=== PATIENT | female | born 1960 | race Caucasian/White ===

== ENCOUNTER 2018-05-18 12:10 | Inpatient (IN) | payer MEDICAID, OTHER ==
[2018-05-18] MEDS ORDERED: NACL 0.9% 1000 ML 1,000 ML ONE (12:41)
[2018-05-18] MEDS ORDERED: NACL 0.9% 1000 ML IV ONE (12:44)
[2018-05-18] MEDS ORDERED: NACL 0.9% 1000 ML 1,000 ML IV ONE (12:48)
[2018-05-18] MEDS ORDERED: ZOSYN/NS 4.5GM/100ML 4.5 GM/100 ML VIAL IV ONE (12:48)
[2018-05-18] MEDS ORDERED: TYLENOL PR ONE ×3 (12:49→18:40)
--- NOTE | 2018-05-18 12:54 | Emergency Department Report ---
ED General Adult HPI - General Stated complaint: DEHYDRATION, FEVER, REFUSAL TO EAT/ DRINK Time Seen by Provider: 05/18/18 12:44 - History of Present Illness Initial comments: Patient is 58-year-old female with history of schizophrenia. Patient brought into the ER for evaluation of fever and hypotension. Patient brought to the ER from psychiatric facility called [facility]. Staff at the psychiatric facility reported that patient refused to eat and drink for the last 3 days with initial blood pressure of 65/36. Patient is not communicating, she is aggressive. Code Sepsis immediately called. - Related Data Allergies Allergy/AdvReac Type Severity Reaction Status Date / Time Unable to Assess Allergy Unverified 05/18/18 13:11 ED Review of Systems ROS: Stated complaint: DEHYDRATION, FEVER, REFUSAL TO EAT/ DRINK Other details as noted in HPI Comment: Unobtainable due to pts medical conditions ED Past Medical Hx - Past Medical History Hx Psychiatric Treatment: Yes ED Physical Exam - General Limitations: Language Barrier, Altered Mental Status General appearance: alert, in no apparent distress - Head Head exam: Present: atraumatic, normocephalic, normal inspection - Eye Eye exam: Present: normal appearance - ENT ENT exam: Present: normal exam, normal orophraynx, mucous membranes moist - Neck Neck exam: Present: normal inspection, full ROM. Absent: tenderness, meningismus, lymphadenopathy, thyromegaly - Respiratory Respiratory exam: Present: normal lung sounds bilaterally - Cardiovascular Cardiovascular Exam: Present: regular rate, normal rhythm, normal heart sounds - GI/Abdominal GI/Abdominal exam: Present: soft, normal bowel sounds. Absent: distended, tenderness, guarding, rebound, rigid, organomegaly, mass, bruit, pulsatile mass - Extremities Exam Extremities exam: Present: normal inspection, full ROM, normal capillary refill - Back Exam Back exam: Present: normal inspection, full ROM. Absent: tenderness, CVA tenderness (R), CVA tenderness (L), muscle spasm, paraspinal tenderness, vertebral tenderness, rash noted - Neurological Exam Neurological exam: Present: alert, altered, reflexes normal. Absent: normal gait - Psychiatric Psychiatric exam: Present: agitated, anxious, manic - Skin Skin exam: Present: warm, dry, intact ED Course Vital Signs 05/18/18 12:28 Temperature 103.1 F H Pulse Rate 98 H Respiratory 20 Rate Blood Pressure 67/48 O2 Sat by Pulse 98 Oximetry - Reevaluation(s) Reevaluation #1: 05/18/18 15:54 Patient is significantly improved. Blood pressure now is 137/78 after 2 L of fluid. ED Medical Decision Making - Lab Data Result diagrams: 05/18/18 12:50 05/18/18 12:50 - Medical Decision Making I discussed the patient is Dr. Che, he agreed to admit the patient to his service. Critical Care Time: Yes Critical care time in (mins) excluding proc time.: 30 Critical care attestation.: If time is entered above; I have spent that time in minutes in the direct care of this critically ill patient, excluding procedure time. ED Disposition Clinical Impression: Sepsis, Fever, Acute renal failure Disposition: -09 OP ADMIT IP TO THIS HOSP Is pt being admited?: Yes Condition: Stable Referrals: NICOLETTE BROWN [Other] - 3-5 Days
[2018-05-18 13:15] LABS: Hematocrit 49.8 % (30.3-42.9); Mean Corpuscular HGB Conc 32 % (30-34); Mean Corpuscular Hemoglobin 30 pg (28-32); Mean Corpuscular Volume 93 fl (79-97); Platelet Count 318 K/mm3 (140-440); Red Blood Count 5.38 M/mm3 (3.65-5.03); Red Cell Distribution Width 14.1 % (13.2-15.2)
[2018-05-18 13:31] LABS: Albumin 4.1 g/dL (3.9-5); Calcium 10.5 mg/dL (8.4-10.2)
[2018-05-18 13:59] LABS: Basophils % (Manual) 0 % (0.0-1.8); Eosinophils % (Manual) 0 % (0.0-4.3); Total Cells Counted 100
[2018-05-18 14:00] LABS: Platelet Estimate Cons; RBC Morphology Normal
--- NOTE | 2018-05-18 14:05 | XRay Report ---
CHEST ONE VIEW INDICATION: Fever. COMPARISON: None similar at this institution. FINDINGS: Portable, single, frontal chest radiograph demonstrates normal cardiomediastinal silhouette. Clear lungs, given the inspiration. Unremarkable bones. CONCLUSION: No acute disease in the chest. Thank you for the opportunity to participate in this patient's care.
[2018-05-18 14:21] LABS: Bilirubin,Urine NEG (Negative); Blood,Urine NEG (Negative); Color,Urine Amber (Yellow); Mucus,Urine FEW /HPF
--- NOTE | 2018-05-18 16:22 | Cat Scan Report ---
FINAL REPORT PROCEDURE: CT ABDOMEN PELVIS WO CON TECHNIQUE: Computerized axial tomography of the abdomen and pelvis was performed without intravenous contrast. This study is performed without intravascular contrast material and its sensitivity for abdominal and pelvic pathology, including neoplasms, inflammation, abscess, free fluid, thrombosis, arterial dissection and infarction, is reduced compared with a contrast enhanced study. HISTORY: ABDOMINAL PAIN, fever, WBC 93796 COMPARISON: No prior studies are available for comparison. FINDINGS: Lower Lung novak: Scattered nonspecific ground-glass densities seen in the lung bases. No dense consolidations or effusions are seen. Upper Abdomen: The unenhanced images the liver, adrenal glands, the pancreas and the spleen are unremarkable. Gallbladder density is greater than expected. I cannot exclude sludge. Gallbladder is otherwise unremarkable. Kidneys, Ureters and Urinary bladder: Nonspecific 2 millimeter calcifications seen in the periphery of the right kidney. The kidneys and ureters otherwise are unremarkable. No hydronephrosis or ureteral calculi are visualized. Urinary bladder is only partially filled and shows no gross abnormality. Retroperitoneum: Atherosclerotic changes are seen in the abdominal aorta. No aneurysm is visualized. Nonspecific subcentimeter lymph nodes are seen in the retroperitoneum. No pathologically enlarged lymph nodes are identified. Bowel: Bowel loops are unremarkable. No evidence of bowel obstruction ascites or free intraperitoneal gas. Normal-appearing appendix is seen in the right lower quadrant. Reproductive organs: The surface of the uterus is slightly lobulated. I suspect there are uterine fibroids. No abnormal adnexal masses are identified. Other: No acute bony abnormalities are seen. Moderate to advanced degenerative disc disease visualized at L1-L2-L3-L4 disc spaces. IMPRESSION: Density of the gallbladder is greater than expected. I cannot exclude gallbladder disease. Consider gallbladder ultrasound for further evaluation. Small nonspecific nonobstructing calcification right kidney as described. Surface of the uterus slightly lobulated. I suspect there are uterine fibroids present. Degenerative disc disease lumbar spine as described..
[2018-05-18] MEDS ORDERED: ATIVAN IV ONE (17:45)
[2018-05-18] MEDS ORDERED: ATIVAN ONE (18:28)
--- NOTE | 2018-05-18 19:30 | Ultrasound Report ---
FINAL REPORT PROCEDURE: US ABDOMEN LIMITED TECHNIQUE: Real-time sonography was performed of the Gallbladder with image documentation. CPT 99765 HISTORY: RUQ pain COMPARISON: CT scan abdomen and pelvis earlier today. FINDINGS: Today's study is limited due to body habitus and bowel gas. Examination the right upper quadrant shows mild diffuse increased echogenicity throughout the gallbladder suggesting diffuse sludge. No formed gallstones are visualized. Gallbladder wall does not appear to be thickened. No ascites is seen. Common bile duct is normal caliber measuring 3.7 millimeters. The intrahepatic ducts do not appear to be distended. Liver echogenicity appears grossly normal. Right kidney suboptimally visualized. This is better visualized on the CT scan earlier today. No gross abnormality is seen.. Pancreas is obscured by bowel gas and cannot be commented on. Only a small portion of the abdominal aorta visualized proximally which showed no abnormality. Inferior vena cava was not visualized. IMPRESSION: Diffuse increased echogenicity seen throughout the gallbladder consistent with sludge. No formed gallstones are seen. Gallbladder is otherwise unremarkable. Common bile duct is normal caliber. No other abnormalities are seen. The study is limited as described.
--- NOTE | 2018-05-18 21:43 | Event Note ---
Date: 05/18/18 See dictated history and physical in the reports Hypotension Hypernatremia Acute kidney injury Schizophrenia
[2018-05-18] MEDS ORDERED: ZOFRAN IV PRN (21:47)
[2018-05-18] MEDS ORDERED: MORPHINE IV PRN (21:47)
[2018-05-18] MEDS ORDERED: PERCOCET 5/325 PO PRN (21:47)
[2018-05-18] MEDS ORDERED: SODIUM CHLORIDE FLUSH SYRINGE 10 ML IV PRN (21:47)
[2018-05-18] MEDS ORDERED: TYLENOL PO PRN (21:47)
[2018-05-18] MEDS ORDERED: PEPCID IV SCH (22:00)
[2018-05-18] MEDS: TYLENOL PR PRN (22:08)
[2018-05-18] MEDS: SODIUM CHLORIDE FLUSH SYRINGE 10 ML IV SCH (22:08)
[2018-05-18] MEDS: PEPCID IV SCH (22:08)
[2018-05-18] MEDS: NACL 0.45% 1000 ML 1,000 ML IV SCH (22:09)
--- NOTE | 2018-05-18 22:29 | History and Physical Report ---
CHIEF COMPLAINT: Fever and low blood pressure. HISTORY OF PRESENT ILLNESS: A 58-year-old female with history of schizophrenia, who is very quiet and not talking at all with poor p.o. intake, comes in for fever and hypotension. The patient brought to the Emergency Room from psychiatric facility. The patient was at [facility] for the past few days. The patient refused to eat and drink for the last 3 days. Initial blood pressure was 65/36. The patient is not communicating, very aggressive. Code sepsis was called. PAST MEDICAL HISTORY: Schizophrenia and depression. PAST SURGICAL HISTORY: Unavailable. SOCIAL HISTORY: Does not smoke. No alcohol, no recreational drugs. FAMILY HISTORY: Unavailable. REVIEW OF SYSTEMS: Significant for poor p.o. intake, not talking at all, very poorly cooperative. Aggressive behavior. The patient not answering questions whether she has hallucinations, etc. No shortness of breath. A 14-point review of systems done. PHYSICAL EXAMINATION: GENERAL: Middle-aged female, looks older than her age. VITAL SIGNS: Initial blood pressure was 65/36, the least was 67, also the error blood pressure reading was 67/48. Temperature was 103.1. Pulse is 98, respirations are 20. HEENT: Dry mucous membranes. NECK: Supple, no lymphadenopathy, no thyromegaly. LUNGS: Clear to auscultation and percussion. Good air entry. CARDIOVASCULAR: S1, S2 heard. No gallop, no murmur, no rub. Apical impulse in the left fifth intercostal space and midclavicular line. ABDOMEN: Soft and benign. No hepatosplenomegaly. No guarding, no rigidity. Hernial orifices are normal. EXTREMITIES: Good pedal pulses. No pedal edema. CENTRAL NERVOUS SYSTEM: Decreased responsiveness, lethargic. Sometimes she responds adequately. Movement is normal in all 4 extremities. LABORATORY DATA: Significant for white count of 24,000, H and H of 16.0 and 49.8, platelet count is 318,000. Sodium is 160, potassium is 4.1, BUN and creatinine is 49 and 2.5, bicarbonate is 22, AST 63, ALT 76, alkaline phosphatase is 139, calcium is 10.5. Total bilirubin 3.9. Urine was negative. CT of the abdomen shows dense gallbladder, cannot exclude gallbladder disease. Gallbladder ultrasound was recommended by the radiology. Also, small nonspecific non-obstructing calcification, right kidney. The surface of the uterus slightly lobulated. Probable uterine fibroids. Degenerative disk disease in the lumbar spine. Chest x-ray, no acute findings. ASSESSMENT AND PLAN: 1. Sepsis. The patient was hypotensive, high white count consistent with sepsis. The patient initiated on IV fluids and IV broad-spectrum antibiotics, IV Zosyn and vancomycin. Urine was negative. 2. Hypernatremia, half normal saline initiated because her blood glucose was high 182. 3. Acute kidney injury. The patient's BUN and creatinine is 49 and 2.5, suspect that the creatinine is normal level. IV half normal saline at present. Also, Nephrology consult requested. 4. Hyperglycemia. The patient has no history of diabetes. We will get Accu-Cheks and A1c and coverage. If necessary, initiate on oral hypoglycemics or long-acting insulin at the time of discharge. 5. Transaminitis. We will get acute hepatitis profile. 6. Elevated bilirubin, rule out cholecystitis. We will get a surgical consult also. Gallbladder may be the source of infection. 7. Deep venous thrombosis prophylaxis, Lovenox 30 mg subcutaneous daily. In summary, the patient has sepsis, hypotension, which is nearly resolved in the Emergency Room, hypernatremia, acute kidney injury, elevated liver enzymes and elevated bilirubin and possible cholecystitis. JOB# [id number] ANDREW/NEYDA
[2018-05-18] MEDS ORDERED: VANCOMYCIN 1,500 MG in NACL 0.9% 500 ML 500 ML IV ONE (22:30)
[2018-05-18] MEDS ORDERED: VANCOMYCIN PHARMACY TO DOSE IV SCH (23:00)
[2018-05-18] MEDS ORDERED: ZOSYN/NS 2.25 GM/50ML 2.25 GM/50 ML BAG IV SCH (23:00)
[2018-05-18] MEDS: HumaLOG SUB-Q SCH (23:09)
[2018-05-19] MEDS: ZOSYN/NS 2.25 GM/50ML 2.25 GM/50 ML BAG IV SCH ×4 (00:27→19:45)
[2018-05-19] MEDS: TYLENOL PR PRN (04:35)
[2018-05-19 06:35] LABS: Basophils % (Auto) 0.2 % (0.0-1.8); Eosinophils % (Auto) 0.1 % (0.0-4.3); Hematocrit 40.3 % (30.3-42.9); Lymphocytes # (Auto) 1.3 K/mm3 (1.2-5.4); Lymphocytes % (Auto) 8.8 % (13.4-35.0); Mean Corpuscular HGB Conc 32 % (30-34); Mean Corpuscular Hemoglobin 30 pg (28-32); Mean Corpuscular Volume 93 fl (79-97); Monocytes # (Auto) 1.1 K/mm3 (0.0-0.8); Monocytes % (Auto) 7.3 % (0.0-7.3); Platelet Count 202 K/mm3 (140-440); Red Blood Count 4.33 M/mm3 (3.65-5.03); Red Cell Distribution Width 14.1 % (13.2-15.2)
[2018-05-19 07:00] LABS: Albumin 3.3 g/dL (3.9-5); Calcium 9.1 mg/dL (8.4-10.2)
[2018-05-19] MEDS: HumaLOG SUB-Q SCH ×4 (08:50→22:40)
--- NOTE | 2018-05-19 08:56 | Progress Note ---
Assessment and Plan Sepsis with septic shock Possible Gallbladder disease Hypernatrmia MINERVA form ATN hyperglycemia transaminasemia Elevated Bili Continue with iv Vanc and Zosyn Follow up with Cx results iv resuscitation per sepsis protocol Serial Lactic acid level Cautiously increase free water Renal US Nephrology consult Trend glycemic level DVT PPx Subjective Date of service: 05/19/18 Principal diagnosis: sepsis with hypotension Interval history: Pt seen ands examined. nO ever night event reported. deniea any fever chest pain or shortness of breath Objective - Constitutional Vitals: Vital Signs - 12hr 05/18/18 05/18/18 05/18/18 21:02 21:36 22:28 Temperature 101.7 F H Pulse Rate 131 H 92 H Respiratory 26 H 13 Rate Blood Pressure 132/81 124/80 O2 Sat by Pulse 90 98 Oximetry 05/19/18 05/19/18 05/19/18 00:00 00:33 04:14 Temperature 100.9 F H 100.6 F H Pulse Rate 144 H 129 H 130 H Respiratory 26 H 26 H Rate Blood Pressure 134/79 129/77 O2 Sat by Pulse 95 95 Oximetry 05/19/18 07:18 Temperature 98.0 F Pulse Rate 120 H Respiratory 20 Rate Blood Pressure 133/79 O2 Sat by Pulse 96 Oximetry General appearance: Present: no acute distress, well-nourished - EENT Eyes: PERRL, EOM intact Ears: bilateral: normal - Neck Neck: supple, normal ROM - Respiratory Respiratory effort: normal Respiratory: bilateral: CTA - Cardiovascular Rhythm: regular Heart Sounds: Present: S1 & S2. Absent: gallop, rub Extremities: pulses intact, No edema, normal color, Full ROM - Gastrointestinal General gastrointestinal: Present: soft, non-tender, non-distended, normal bowel sounds - Integumentary Integumentary: clear, warm, dry - Musculoskeletal Musculoskeletal: 1, strength equal bilaterally - Neurologic Neurologic: moves all extremities - Psychiatric Psychiatric: memory intact, appropriate mood/affect, intact judgment & insight - Labs CBC & Chem 7: 05/19/18 05:36 05/19/18 05:36 Labs: Abnormal lab results 05/18/18 05/18/18 05/18/18 Range/Units 12:50 12:50 12:50 WBC 24.0 H (4.5-11.0) K/mm3 RBC 5.38 H (3.65-5.03) M/mm3 Hgb 16.0 H (10.1-14.3) gm/dl Hct 49.8 H (30.3-42.9) % Lymph % (Auto) (13.4-35.0) % [place] # (0.0-0.8) K/mm3 Seg Neutrophils % (40.0-70.0) % Seg Neuts % (Manual) 89.0 H (40.0-70.0) % Lymphocytes % (Manual) 4.0 L (13.4-35.0) % Seg Neutrophils # (1.8-7.7) K/mm3 Seg Neutrophils # Man 21.4 H (1.8-7.7) K/mm3 Lymphocytes # (Manual) 1.0 L (1.2-5.4) K/mm3 Monocytes # (Manual) 1.4 H (0.0-0.8) K/mm3 Sodium 160 H (137-145) mmol/L Chloride 119.1 H (98-107) mmol/L BUN 49 H (7-17) mg/dL Creatinine 2.5 H (0.7-1.2) mg/dL Glucose 182 H (65-100) mg/dL POC Glucose (70-105) Lactic Acid 3.40 H* (0.7-2.0) mmol/L Calcium 10.5 H (8.4-10.2) mg/dL Total Bilirubin 3.90 H (0.1-1.2) mg/dL AST 63 H (5-40) units/L ALT 76 H (7-56) units/L Alkaline Phosphatase 139 H (35-129) units/L Total Protein (6.3-8.2) g/dL Albumin (3.9-5) g/dL 05/18/18 05/19/18 05/19/18 Range/Units 22:24 05:36 05:36 WBC 15.2 H (4.5-11.0) K/mm3 RBC (3.65-5.03) M/mm3 Hgb (10.1-14.3) gm/dl Hct (30.3-42.9) % Lymph % (Auto) 8.8 L (13.4-35.0) % [place] # 1.1 H (0.0-0.8) K/mm3 Seg Neutrophils % 83.6 H (40.0-70.0) % Seg Neuts % (Manual) (40.0-70.0) % Lymphocytes % (Manual) (13.4-35.0) % Seg Neutrophils # 12.7 H (1.8-7.7) K/mm3 Seg Neutrophils # Man (1.8-7.7) K/mm3 Lymphocytes # (Manual) (1.2-5.4) K/mm3 Monocytes # (Manual) (0.0-0.8) K/mm3 Sodium 167 H* (137-145) mmol/L Chloride 131.1 H (98-107) mmol/L BUN 39 H (7-17) mg/dL Creatinine 2.0 H (0.7-1.2) mg/dL Glucose 118 H (65-100) mg/dL POC Glucose 121 H (70-105) Lactic Acid (0.7-2.0) mmol/L Calcium (8.4-10.2) mg/dL Total Bilirubin 3.50 H (0.1-1.2) mg/dL AST 68 H (5-40) units/L ALT 69 H (7-56) units/L Alkaline Phosphatase (35-129) units/L Total Protein 6.0 L (6.3-8.2) g/dL Albumin 3.3 L (3.9-5) g/dL // Range/Units 06:35 WBC (4.5-11.0) K/mm3 RBC (3.65-5.03) M/mm3 Hgb (10.1-14.3) gm/dl Hct (30.3-42.9) % Lymph % (Auto) (13.4-35.0) % [place] # (0.0-0.8) K/mm3 Seg Neutrophils % (40.0-70.0) % Seg Neuts % (Manual) (40.0-70.0) % Lymphocytes % (Manual) (13.4-35.0) % Seg Neutrophils # (1.8-7.7) K/mm3 Seg Neutrophils # Man (1.8-7.7) K/mm3 Lymphocytes # (Manual) (1.2-5.4) K/mm3 Monocytes # (Manual) (0.0-0.8) K/mm3 Sodium (137-145) mmol/L Chloride (98-107) mmol/L BUN (7-17) mg/dL Creatinine (0.7-1.2) mg/dL Glucose (65-100) mg/dL POC Glucose 110 H (70-105) Lactic Acid (0.7-2.0) mmol/L Calcium (8.4-10.2) mg/dL Total Bilirubin (0.1-1.2) mg/dL AST (5-40) units/L ALT (7-56) units/L Alkaline Phosphatase (35-129) units/L Total Protein (6.3-8.2) g/dL Albumin (3.9-5) g/dL
--- NOTE | 2018-05-19 09:16 | Consultation ---
History of Present Illness - History of Present Illness Renal failure moderately severe current creatinine better, needs workup for renal failure no old records in our system, most likely from dehydration patient does appear to be prerenal, rule out any possibility of underlying chronic kidney disease, ? Some degree of ATN needs to be ruled out as well given the severity of dehydration and hypotension it is quite likely that patient may have had some ATN Patient needs blood work and renal ultrasound: Dedicated Vascular calcification: Noted patient is also high risk for renovascular disease CAT scan did not show any obvious abnormality other than 2 mm stone Renal prognosis is very guarded at this time to monitor and follow Patient does not require any dialysis Urinalysis showed 30 mg protein and 5 red blood cells Moderately severe hypernatremia needs close monitoring follow-up correction free water replacement Elevated liver enzyme: Etiology unclear at this point but bilirubin is trending down to 3.5 ultrasonogram findings noted Lactic acidosis, elevated at 1.8 upon admission Hypercalcemia likely resulting from dehydration History of schizophrenia, fever hypotension Prognosis guarded Medications and Allergies Allergies Allergy/AdvReac Type Severity Reaction Status Date / Time Unable to Assess Allergy Unverified 05/18/18 13:11 Home Medications Medication Instructions Recorded Confirmed Last Taken Type Benztropine [Cogentin] 1 mg PO BID 05/18/18 05/18/18 05/18/18 History [place] Carbonate [[place] 450 mg PO BID 05/18/18 05/18/18 05/18/18 History Carbonate ER] Olanzapine [Zyprexa] 10 mg PO QAM 05/18/18 05/18/18 05/18/18 History Olanzapine [Zyprexa] 20 mg PO QHS 05/18/18 05/18/18 05/17/18 History chlorproMAZINE (NF) [Thorazine 100 mg PO Q8H 05/18/18 05/18/18 05/18/18 History (Nf)] hydrOXYZINE PAMOATE [hydrOXYzine 50 mg PO TID 05/18/18 05/18/18 05/18/18 History Pamoate] traZODone [Desyrel] 200 mg PO QHS 05/18/18 05/18/18 05/17/18 History Active Meds: Active Medications Acetaminophen (Tylenol) 650 mg PA Q4H PRN PRN Reason: Pain, Mild (1-3) Last Admin: 05/19/18 04:35 Dose: 650 mg Acetaminophen (Tylenol) 650 mg PO Q4H PRN PRN Reason: Pain, Mild (1-3) Enoxaparin Sodium (Lovenox) 30 mg SUB-Q QDAY@2200 [place] Famotidine (Pepcid) 20 mg IV DAILY [facility] Last Admin: 05/18/18 22:08 Dose: 20 mg Sodium Chloride (Nacl 0.45% 1000 Ml) 1,000 mls @ 100 mls/hr IV DIRECT [facility] Last Admin: 05/18/18 22:09 Dose: 100 mls/hr Piperacillin Sod/Tazobactam Sod (Zosyn/Ns 2.25 Gm/50ml) 2.25 gm in 50 mls @ 100 mls/hr IV Q6HR [facility]; Protocol Last Admin: 05/19/18 05:15 Dose: 100 mls/hr Vancomycin HCl 1,250 mg/ (Sodium Chloride) 262.5 mls @ 166.667 mls/hr IV Q24H [facility] Insulin Human Lispro (Humalog) 0 unit SUB-Q ACHS [facility]; Protocol Last Admin: 05/18/18 23:09 Dose: Not Given Morphine Sulfate (Morphine) 2 mg IV Q4H PRN PRN Reason: Pain, Moderate (4-6) Ondansetron HCl (Zofran) 4 mg IV Q8H PRN PRN Reason: Nausea And Vomiting Oxycodone/Acetaminophen (Percocet 5/325) 1 tab PO Q6H PRN PRN Reason: Pain, Moderate (4-6) Sodium Chloride (Sodium Chloride Flush Syringe 10 Ml) 10 ml IV BID [facility] Last Admin: 05/18/18 22:08 Dose: 10 ml Sodium Chloride (Sodium Chloride Flush Syringe 10 Ml) 10 ml IV PRN PRN PRN Reason: LINE FLUSH Vancomycin HCl (Vancomycin Pharmacy To Dose) 1 each IV PKCONSULT [facility]; Protocol Exam - Vital Signs Vital signs: Vital Signs Temp Pulse Resp BP Pulse Ox 103.1 F H 98 H 20 67/48 98 05/18/18 12:28 05/18/18 12:28 05/18/18 12:28 05/18/18 12:28 05/18/18 12:28 Results - Lab Results 05/19/18 05:36 05/19/18 05:36 Most recent lab results Calcium 9.1 mg/dL (8.4-10.2) 05/19/18 05:36
[2018-05-19] MEDS: PEPCID IV SCH (11:15)
[2018-05-19] MEDS: NACL 0.45% 1000 ML 1,000 ML IV SCH ×2 (12:57→21:52)
[2018-05-19 13:58] LABS: Hepatitis A Antibody IgM Non-Reactive (NonReactive); Hepatitis B Core IgM Non-Reactive (NonReactive); Hepatitis B Surface Antigen Non-Reactive (Negative); Hepatitis C Virus Antibody Non-Reactive (NonReactive)
[2018-05-19] MEDS: SODIUM CHLORIDE FLUSH SYRINGE 10 ML IV SCH ×2 (14:58→22:08)
[2018-05-19] MEDS: LOVENOX SUB-Q SCH (21:52)
[2018-05-19] MEDS: TYLENOL PO PRN (21:53)
[2018-05-19] MEDS: ATIVAN IV PRN (21:54)
[2018-05-19] MEDS: VANCOMYCIN 1,250 MG in NACL 0.9% 250ML 250 ML IV SCH (22:08)
[2018-05-20] MEDS: TYLENOL PO PRN ×2 (01:22→16:57)
[2018-05-20] MEDS: ATIVAN IV PRN ×3 (01:22→23:02)
[2018-05-20] MEDS: ZOSYN/NS 2.25 GM/50ML 2.25 GM/50 ML BAG IV SCH ×4 (01:23→17:30)
[2018-05-20] MEDS: HumaLOG SUB-Q SCH ×3 (10:02→16:26)
[2018-05-20] MEDS: PEPCID IV SCH (10:51)
[2018-05-20] MEDS: SODIUM CHLORIDE FLUSH SYRINGE 10 ML IV SCH ×2 (10:52→20:11)
[2018-05-20] MEDS: NACL 0.45% 1000 ML 1,000 ML IV SCH (11:35)
--- NOTE | 2018-05-20 12:47 | Progress Note ---
Subjective Principal diagnosis: sepsis with hypotension Interval history: Patient was seen today for follow-up on multiple renal related issues Events of this hospitalization noted Interdisciplinary notes were also reviewed Past medical history: Reviewed Family history: Reviewed Social history: Reviewed Vitals: Reviewed HEENT: Oral mucosa very dry Neck: Supple no thyromegaly no JVD Chest: Clear to auscultation anteriorly no crackles or wheezes Heart: Regular rate and rhythm S1-S2 heard no S3-S4 Abdomen: Soft nontender dry skin and no organomegaly Extremity: Less than 1+ edema dry skin no petechial rash Musculoskeletal: No joint effusion noted psychiatric: Occasionally agitated Assessment and plan: Renal failure: Patient mostly appears to be prerenal dehydrated cannot rule out a possibility of tubular necrosis due to hypotension and severe dehydration no acute indications for renal replacement therapy at this time to monitor and follow maintain hydration monitor intake and output avoid hypotension maintain oxygenation follow-up on the lab and renal sonogram Renal prognosis remains guarded at this time/ hypernatremia: Mostly from dehydration/patient was on lithium as well as trazodone Dehydration moderately severe admitted with sepsis-like picture, blood pressure is stable patient still has low-grade temperature Patient does need a Dunn catheter for proper monitoring of intake and output Underlying psychiatry issues, Will check labs today including basic metabolic profile uric acid as well as osmolality to guide fluid therapy We'll continue to follow and make recommendations from renal standpoint For any questions feel free to contact me at [phone] Objective - Vital Signs Vital signs: Vital Signs - 12hr 05/20/18 05/20/18 05/20/18 01:22 02:46 04:31 Temperature 102.3 F H Pulse Rate Respiratory 20 20 Rate Blood Pressure 100/69 O2 Sat by Pulse 100 Oximetry 05/20/18 05/20/18 05/20/18 04:32 08:36 12:00 Temperature 99.7 F H Pulse Rate 87 88 88 Respiratory 20 Rate Blood Pressure 108/77 O2 Sat by Pulse 91 96 Oximetry - Lab 05/19/18 05:36 05/19/18 05:36 Most recent lab results Calcium 9.1 mg/dL (8.4-10.2) 05/19/18 05:36
[2018-05-20 14:16] LABS: Calcium 9.6 mg/dL (8.4-10.2); Uric Acid 7.1 mg/dL (3.5-7.6)
[2018-05-20] MEDS: D5W 1,000 ML IV SCH (15:47)
--- NOTE | 2018-05-20 17:26 | Progress Note ---
Assessment and Plan Sepsis with septic shock Possible Gallbladder disease Hypernatremia [place] form ATN hyperglycemia transaminasemia Elevated Bili Continue with iv Vanc and Zosyn Follow up with Cx results iv resuscitation per sepsis protocol Serial Lactic acid level Commence D5W Nephrology consult. discussedw malika Delaney, Highway Maintenance Supervisor Trend glycemic level DVT PPx Subjective Date of service: 05/20/18 Principal diagnosis: sepsis with hypotension, hyperkalemia Interval history: Pt seen ands examined. No ever night event reported. Denies any fever chest pain or shortness of breath Objective - Constitutional Vitals: Vital Signs - 12hr 05/20/18 05/20/18 05/20/18 08:36 12:00 12:03 Temperature 99.7 F H 99.9 F H Pulse Rate 88 88 98 H Respiratory 20 20 Rate Blood Pressure 108/77 116/69 O2 Sat by Pulse 96 95 Oximetry 05/20/18 05/20/18 16:16 16:43 Temperature 100.9 F H Pulse Rate 102 H Respiratory 20 Rate Blood Pressure 126/76 O2 Sat by Pulse 92 Oximetry General appearance: Present: no acute distress, well-nourished - EENT Eyes: PERRL, EOM intact Ears: bilateral: normal - Neck Neck: supple, normal ROM - Respiratory Respiratory effort: normal Respiratory: bilateral: CTA - Cardiovascular Rhythm: regular Heart Sounds: Present: S1 & S2. Absent: gallop, rub Extremities: pulses intact, No edema, normal color, Full ROM - Gastrointestinal General gastrointestinal: Present: soft, non-tender, non-distended, normal bowel sounds - Integumentary Integumentary: clear, warm, dry - Musculoskeletal Musculoskeletal: 1, strength equal bilaterally - Neurologic Neurologic: moves all extremities - Psychiatric Psychiatric: memory intact, appropriate mood/affect, intact judgment & insight - Labs CBC & Chem 7: 05/19/18 05:36 05/20/18 13:26 Labs: Abnormal lab results 05/20/18 05/20/18 05/20/18 Range/Units 08:49 13:26 16:24 Sodium 167 H* (137-145) mmol/L Chloride 132.8 H (98-107) mmol/L BUN 34 H (7-17) mg/dL Creatinine 1.7 H (0.7-1.2) mg/dL Glucose 134 H (65-100) mg/dL POC Glucose 113 H 126 H (70-105) Total Creatine Kinase 2664 H (30-135) units/L
[2018-05-20] MEDS ORDERED: CHLORPROMAZINE 100 MG PO SCH (17:30)
[2018-05-20 17:49] LABS: Creatinine,Urine 118.8 mg/dL (0.1-20.0)
[2018-05-20] MEDS: KCL 10MEQ/100ML 10 MEQ/100 ML BAG IV SCH ×2 (20:04→22:03)
[2018-05-20] MEDS: THORAZINE PO SCH (20:07)
[2018-05-20] MEDS: LITHOBID ER PO SCH (20:10)
[2018-05-20] MEDS: VISTARIL PO SCH (20:10)
[2018-05-20] MEDS: COGENTIN PO SCH (20:10)
[2018-05-20] MEDS: DESYREL PO SCH (20:14)
[2018-05-20] MEDS: LOVENOX SUB-Q SCH (20:14)
[2018-05-20] MEDS ORDERED: NON-FORMULARY (Olanzapine [Zyprexa] 20 MG) PO SCH (22:00)
[2018-05-20] MEDS: VANCOMYCIN 1,250 MG in NACL 0.9% 250ML 250 ML IV SCH (22:03)
[2018-05-21] MEDS: DESYREL PO SCH ×2 (00:58→21:52)
[2018-05-21] MEDS: COGENTIN PO SCH ×2 (00:58→11:11)
[2018-05-21] MEDS: SODIUM CHLORIDE FLUSH SYRINGE 10 ML IV SCH ×3 (00:59→21:53)
[2018-05-21] MEDS: LOVENOX SUB-Q SCH ×2 (00:59→21:51)
[2018-05-21] MEDS: LITHOBID ER PO SCH ×2 (00:59→10:56)
[2018-05-21] MEDS: THORAZINE PO SCH ×3 (01:00→13:20)
[2018-05-21] MEDS: HumaLOG SUB-Q SCH ×4 (02:37→17:52)
[2018-05-21] MEDS: ZOSYN/NS 2.25 GM/50ML 2.25 GM/50 ML BAG IV SCH ×2 (02:38→05:50)
[2018-05-21] MEDS: D5W 1,000 ML IV SCH ×3 (05:50→21:50)
[2018-05-21] MEDS: ATIVAN IV PRN ×2 (05:56→18:36)
[2018-05-21 06:56] LABS: Basophils % (Auto) 0.5 % (0.0-1.8); Eosinophils # (Auto) 0.1 K/mm3 (0.0-0.4); Eosinophils % (Auto) 1.2 % (0.0-4.3); Hematocrit 35.3 % (30.3-42.9); Hemoglobin 11.6 gm/dl (10.1-14.3); Lymphocytes # (Auto) 1.1 K/mm3 (1.2-5.4); Lymphocytes % (Auto) 12.7 % (13.4-35.0); Mean Corpuscular HGB Conc 33 % (30-34); Mean Corpuscular Hemoglobin 31 pg (28-32); Mean Corpuscular Volume 93 fl (79-97); Monocytes # (Auto) 0.4 K/mm3 (0.0-0.8); Monocytes % (Auto) 4.9 % (0.0-7.3); Platelet Count 151 K/mm3 (140-440); Red Cell Distribution Width 14.3 % (13.2-15.2)
[2018-05-21 07:33] LABS: Calcium 9.4 mg/dL (8.4-10.2)
--- NOTE | 2018-05-21 09:54 | Progress Note ---
Assessment and Plan Sepsis with septic shock Possible Gallbladder disease Hypernatremia MINERVA form ATN hyperglycemia transaminasemia Elevated Bili History of schizophrenia Continue with iv Vanc and Zosyn Follow up with Cx results iv resuscitation per sepsis protocol Serial Lactic acid level Commence D5W Nephrology consult. discussed with DR Delaney, Ware[employer] Administrative Assistant Trend glycemic level Continue with antipsychotic medications DVT PPx Subjective Date of service: 05/21/18 Principal diagnosis: sepsis with hypotension, hyperkalemia Interval history: Pt seen and examined. No ever night event reported. Denies any fever chest pain or shortness of breath Objective - Exam Narrative Exam: Constitutional: Patient is to confused and lethargic Well-nourished well- developed. In no distress Head: Normocephalic atraumatic Eyes: Pupils are equal round and reactive to light Nose: No enlarged turbinates, no septal deviation. Mouth: Moist mucous membranes. Neck: Supple no thyromegaly. No bruit. No JVD Heart: Regular rate and rhythm, S1-S2 abnormal. No rubs murmurs or gallop Lungs: Clear to auscultation bilaterally no rales or rhonchi Abdomen: Soft, nontender. Bowel sound are present. Extremities: No edema no cyanosis and no clubbing. Neuro: Alert oriented Oriented x3. No focal sensory or motor deficit. Skin: No rashes no hyperemic spots Psychiatry: Euthymic. Calm. - Constitutional Vitals: Vital Signs - 12hr 05/21/18 05/21/18 05/21/18 00:47 01:19 01:21 Temperature 98.9 F Pulse Rate 94 H 94 H Respiratory 20 20 Rate Blood Pressure Blood Pressure 115/67 [Right] O2 Sat by Pulse 95 Oximetry 05/21/18 05/21/18 05:27 08:57 Temperature 97.9 F Pulse Rate 78 85 Respiratory 18 20 Rate Blood Pressure 104/62 Blood Pressure 115/71 [Right] O2 Sat by Pulse 98 98 Oximetry - Labs CBC & Chem 7: 05/21/18 05:59 05/21/18 05:59 Labs: Abnormal lab results 05/19/18 05/20/18 05/20/18 Range/Units 16:51 08:49 12:11 Lymph % (Auto) (13.4-35.0) % Lymph # (1.2-5.4) K/mm3 Seg Neutrophils % (40.0-70.0) % Sodium (137-145) mmol/L Chloride (98-107) mmol/L BUN (7-17) mg/dL Creatinine (0.7-1.2) mg/dL Glucose (65-100) mg/dL POC Glucose 113 H 113 H (70-105) Magnesium (1.7-2.3) mg/dL Total Bilirubin (0.1-1.2) mg/dL AST (5-40) units/L ALT (7-56) units/L Total Creatine Kinase (30-135) units/L Total Protein (6.3-8.2) g/dL Albumin (3.9-5) g/dL Urine Creatinine 118.8 H (0.1-20.0) mg/dL Urine Total Protein 43 H (5-11.8) mg/dL 05/20/18 05/20/18 05/21/18 Range/Units 13:26 16:24 01:25 Lymph % (Auto) (13.4-35.0) % Lymph # (1.2-5.4) K/mm3 Seg Neutrophils % (40.0-70.0) % Sodium 167 H* (137-145) mmol/L Chloride 132.8 H (98-107) mmol/L BUN 34 H (7-17) mg/dL Creatinine 1.7 H (0.7-1.2) mg/dL Glucose 134 H (65-100) mg/dL POC Glucose 126 H 122 H (70-105) Magnesium (1.7-2.3) mg/dL Total Bilirubin (0.1-1.2) mg/dL AST (5-40) units/L ALT (7-56) units/L Total Creatine Kinase 2664 H (30-135) units/L Total Protein (6.3-8.2) g/dL Albumin (3.9-5) g/dL Urine Creatinine (0.1-20.0) mg/dL Urine Total Protein (5-11.8) mg/dL 05/21/18 05/21/18 05/21/18 Range/Units 05:59 05:59 06:13 Lymph % (Auto) 12.7 L (13.4-35.0) % Lymph # 1.1 L (1.2-5.4) K/mm3 Seg Neutrophils % 80.7 H (40.0-70.0) % Sodium 164 H* (137-145) mmol/L Chloride 132.4 H (98-107) mmol/L BUN 28 H (7-17) mg/dL Creatinine 1.5 H (0.7-1.2) mg/dL Glucose 144 H (65-100) mg/dL POC Glucose 149 H (70-105) Magnesium 2.50 H (1.7-2.3) mg/dL Total Bilirubin 2.60 H (0.1-1.2) mg/dL AST 57 H (5-40) units/L ALT 73 H (7-56) units/L Total Creatine Kinase (30-135) units/L Total Protein 5.4 L (6.3-8.2) g/dL Albumin 3.0 L (3.9-5) g/dL Urine Creatinine (0.1-20.0) mg/dL Urine Total Protein (5-11.8) mg/dL
[2018-05-21] MEDS: VISTARIL PO SCH ×3 (10:58→21:51)
[2018-05-21] MEDS: PEPCID IV SCH (11:12)
[2018-05-21] MEDS: ZOSYN/NS 3.375GM/50ML 3.375 GM/50 ML BAG IV SCH ×3 (13:17→23:41)
--- NOTE | 2018-05-21 14:37 | Consultation ---
History of Present Illness - Reason for Consult Consult date: 05/21/18 Reason for consult: schizophrenia - Chief Complaint Chief complaint: groans - History of Present Psychiatric Illness 58 year old female seen for psychiatric evaluation. Her record was reviewed and collateral received from her daughter, Michelle ([phone]). Her , Gasper was present. He is called [facility]. Michelle reports Ms. Jaramillo has been treated for schizophrenia since she was 20 years old. She had very few hospitalizations, sometimes going for 10 years without hospitalization. When her mother 5 years ago, she was hospitalized nearly every month until about 1.5-2 years ago. At that time, [place] She was stable until recently. Michelle reports the family has significant stressors and financial issues. She reports her mother usually takes 4 medications, lithium, trazodone, and 2 others. She states prior to the hospitalization at [facility] she was talking non stop and walking non stop. States states on the 5th day of this behavior, she began writing on the rust. At that point she was taken to the psychiatric facility. She reports being frustrated with the staff at [facility] because she was there for 9 days and found out she was not eating or drinking for 3-4 days. She states her mother has strict medication compliance. She was transferred from [facility] to [facility] due to dehydration. Medical team is addressing the following: sepsis with septic shock, possible Gallbladder disease, hypernatremia (sodium is 164), MINERVA form ATN, hyperglycemia, transaminasemia, and elevated Bili. Current ck is 2264 on 05/20/2018 She opened her eyes in response to her name being called. She could not answer questions. Unable to assess. Her daughter states she has been eating jello and is able to drink fluids. Medications and Allergies Allergies Allergy/AdvReac Type Severity Reaction Status Date / Time Unable to Assess Allergy Unverified 05/18/18 13:11 Home Medications Medication Instructions Recorded Confirmed Last Taken Type Benztropine [Cogentin] 1 mg PO BID 05/18/18 05/18/18 05/18/18 History [place] Carbonate [[place] 450 mg PO BID 05/18/18 05/18/18 05/18/18 History Carbonate ER] Olanzapine [Zyprexa] 10 mg PO QAM 05/18/18 05/18/18 05/18/18 History Olanzapine [Zyprexa] 20 mg PO QHS 05/18/18 05/18/18 05/17/18 History chlorproMAZINE (NF) [Thorazine 100 mg PO Q8H 05/18/18 05/18/18 05/18/18 History (Nf)] hydrOXYZINE PAMOATE [hydrOXYzine 50 mg PO TID 05/18/18 05/18/18 05/18/18 History Pamoate] traZODone [Desyrel] 200 mg PO QHS 05/18/18 05/18/18 05/17/18 History Active Meds: Active Medications Acetaminophen (Tylenol) 650 mg IA Q4H PRN PRN Reason: Pain, Mild (1-3) Last Admin: 05/19/18 04:35 Dose: 650 mg Acetaminophen (Tylenol) 650 mg PO Q4H PRN PRN Reason: Pain, Mild (1-3) Last Admin: 05/20/18 16:57 Dose: 650 mg Enoxaparin Sodium (Lovenox) 30 mg SUB-Q QDAY@2200 [facility] Last Admin: 05/21/18 00:59 Dose: Not Given Famotidine (Pepcid) 20 mg IV DAILY [facility] Last Admin: 05/21/18 11:12 Dose: 20 mg Hydroxyzine Pamoate (Vistaril) 50 mg PO TID [facility] Last Admin: 05/21/18 13:20 Dose: Not Given Vancomycin HCl 1,250 mg/ (Sodium Chloride) 262.5 mls @ 166.667 mls/hr IV Q24H [facility] Last Admin: 05/20/18 22:03 Dose: 166.667 mls/hr Dextrose (D5w) 1,000 mls @ 125 mls/hr IV DIRECT [facility] Last Admin: 05/21/18 05:50 Dose: 125 mls/hr Piperacillin Sod/Tazobactam Sod (Zosyn/Ns 3.375gm/50ml) 3.375 gm in 50 mls @ 100 mls/hr IV Q6H [facility] Last Admin: 05/21/18 13:17 Dose: 100 mls/hr Insulin Human Lispro (Humalog) 0 unit SUB-Q ACHS [facility]; Protocol Last Admin: 05/21/18 11:28 Dose: 3 unit Lorazepam (Ativan) 1 mg IV Q4H PRN PRN Reason: Agitation Last Admin: 05/21/18 05:56 Dose: 1 mg Morphine Sulfate (Morphine) 2 mg IV Q4H PRN PRN Reason: Pain, Moderate (4-6) Ondansetron HCl (Zofran) 4 mg IV Q8H PRN PRN Reason: Nausea And Vomiting Oxycodone/Acetaminophen (Percocet 5/325) 1 tab PO Q6H PRN PRN Reason: Pain, Moderate (4-6) Last Admin: 05/20/18 20:09 Dose: 1 tab Sodium Chloride (Sodium Chloride Flush Syringe 10 Ml) 10 ml IV BID [facility] Last Admin: 05/21/18 11:12 Dose: 10 ml Sodium Chloride (Sodium Chloride Flush Syringe 10 Ml) 10 ml IV PRN PRN PRN Reason: LINE FLUSH Last Admin: 05/19/18 12:56 Dose: 10 ml Trazodone HCl (Desyrel) 200 mg PO QHS [facility] Last Admin: 05/21/18 00:58 Dose: Not Given Vancomycin HCl (Vancomycin Pharmacy To Dose) 1 each IV PKCONSULT [facility]; Protocol Past psychiatric history - past Psychiatric treatment and history Psych: Schizophrenia psychiatric treatment history: vs. schizoaffective, bipolar type She has been on lithium in the past and was taken off of it due to renal concerns. It is unclear how long she has been back on it prior to the hospitalization. - Social History Social history: lives with family Mental Status Exam - Vital signs Last Vital Signs Temp 98.5 F 05/21/18 12:00 Pulse 85 05/21/18 13:00 Resp 20 05/21/18 12:00 BP 96/63 05/21/18 12:00 Pulse Ox 96 05/21/18 12:00 - Exam Narrative exam: She opened her eyes in response to her name being called. She could not answer questions. Unable to assess. Orientation: person Results Result Diagrams: 05/21/18 05:59 05/21/18 05:59 Abnormal lab results 05/19/18 05/20/18 05/20/18 Range/Units 16:51 08:49 12:11 Lymph % (Auto) (13.4-35.0) % Lymph # (1.2-5.4) K/mm3 Seg Neutrophils % (40.0-70.0) % Sodium (137-145) mmol/L Chloride (98-107) mmol/L BUN (7-17) mg/dL Creatinine (0.7-1.2) mg/dL Glucose (65-100) mg/dL POC Glucose 113 H 113 H (70-105) Magnesium (1.7-2.3) mg/dL Total Bilirubin (0.1-1.2) mg/dL AST (5-40) units/L ALT (7-56) units/L Total Creatine Kinase (30-135) units/L Total Protein (6.3-8.2) g/dL Albumin (3.9-5) g/dL Urine Creatinine 118.8 H (0.1-20.0) mg/dL Urine Total Protein 43 H (5-11.8) mg/dL 05/20/18 05/20/18 05/21/18 Range/Units 13:26 16:24 01:25 Lymph % (Auto) (13.4-35.0) % Lymph # (1.2-5.4) K/mm3 Seg Neutrophils % (40.0-70.0) % Sodium 167 H* (137-145) mmol/L Chloride (98-107) mmol/L BUN (7-17) mg/dL Creatinine (0.7-1.2) mg/dL Glucose (65-100) mg/dL POC Glucose 126 H 122 H (70-105) Magnesium (1.7-2.3) mg/dL Total Bilirubin (0.1-1.2) mg/dL AST (5-40) units/L ALT (7-56) units/L Total Creatine Kinase 2664 H (30-135) units/L Total Protein (6.3-8.2) g/dL Albumin (3.9-5) g/dL Urine Creatinine (0.1-20.0) mg/dL Urine Total Protein (5-11.8) mg/dL 05/21/18 05/21/18 05/21/18 Range/Units 05:59 05:59 06:13 Lymph % (Auto) 12.7 L (13.4-35.0) % Lymph # 1.1 L (1.2-5.4) K/mm3 Seg Neutrophils % 80.7 H (40.0-70.0) % Sodium 164 H* (137-145) mmol/L Chloride 132.4 H (98-107) mmol/L BUN 28 H (7-17) mg/dL Creatinine 1.5 H (0.7-1.2) mg/dL Glucose 144 H (65-100) mg/dL POC Glucose 149 H (70-105) Magnesium 2.50 H (1.7-2.3) mg/dL Total Bilirubin 2.60 H (0.1-1.2) mg/dL AST 57 H (5-40) units/L ALT 73 H (7-56) units/L Total Creatine Kinase (30-135) units/L Total Protein 5.4 L (6.3-8.2) g/dL Albumin 3.0 L (3.9-5) g/dL Urine Creatinine (0.1-20.0) mg/dL Urine Total Protein (5-11.8) mg/dL 05/21/18 Range/Units 11:20 Lymph % (Auto) (13.4-35.0) % Lymph # (1.2-5.4) K/mm3 Seg Neutrophils % (40.0-70.0) % Sodium (137-145) mmol/L Chloride (98-107) mmol/L BUN (7-17) mg/dL Creatinine (0.7-1.2) mg/dL Glucose (65-100) mg/dL POC Glucose 210 H (70-105) Magnesium (1.7-2.3) mg/dL Total Bilirubin (0.1-1.2) mg/dL AST (5-40) units/L ALT (7-56) units/L Total Creatine Kinase (30-135) units/L Total Protein (6.3-8.2) g/dL Albumin (3.9-5) g/dL Urine Creatinine (0.1-20.0) mg/dL Urine Total Protein (5-11.8) mg/dL All other labs normal. Assessment and Plan Assessment and plan: Impression: acute encephalopathy schizophrenia vs. schizoaffective disorder, bipolar type Recommendations: Hold all antipsychotics and discontinue lithium Psych will follow daily and resume antipsychotics when benefits outweigh the risks. The medical team will treat the underlying medical conditions contributing to acute encephalopathy. routine delirium precautions: This was also discussed with family. 1. Frequently reorient patient and involve him/her in their care (simple explanations of procedures, tests, medications). 2. Lights on and shades open during daytime hours. 3. Write date and goals of care in a visible place. 4. Try to avoid unnecessary interruptions to sleep during nighttime hours. 5. Obtain glasses, hearing aids from home if patient uses these at baseline. 6. Avoid medications that may exacerbate delirium (especially narcotics, benzodiazepines, barbiturates, ambien, lunesta, and medications with excessive anticholinergic properties).
--- NOTE | 2018-05-21 15:13 | Progress Note ---
Subjective Principal diagnosis: sepsis with hypotension, hyperkalemia Interval history: Patient was seen today for follow-up of multiple renal related issues, around 10 :00 in the morning Events of 24 hours noted, resting comfortably in no acute distress Vitals labs intake output medications reviewed Medication: Reviewed Social history: Reviewed Family history: Reviewed Physical examination Vitals: Reviewed General: No acute distress HEENT: Oral mucosa moist Neck: Supple no JVD Chest: Clear to auscultation anteriorly Heart: Regular rate and rhythm S1-S2 heard no S3-S4 Abdomen: Soft nontender bowel sounds present Extremities: Edema less than 1+ dry skin peripheral pulses palpable Psych: No agitation and aggression noted Skin: No petechial rash Assessment and plan: Acute kidney injury mostly resulting from volume depletion low-grade acute tubular necrosis slowly improving renal function is better Rhabdomyolysis: Patient needs serial monitoring of CPK Blood cultures have been negative for the last 72 hours Hypernatremia patient does need a Dunn catheter so he can monitor her intake and output Elevated bilirubin of unclear etiology:? Sepsis related rule out other causes being followed by primary medicine We'll order for dedicated ultrasound of the kidney today Check osmolality uric acid and CPK in the morning We'll place a Dunn catheter today, continue to follow Prognosis: Guarded at this time We'll continue to follow and make recommendations from renal standpoint Objective - Vital Signs Vital signs: Vital Signs - 12hr 05/21/18 05/21/18 05/21/18 05:27 08:00 08:57 Temperature 97.9 F 98.4 F Pulse Rate 78 86 85 Respiratory 18 18 20 Rate Blood Pressure 104/62 Blood Pressure 115/71 104/62 [Right] O2 Sat by Pulse 98 98 98 Oximetry 05/21/18 05/21/18 05/21/18 11:13 12:00 13:00 Temperature 98.5 F Pulse Rate 84 85 85 Respiratory 20 20 Rate Blood Pressure 96/63 Blood Pressure 96/63 [Right] O2 Sat by Pulse 96 96 Oximetry - Lab 05/21/18 05:59 05/21/18 05:59 Most recent lab results Calcium 9.4 mg/dL (8.4-10.2) 05/21/18 05:59 Magnesium 2.50 mg/dL (1.7-2.3) H 05/21/18 05:59 Urine Creatinine 118.8 mg/dL (0.1-20.0) H 05/19/18 16:51 Urine Sodium 76 mmol/L 05/19/18 16:51 Urine Total Protein 43 mg/dL (5-11.8) H 05/19/18 16:51
--- NOTE | 2018-05-21 17:53 | Ultrasound Report ---
FINAL REPORT EXAM: US RENAL BILAT HISTORY: acute renal failure TECHNIQUE: Ultrasound kidneys PRIORS: None. FINDINGS: Right kidney measures 11.1 x 4.1 x 4.7 centimeters. Cortical thickness 1.3 centimeters Left kidney is 10.8 x 4.5 x 5.9 centimeters. Cortical thickness 1.2 centimeters Kidneys demonstrate increased renal echogenicity bilaterally. No evidence for hydronephrosis At the upper pole the right kidney there is a tiny echogenic focus likely reflecting a small nonobstructing calculus IMPRESSION: Echogenic kidneys most consistent with medical renal disease Probable small nonobstructing right renal calculus
[2018-05-21] MEDS: VANCOMYCIN 1,250 MG in NACL 0.9% 250ML 250 ML IV SCH (21:45)
[2018-05-22] MEDS: HumaLOG SUB-Q SCH ×5 (00:40→22:50)
[2018-05-22] MEDS: ATIVAN IV PRN (05:22)
[2018-05-22] MEDS: ZOSYN/NS 3.375GM/50ML 3.375 GM/50 ML BAG IV SCH ×4 (05:23→20:37)
[2018-05-22 08:41] LABS: Basophils % (Auto) 0.3 % (0.0-1.8); Eosinophils # (Auto) 0.1 K/mm3 (0.0-0.4); Eosinophils % (Auto) 1.1 % (0.0-4.3); Hematocrit 33.5 % (30.3-42.9); Lymphocytes % (Auto) 11.2 % (13.4-35.0); Mean Corpuscular HGB Conc 33 % (30-34); Mean Corpuscular Hemoglobin 31 pg (28-32); Mean Corpuscular Volume 93 fl (79-97); Monocytes # (Auto) 0.4 K/mm3 (0.0-0.8); Platelet Count 134 K/mm3 (140-440)
[2018-05-22 08:56] LABS: Albumin 2.7 g/dL (3.9-5); Calcium 8.9 mg/dL (8.4-10.2)
--- NOTE | 2018-05-22 09:16 | Progress Note ---
Subjective Principal diagnosis: sepsis with hypotension Interval history: Patient was seen today for follow-up of multiple renal related issues opens her eyes when called by her name Events of 24 hours noted Vitals labs intake output medications reviewed Medication: Reviewed Social history: Reviewed Family history: Reviewed Physical examination Vitals: Reviewed General: No acute distress HEENT: Oral mucosa moist Neck: Supple no JVD Chest: Clear to auscultation anteriorly Heart: Regular rate and rhythm S1-S2 heard no S3-S4 Abdomen: Soft nontender bowel sounds present Extremities: Edema less than 1+ dry skin peripheral pulses palpable Psych: No agitation and aggression noted Skin: No petechial rash Assessment and plan: Acute kidney injury likely resulting from severe volume depletion as well as mild to moderate acute tubular necrosis from which patient is recovering well with conservative measures only Ultrasonogram shows echogenic kidney suggestive of chronic kidney disease Rhabdomyolysis: Low-grade CPK in 2000 range will need follow-up she has been hydrated Creatinine is completely normalized at 1.1 today Blood culture did not show any growth for the last 72 hours Profoundly volume depleted hypotensive upon arrival Severe hypernatremia: Appears to be improving well at this time Patient has underlying psychiatric issues for which she was also taking lithium will need to monitor intake and output as well, continued to maintain hydration for now and follow Encephalopathy toxic metabolic also due to underlying psych issue patient does open up her eyes and then does not speak much/ underlying psych issues Hypokalemia: Requires replacement and correction Elevated liver enzyme currently being followed by Hospital medicine Prognosis: Guarded at this time We'll continue to follow and make recommendations from renal standpoint Objective - Vital Signs Vital signs: Vital Signs - 12hr 05/22/18 05/22/18 05/22/18 00:24 04:21 05:46 Temperature 98.0 F 99.1 F Pulse Rate 83 83 74 Respiratory 22 22 Rate Blood Pressure 97/58 90/51 O2 Sat by Pulse 93 95 Oximetry 05/22/18 07:31 Temperature 98.5 F Pulse Rate 70 Respiratory 18 Rate Blood Pressure 98/54 O2 Sat by Pulse 94 Oximetry - Lab 05/22/18 07:19 05/22/18 07:19 Most recent lab results Calcium 8.9 mg/dL (8.4-10.2) 05/22/18 07:19 Magnesium 2.50 mg/dL (1.7-2.3) H 07/14/18 05:59 Urine Creatinine 118.8 mg/dL (0.1-20.0) H 05/19/18 16:51 Urine Sodium 76 mmol/L 05/19/18 16:51 Urine Total Protein 43 mg/dL (5-11.8) H 05/19/18 16:51
[2018-05-22] MEDS: VISTARIL PO SCH ×3 (09:52→21:13)
[2018-05-22] MEDS: PEPCID IV SCH (09:53)
[2018-05-22] MEDS: SODIUM CHLORIDE FLUSH SYRINGE 10 ML IV SCH (11:44)
--- NOTE | 2018-05-22 15:23 | Progress Note ---
Assessment and Plan - Patient Problems (1) Acute delirium Current Visit: Yes Status: Acute Plan to address problem: Appears to be most likely secondary to schizophrenia also exacerbated by sepsis. Patient was fever 103. Hypotension. Continue IV antibiotics and follow blood culture data. Currently on vancomycin and Zosyn. Good broad- spectrum coverage. (2) Acute renal failure Current Visit: Yes Status: Acute Plan to address problem: Resolving most likely secondary to l vasomotor nephropathy. Prerenal azotemia (3) Fever Current Visit: Yes Status: Acute (4) Sepsis Current Visit: Yes Status: Acute Plan to address problem: Schizophrenia I think this is patient's main problem (5) Schizophrenia Current Visit: Yes Status: Acute Plan to address problem: At present this appears to be her main problem as we correct her medical issues sepsis appears to be resolving. Fever curve improving. Appendectomy treatment improving. Patient also has elevated liver enzymes. An evidence of malnutrition. History Interval history: Patient very confused currently in restraints. Eyes are closed despite me answering questions. States did away and restore it restorative Hospitalist Physical - Constitutional Vitals: Temp Pulse Resp BP Pulse Ox 98.5 F 84 18 118/69 96 05/22/18 13:24 05/22/18 13:24 05/22/18 13:24 05/22/18 13:24 05/22/18 13:24 General appearance: Present: no acute distress, well-nourished, other ( currently restrained confused) - EENT Eyes: Present: PERRL, EOM intact ENT: hearing intact, clear oral mucosa, dentition normal - Neck Neck: Present: supple, normal ROM - Respiratory Respiratory effort: normal Respiratory: bilateral: CTA - Cardiovascular Rhythm: regular Heart Sounds: Present: S1 & S2 - Extremities Extremities: no ischemia, pulses intact, pulses symmetrical, No edema, normal temperature, normal color, Full ROM Peripheral Pulses: within normal limits - Abdominal General gastrointestinal: soft, non-tender, non-distended, hypoactive bowel sounds - Psychiatric Psychiatric: other (poor judgment confused encephalopathic) - Neurologic Neurologic: CNII-XII intact Results - Labs CBC & Chem 7: 05/22/18 07:19 05/22/18 07:19 Labs: Laboratory Last Values WBC 8.5 K/mm3 (4.5-11.0) 05/22/18 07:19 RBC 3.60 M/mm3 (3.65-5.03) L 05/22/18 07:19 Hgb 11.0 gm/dl (10.1-14.3) 05/22/18 07:19 Hct 33.5 % (30.3-42.9) 05/22/18 07:19 MCV 93 fl (79-97) 05/22/18 07:19 MCH 31 pg (28-32) 05/22/18 07:19 MCHC 33 % (30-34) 05/22/18 07:19 RDW 14.0 % (13.2-15.2) 05/22/18 07:19 Plt Count 134 K/mm3 (140-440) L 05/22/18 07:19 Lymph % (Auto) 11.2 % (13.4-35.0) L 05/22/18 07:19 [place] % (Auto) 5.0 % (0.0-7.3) 05/22/18 07:19 Eos % (Auto) 1.1 % (0.0-4.3) 05/22/18 07:19 Baso % (Auto) 0.3 % (0.0-1.8) 05/22/18 07:19 Lymph # 1.0 K/mm3 (1.2-5.4) L 05/22/18 07:19 [place] # 0.4 K/mm3 (0.0-0.8) 05/22/18 07:19 Eos # 0.1 K/mm3 (0.0-0.4) 05/22/18 07:19 Baso # 0.0 K/mm3 (0.0-0.1) 05/22/18 07:19 Add Manual Diff Complete 05/18/18 12:50 Total Counted 100 05/18/18 12:50 Seg Neutrophils % 82.4 % (40.0-70.0) H 05/22/18 07:19 Seg Neuts % (Manual) 89.0 % (40.0-70.0) H 05/18/18 12:50 Band Neutrophils % 0 % 05/18/18 12:50 Lymphocytes % (Manual) 4.0 % (13.4-35.0) L 05/18/18 12:50 Reactive Lymphs % (Man) 0 % 05/18/18 12:50 Monocytes % (Manual) 6.0 % (0.0-7.3) 05/18/18 12:50 Eosinophils % (Manual) 0 % (0.0-4.3) 05/18/18 12:50 Basophils % (Manual) 0 % (0.0-1.8) 05/18/18 12:50 Metamyelocytes % 1.0 % 05/18/18 12:50 Myelocytes % 0 % 05/18/18 12:50 Promyelocytes % 0 % 05/18/18 12:50 Blast Cells % 0 % 05/18/18 12:50 Nucleated RBC % Not Reportable 05/18/18 12:50 Seg Neutrophils # 7.0 K/mm3 (1.8-7.7) 05/22/18 07:19 Seg Neutrophils # Man 21.4 K/mm3 (1.8-7.7) H 05/18/18 12:50 Band Neutrophils # 0.0 K/mm3 05/18/18 12:50 Lymphocytes # (Manual) 1.0 K/mm3 (1.2-5.4) L 05/18/18 12:50 Abs React Lymphs (Man) 0.0 K/mm3 05/18/18 12:50 Monocytes # (Manual) 1.4 K/mm3 (0.0-0.8) H 05/18/18 12:50 Eosinophils # (Manual) 0.0 K/mm3 (0.0-0.4) 05/18/18 12:50 Basophils # (Manual) 0.0 K/mm3 (0.0-0.1) 05/18/18 12:50 Metamyelocytes # 0.2 K/mm3 05/18/18 12:50 Myelocytes # 0.0 K/mm3 05/18/18 12:50 Promyelocytes # 0.0 K/mm3 05/18/18 12:50 Blast Cells # 0.0 K/mm3 05/18/18 12:50 WBC Morphology Not Reportable 05/18/18 12:50 Hypersegmented Neuts Not Reportable 05/18/18 12:50 Hyposegmented Neuts Not Reportable 05/18/18 12:50 Hypogranular Neuts Not Reportable 05/18/18 12:50 Smudge Cells Not Reportable 05/18/18 12:50 Toxic Granulation Not Reportable 05/18/18 12:50 Toxic Vacuolation Not Reportable 05/18/18 12:50 Dohle Bodies Not Reportable 05/18/18 12:50 Pelger-Huet Anomaly Not Reportable 05/18/18 12:50 Robert Rods Not Reportable 05/18/18 12:50 Platelet Estimate Cons 05/18/18 12:50 Clumped Platelets Not Reportable 05/18/18 12:50 Plt Clumps, EDTA Not Reportable 05/18/18 12:50 Large Platelets Not Reportable 05/18/18 12:50 Giant Platelets Not Reportable 05/18/18 12:50 Platelet Satelliting Not Reportable 05/18/18 12:50 Plt Morphology Comment Not Reportable 05/18/18 12:50 RBC Morphology Normal 05/18/18 12:50 Dimorphic RBCs Not Reportable 05/18/18 12:50 Polychromasia Not Reportable 05/18/18 12:50 Hypochromasia Not Reportable 05/18/18 12:50 Poikilocytosis Not Reportable 05/18/18 12:50 Anisocytosis Not Reportable 05/18/18 12:50 Microcytosis Not Reportable 05/18/18 12:50 Macrocytosis Not Reportable 05/18/18 12:50 Spherocytes Not Reportable 05/18/18 12:50 Pappenheimer Bodies Not Reportable 05/18/18 12:50 Sickle Cells Not Reportable 05/18/18 12:50 Target Cells Not Reportable 05/18/18 12:50 Tear Drop Cells Not Reportable 05/18/18 12:50 Ovalocytes Not Reportable 05/18/18 12:50 Helmet Cells Not Reportable 05/18/18 12:50 Soler-Glasco Bodies Not Reportable 05/18/18 12:50 Brinson Rings Not Reportable 05/18/18 12:50 [place] Cells Not Reportable 05/18/18 12:50 Bite Cells Not Reportable 05/18/18 12:50 Crenated Cell Not Reportable 05/18/18 12:50 Elliptocytes Not Reportable 05/18/18 12:50 Acanthocytes (Spur) Not Reportable 05/18/18 12:50 Rouleaux Not Reportable 05/18/18 12:50 Hemoglobin C Crystals Not Reportable 05/18/18 12:50 Schistocytes Not Reportable 05/18/18 12:50 Malaria parasites Not Reportable 05/18/18 12:50 Guzman Bodies Not Reportable 05/18/18 12:50 Hem Pathologist Commnt No 05/18/18 12:50 Sodium 152 mmol/L (137-145) H D 05/22/18 07:19 Potassium 3.5 mmol/L (3.6-5.0) L D 05/22/18 07:19 Chloride 117.1 mmol/L (98-107) H 05/22/18 07:19 Carbon Dioxide 23 mmol/L (22-30) 05/22/18 07:19 Anion Gap 15 mmol/L 05/22/18 07:19 BUN 18 mg/dL (7-17) H 05/22/18 07:19 Creatinine 1.1 mg/dL (0.7-1.2) 05/22/18 07:19 Estimated GFR 51 ml/min 05/22/18 07:19 BUN/Creatinine Ratio 16 % 05/22/18 07:19 Glucose 138 mg/dL (65-100) H 05/22/18 07:19 POC Glucose 173 (70-105) H 05/22/18 12:32 Hemoglobin A1c 5.6 % (4-6) 05/18/18 22:00 Osmolality 357 Mosm/kg 05/20/18 13:26 Lactic Acid 1.80 mmol/L (0.7-2.0) 05/18/18 14:23 Uric Acid 7.1 mg/dL (3.5-7.6) 05/20/18 13:26 Calcium 8.9 mg/dL (8.4-10.2) 05/22/18 07:19 Magnesium 2.50 mg/dL (1.7-2.3) H 05/21/18 05:59 Total Bilirubin 2.00 mg/dL (0.1-1.2) H 05/22/18 07:19 AST 69 units/L (5-40) H 05/22/18 07:19 ALT 102 units/L (7-56) H 05/22/18 07:19 Alkaline Phosphatase 81 units/L (35-129) 05/22/18 07:19 Total Creatine Kinase 507 units/L (30-135) H 05/22/18 07:19 Total Protein 5.0 g/dL (6.3-8.2) L 05/22/18 07:19 Albumin 2.7 g/dL (3.9-5) L 05/22/18 07: Albumin/Globulin Ratio 1.2 % 05/22/18 07:19 Urine Color [place] (Yellow) 05/18/18 13:27 Urine Turbidity Clear (Clear) 05/18/18 13:27 Urine pH 5.0 (5.0-7.0) 05/18/18 13:27 Ur Specific [place] 1.021 (1.003-1.030) 05/18/18 13:27 Urine Protein 30 mg/dl mg/dL (Negative) 05/18/18 13:27 Urine Glucose (UA) Neg mg/dL (Negative) 05/18/18 13:27 Urine Ketones Tr mg/dL (Negative) 05/18/18 13:27 Urine Blood Neg (Negative) 05/18/18 13:27 Urine Nitrite Neg (Negative) 05/18/18 13:27 Urine Bilirubin Neg (Negative) 05/18/18 13:27 Urine Urobilinogen 4.0 mg/dL (<2.0) 05/18/18 13:27 Ur Leukocyte Esterase Neg (Negative) 05/18/18 13:27 Urine WBC (Auto) 3.0 /HPF (0.0-6.0) 05/18/18 13:27 Urine RBC (Auto) 5.0 /HPF (0.0-6.0) 05/18/18 13:27 U Epithel Cells (Auto) 2.0 /HPF (0-13.0) 05/18/18 13:27 Urine Mucus Few /HPF 05/18/18 13:27 Urine Creatinine 118.8 mg/dL (0.1-20.0) H 05/19/18 16:51 Urine Sodium 76 mmol/L 05/19/18 16:51 Urine Total Protein 43 mg/dL (5-11.8) H 05/19/18 16:51 Vancomycin Trough 35.2 ug/mL (5.0-20.0) H 05/21/18 23:19 Hepatitis A IgM Ab Non-reactive (NonReactive) 05/19/18 12:12 Hep Bs Antigen Non-reactive (Negative) 05/19/18 12:12 Hep B Core IgM Ab Non-reactive (NonReactive) 05/19/18 12:12 Hepatitis C Antibody Non-reactive (NonReactive) 05/19/18 12:12
--- NOTE | 2018-05-22 17:53 | Progress Note ---
Subjective - Reason for Consult Consult date: 05/22/18 Reason for consult: follow up - Chief Complaint Chief complaint: mostly unintelligible speech 58 year old female seen for psychiatric follow up today. She is currently in restraints. Speech is unintelligible. Family not present at this time. Her records were reviewed. Mental Status Exam - Vital signs Last Vital Signs Temp 98.4 F 05/22/18 17:42 Pulse 79 05/22/18 17:42 Resp 18 05/22/18 17:42 BP 112/62 05/22/18 17:42 Pulse Ox 95 05/22/18 17:42 - Exam Narrative exam: She opened her eyes in response to her name being called. She could not answer questions. Unable to assess. Orientation: person Assessment and Plan Impression: acute encephalopathy schizophrenia vs. schizoaffective disorder, bipolar type Recommendations: Hold all antipsychotics and discontinue lithium Psych will follow daily and resume antipsychotics when benefits outweigh the risks. The medical team will treat the underlying medical conditions contributing to acute encephalopathy. routine delirium precautions: This was also discussed with family. 1. Frequently reorient patient and involve him/her in their care (simple explanations of procedures, tests, medications). 2. Lights on and shades open during daytime hours. 3. Write date and goals of care in a visible place. 4. Try to avoid unnecessary interruptions to sleep during nighttime hours. 5. Obtain glasses, hearing aids from home if patient uses these at baseline. 6. Avoid medications that may exacerbate delirium (especially narcotics, benzodiazepines, barbiturates, ambien, lunesta, and medications with excessive anticholinergic properties).
[2018-05-22] MEDS: PEPCID PO SCH (21:12)
[2018-05-22] MEDS: DESYREL PO SCH (21:13)
[2018-05-22] MEDS: LOVENOX SUB-Q SCH (21:13)
[2018-05-23] MEDS: ZOSYN/NS 3.375GM/50ML 3.375 GM/50 ML BAG IV SCH ×5 (01:05→18:52)
[2018-05-23] MEDS: SODIUM CHLORIDE FLUSH SYRINGE 10 ML IV SCH ×2 (01:06→22:16)
[2018-05-23] MEDS: D5W 1,000 ML IV SCH ×2 (05:39→18:48)
[2018-05-23 06:05] LABS: Basophils % (Auto) 0.3 % (0.0-1.8); Eosinophils % (Auto) 0.5 % (0.0-4.3); Hematocrit 33.1 % (30.3-42.9); Hemoglobin 11.1 gm/dl (10.1-14.3); Lymphocytes # (Auto) 0.8 K/mm3 (1.2-5.4); Lymphocytes % (Auto) 9.4 % (13.4-35.0); Mean Corpuscular HGB Conc 34 % (30-34); Mean Corpuscular Hemoglobin 31 pg (28-32); Mean Corpuscular Volume 91 fl (79-97); Monocytes # (Auto) 0.4 K/mm3 (0.0-0.8); Monocytes % (Auto) 4.3 % (0.0-7.3); Platelet Count 138 K/mm3 (140-440); Red Blood Count 3.63 M/mm3 (3.65-5.03); Red Cell Distribution Width 13.2 % (13.2-15.2)
[2018-05-23 07:06] LABS: Alanine Aminotransferase 128 units/L (7-56); Albumin 2.9 g/dL (3.9-5); BUN/Creatinine Ratio 13; Blood Urea Nitrogen 12 mg/dL (7-17); Hemolysis Index 6
[2018-05-23] MEDS: HumaLOG SUB-Q SCH ×4 (08:50→23:22)
[2018-05-23] MEDS: PEPCID PO SCH ×2 (10:48→22:16)
--- NOTE | 2018-05-23 10:59 | Progress Note ---
Subjective - Reason for Consult Consult date: 05/23/18 Reason for consult: Psychiatry Follow-up - Chief Complaint Chief complaint: "The patient speech was unintelligible" 58 year old female seen for psychiatric evaluation. Today the patient is calm during the assessment. She was in restraints upon my arrival to her room. Her answers to questions were not logical with continued unintelligible speech. No gestures of SI/HI's. Mental Status Exam - Vital signs Last Vital Signs Temp 98.0 F 05/23/18 07:15 Pulse 76 05/23/18 07:15 Resp 20 05/23/18 07:15 BP 99/64 05/23/18 07:15 Pulse Ox 93 05/23/18 07:15 - Exam Narrative exam: MSE: Appearance: calm Behavior: regular eye contact Speech: regular rate and tone Mood: "okay" Affect: congruent to mood Thought Process: tangential Thought Content: no gestures of SI/HI's Motor Activity: in restraints Cognition: alert, but confused Insight: limited Judgment: limited Assessment and Plan Impression: Schizophrenia vs Schizoaffective disorder, bipolar type. Today the patient is calm during the assessment. NA 151. Medical: Acute Encephalopathy Recommendations/Plan: Psych will follow daily and resume antipsychotics when benefits outweigh the risks. Recommend Delirium Precautions below: 1. Frequently reorient patient and involve him/her in their care (simple explanations of procedures, tests, medications). 2. Lights on and shades open during daytime hours. 3. Write date and goals of care in a visible place. 4. Try to avoid unnecessary interruptions to sleep during nighttime hours. 5. Obtain glasses, hearing aids from home if patient uses these at baseline. 6. Avoid medications that may exacerbate delirium (especially narcotics, benzodiazepines, barbiturates, ambien, lunesta, and medications with excessive anticholinergic properties). Consider Tylenol for pain, the patient has Morphine and Percocet ordered. 7. Recommend Haldol 2 mg Q6hrs PRN PO/IM for acute agitation. 8. D/C restraints when not indicated.
--- NOTE | 2018-05-23 18:12 | Progress Note ---
Assessment and Plan Assessment: * Acute kidney injury likely secondary to prerenal azotemia due to volume depletion * Hypernatremia * Rhabdomyolysis * Hypokalemia * Elevated LFTs Plan: * Renal function has recovered * Continue IVF for hydration * Replete lytes prn * Avoid potential nephrotoxins * AM labs ordered * Recommend avoiding [place] at discharge Subjective Date of service: 05/23/18 Principal diagnosis: sepsis with hypotension Interval history: Patient has no complaints. Objective - Vital Signs Vital signs: Vital Signs - 12hr 05/23/18 05/23/18 05/23/18 07:15 10:00 11:48 Temperature 98.0 F 97.9 F Pulse Rate 76 74 Respiratory 20 20 Rate Blood Pressure 99/64 133/72 O2 Sat by Pulse 93 97 96 Oximetry 05/23/18 05/23/18 14:05 15:31 Temperature 98.0 F Pulse Rate 74 71 Respiratory 20 Rate Blood Pressure 133/68 O2 Sat by Pulse 95 Oximetry - General Appearance General appearance: well-developed, well-nourished EENT: ATNC Respiratory: Present: Clear to Ascultation Cardiology: regular, S1S2 Gastrointestinal: no normal, no tenderness, no distended Integumentary: no rash, warm and dry Musculoskeletal: other (no edema) Psychiatric: cooperative - Lab 05/23/18 05:02 05/23/18 05:02 Most recent lab results Calcium 9.0 mg/dL (8.4-10.2) 05/23/18 05:02 Magnesium 2.50 mg/dL (1.7-2.3) H 05/21/18 05:59 Urine Creatinine 118.8 mg/dL (0.1-20.0) H 05/19/18 16:51 Urine Sodium 76 mmol/L 05/19/18 16:51 Urine Total Protein 43 mg/dL (5-11.8) H 05/19/18 16:51
--- NOTE | 2018-05-23 21:32 | Progress Note ---
Assessment and Plan Sepsis with septic shock - improved Possible Gallbladder disease Hypernatremia [place] form ATN hyperglycemia transaminasemia Elevated Bili - resolving History of schizophrenia Continue with iv Vanc and Zosyn Follow up with Cx results iv resuscitation per sepsis protocol Serial Lactic acid level Commence D5W Nephrology consult. Environmental Solutions Engineer following Trend glycemic level Continue with antipsychotic medications DVT PPx Subjective Date of service: 05/23/18 Principal diagnosis: sepsis with hypotension Interval history: Pt seen and examined. No ever night event reported. Denies any fever chest pain or shortness of breath. Still agitated Objective - Exam Narrative Exam: Constitutional: Patient is to confused and lethargic Well-nourished well- developed. In no distress Head: Normocephalic atraumatic Eyes: Pupils are equal round and reactive to light Nose: No enlarged turbinates, no septal deviation. Mouth: Moist mucous membranes. Neck: Supple no thyromegaly. No bruit. No JVD Heart: Regular rate and rhythm, S1-S2 abnormal. No rubs murmurs or gallop Lungs: Clear to auscultation bilaterally no rales or rhonchi Abdomen: Soft, nontender. Bowel sound are present. Extremities: No edema no cyanosis and no clubbing. Neuro: Agitated and disoriented. No focal sensory or motor deficit. Skin: No rashes no hyperemic spots Psychiatry: Agitated - Constitutional Vitals: Vital Signs - 12hr 05/23/18 05/23/18 05/23/18 10:00 11:48 14:05 Temperature 97.9 F Pulse Rate 74 74 Respiratory 20 Rate Blood Pressure 133/72 O2 Sat by Pulse 97 96 Oximetry 05/23/18 05/23/18 15:31 19:48 Temperature 98.0 F 97.1 F L Pulse Rate 71 71 Respiratory 20 19 Rate Blood Pressure 133/68 132/77 O2 Sat by Pulse 95 96 Oximetry - Labs CBC & Chem 7: 05/23/18 05:02 05/23/18 05:02 Labs: Abnormal lab results 05/22/18 05/22/18 05/23/18 Range/Units 16:29 21:05 05:02 RBC 3.63 L (3.65-5.03) M/mm3 Plt Count 138 L (140-440) K/mm3 Lymph % (Auto) 9.4 L (13.4-35.0) % Lymph # 0.8 L (1.2-5.4) K/mm3 Seg Neutrophils % 85.5 H (40.0-70.0) % Sodium (137-145) mmol/L Potassium (3.6-5.0) mmol/L Chloride (98-107) mmol/L Glucose (65-100) mg/dL POC Glucose 196 H 166 H (70-105) Total Bilirubin (0.1-1.2) mg/dL AST (5-40) units/L ALT (7-56) units/L Total Protein (6.3-8.2) g/dL Albumin (3.9-5) g/dL 05/23/18 05/23/18 05/23/18 Range/Units 05:02 12:29 15:39 RBC (3.65-5.03) M/mm3 Plt Count (140-440) K/mm3 Lymph % (Auto) (13.4-35.0) % Lymph # (1.2-5.4) K/mm3 Seg Neutrophils % (40.0-70.0) % Sodium 151 H (137-145) mmol/L Potassium 3.5 L (3.6-5.0) mmol/L Chloride 116.4 H (98-107) mmol/L Glucose 137 H (65-100) mg/dL POC Glucose 177 H 172 H (70-105) Total Bilirubin 1.80 H (0.1-1.2) mg/dL AST 71 H (5-40) units/L ALT 128 H (7-56) units/L Total Protein 5.0 L (6.3-8.2) g/dL Albumin 2.9 L (3.9-5) g/dL
[2018-05-23] MEDS: LOVENOX SUB-Q SCH (22:15)
[2018-05-23] MEDS: DESYREL PO SCH (22:16)
[2018-05-24] MEDS: ZOSYN/NS 3.375GM/50ML 3.375 GM/50 ML BAG IV SCH ×4 (01:54→21:01)
[2018-05-24 06:18] LABS: Alanine Aminotransferase 165 units/L (7-56); Albumin 2.9 g/dL (3.9-5); BUN/Creatinine Ratio 11; Blood Urea Nitrogen 8 mg/dL (7-17); Calcium 8.6 mg/dL (8.4-10.2); Hemolysis Index 1
--- NOTE | 2018-05-24 07:44 | Progress Note ---
Assessment and Plan Sepsis with septic shock - improved Possible Gallbladder disease Hypernatremia [place] form ATN hyperglycemia Hypokalemia transaminasemia Elevated Bili - resolving History of schizophrenia Continue with iv Vanc and Zosyn Follow up with Cx results iv resuscitation per sepsis protocol Serial Lactic acid level supplement K level and recheck Commence D5W Nephrology consult. Autocad following Trend glycemic level Continue with antipsychotic medications DVT PPx Disposition: Replete K level and discharge back to [facility] Subjective Date of service: 05/24/18 Principal diagnosis: sepsis with hypotension Interval history: Pt seen and examined. No over night event reported. Denies any fever chest pain or shortness of breath. Less agitated Objective - Exam Narrative Exam: Constitutional: Patient is to confused and lethargic Well-nourished well- developed. In no distress Head: Normocephalic atraumatic Eyes: Pupils are equal round and reactive to light Nose: No enlarged turbinates, no septal deviation. Mouth: Moist mucous membranes. Neck: Supple no thyromegaly. No bruit. No JVD Heart: Regular rate and rhythm, S1-S2 abnormal. No rubs murmurs or gallop Lungs: Clear to auscultation bilaterally no rales or rhonchi Abdomen: Soft, nontender. Bowel sound are present. Extremities: No edema no cyanosis and no clubbing. Neuro: Agitated and disoriented. No focal sensory or motor deficit. Skin: No rashes no hyperemic spots Psychiatry: Less Agitated - Constitutional Vitals: Vital Signs - 12hr 05/23/18 05/23/18 05/23/18 19:48 21:08 22:00 Temperature 97.1 F L Pulse Rate 71 70 Pulse Rate [ 70 Right Radial] Respiratory 19 18 Rate Blood Pressure 132/77 O2 Sat by Pulse 96 Oximetry 05/24/18 04:00 Temperature 98.8 F Pulse Rate 86 Pulse Rate [ Right Radial] Respiratory 18 Rate Blood Pressure 160/86 O2 Sat by Pulse 96 Oximetry - Labs CBC & Chem 7: 05/23/18 05:02 05/24/18 05:05 Labs: Abnormal lab results 05/23/18 05/23/18 05/23/18 Range/Units 12:29 15:39 22:10 Sodium (137-145) mmol/L Potassium (3.6-5.0) mmol/L Chloride (98-107) mmol/L Glucose (65-100) mg/dL POC Glucose 177 H 172 H 196 H (70-105) AST (5-40) units/L ALT (7-56) units/L Alkaline Phosphatase (35-129) units/L Total Protein (6.3-8.2) g/dL Albumin (3.9-5) g/dL 05/24/18 Range/Units 05:05 Sodium 147 H (137-145) mmol/L Potassium 3.3 L (3.6-5.0) mmol/L Chloride 112.1 H (98-107) mmol/L Glucose 161 H (65-100) mg/dL POC Glucose (70-105) AST 86 H (5-40) units/L ALT 165 H (7-56) units/L Alkaline Phosphatase 131 H (35-129) units/L Total Protein 5.2 L (6.3-8.2) g/dL Albumin 2.9 L (3.9-5) g/dL
[2018-05-24] MEDS: D5W 1,000 ML IV SCH (08:06)
[2018-05-24] MEDS: HumaLOG SUB-Q SCH ×3 (08:15→20:40)
--- NOTE | 2018-05-24 08:49 | Progress Note ---
Assessment and Plan Assessment: * Acute kidney injury likely secondary to prerenal azotemia due to volume depletion * Hypernatremia * Rhabdomyolysis * Hypokalemia * Elevated LFTs Plan: * Renal function has recovered * Continue IVF for hydration - sodium is trending down * Replete lytes prn * Avoid potential nephrotoxins * AM labs ordered * Recommend avoiding [place] at discharge Subjective Date of service: 05/24/18 Principal diagnosis: sepsis with hypotension Interval history: Patient without complaint today. Objective - Vital Signs Vital signs: Vital Signs - 12hr 05/23/18 05/23/18 05/24/18 21:08 22:00 04:00 Temperature 98.8 F Pulse Rate 70 86 Pulse Rate [ 70 Right Radial] Respiratory 18 18 Rate Blood Pressure 160/86 O2 Sat by Pulse 96 Oximetry 05/24/18 07:34 Temperature 97.9 F Pulse Rate 66 Pulse Rate [ Right Radial] Respiratory 20 Rate Blood Pressure 112/63 O2 Sat by Pulse 94 Oximetry - General Appearance General appearance: well-developed, well-nourished EENT: ATNC Respiratory: Present: Clear to Ascultation Cardiology: regular, S1S2 Gastrointestinal: normal, no tenderness, no distended Integumentary: no rash Musculoskeletal: other (trace edema) Psychiatric: cooperative - Lab 05/23/18 05:02 05/24/18 05:05 Most recent lab results Calcium 8.6 mg/dL (8.4-10.2) 05/24/18 05:05 Magnesium 2.50 mg/dL (1.7-2.3) H 05/21/18 05:59 Urine Creatinine 118.8 mg/dL (0.1-20.0) H 05/19/18 16:51 Urine Sodium 76 mmol/L 05/19/18 16:51 Urine Total Protein 43 mg/dL (5-11.8) H 05/19/18 16:51
--- NOTE | 2018-05-24 09:44 | Progress Note ---
Subjective - Reason for Consult Consult date: 05/24/18 Reason for consult: Psychiatry Follow-up - Chief Complaint Chief complaint: "Milena there" 58 year old female seen for psychiatric evaluation. Today the patient is calm and cooperative during the assessment. She was able to tell me her and recall 2/3 numbers within 5 mins. She was not able to state her current location. She stated that she has seen a psychiatrist in the past. She could not elaborate on what happened with her prior to her admission to the hospital. No gestures of SI/HI's. Mental Status Exam - Vital signs Last Vital Signs Temp 97.9 F 05/24/18 07:34 Pulse 66 05/24/18 07:34 Resp 20 05/24/18 07:34 BP 112/63 05/24/18 07:34 Pulse Ox 94 05/24/18 07:34 - Exam Narrative exam: MSE: Appearance: calm, cooperative Behavior: regular eye contact Speech: regular rate and tone Mood: "okay" Affect: congruent to mood Thought Process: circumstantial Thought Content: no gestures of SI/HI's Motor Activity: in restraints Cognition: A/O x2, with some confusion Insight: variable Judgment: variable Assessment and Plan Impression: Schizophrenia vs Schizoaffective disorder, bipolar type. Today the patient is calm during the assessment. NA 147. The patient is still in restraints. Medical: Acute Encephalopathy Recommendations/Plan: Psych will follow daily and resume antipsychotics when benefits outweigh the risks. Speak with the patient's family to help determine proper dispo once medically stable. Recommend Delirium Precautions below: 1. Frequently reorient patient and involve him/her in their care (simple explanations of procedures, tests, medications). 2. Lights on and shades open during daytime hours. 3. Write date and goals of care in a visible place. 4. Try to avoid unnecessary interruptions to sleep during nighttime hours. 5. Obtain glasses, hearing aids from home if patient uses these at baseline. 6. Avoid medications that may exacerbate delirium (especially narcotics, benzodiazepines, barbiturates, ambien, lunesta, and medications with excessive anticholinergic properties). Consider Tylenol for pain, the patient has Morphine and Percocet ordered. 7. Recommend Haldol 2 mg Q6hrs PRN PO/IM for acute agitation. 8. D/C restraints when not indicated.
[2018-05-24] MEDS: PEPCID PO SCH ×2 (10:36→21:02)
[2018-05-24] MEDS: SODIUM CHLORIDE FLUSH SYRINGE 10 ML IV SCH ×2 (20:40→21:03)
[2018-05-24] MEDS: LOVENOX SUB-Q SCH (21:01)
[2018-05-24] MEDS: DESYREL PO SCH (21:02)
[2018-05-25] MEDS: HumaLOG SUB-Q SCH ×4 (00:10→18:03)
[2018-05-25] MEDS: ZOSYN/NS 3.375GM/50ML 3.375 GM/50 ML BAG IV SCH ×4 (00:59→18:04)
[2018-05-25] MEDS: D5W 1,000 ML IV SCH (05:04)
--- NOTE | 2018-05-25 08:37 | Progress Note ---
Assessment and Plan Sepsis with septic shock - improved Possible Gallbladder disease Hypernatremia MINERVA form ATN hyperglycemia Hypokalemia transaminasemia Elevated Bili - resolving History of schizophrenia Continue with iv Vanc and Zosyn Follow up with Cx results iv resuscitation per sepsis protocol Serial Lactic acid level supplement K level and recheck Commence D5W Nephrology consult. Prescription Benefit Specialist following Trend glycemic level Continue with antipsychotic medications DVT PPx Disposition:Replete K level and discharge back to [facility] Subjective Date of service: 05/25/18 Principal diagnosis: sepsis with hypotension Interval history: Pt seen and examined. No over night event reported. Denies any fever chest pain or shortness of breath. Less agitated Objective - Exam Narrative Exam: Constitutional: Patient is less confused and lethargic Well-nourished well- developed. In no distress Head: Normocephalic atraumatic Eyes: Pupils are equal round and reactive to light Nose: No enlarged turbinates, no septal deviation. Mouth: Moist mucous membranes. Neck: Supple no thyromegaly. No bruit. No JVD Heart: Regular rate and rhythm, S1-S2 abnormal. No rubs murmurs or gallop Lungs: Clear to auscultation bilaterally no rales or rhonchi Abdomen: Soft, nontender. Bowel sound are present. Extremities: No edema no cyanosis and no clubbing. Neuro: Agitated and disoriented. No focal sensory or motor deficit. Skin: No rashes no hyperemic spots Psychiatry: Less Agitated - Constitutional Vitals: Vital Signs - 12hr 05/24/18 05/24/18 05/25/18 22:00 22:52 01:15 Temperature 98.6 F 97.5 F L Pulse Rate 65 68 65 Respiratory 20 Rate Blood Pressure 108/68 Blood Pressure 106/69 [Right] O2 Sat by Pulse 96 97 Oximetry 05/25/18 05/25/18 04:11 04:30 Temperature 97.4 F L Pulse Rate 64 67 Respiratory 20 Rate Blood Pressure 100/64 Blood Pressure [Right] O2 Sat by Pulse 98 Oximetry - Labs CBC & Chem 7: 05/23/18 05:02 05/24/18 05:05 Labs: Abnormal lab results 05/24/18 05/24/18 05/24/18 Range/Units 11:14 15:47 23:50 POC Glucose 172 H 163 H 186 H (70-105) 05/25/18 Range/Units 07:35 POC Glucose 130 H (70-105)
--- NOTE | 2018-05-25 08:49 | Discharge Summary ---
Providers - Providers Date of Admission: 05/18/18 15:52 Date of discharge: 05/25/18 Attending physician: JAVIER HARO 05/18/18 21:47 Consult to Physician [CONS] Routine Comment: Consulting Provider: TEO FELIX Physician Instructions: Reason For Exam: MINERVA 05/18/18 22:05 Consult to Mental Health [CONS] Routine Reason For Exam: schizophrenia Place consult to:: Mental health Notified:: Brody SERRATO 05/19/18 05:45 Consult to Wound/ET Nurse [CONS] Routine Reason For Exam: wound eval Primary care physician: Primary care physician Hospitalization Condition: Stable Pertinent studies: CT scan of the abdomen and pelvis that showed gallbladder sludge. Ultrasound of the abdomen that showed no evidence of acute gallbladder disease Procedures: none Hospital course: Patient is 58-year-old female with history of schizophrenia. Patient brought into the ER for evaluation of fever and hypotension. Patient brought to the ER from psychiatric facility called [facility]. Staff at the psychiatric facility reported that patient refused to eat and drink for the last 3 days with initial blood pressure of 65/36. Patient is not communicating, she is aggressive. Code Sepsis immediately called. 58 year old female seen for psychiatric evaluation. Her record was reviewed and collateral received from her daughter, Michelle ([phone]). Her , Gasper was present. He is called [facility]. Michelle reports Ms. Jaramillo has been treated for schizophrenia since she was 20 years old. She had very few hospitalizations, sometimes going for 10 years without hospitalization. When her mother 5 years ago, she was hospitalized nearly every month until about 1.5-2 years ago. At that time, the family moved from [place] to [place]. She was stable until recently. Michelle reports the family has significant stressors and financial issues. She reports her mother usually takes 4 medications, lithium, trazodone, and 2 others. She states prior to the hospitalization at [facility] she was talking non stop and walking non stop. States states on the 5th day of this behavior, she began writing on the rust. At that point she was taken to the psychiatric facility. She reports being frustrated with the staff at [facility] because she was there for 9 days and found out she was not eating or drinking for 3-4 days. She states her mother has strict medication compliance. She was transferred from [facility] to [facility] due to dehydration. Medical team is addressing the following: sepsis with septic shock, possible Gallbladder disease, hypernatremia (sodium is 164), MINERVA form ATN, hyperglycemia, transaminasemia, and elevated Bili. Current ck is [id number] on 05/20/2018 Disposition: DC/TX-70 ANOTHER TYPE HLTHCARE Time spent for discharge: 40 min - Discharge Diagnoses (1) Acute delirium Status: Acute (2) Acute renal failure Status: Acute (3) Fever Status: Acute (4) Schizophrenia Status: Acute (5) Sepsis Status: Acute Core Measure Documentation - Palliative Care Palliative Care/ Comfort Measures: Not Applicable - Core Measures Any of the following diagnoses?: none Exam - Physical Exam Narrative exam: Constitutional: Patient is less confused. Now cough productive Well-nourished well-developed. In no distress Head: Normocephalic atraumatic Eyes: Pupils are equal round and reactive to light Nose: No enlarged turbinates, no septal deviation. Mouth: Moist mucous membranes. Neck: Supple no thyromegaly. No bruit. No JVD Heart: Regular rate and rhythm, S1-S2 abnormal. No rubs murmurs or gallop Lungs: Clear to auscultation bilaterally no rales or rhonchi Abdomen: Soft, nontender. Bowel sound are present. Extremities: No edema no cyanosis and no clubbing. Neuro: Agitated and less disoriented. No focal sensory or motor deficit. Skin: No rashes no hyperemic spots Psychiatry: Less Agitated - Constitutional Vitals: Temp Pulse Resp BP Pulse Ox 97.4 F L 67 20 100/64 98 05/25/18 04:30 05/25/18 04:30 05/25/18 04:30 05/25/18 04:30 05/25/18 04:30 Plan Activity: up only with assistance Weight Bearing Status: Weight Bear as Tolerated Diet: regular Follow up with: NICOLETTE BROWN [Other] - 3-5 Days Prescriptions: oxyCODONE /ACETAMINOPHEN [Percocet 5/325 mg] 1 tab PO Q6H PRN #16 tablet PRN Reason: Pain, Moderate (4-6) Potassium Chloride 20 meq PO 10 #10 tablet.er
[2018-05-25 10:32] LABS: BUN/Creatinine Ratio 8; Blood Urea Nitrogen 7 mg/dL (7-17); Calcium 8.5 mg/dL (8.4-10.2); Hemolysis Index 0
[2018-05-25] MEDS: SODIUM CHLORIDE FLUSH SYRINGE 10 ML IV SCH (10:38)
[2018-05-25] MEDS: PEPCID PO SCH (10:38)
--- NOTE | 2018-05-25 13:08 | Progress Note ---
Assessment and Plan Assessment: * Acute kidney injury likely secondary to prerenal azotemia due to volume depletion * Hypernatremia * Rhabdomyolysis * Hypokalemia * Elevated LFTs Plan: * Renal function has recovered * Continue IVF for hydration - change to D5W w/ 20meq, continue current rate * Replete lytes prn - will give KCl 40meq po * Avoid potential nephrotoxins * AM labs ordered * Recommend avoiding [place] at discharge Subjective Date of service: 05/25/18 Principal diagnosis: sepsis with hypotension Interval history: Patient has no complaints today. Objective - Vital Signs Vital signs: Vital Signs - 12hr 05/25/18 05/25/18 05/25/18 01:15 04:11 04:30 Temperature 97.5 F L 97.4 F L Pulse Rate 65 64 67 Respiratory 20 20 Rate Blood Pressure 108/68 100/64 Blood Pressure [Right] O2 Sat by Pulse 97 98 Oximetry 05/25/18 05/25/18 09:09 11:13 Temperature 97.7 F Pulse Rate 62 64 Respiratory 18 Rate Blood Pressure Blood Pressure 118/66 [Right] O2 Sat by Pulse 95 Oximetry - General Appearance General appearance: well-developed, well-nourished EENT: ATNC Respiratory: Present: Clear to Ascultation Cardiology: regular, S1S2 Gastrointestinal: normal, no tenderness, no distended Integumentary: no rash, warm and dry Musculoskeletal: other (no edema) Psychiatric: cooperative - Lab 05/23/18 05:02 05/25/18 09:00 Most recent lab results Calcium 8.5 mg/dL (8.4-10.2) 05/25/18 09:00 Magnesium 2.50 mg/dL (1.7-2.3) H 05/21/18 05:59 Urine Creatinine 118.8 mg/dL (0.1-20.0) H 05/19/18 16:51 Urine Sodium 76 mmol/L 05/19/18 16:51 Urine Total Protein 43 mg/dL (5-11.8) H 05/19/18 16:51
--- NOTE | 2018-05-25 13:33 | Progress Note ---
Subjective - Reason for Consult Consult date: 05/25/18 Reason for consult: Psychiatric Follow-up Evaluation - Chief Complaint Chief complaint: "I'm okay. I'm much better." Patient is a 58 year old female seen for a psychiatric evaluation. Today the patient is calm, cooperative, and compliant during the assessment. She reports " I'm here because I was having mood swings. At first I was confused but I'm not anymore." She states that she has seen a psychiatrist in the past. She could not elaborate on what happened with her prior to her admission to the hospital. Patient male friend is at bedside. She verbalizes " I don't sleep much at night. I sleep more in the morning. She states " I have the desire to eat but I do not like food." She reports medication compliance. She denies side effects. No gestures of SI/HI's, A/VH's, and delusions. Mental Status Exam - Vital signs Last Vital Signs Temp 97.9 F 05/25/18 12:24 Pulse 61 05/25/18 12:24 Resp 18 05/25/18 12:24 BP 115/73 05/25/18 12:24 Pulse Ox 98 05/25/18 12:24 - Exam Narrative exam: Mental Status Exam General Appearance: Causally Dressed-hospital gown Eye Contact: Intermittent Orientation: Alert and oriented x 4 ( person, place, time, and situation) Attitude/Behavior: Cooperative, evasive, guarded Sensorium: Distracted Psychomotor & Musculoskeletal Activity: Laying in bed Mood: " Okay but much better" Affect: Congruent with mood Speech/Language: Normal rate and tone Thought Processes: Circumstantial Thought Content: Impoverished. Patient denies delusions. Perception: Patient denies A/V/T hallucinations Concentration/Attention: Impaired Suicidal Ideations/Plan: Patient denies. " No" Homicidal Ideations/Plan: Patient denies. " No" Judgment: Fair to poor Insight: Variable Assessment and Plan Impression: Schizophrenia vs Schizoaffective disorder, bipolar type. Today the patient is calm, cooperative, and compliant during the assessment. Presents less confused. She denies SI/HI's, A/VH's, and delusions. NA 146 on 05/25/18. The patient is not in restraints. Medical: Acute Encephalopathy Recommendations/Plan: Psych will follow daily and resume antipsychotics when benefits outweigh the risks. Speak with the patient's family to help determine proper dispo once medically stable. Recommend Delirium Precautions below: 1. Frequently reorient patient and involve him/her in their care (simple explanations of procedures, tests, medications). 2. Lights on and shades open during daytime hours. 3. Write date and goals of care in a visible place. 4. Try to avoid unnecessary interruptions to sleep during nighttime hours. 5. Obtain glasses, hearing aids from home if patient uses these at baseline. 6. Avoid medications that may exacerbate delirium (especially narcotics, benzodiazepines, barbiturates, ambien, lunesta, and medications with excessive anticholinergic properties). Consider Tylenol for pain, the patient has Morphine and Percocet ordered. 7. Recommend Haldol 2 mg Q6hrs PRN PO/IM for acute agitation. 8. D/C restraints when not indicated.
[2018-05-25] MEDS ORDERED: K-DUR PO ONE (14:00)
[2018-05-25] MEDS ORDERED: KCL 20 MEQ in D5W 1,000 ML IV SCH (14:00)
[2018-05-25 18:00] VITALS: BP 122/65
== END 2018-05-25 19:10 | disposition short-term general hospital (02) | DRG 871 ==
LOC: ED 12:10 → 4A 15:52
PROVIDERS: ADMIT Internal Medicine; ATTEND Family Medicine
DX: A41.9 Sepsis, unspecified organism (principal); R65.21 Severe sepsis with septic shock; N17.0 Acute kidney failure with tubular necrosis; G92 Toxic encephalopathy; E87.0 Hyperosmolality and hypernatremia; M62.82 Rhabdomyolysis; E87.6 Hypokalemia; F20.9 Schizophrenia, unspecified; K82.9 Disease of gallbladder, unspecified; R73.9 Hyperglycemia, unspecified; R74.0 Nonspecific elevation of levels of transaminase and lactic acid dehydrogenase [LDH]; R41.0 Disorientation, unspecified; Z79.899 Other long term (current) drug therapy
CPT/HCPCS: 36415; 71045; 74176; 76705; 76770; 80048; 80053; 80074; 80202; 81001; 82140; 82550; 82570; 82962; 83036; 83735; 83930; 84156; 84300; 84550; 85007; 85025; 86038; 87040; J1650; J1815; J2060; J2543; J3370; J3480; J7030; J7040; J7050; J7070; Q0161; Q0177

== ENCOUNTER 2018-06-02 09:19 | Inpatient (IN) | payer OTHER ==
[2018-06-02 10:17] LABS: Basophils # (Auto) 0.1 K/mm3 (0.0-0.1); Eosinophils # (Auto) 0.1 K/mm3 (0.0-0.4); Eosinophils % (Auto) 0.7 % (0.0-4.3); Hematocrit 37.6 % (30.3-42.9); Hemoglobin 12.7 gm/dl (10.1-14.3); Lymphocytes # (Auto) 1.5 K/mm3 (1.2-5.4); Mean Corpuscular HGB Conc 34 % (30-34); Mean Corpuscular Hemoglobin 31 pg (28-32); Mean Corpuscular Volume 92 fl (79-97); Monocytes # (Auto) 0.5 K/mm3 (0.0-0.8); Monocytes % (Auto) 6.7 % (0.0-7.3); Platelet Count 208 K/mm3 (140-440); Red Blood Count 4.09 M/mm3 (3.65-5.03); Red Cell Distribution Width 15.2 % (13.2-15.2)
[2018-06-02 10:38] LABS: Alanine Aminotransferase 83 units/L (7-56); Albumin 3.8 g/dL (3.9-5); BUN/Creatinine Ratio 16; Blood Urea Nitrogen 13 mg/dL (7-17); Calcium 9.1 mg/dL (8.4-10.2); Hemolysis Index 25
[2018-06-02 11:08] LABS: Bilirubin,Urine NEG (Negative); Blood,Urine SM (Negative); Color,Urine Yellow (Yellow); Protein,Urine <15 mg/dL mg/dL (Negative); Urobilinogen,Urine < 2.0 mg/dL (<2.0); WBC,Urine < 1.0 /HPF (0.0-6.0)
[2018-06-02 11:26] LABS: Amphetamine Screen,Urine PRESUMPTIVE NEGATIVE; Benzodiazepines Screen,Urine PRESUMPTIVE NEGATIVE; Cannabinoid Screen,Urine PRESUMPTIVE NEGATIVE; Cocaine Screen,Urine PRESUMPTIVE NEGATIVE; Methadone Screen,Urine PRESUMPTIVE NEGATIVE; Opiate Screen,Urine PRESUMPTIVE NEGATIVE
[2018-06-02] MEDS ORDERED: GEODON IM ONE (14:01)
[2018-06-02] MEDS ORDERED: WATER FOR INJ (PF) ONE (14:06)
[2018-06-02] MEDS ORDERED: ATIVAN IM ONE (14:47)
--- NOTE | 2018-06-02 17:49 | Emergency Department Report ---
ED Psych HPI - General Chief Complaint: Altered Mental Status Stated Complaint: KIDNEY/SHOULDER PAIN Time Seen by Provider: 06/02/18 13:48 Source: family Mode of arrival: Ambulatory - History of Present Illness Initial Comments: Says a 58-year-old female with a history of bipolar disorder with psychotic features. She is brought in by her daughter. Her daughter stated that she has been threatening in the home. She has been actively hallucinating. She has been wandering. The daughter states they have had to set the security system to make sure she doesn't leave the house. She has been delusional. On my encounter I can't get any rational her mentation from her. She seems to be responding to internal stimuli and still hallucinating. She required Geodon and Ativan to enable medical evaluation. The patient has a recent history of admission to [facility]. She developed a UTI and acute renal injury. That apparently resolved upon hospitalization here. The daughter states that the patient does have problems with urinary incontinence. However, she has not been complaining of dysuria or recent fever. She's had no recent nausea vomiting or diarrhea. There is been no apparent difficulty in breathing. The daughter does state that the patient is noncompliant with her lithium and other psychiatric medications. MD Complaint: other (psychotic behavior hallucinosis) Associated Psychiatric Symptoms: auditory hallucinations History of same: Yes Quality: constant Improves With: none Worsens With: none Context: not taking psychiatric Associated Symptoms: other (not apparently per daughter except urinary incontinence) Treatments Prior to Arrival: none - Related Data Home Medications Medication Instructions Recorded Confirmed Last Taken Benztropine [Cogentin] 1 mg PO BID 05/18/18 05/18/18 05/18/18 [place] Carbonate [[place] 450 mg PO BID 05/18/18 05/18/18 05/18/18 Carbonate ER] Olanzapine [Zyprexa] 10 mg PO QAM 05/18/18 05/18/18 05/18/18 chlorproMAZINE (NF) [Thorazine 100 mg PO Q8H 05/18/18 05/18/18 05/18/18 (Nf)] hydrOXYZINE PAMOATE [hydrOXYzine 50 mg PO TID 05/18/18 05/18/18 05/18/18 Pamoate] traZODone [Desyrel] 200 mg PO QHS 05/18/18 05/18/1805/17/18 Previous Rx's Medication Instructions Recorded Last Taken Type Potassium Chloride 20 meq PO 10 #10 tablet.er 05/25/18 Unknown Rx oxyCODONE /ACETAMINOPHEN [Percocet 1 tab PO Q6H PRN #16 tablet 05/25/18 Unknown Rx 5/325 mg] Allergies Allergy/AdvReac Type Severity Reaction Status Date / Time No Known Allergies Allergy Unverified 06/02/18 09:31 ED Review of Systems ROS: Stated complaint: KIDNEY/SHOULDER PAIN Other details as noted in HPI Comment: Unobtainable due to pts medical conditions ED Past Medical Hx - Past Medical History Hx Renal Disease: Yes Hx Psychiatric Treatment: Yes (schziophrenic) - Social History Smoking Status: Never Smoker Substance Use Type: None - Medications Home Medications: Home Medications Medication Instructions Recorded Confirmed Last Taken Type Benztropine [Cogentin] 1 mg PO BID 05/18/18 05/18/18 05/18/18 History [place] Carbonate [[place] 450 mg PO BID 05/18/18 05/18/18 05/18/18 History Carbonate ER] Olanzapine [Zyprexa] 10 mg PO QAM 05/18/18 05/18/18 05/18/18 History chlorproMAZINE (NF) [Thorazine 100 mg PO Q8H 05/18/18 05/18/18 05/18/18 History (Nf)] hydrOXYZINE PAMOATE [hydrOXYzine 50 mg PO TID 05/18/18 05/18/18 05/18/18 History Pamoate] traZODone [Desyrel] 200 mg PO QHS 05/18/18 05/18/18 05/17/18 History Potassium Chloride 20 meq PO 10 #10 tablet.er 05/25/18 Unknown Rx oxyCODONE /ACETAMINOPHEN [Percocet 1 tab PO Q6H PRN #16 tablet 05/25/18 Unknown Rx 5/325 mg] ED Physical Exam - General Limitations: Other (acute psychosis) General appearance: anxious (agitated) - Head Head exam: Present: atraumatic, normocephalic - Eye Eye exam: Present: normal appearance - ENT ENT exam: Present: mucous membranes moist - Neck Neck exam: Absent: tenderness, meningismus - Respiratory Respiratory exam: Present: normal lung sounds bilaterally. Absent: respiratory distress - Cardiovascular Cardiovascular Exam: Present: regular rate, normal rhythm. Absent: systolic murmur, diastolic murmur, rubs, gallop - GI/Abdominal GI/Abdominal exam: Present: soft, normal bowel sounds. Absent: distended, tenderness, guarding, rebound, rigid - Extremities Exam Extremities exam: Present: normal inspection - Back Exam Back exam: Present: normal inspection (except for hyperpigmented rash and excoriations) - Neurological Exam Neurological exam: Present: alert (hyperalert/agitated), CN II-XII intact (as testable). Absent: motor sensory deficit - Psychiatric Psychiatric exam: Present: agitated, anxious, manic, other (active hallucinosis) - Skin Skin exam: Present: other (hyperpigmented lesions on the back. Old and some scattered ecchymoses.) ED Course Vital Signs 06/02/18 09:24 Temperature 98.6 F Pulse Rate 77 Respiratory 16 Rate Blood Pressure 128/73 O2 Sat by Pulse 97 Oximetry - Reevaluation(s) Reevaluation #1: I requested several times for the lab to obtain additional blood work that has been ordered. The patient is noted to be hypothyroid. Thyroid profile is requested. I do not think that any of the additional lab tests will preclude a psychiatric admission however. A 1013 has been executed. The patient has been seen by mental health for psychiatric placement. 06/02/18 17:51 Reevaluation #2: Patient with persistent agitation per nursing staff and security incident handler. 20 mg of Geodon every 12 hours IM is ordered when necessary Ativan. Patient is pending psychiatric placement. Additional laboratory study will be attempted. 06/02/18 18:14 ED Medical Decision Making - Lab Data Result diagrams: 06/02/18 09:57 06/02/18 09:57 Laboratory Results - last 24 hr 06/02/18 06/02/18 06/02/18 09:57 09:57 09:57 WBC 8.1 RBC 4.09 Hgb 12.7 Hct 37.6 MCV 92 MCH 31 MCHC 34 RDW 15.2 Plt Count 208 Lymph % (Auto) 18.0 [place] % (Auto) 6.7 Eos % (Auto) 0.7 Baso % (Auto) 1.0 Lymph # 1.5 [place] # 0.5 Eos # 0.1 Baso # 0.1 Seg Neutrophils % 73.6 H Seg Neutrophils # 6.0 Sodium 142 Potassium 4.1 Chloride 104.1 Carbon Dioxide 25 Anion Gap 17 BUN 13 Creatinine 0.8 Estimated GFR > 60 BUN/Creatinine Ratio 16 Glucose 80 Calcium 9.1 Total Bilirubin 0.50 AST 29 ALT 83 H Alkaline Phosphatase 129 Total Protein 5.6 L Albumin 3.8 L Albumin/Globulin Ratio 2.1 TSH 4.470 H Urine Color Urine Turbidity Urine pH Ur Specific [place] Urine Protein Urine Glucose (UA) Urine Ketones Urine Blood Urine Nitrite Urine Bilirubin Urine Urobilinogen Ur Leukocyte Esterase Urine WBC (Auto) Urine RBC (Auto) U Epithel Cells (Auto) Urine Opiates Screen Urine Methadone Screen Ur Barbiturates Screen Ur Phencyclidine Scrn Ur Amphetamines Screen U Benzodiazepines Scrn Urine Cocaine Screen U Marijuana (THC) Screen Drugs of Abuse Note Plasma/Serum Alcohol 06/02/18 06/02/18 06/02/18 09:57 10:40 10:43 WBC RBC Hgb Hct MCV MCH MCHC RDW Plt Count Lymph % (Auto) [place] % (Auto) Eos % (Auto) Baso % (Auto) Lymph # [place] # Eos # Baso # Seg Neutrophils % Seg Neutrophils # Sodium Potassium Chloride Carbon Dioxide Anion Gap BUN Creatinine Estimated GFR BUN/Creatinine Ratio Glucose Calcium Total Bilirubin AST ALT Alkaline Phosphatase Total Protein Albumin Albumin/Globulin Ratio TSH Urine Color Yellow Urine Turbidity Clear Urine pH 7.0 Ur Specific [place] 1.005 Urine Protein <15 mg/dl Urine Glucose (UA) Neg Urine Ketones Neg Urine Blood Sm Urine Nitrite Neg Urine Bilirubin Neg Urine Urobilinogen < 2.0 Ur Leukocyte Esterase Neg Urine WBC (Auto) < 1.0 Urine RBC (Auto) 5.0 U Epithel Cells (Auto) < 1.0 Urine Opiates Screen Presumptive negative Urine Methadone Screen Presumptive negative Ur Barbiturates Screen Presumptive negative Ur Phencyclidine Scrn Presumptive negative Ur Amphetamines Screen Presumptive negative U Benzodiazepines Scrn Presumptive negative Urine Cocaine Screen Presumptive negative U Marijuana (THC) Screen Presumptive negative Drugs of Abuse Note Disclamer Plasma/Serum Alcohol < 0.01 Critical care attestation.: If time is entered above; I have spent that time in minutes in the direct care of this critically ill patient, excluding procedure time. ED Disposition Clinical Impression: Acute psychosis Schizophrenia Qualifiers: Schizophrenia type: unspecified Qualified Code(s): F20.9 - Schizophrenia, unspecified Disposition: DC/TX-65 PSY HOSP/PSY UNIT Is pt being admited?: No Does the pt Need Aspirin: No Condition: Stable Referrals: PRIMARY CARE, [Primary Care Provider] - 3-5 Days Time of Disposition: 18:14
[2018-06-02] MEDS ORDERED: MILK OF MAGNESIA PO PRN (18:15)
[2018-06-02] MEDS ORDERED: ALUM-MAG HYDROX-SIMETH 200-200-20MG/5ML PO PRN (18:15)
[2018-06-02] MEDS ORDERED: TYLENOL PO PRN (18:15)
[2018-06-02 19:46] LABS: INR 0.73 (0.87-1.13); Partial Thromboplastin Time 23.5 Sec. (24.2-36.6)
[2018-06-02 19:56] LABS: Free T4 (Free Thyroxine) 1.2 ng/dL (0.76-1.46)
[2018-06-02] MEDS: GEODON IM SCH (20:16)
--- NOTE | 2018-06-02 21:58 | Cat Scan Report ---
FINAL REPORT EXAM: CT HEAD/BRAIN WO CON HISTORY: AMS TECHNIQUE: CT head without contrast PRIORS: None. FINDINGS: No acute intra-axial or extra-axial hemorrhage is identified. There is no evidence of midline shift or mass effect. The ventricles and sulci are within normal limits. Howe-white matter differentiation is intact. No acute parenchymal abnormalities seen. Bony calvarium is grossly intact. Visualized portions of the mastoids and paranasal sinuses are unremarkable. IMPRESSION: Negative CT head
[2018-06-03] MEDS: HALDOL IM PRN ×2 (00:06→17:14)
[2018-06-03] MEDS: ATIVAN IM PRN ×2 (01:26→20:11)
[2018-06-03] MEDS ORDERED: WATER FOR INJ (PF) ONE (06:53)
[2018-06-03] MEDS: GEODON IM SCH (07:01)
--- NOTE | 2018-06-03 13:05 | Consultation ---
History of Present Illness - Reason for Consult Consult date: 06/03/18 Reason for consult: Mental Health Evaluation Requesting physician: DADA VELAZQUEZ - Chief Complaint Chief complaint: "I don't want to talk" - History of Present Psychiatric Illness 58-year-old female presents to the ER for aggressive behavior and threatening towards family members. The patient was brought to the ER by her daughter. The patient refused to cooperate during the interview. She would nod to yes and no questions. She nodded to yes to call her daughter reference her mental health. No gestures of SI/HI's. Medications and Allergies Allergies Allergy/AdvReac Type Severity Reaction Status Date / Time No Known Allergies Allergy Unverified 06/02/18 09:31 Home Medications Medication Instructions Recorded Confirmed Last Taken Type Benztropine [Cogentin] 1 mg PO BID 05/18/18 06/02/18 05/18/18 History [place] Carbonate [[place] 450 mg PO BID 05/18/18 06/02/18 05/18/18 History Carbonate ER] Olanzapine [Zyprexa] 10 mg PO QAM 05/18/18 06/02/18 05/18/18 History chlorproMAZINE (NF) [Thorazine 100 mg PO Q8H 05/18/18 06/02/18 05/18/18 History (Nf)] hydrOXYZINE PAMOATE [hydrOXYzine 50 mg PO TID 05/18/18 06/02/18 05/18/18 History Pamoate] traZODone [Desyrel] 200 mg PO QHS 05/18/18 06/02/18 05/17/18 History Potassium Chloride 20 meq PO 10 #10 tablet.er 05/25/18 06/02/18 Unknown Rx oxyCODONE /ACETAMINOPHEN [Percocet 1 tab PO Q6H PRN #16 tablet 05/25/18 Unknown Rx 5/325 mg] Active Meds: Active Medications Acetaminophen (Tylenol) 650 mg PO Q4HR PRN PRN Reason: Pain MILD(1-3)/Fever >100.5/RODRIGUEZ Al Hydrox/Mg Hydrox/Simethicone (Alum-Mag Hydrox-Simeth [id number]/5ml) 30 ml PO Q4HR PRN PRN Reason: Indigestion Lorazepam (Ativan) 2 mg IM Q12H PRN PRN Reason: Agitation Last Admin: 06/03/18 01:26 Dose: 2 mg Magnesium Hydroxide (Milk Of Magnesia) 30 ml PO Q12HR PRN PRN Reason: Constipation Ziprasidone (Geodon) 20 mg IM Q12H CHARLETTE Last Admin: 06/03/18 07:01 Dose: 20 mg Past psychiatric history - Past Medical History Past Medical History: other (Unable to obtain) Past Surgical History: Other (Unable to obtain ) - past Psychiatric treatment and history psychiatric treatment history: Per the record, inpatient psy services in the past. Unable to obtain a [facility] hx. - Social History Social history: lives with family Mental Status Exam - Vital signs Last Vital Signs Temp 98.5 F 06/02/18 21:41 Pulse 101 H 06/02/18 21:41 Resp 16 06/02/18 21:41 BP 114/71 06/02/18 21:41 Pulse Ox 98 06/02/18 21:41 - Exam Narrative exam: Unable to complete the MSE because the patient refuse to cooperate. Results Result Diagrams: 06/02/18 09:57 06/02/18 09:57 Abnormal lab results 06/02/18 06/02/18 Range/Units 19:09 19:09 PT 10.6 L (12.2-14.9) Sec. INR 0.73 L (0.87-1.13) APTT 23.5 L (24.2-36.6) Sec. Ammonia 20.0 L (25-60) umol/L All other labs normal. Assessment and Plan Assessment and plan: Impression: Hx of Schizophrenia per the record. The patient refused to cooperate during the interview. Recommendation/Plan: Continue 1013 and gather collateral information to help determine proper treatment and dispo. Start Haldol 5 mg IM Q6hrs PRN for acute agitation.
--- NOTE | 2018-06-04 16:20 | Progress Note ---
Subjective - Reason for Consult Consult date: 06/04/18 Reason for consult: Psychiatric Follow-up Evaluation - Chief Complaint Chief complaint: Patient refuses to speak with provider . Patient is a 58-year-old female who presents to the ER for aggressive and threatening behavior towards family members. The patient was brought to the ER by her daughter. The patient refused to cooperate during the interview. Per assigned RN patient received Ativan and Haldol for agitation. Patient seen wandering the hallway. Patient is difficult to redirect. At this time, patient is standing in front of the exam door, blocking the entrance, and moving the bed. Mental Status Exam - Vital signs Last Vital Signs Temp 98.0 F 06/03/18 20:11 Pulse 111 H 06/03/18 20:11 Resp 18 06/04/18 12:24 BP 99/66 06/03/18 20:11 Pulse Ox 98 06/04/18 12:24 - Exam Narrative exam: Mental Status Exam General Appearance: Causally Dressed-hospital gown, poorly groomed Eye Contact: Poor Orientation: Alert. Unable to assess orientation. Attitude/Behavior: Uncooperative Sensorium: Distracted Psychomotor & Musculoskeletal Activity: Ambulatory/ Agitated Mood: Unable to Assess Affect: Inappropriate Speech/Language: Loud Thought Processes: Unable to Assess Thought Content: Unable to Assess Perception: Unable to Assess Concentration/Attention: Impaired. Suicidal Ideations/Plan: Patient denies. Unable to Assess Homicidal Ideations/Plan: Patient denies. Unable to Assess Judgment: Poor Insight: Poor Assessment and Plan Impression: Hx of Schizophrenia per the record. The patient refused to cooperate during the interview. Patient agitated. Per RN patient is not responding to the PRN's for agitation. Requested that Benadryl IM be given as well. Recommendation/Plan: 1. Continue 1013 and gather collateral information to help determine proper treatment and disposition. 2. Continue Haldol 5 mg IM Q6hrs PRN for acute agitation. 3. Will start Benadryl 50mg IM [id number] PRN for EPS/sleep. 4. Will continue to monitor mood, psychosis, agitation, sleep, appetite, compliance, and sleep.
[2018-06-04] MEDS: ATIVAN IM PRN (23:39)
[2018-06-04] MEDS: HALDOL IM PRN (23:40)
[2018-06-05] MEDS: BENADRYL IM PRN ×2 (05:32→17:16)
[2018-06-05] MEDS: ATIVAN IM PRN ×2 (09:24→17:16)
[2018-06-05] MEDS: HALDOL IM PRN ×2 (09:24→17:16)
[2018-06-06] MEDS: BENADRYL IM PRN (00:17)
[2018-06-06] MEDS: HALDOL IM PRN ×2 (00:18→20:00)
--- NOTE | 2018-06-06 11:56 | Progress Note ---
Subjective - Reason for Consult Consult date: 06/06/18 Reason for consult: Psychiatry Follow-up - Chief Complaint Chief complaint: "Milena" Patient is a 58-year-old female who presents to the ER for aggressive and threatening behavior towards family members. The patient was brought to the ER by her daughter. Today the patient is disorganized with echopraxia during the assessment. She had to be redirected several times to keep her on topic. The patient had to be given PRN medication for agitation per the MAR within the past 24 hours. No gestures of SI/HI's. Mental Status Exam - Vital signs Last Vital Signs Temp 98.1 F 06/05/18 20:00 Pulse 95 H 06/05/18 20:00 Resp 20 06/05/18 20:00 BP 121/79 06/05/18 20:00 Pulse Ox 99 06/05/18 20:00 - Exam Narrative exam: MSE: Appearance: calm, disheveled Behavior: regular eye contact Speech: regular rate and tone Mood: agitated Affect: congruent to mood Thought Process: disorganized Thought Content: no gestures SI/HI's Motor Activity: ambulatory, echopraxia Cognition: A/O x 3 Insight: poor Judgment: poor Assessment and Plan Impression: Hx of Schizophrenia per the record. Today the patient is disorganized with echopraxia during the assessment. DDx: R/O Bipolar DO with psychosis Recommendation/Plan: Continue 1013 with placement to inpatient psy services. Continue Haldol 5 mg IM Q6hrs PRN for acute agitation. Start Zyprexa 5 mg PO HS for psychosis and Cogentin 0.5 mg PO HS for EPS prevention. Attempted to discuss possible metabolic side effects with patient reference Zyprexa.
[2018-06-06 11:59] LABS: Free T4 (Free Thyroxine) 1.4 ng/dL (0.76-1.46)
[2018-06-06] MEDS: COGENTIN PO SCH (22:29)
--- NOTE | 2018-06-07 12:32 | Progress Note ---
Subjective - Reason for Consult Consult date: 06/07/18 Reason for consult: Psychiatry Follow-up - Chief Complaint Chief complaint: "How are you" Patient is a 58-year-old female who presents to the ER for aggressive and threatening behavior towards family members. The patient was brought to the ER by her daughter. Today the patient is still disorganized with echopraxia during the assessment. She was sitting on the ground when I arrived to her room. She was disorganized and tangent throughout the interview. No indications of side effects of her medications. No gestures of SI/HI's. Mental Status Exam - Vital signs Last Vital Signs Temp 99.4 F 06/07/18 11:39 Pulse 99 H 06/07/18 11:39 Resp 16 06/07/18 11:39 BP 110/64 06/07/18 11:39 Pulse Ox 98 06/07/18 11:39 - Exam Narrative exam: MSE: Appearance: calm, disheveled Behavior: regular eye contact Speech: regular rate and tone Mood: "okay" Affect: euphoric Thought Process: disorganized, tangential Thought Content: no gestures SI/HI's Motor Activity: ambulatory, echopraxia Cognition: alert Insight: poor Judgment: poor Assessment and Plan Impression: Hx of Schizophrenia per the record. Today the patient is disorganized during the assessment. DDx: R/O Bipolar DO with psychosis Recommendation/Plan: Continue 1013 with placement with placement to [facility] pending transport time. Continue Haldol 5 mg IM Q6hrs PRN for acute agitation, Zyprexa 5 mg PO HS for psychosis, and Cogentin 0.5 mg PO HS for EPS prevention. Attempted to discuss possible metabolic side effects with patient reference Zyprexa.
[2018-06-07] MEDS ORDERED: GEODON IM ONE (15:06)
[2018-06-07] MEDS: HALDOL IM PRN (16:54)
[2018-06-08] MEDS: ATIVAN IM PRN ×2 (00:30→09:11)
[2018-06-08] MEDS: HALDOL IM PRN ×2 (00:32→13:35)
[2018-06-08] MEDS: COGENTIN PO SCH ×2 (00:59→22:00)
[2018-06-08] MEDS ORDERED: HALDOL IM ONE (06:48)
[2018-06-08] MEDS ORDERED: GEODON IM ONE (10:13)
[2018-06-08] MEDS ORDERED: WATER FOR INJ (PF) ONE (10:18)
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
[2018-06-09] MEDS: HALDOL IM PRN (03:03)
[2018-06-09] MEDS: ATIVAN IM PRN (03:03)
[2018-06-09] MEDS: VISTARIL PO SCH (12:15)
--- NOTE | 2018-06-09 13:41 | Progress Note ---
Subjective - Reason for Consult Consult date: 06/09/18 Reason for consult: Psychiatry Follow-up - Chief Complaint Chief complaint: "What" Patient is a 58-year-old female who presents to the ER for aggressive and threatening behavior towards family members. The patient was brought to the ER by her daughter. Today the patient is still disorganized with echopraxia during the assessment. She was anxious throughout the interview. She would state the word "what" several times until she was redirected. She was asked several questions and the patient would not answer. The patient was observed pacing around seminude in the seclusion room. She would not confirm or deny AVH's. No gestures of SI/HI's. No indications of side effects of her medications. Mental Status Exam - Vital signs Last Vital Signs Temp 98.8 F 06/09/18 10:00 Pulse 112 H 06/09/18 10:00 Resp 18 06/09/18 13:13 BP 120/85 06/09/18 10:00 Pulse Ox 99 06/09/18 13:13 - Exam Narrative exam: MSE: Appearance: anxious, disheveled Behavior: poor eye contact Speech: regular rate and tone Mood: unable to assess Affect: euphoric Thought Process: disorganized Thought Content: no gestures SI/HI's Motor Activity: ambulatory, echopraxia Cognition: alert Insight: unable to assess Judgment: unable to assess Assessment and Plan Impression: Hx of Schizophrenia per the record. Today the patient is still disorganized with echopraxia during the assessment. DDx: R/O Bipolar DO with psychosis Recommendation/Plan: Continue 1013 with placement with placement to [facility] pending transport time. Start Geodon 10 mg IM Q6hrs PRN for acute agitation. Increase Zyprexa to 10 mg PO HS for psychosis and continue Cogentin 0.5 mg PO HS for EPS prevention. Attempted to discuss possible metabolic side effects with patient reference Zyprexa.
[2018-06-09] MEDS: GEODON IM PRN (23:53)
[2018-06-10] MEDS: COGENTIN PO SCH ×2 (01:18→22:53)
[2018-06-10] MEDS: VISTARIL PO SCH ×3 (01:18→22:53)
[2018-06-10] MEDS ORDERED: WATER FOR INJ (PF) ONE (05:25)
[2018-06-10] MEDS: GEODON IM PRN ×2 (05:33→18:08)
--- NOTE | 2018-06-10 13:43 | Progress Note ---
Subjective - Reason for Consult Consult date: 06/10/18 Reason for consult: Psychiatry Follow-up - Chief Complaint Chief complaint: "I am okay" Patient is a 58-year-old female who presents to the ER for aggressive and threatening behavior towards family members. The patient was brought to the ER by her daughter. Today the patient is still disorganized during the assessment. She is tangent and had to be redirected several times to keep her on topic. She continue to be seminude in the seclusion room. No gestures of SI/HI's. No indications of side effects of her medications. Mental Status Exam - Vital signs Last Vital Signs Temp 98.7 F 06/10/18 08:58 Pulse 112 H 06/10/18 08:58 Resp 18 06/10/18 08:58 BP 113/74 06/10/18 08:58 Pulse Ox 97 06/10/18 08:58 - Exam Narrative exam: MSE: Appearance: disheveled Behavior: poor eye contact Speech: regular rate and tone Mood: unable to assess Affect: euphoric Thought Process: disorganized, tangential Thought Content: no gestures SI/HI's Motor Activity: ambulatory, echopraxia Cognition: alert Insight: poor Judgment: poor Assessment and Plan Impression: Hx of Schizophrenia per the record. Today the patient is still disorganized during the assessment. The patient has been tacyhcardic since 06/08/2018. The ER medical staff is aware. DDx: R/O Bipolar DO with psychosis Recommendation/Plan: The patient's 1013 had to be extended. Continue 1013 with placement on hold per [facility] because of the her tachycardia. Continue Geodon 10 mg IM Q6hrs PRN for acute agitation, Zyprexa 10 mg PO HS for psychosis , Cogentin 0.5 mg PO HS for EPS prevention, and Vistaril 25 mg PO BID for anxiety. Attempted to discuss possible metabolic side effects with patient reference Zyprexa.
[2018-06-11] MEDS ORDERED: HALDOL IM ONE (04:01)
[2018-06-11] MEDS: VISTARIL PO SCH (10:15)
--- NOTE | 2018-06-11 19:15 | Progress Note ---
Subjective - Reason for Consult Consult date: 06/11/18 Reason for consult: Psychiatric Follow-up Evaluation - Chief Complaint Chief complaint: "Good" Patient is a 58-year-old female who presents to the ER for aggressive and threatening behavior towards family members. The patient was brought to the ER by her daughter. Today the patient is still disorganized during the assessment. Per staff patient has not been eating. Food is all over patient's room. Patient seen singing aloud and responding to internal stimuli. Currently, patient is naked in room. Psychosis is evident. No gestures of SI/HI's. No indications of side effects of her medications. Mental Status Exam - Vital signs Last Vital Signs Temp 98.4 F 06/11/18 04:07 Pulse 130 H 06/11/18 04:07 Resp 18 06/11/18 04:07 BP 104/82 06/11/18 04:07 Pulse Ox 98 06/11/18 04:07 - Exam Narrative exam: Mental Status Exam General Appearance: Causally Dressed-hospital gown, poorly groomed Eye Contact: Poor Orientation: Alert. Unable to assess orientation. Attitude/Behavior: Uncooperative Sensorium: Distracted Psychomotor & Musculoskeletal Activity: Ambulatory/ Agitated Mood: " Good" Affect: Incongruent, labile, anxious, and agitated Speech/Language: Loud Thought Processes: Disorganized Thought Content: Impoverished Perception: + Auditory hallucinations, responding to internal stimuli (laughing/ singing inapp.) Concentration/Attention: Impaired Suicidal Ideations/Plan: Patient denies. Unable to Assess Homicidal Ideations/Plan: Patient denies. Unable to Assess Judgment: Poor Insight: Poor Assessment and Plan Impression: Hx of Schizophrenia per the record. Today the patient is still disorganized during the assessment. Psychosis is evident. The patient has been tacyhcardic since 06/08/2018. The ER medical staff is aware. DDx: R/O Bipolar DO with psychosis Recommendation/Plan: 1. Continue 1013. The patient is still pending placement to inpatient psy services. Continue 1013 with placement with placement to [facility] pending transport time. 2. Assist with placement to inpatient psychiatric services. 3. Increase Zyprexa 12.5 mg PO HS for psychosis. Attempted to discuss possible metabolic side effects with patient reference Zyprexa. 4. Continue Cogentin 0.5 mg PO HS for EPS prevention, and Vistaril 25 mg PO BID for anxiety, Geodon 10 mg IM Q6hrs PRN for acute agitation. 5. Will continue to monitor psychosis, mood, sleep, appetite, compliance, and side effects.
[2018-06-12] MEDS: VISTARIL PO SCH ×3 (00:26→22:20)
[2018-06-12] MEDS: COGENTIN PO SCH ×2 (00:26→22:20)
[2018-06-12] MEDS: GEODON IM PRN (05:38)
[2018-06-12] MEDS ORDERED: ATIVAN ONE (13:08)
[2018-06-12] MEDS ORDERED: ATIVAN PO ONE (13:21)
[2018-06-12 13:31] LABS: Basophils % (Auto) 0.4 % (0.0-1.8); Eosinophils # (Auto) 0.5 K/mm3 (0.0-0.4); Eosinophils % (Auto) 4.7 % (0.0-4.3); Hematocrit 38.5 % (30.3-42.9); Hemoglobin 12.9 gm/dl (10.1-14.3); Lymphocytes # (Auto) 1.8 K/mm3 (1.2-5.4); Lymphocytes % (Auto) 16.1 % (13.4-35.0); Mean Corpuscular HGB Conc 33 % (30-34); Mean Corpuscular Hemoglobin 31 pg (28-32); Mean Corpuscular Volume 93 fl (79-97); Monocytes # (Auto) 0.9 K/mm3 (0.0-0.8); Monocytes % (Auto) 7.8 % (0.0-7.3); Platelet Count 207 K/mm3 (140-440); Red Blood Count 4.14 M/mm3 (3.65-5.03); Red Cell Distribution Width 15.6 % (13.2-15.2)
[2018-06-12 13:55] LABS: Albumin 4.2 g/dL (3.9-5); Calcium 9.7 mg/dL (8.4-10.2)
--- NOTE | 2018-06-12 17:53 | Progress Note ---
Subjective - Reason for Consult Consult date: 06/12/18 Reason for consult: Psychiatric Follow-up Evaluation - Chief Complaint Chief complaint: "Good" Patient is a 58-year-old female who presents to the ER for aggressive and threatening behavior towards family members. The patient was brought to the ER by her daughter. Today the patient is still disorganized during the assessment. Per staff patient has been agitated and combative. Patient needs constant redirection. She continues to be seminude in the seclusion room. Patient seen responding to internal stimuli. No gestures of SI/HI's. No indications of side effects of her medications. Mental Status Exam - Vital signs Last Vital Signs Temp 98.5 F 06/12/18 08:30 Pulse 129 H 06/12/18 08:30 Resp 20 06/12/18 09:19 BP 125/84 06/12/18 08:30 Pulse Ox 99 06/12/18 09:19 - Exam Narrative exam: Mental Status Exam General Appearance: Causally Dressed-hospital gown, poorly groomed Eye Contact: Poor Orientation: Alert. Unable to assess orientation. Attitude/Behavior: Uncooperative Sensorium: Distracted Psychomotor & Musculoskeletal Activity: Ambulatory/ Agitated Mood: Labile, anxious, agitated Affect: Incongruent Speech/Language: Loud Thought Processes: Disorganized Thought Content: Impoverished, paranoid Perception: + Auditory hallucinations, responding to internal stimuli (laughing inapp.) Concentration/Attention: Impaired Suicidal Ideations/Plan: Patient denies. Unable to Assess Homicidal Ideations/Plan: Patient denies. Unable to Assess Judgment: Poor Insight: Poor Assessment and Plan Impression: Hx of Schizophrenia per the record. Today the patient is still disorganized during the assessment. The patient has been tacyhcardic since 2017. The ER medical staff is aware. DDx: R/O Bipolar DO with psychosis Recommendation/Plan: 1. Continue 1013 and assist with placement to inpatient psychiatric services. 2. Pending placement on hold per [facility] because of tachycardia. 3. Continue Geodon 10 mg IM Q6hrs PRN for acute agitation, Zyprexa 10 mg PO HS for psychosis, Cogentin 0.5 mg PO HS for EPS prevention, and Vistaril 25 mg PO BID for anxiety. Attempted to discuss possible metabolic side effects with patient reference Zyprexa. 4. Will continue to monitor psychosis, mood, appetite, sleep, compliance, and side effects.
[2018-06-12] MEDS ORDERED: NACL 0.9% 1000 ML 1,000 ML IV ONE ×2 (19:14→19:15)
[2018-06-13] MEDS ORDERED: COGENTIN ONE (02:02)
[2018-06-13] MEDS ORDERED: GEODON IM ONE ×2 (02:03→19:00)
[2018-06-13] MEDS ORDERED: COGENTIN IM ONE (02:04)
[2018-06-13 03:09] LABS: Calcium 9.2 mg/dL (8.4-10.2)
[2018-06-13] MEDS ORDERED: ATIVAN IM ONE (04:21)
[2018-06-13] MEDS ORDERED: BENADRYL ONE (05:33)
[2018-06-13] MEDS ORDERED: HALDOL ONE (05:33)
[2018-06-13] MEDS ORDERED: BENADRYL IM ONE (05:35)
[2018-06-13] MEDS ORDERED: HALDOL IM ONE (05:35)
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
--- NOTE | 2018-06-13 07:33 | Event Note ---
Date: 06/13/18 Patient's laboratory studies today had indicated hypernatremia and acute renal insufficiency, since her initial ER visit from May 2018. The patient is not medically suitable for inpatient psychiatric hospitalization and patient will require medical admission for IV fluids, and optimization. Nephrology contact center professional has been paged. We are waiting a callback. Case is presented to the Hospital physician, Dr. Haney, who accepts the patient to the medical service. Vital Signs 06/02/18 06/02/18 06/03/18 09:24 21:41 20:11 Temperature 98.6 F 98.5 F 98.0 F Pulse Rate 77 101 H 111 H Respiratory 16 16 12 Rate Blood Pressure 128/73 114/71 99/66 Blood Pressure [Left] O2 Sat by Pulse 97 98 96 Oximetry 06/04/18 06/04/18 06/05/18 12:24 23:00 09:20 Temperature 97.3 F L 98.1 F Pulse Rate 80 115 H Respiratory 18 18 18 Rate Blood Pressure Blood Pressure 115/62 114/80 [Left] O2 Sat by Pulse 98 98 100 Oximetry 06/05/18 06/06/18 06/07/18 20:00 20:10 11:39 Temperature 98.1 F 99.4 F Pulse Rate 95 H 109 H 99 H Respiratory 20 18 16 Rate Blood Pressure Blood Pressure 121/79 114/80 110/64 [Left] O2 Sat by Pulse 99 98 98 Oximetry 06/08/18 06/08/18 06/08/18 06:27 08:30 11:30 Temperature 97.7 F 97.8 F Pulse Rate 99 H 111 H 71 Respiratory 17 17 18 Rate Blood Pressure Blood Pressure 115/73 129/78 145/92 [Left] O2 Sat by Pulse 100 100 98 Oximetry 06/08/18 06/08/18 06/08/18 16:16 16:37 17:10 Temperature 98.5 F 98.1 F Pulse Rate 118 H 108 H 114 H Respiratory 18 18 Rate Blood Pressure Blood Pressure 118/73 119/86 [Left] O2 Sat by Pulse 95 100 Oximetry 06/08/18 06/09/18 06/09/18 22:00 10:00 13:13 Temperature 98.1 F 98.8 F Pulse Rate 111 H 112 H Respiratory 18 18 18 Rate Blood Pressure Blood Pressure 122/78 120/85 [Left] O2 Sat by Pulse 99 99 Oximetry 06/10/18 06/10/18 06/10/18 01:20 01:45 08:58 Temperature 98.7 F 98.7 F Pulse Rate 116 H 112 H Respiratory 18 20 18 Rate Blood Pressure Blood Pressure 118/71 113/74 [Left] O2 Sat by Pulse 98 100 97 Oximetry 06/10/18 06/11/18 06/11/18 13:56 04:07 10:00 Temperature 98.4 F 97.7 F Pulse Rate 130 H 133 H Respiratory 18 18 20 Rate Blood Pressure Blood Pressure 104/82 120/88 [Left] O2 Sat by Pulse 99 98 99 Oximetry 06/11/18 06/12/18 06/12/18 22:19 01:20 08:30 Temperature 97.8 F 98.5 F Pulse Rate 108 H 129 H Respiratory 20 18 20 Rate Blood Pressure Blood Pressure 136/89 125/84 [Left] O2 Sat by Pulse 100 97 99 Oximetry 06/12/18 06/12/18 06/13/18 09:19 22:00 02:40 Temperature 98.0 F Pulse Rate 125 H 67 Respiratory 20 18 Rate Blood Pressure Blood Pressure 125/85 [Left] O2 Sat by Pulse 99 98 98 Oximetry 06/13/18 06:50 Temperature 98 F Pulse Rate 105 H Respiratory 16 Rate Blood Pressure Blood Pressure 95/65 [Left] O2 Sat by Pulse 96 Oximetry Lab Results 06/02/18 06/02/18 06/02/18 Range/Units 09:57 09:57 09:57 WBC 8.1 (4.5-11.0) K/mm3 RBC 4.09 (3.65-5.03) M/mm3 Hgb 12.7 (10.1-14.3) gm/dl Hct 37.6 (30.3-42.9) % MCV 92 (79-97) fl MCH 31 (28-32) pg MCHC 34 (30-34) % RDW 15.2 (13.2-15.2) % Plt Count 208 (140-440) K/mm3 Lymph % (Auto) 18.0 (13.4-35.0) % Dunn % (Auto) 6.7 (0.0-7.3) % Eos % (Auto) 0.7 (0.0-4.3) % Baso % (Auto) 1.0 (0.0-1.8) % Lymph # 1.5 (1.2-5.4) K/mm3 Dunn # 0.5 (0.0-0.8) K/mm3 Eos # 0.1 (0.0-0.4) K/mm3 Baso # 0.1 (0.0-0.1) K/mm3 Seg Neutrophils % 73.6 H (40.0-70.0) % Seg Neutrophils # 6.0 (1.8-7.7) K/mm3 PT (12.2-14.9) Sec. INR (0.87-1.13) APTT (24.2-36.6) Sec. Sodium 142 (137-145) mmol/L Potassium 4.1 (3.6-5.0) mmol/L Chloride 104.1 (98-107) mmol/L Carbon Dioxide 25 (22-30) mmol/L Anion Gap 17 mmol/L BUN 13 (7-17) mg/dL Creatinine 0.8 (0.7-1.2) mg/dL Estimated GFR > 60 ml/min BUN/Creatinine Ratio 16 % Glucose 80 (65-100) mg/dL POC Glucose (70-105) Lactic Acid (0.7-2.0) mmol/L Calcium 9.1 (8.4-10.2) mg/dL Magnesium (1.7-2.3) mg/dL Total Bilirubin 0.50 (0.1-1.2) mg/dL AST 29 (5-40) units/L ALT 83 H (7-56) units/L Alkaline Phosphatase 129 (35-129) units/L Ammonia (25-60) umol/L Troponin T (0.00-0.029) ng/mL NT-Pro-B Natriuret Pep (0-900) pg/mL Total Protein 5.6 L (6.3-8.2) g/dL Albumin 3.8 L (3.9-5) g/dL Albumin/Globulin Ratio 2.1 % TSH 4.470 H (0.270-4.200) mlU/mL Free T4 (0.76-1.46) ng/dL Urine Color (Yellow) Urine Turbidity (Clear) Urine pH (5.0-7.0) Ur Specific [place] (1.003-1.030) Urine Protein (Negative) mg/dL Urine Glucose (UA) (Negative) mg/dL Urine Ketones (Negative) mg/dL Urine Blood (Negative) Urine Nitrite (Negative) Urine Bilirubin (Negative) Urine Urobilinogen (<2.0) mg/dL Ur Leukocyte Esterase (Negative) Urine WBC (Auto) (0.0-6.0) /HPF Urine RBC (Auto) (0.0-6.0) /HPF U Epithel Cells (Auto) (0-13.0) /HPF Urine Opiates Screen Urine Methadone Screen Ur Barbiturates Screen Ur Phencyclidine Scrn Ur Amphetamines Screen U Benzodiazepines Scrn Colon (0.0-1.2) mmol/L Urine Cocaine Screen U Marijuana (THC) Screen Drugs of Abuse Note Plasma/Serum Alcohol (0-0.07) % 06/02/18 06/02/18 06/02/18 Range/Units 09:57 10:40 10:43 WBC (4.5-11.0) K/mm3 RBC (3.65-5.03) M/mm3 Hgb (10.1-14.3) gm/dl Hct (30.3-42.9) % MCV (79-97) fl MCH (28-32) pg MCHC (30-34) % RDW (13.2-15.2) % Plt Count (140-440) K/mm3 Lymph % (Auto) (13.4-35.0) % Dunn % (Auto) (0.0-7.3) % Eos % (Auto) (0.0-4.3) % Baso % (Auto) (0.0-1.8) % Lymph # (1.2-5.4) K/mm3 Dunn # (0.0-0.8) K/mm3 Eos # (0.0-0.4) K/mm3 Baso # (0.0-0.1) K/mm3 Seg Neutrophils % (40.0-70.0) % Seg Neutrophils # (1.8-7.7) K/mm3 PT (12.2-14.9) Sec. INR (0.87-1.13) APTT (24.2-36.6) Sec. Sodium (137-145) mmol/L Potassium (3.6-5.0) mmol/L Chloride (98-107) mmol/L Carbon Dioxide (22-30) mmol/L Anion Gap mmol/L BUN (7-17) mg/dL Creatinine (0.7-1.2) mg/dL Estimated GFR ml/min BUN/Creatinine Ratio % Glucose (65-100) mg/dL POC Glucose (70-105) Lactic Acid (0.7-2.0) mmol/L Calcium (8.4-10.2) mg/dL Magnesium (1.7-2.3) mg/dL Total Bilirubin (0.1-1.2) mg/dL AST (5-40) units/L ALT (7-56) units/L Alkaline Phosphatase (35-129) units/L Ammonia (25-60) umol/L Troponin T (0.00-0.029) ng/mL NT-Pro-B Natriuret Pep (0-900) pg/mL Total Protein (6.3-8.2) g/dL Albumin (3.9-5) g/dL Albumin/Globulin Ratio % TSH (0.270-4.200) mlU/mL Free T4 (0.76-1.46) ng/dL Urine Color Yellow (Yellow) Urine Turbidity Clear (Clear) Urine pH 7.0 (5.0-7.0) Ur Specific [place] 1.005 (1.003-1.030) Urine Protein <15 mg/dl (Negative) mg/dL Urine Glucose (UA) Neg (Negative) mg/dL Urine Ketones Neg (Negative) mg/dL Urine Blood Sm (Negative) Urine Nitrite Neg (Negative) Urine Bilirubin Neg (Negative) Urine Urobilinogen < 2.0 (<2.0) mg/dL Ur Leukocyte Esterase Neg (Negative) Urine WBC (Auto) < 1.0 (0.0-6.0) /HPF Urine RBC (Auto) 5.0 (0.0-6.0) /HPF U Epithel Cells (Auto) < 1.0 (0-13.0) /HPF Urine Opiates Screen Presumptive negative Urine Methadone Screen Presumptive negative Ur Barbiturates Screen Presumptive negative Ur Phencyclidine Scrn Presumptive negative Ur Amphetamines Screen Presumptive negative U Benzodiazepines Scrn Presumptive negative Colon (0.0-1.2) mmol/L Urine Cocaine Screen Presumptive negative U Marijuana (THC) Screen Presumptive negative Drugs of Abuse Note Disclamer Plasma/Serum Alcohol < 0.01 (0-0.07) % 06/02/18 06/02/18 06/02/18 Range/Units 19:09 19:09 19:09 WBC (4.5-11.0) K/mm3 RBC (3.65-5.03) M/mm3 Hgb (10.1-14.3) gm/dl Hct (30.3-42.9) % MCV (79-97) fl MCH (28-32) pg MCHC (30-34) % RDW (13.2-15.2) % Plt Count (140-440) K/mm3 Lymph % (Auto) (13.4-35.0) % Dunn % (Auto) (0.0-7.3) % Eos % (Auto) (0.0-4.3) % Baso % (Auto) (0.0-1.8) % Lymph # (1.2-5.4) K/mm3 Dunn # (0.0-0.8) K/mm3 Eos # (0.0-0.4) K/mm3 Baso # (0.0-0.1) K/mm3 Seg Neutrophils % (40.0-70.0) % Seg Neutrophils # (1.8-7.7) K/mm3 PT 10.6 L (12.2-14.9) Sec. INR 0.73 L (0.87-1.13) APTT 23.5 L (24.2-36.6) Sec. Sodium (137-145) mmol/L Potassium (3.6-5.0) mmol/L Chloride (98-107) mmol/L Carbon Dioxide (22-30) mmol/L Anion Gap mmol/L BUN (7-17) mg/dL Creatinine (0.7-1.2) mg/dL Estimated GFR ml/min BUN/Creatinine Ratio % Glucose (65-100) mg/dL POC Glucose (70-105) Lactic Acid (0.7-2.0) mmol/L Calcium (8.4-10.2) mg/dL Magnesium (1.7-2.3) mg/dL Total Bilirubin (0.1-1.2) mg/dL AST (5-40) units/L ALT (7-56) units/L Alkaline Phosphatase (35-129) units/L Ammonia (25-60) umol/L Troponin T (0.00-0.029) ng/mL NT-Pro-B Natriuret Pep (0-900) pg/mL Total Protein (6.3-8.2) g/dL Albumin (3.9-5) g/dL Albumin/Globulin Ratio % TSH 4.010 (0.270-4.200) mlU/mL Free T4 1.20 (0.76-1.46) ng/dL Urine Color (Yellow) Urine Turbidity (Clear) Urine pH (5.0-7.0) Ur Specific [place] (1.003-1.030) Urine Protein (Negative) mg/dL Urine Glucose (UA) (Negative) mg/dL Urine Ketones (Negative) mg/dL Urine Blood (Negative) Urine Nitrite (Negative) Urine Bilirubin (Negative) Urine Urobilinogen (<2.0) mg/dL Ur Leukocyte Esterase (Negative) Urine WBC (Auto) (0.0-6.0) /HPF Urine RBC (Auto) (0.0-6.0) /HPF U Epithel Cells (Auto) (0-13.0) /HPF Urine Opiates Screen Urine Methadone Screen Ur Barbiturates Screen Ur Phencyclidine Scrn Ur Amphetamines Screen U Benzodiazepines Scrn Colon 0.1 (0.0-1.2) mmol/L Urine Cocaine Screen U Marijuana (THC) Screen Drugs of Abuse Note Plasma/Serum Alcohol (0-0.07) % 06/02/18 06/02/18 06/02/18 Range/Units 19:09 19:09 19:09 WBC (4.5-11.0) K/mm3 RBC (3.65-5.03) M/mm3 Hgb (10.1-14.3) gm/dl Hct (30.3-42.9) % MCV (79-97) fl MCH (28-32) pg MCHC (30-34) % RDW (13.2-15.2) % Plt Count (140-440) K/mm3 Lymph % (Auto) (13.4-35.0) % Dunn % (Auto) (0.0-7.3) % Eos % (Auto) (0.0-4.3) % Baso % (Auto) (0.0-1.8) % Lymph # (1.2-5.4) K/mm3 Dunn # (0.0-0.8) K/mm3 Eos # (0.0-0.4) K/mm3 Baso # (0.0-0.1) K/mm3 Seg Neutrophils % (40.0-70.0) % Seg Neutrophils # (1.8-7.7) K/mm3 PT (12.2-14.9) Sec. INR (0.87-1.13) APTT (24.2-36.6) Sec. Sodium (137-145) mmol/L Potassium (3.6-5.0) mmol/L Chloride (98-107) mmol/L Carbon Dioxide (22-30) mmol/L Anion Gap mmol/L BUN (7-17) mg/dL Creatinine (0.7-1.2) mg/dL Estimated GFR ml/min BUN/Creatinine Ratio % Glucose (65-100) mg/dL POC Glucose (70-105) Lactic Acid 2.00 (0.7-2.0) mmol/L Calcium (8.4-10.2) mg/dL Magnesium 1.90 (1.7-2.3) mg/dL Total Bilirubin (0.1-1.2) mg/dL AST (5-40) units/L ALT (7-56) units/L Alkaline Phosphatase (35-129) units/L Ammonia 20.0 L (25-60) umol/L Troponin T < 0.010 (0.00-0.029) ng/mL NT-Pro-B Natriuret Pep 60.88 (0-900) pg/mL Total Protein (6.3-8.2) g/dL Albumin (3.9-5) g/dL Albumin/Globulin Ratio % TSH (0.270-4.200) mlU/mL Free T4 (0.76-1.46) ng/dL Urine Color (Yellow) Urine Turbidity (Clear) Urine pH (5.0-7.0) Ur Specific [place] (1.003-1.030) Urine Protein (Negative) mg/dL Urine Glucose (UA) (Negative) mg/dL Urine Ketones (Negative) mg/dL Urine Blood (Negative) Urine Nitrite (Negative) Urine Bilirubin (Negative) Urine Urobilinogen (<2.0) mg/dL Ur Leukocyte Esterase (Negative) Urine WBC (Auto) (0.0-6.0) /HPF Urine RBC (Auto) (0.0-6.0) /HPF U Epithel Cells (Auto) (0-13.0) /HPF Urine Opiates Screen Urine Methadone Screen Ur Barbiturates Screen Ur Phencyclidine Scrn Ur Amphetamines Screen U Benzodiazepines Scrn Colon (0.0-1.2) mmol/L Urine Cocaine Screen U Marijuana (THC) Screen Drugs of Abuse Note Plasma/Serum Alcohol (0-0.07) % 06/06/18 06/12/18 06/12/18 Range/Units 10:57 13:06 13:06 WBC 11.0 (4.5-11.0) K/mm3 RBC 4.14 (3.65-5.03) M/mm3 Hgb 12.9 (10.1-14.3) gm/dl Hct 38.5 (30.3-42.9) % MCV 93 (79-97) fl MCH 31 (28-32) pg MCHC 33 (30-34) % RDW 15.6 H (13.2-15.2) % Plt Count 207 (140-440) K/mm3 Lymph % (Auto) 16.1 (13.4-35.0) % Dunn % (Auto) 7.8 H (0.0-7.3) % Eos % (Auto) 4.7 H (0.0-4.3) % Baso % (Auto) 0.4 (0.0-1.8) % Lymph # 1.8 (1.2-5.4) K/mm3 Dunn # 0.9 H (0.0-0.8) K/mm3 Eos # 0.5 H (0.0-0.4) K/mm3 Baso # 0.0 (0.0-0.1) K/mm3 Seg Neutrophils % 71.0 H (40.0-70.0) % Seg Neutrophils # 7.8 H (1.8-7.7) K/mm3 PT (12.2-14.9) Sec. INR (0.87-1.13) APTT (24.2-36.6) Sec. Sodium 151 H (137-145) mmol/L Potassium 3.7 (3.6-5.0) mmol/L Chloride 106.1 (98-107) mmol/L Carbon Dioxide 24 (22-30) mmol/L Anion Gap 25 mmol/L BUN 22 H (7-17) mg/dL Creatinine 1.3 H (0.7-1.2) mg/dL Estimated GFR 42 ml/min BUN/Creatinine Ratio 17 % Glucose 161 H (65-100) mg/dL POC Glucose (70-105) Lactic Acid (0.7-2.0) mmol/L Calcium 9.7 (8.4-10.2) mg/dL Magnesium (1.7-2.3) mg/dL Total Bilirubin 0.90 (0.1-1.2) mg/dL AST 51 H (5-40) units/L ALT 71 H (7-56) units/L Alkaline Phosphatase 113 (35-129) units/L Ammonia (25-60) umol/L Troponin T (0.00-0.029) ng/mL NT-Pro-B Natriuret Pep (0-900) pg/mL Total Protein 6.1 L (6.3-8.2) g/dL Albumin 4.2 (3.9-5) g/dL Albumin/Globulin Ratio 2.2 % TSH 1.950 (0.270-4.200) mlU/mL Free T4 1.40 (0.76-1.46) ng/dL Urine Color (Yellow) Urine Turbidity (Clear) Urine pH (5.0-7.0) Ur Specific [place] (1.003-1.030) Urine Protein (Negative) mg/dL Urine Glucose (UA) (Negative) mg/dL Urine Ketones (Negative) mg/dL Urine Blood (Negative) Urine Nitrite (Negative) Urine Bilirubin (Negative) Urine Urobilinogen (<2.0) mg/dL Ur Leukocyte Esterase (Negative) Urine WBC (Auto) (0.0-6.0) /HPF Urine RBC (Auto) (0.0-6.0) /HPF U Epithel Cells (Auto) (0-13.0) /HPF Urine Opiates Screen Urine Methadone Screen Ur Barbiturates Screen Ur Phencyclidine Scrn Ur Amphetamines Screen U Benzodiazepines Scrn Colon (0.0-1.2) mmol/L Urine Cocaine Screen U Marijuana (THC) Screen Drugs of Abuse Note Plasma/Serum Alcohol (0-0.07) % 06/12/18 06/13/18 Range/Units 13:14 02:36 WBC (4.5-11.0) K/mm3 RBC (3.65-5.03) M/mm3 Hgb (10.1-14.3) gm/dl Hct (30.3-42.9) % MCV (79-97) fl MCH (28-32) pg MCHC (30-34) % RDW (13.2-15.2) % Plt Count (140-440) K/mm3 Lymph % (Auto) (13.4-35.0) % [place] % (Auto) (0.0-7.3) % Eos % (Auto) (0.0-4.3) % Baso % (Auto) (0.0-1.8) % Lymph # (1.2-5.4) K/mm3 [place] # (0.0-0.8) K/mm3 Eos # (0.0-0.4) K/mm3 Baso # (0.0-0.1) K/mm3 Seg Neutrophils % (40.0-70.0) % Seg Neutrophils # (1.8-7.7) K/mm3 PT (12.2-14.9) Sec. INR (0.87-1.13) APTT (24.2-36.6) Sec. Sodium 151 H (137-145) mmol/L Potassium 3.5 L (3.6-5.0) mmol/L Chloride 112.3 H (98-107) mmol/L Carbon Dioxide 20 L (22-30) mmol/L Anion Gap 22 mmol/L BUN 23 H (7-17) mg/dL Creatinine 1.5 H (0.7-1.2) mg/dL Estimated GFR 36 ml/min BUN/Creatinine Ratio 15 % Glucose 131 H (65-100) mg/dL POC Glucose 175 H (70-105) Lactic Acid (0.7-2.0) mmol/L Calcium 9.2 (8.4-10.2) mg/dL Magnesium (1.7-2.3) mg/dL Total Bilirubin (0.1-1.2) mg/dL AST (5-40) units/L ALT (7-56) units/L Alkaline Phosphatase (35-129) units/L Ammonia (25-60) umol/L Troponin T (0.00-0.029) ng/mL NT-Pro-B Natriuret Pep (0-900) pg/mL Total Protein (6.3-8.2) g/dL Albumin (3.9-5) g/dL Albumin/Globulin Ratio % TSH (0.270-4.200) mlU/mL Free T4 (0.76-1.46) ng/dL Urine Color (Yellow) Urine Turbidity (Clear) Urine pH (5.0-7.0) Ur Specific [place] (1.003-1.030) Urine Protein (Negative) mg/dL Urine Glucose (UA) (Negative) mg/dL Urine Ketones (Negative) mg/dL Urine Blood (Negative) Urine Nitrite (Negative) Urine Bilirubin (Negative) Urine Urobilinogen (<2.0) mg/dL Ur Leukocyte Esterase (Negative) Urine WBC (Auto) (0.0-6.0) /HPF Urine RBC (Auto) (0.0-6.0) /HPF U Epithel Cells (Auto) (0-13.0) /HPF Urine Opiates Screen Urine Methadone Screen Ur Barbiturates Screen Ur Phencyclidine Scrn Ur Amphetamines Screen U Benzodiazepines Scrn Colon (0.0-1.2) mmol/L Urine Cocaine Screen U Marijuana (THC) Screen Drugs of Abuse Note Plasma/Serum Alcohol (0-0.07) %
[2018-06-13] MEDS ORDERED: NACL 0.45% 1000 ML 1,000 ML IV SCH (08:00)
[2018-06-13] MEDS ORDERED: SODIUM CHLORIDE FLUSH SYRINGE 10 ML IV PRN (10:08)
[2018-06-13] MEDS ORDERED: ZOFRAN IV PRN (10:08)
[2018-06-13] MEDS: VISTARIL PO SCH (12:51)
[2018-06-13] MEDS: SODIUM CHLORIDE FLUSH SYRINGE 10 ML IV SCH (12:52)
--- NOTE | 2018-06-13 12:59 | Progress Note ---
Subjective - Reason for Consult Consult date: 06/13/18 Reason for consult: Psychiatry Follow-up - Chief Complaint Chief complaint: "The patient mumbles" 58-year-old female who presents to the ER for aggressive and threatening behavior towards family members. The patient was brought to the ER by her daughter. Today the patient mumbles during the assessment. She continue to be nude in the seclusion room. Per her labs, the patient NA is 151 and her Cr is 1.5. She continues to be tacycardic. No gestures of SI/HI's. Mental Status Exam - Vital signs Last Vital Signs Temp 98.5 F 06/13/18 10:00 Pulse 129 H 06/13/18 10:00 Resp 18 06/13/18 10:00 BP 126/81 06/13/18 10:00 Pulse Ox 98 06/13/18 10:00 - Exam Narrative exam: Unable to complete the MSE because of the patient's condition. Assessment and Plan Impression: Hx of Schizophrenia per the record. R/O Delirium. Today the patient mumbles during the assessment. The patient continue to be tachycardic. NA 151 and Cr 1.5. DDx: R/O Bipolar DO with psychosis Recommendation/Plan: Continue 1013 with placement to inpatient psy services once medically clear. Continue Zyprexa 2.5 mg PO HS for schizophrenia Zyprexa 10 mg PO HS for schizophrenia, and Cogentin 0.5 mg PO HS for EPS prevention. Attempted to discuss possible metabolic side effects with patient reference Zyprexa. Reassess the patient in 24 hours. Recommend Delirium precautions below: 1. Frequently reorient patient and involve him/her in their care (simple explanations of procedures, tests, medications). 2. Lights on and shades open during daytime hours. 3. Write date and goals of care in a visible place. 4. Try to avoid unnecessary interruptions to sleep during nighttime hours. 5. Obtain glasses, hearing aids from home if patient uses these at baseline. 6. Avoid medications that may exacerbate delirium (especially narcotics, benzodiazepines, barbiturates, ambien, lunesta, and medications with excessive anticholinergic properties).
--- NOTE | 2018-06-13 13:21 | History and Physical Report ---
History of Present Illness Date of examination: 06/13/18 Date of admission: 06/13/18 10:10 Chief complaint: Psychosis History of present illness: Patient is a 58-year-old female with who was brought to the ED by family members on account of acute psychotic features. Initial Plan was to discharge the patient to an inpatient psychiatric facility, but there was difficulty finding a facility that could accept the patient. Nevertheless, subsequent lab testings done showed findings suggestive of dehydration, which necessitated her to be admitted under the medical team for treatment. Of note, no history could be obtained from the patient. Past History Past Medical History: other (Unable to obtain due to altered mental status) Past Surgical History: Other (Unable to obtain due to altered mental status) Social history: lives with family, other (unable to obtain tobacco alcohol or illicit drug use history due to altered mental status) Family history: other (unable to obtain due to altered mental status) Medications and Allergies Allergies Allergy/AdvReac Type Severity Reaction Status Date / Time No Known Allergies Allergy Unverified 06/02/18 09:31 Home Medications Medication Instructions Recorded Confirmed Last Taken Type Benztropine [Cogentin] 1 mg PO BID 05/18/18 06/02/18 05/18/18 History Wing Carbonate [Wing 450 mg PO BID 05/18/18 06/02/18 05/18/18 History Carbonate ER] Olanzapine [Zyprexa] 10 mg PO QAM 05/18/18 06/02/18 05/18/18 History chlorproMAZINE (NF) [Thorazine 100 mg PO Q8H 05/18/18 06/02/18 05/18/18 History (Nf)] hydrOXYZINE PAMOATE [hydrOXYzine 50 mg PO TID 05/18/18 06/02/18 05/18/18 History Pamoate] traZODone [Desyrel] 200 mg PO QHS 05/18/18 06/02/18 05/17/18 History Potassium Chloride 20 meq PO 10 #10 tablet.er 05/25/18 06/02/18 Unknown Rx oxyCODONE /ACETAMINOPHEN [Percocet 1 tab PO Q6H PRN #16 tablet 05/25/18 Unknown Rx 5/325 mg] Active Meds: Active Medications Acetaminophen (Tylenol) 650 mg PO Q4HR PRN PRN Reason: Pain MILD(1-3)/Fever >100.5/RODRIGUEZ Acetaminophen/Hydrocodone Bitart ([place] 5/325) 1 each PO Q6H PRN PRN Reason: Pain, Moderate (4-6) Al Hydrox/Mg Hydrox/Simethicone (Alum-Mag Hydrox-Simeth [phone]/5ml) 30 ml PO Q4HR PRN PRN Reason: Indigestion Benztropine Mesylate (Cogentin) 0.5 mg PO [facility] Last Admin: 06/12/18 22:20 Dose: 0.5 mg Haloperidol Lactate (Haldol) 5 mg IM Q6H PRN PRN Reason: Agitation Sodium Chloride (Nacl 0.45% 1000 Ml) 1,000 mls @ 125 mls/hr IV DIRECT [facility] Magnesium Hydroxide (Milk Of Magnesia) 30 ml PO Q12HR PRN PRN Reason: Constipation Olanzapine (Zyprexa) 2.5 mg PO QHS [facility] Last Admin: 06/12/18 22:20 Dose: 2.5 mg Olanzapine (Zyprexa) 10 mg PO [facility] Last Admin: 06/12/18 22:20 Dose: 10 mg Ondansetron HCl (Zofran) 4 mg IV Q8H PRN PRN Reason: Nausea And Vomiting Sodium Chloride (Sodium Chloride Flush Syringe 10 Ml) 10 ml IV BID [facility] Last Admin: 06/13/18 12:52 Dose: Not Given Sodium Chloride (Sodium Chloride Flush Syringe 10 Ml) 10 ml IV PRN PRN PRN Reason: LINE FLUSH Review of Systems ROS unobtainable: due to mental status (due to altered mental status) Exam - Constitutional Vitals: Temp Pulse Resp BP Pulse Ox 98.5 F 129 H 18 126/81 98 06/13/18 10:00 06/13/18 10:00 06/13/18 10:00 06/13/18 10:00 06/13/18 10:00 General appearance: Present: no acute distress, other (disoriented 3 and agitated) - EENT Eyes: Present: PERRL, EOM intact ENT: clear oral mucosa - Neck Neck: Present: supple, normal ROM - Respiratory Respiratory effort: normal Respiratory: bilateral: CTA - Cardiovascular Rhythm: other (tachycardia with regular rhythm) Heart Sounds: Present: S1 & S2 - Extremities Extremities: No edema - Abdominal General gastrointestinal: Present: soft, non-tender, normal bowel sounds - Neurologic Neurologic: CNII-XII intact Results - Labs CBC & Chem 7: 06/12/18 13:06 06/13/18 02:36 Labs: Laboratory Last Values WBC 11.0 K/mm3 (4.5-11.0) 06/12/18 13:06 RBC 4.14 M/mm3 (3.65-5.03) 06/12/18 13:06 Hgb 12.9 gm/dl (10.1-14.3) 06/12/18 13:06 Hct 38.5 % (30.3-42.9) 06/12/18 13:06 MCV 93 fl (79-97) 06/12/18 13:06 MCH 31 pg (28-32) 06/12/18 13:06 MCHC 33 % (30-34) 06/12/18 13:06 RDW 15.6 % (13.2-15.2) H 06/12/18 13:06 Plt Count 207 K/mm3 (140-440) 06/12/18 13:06 Lymph % (Auto) 16.1 % (13.4-35.0) 06/12/18 13:06 [place] % (Auto) 7.8 % (0.0-7.3) H 06/12/18 13:06 Eos % (Auto) 4.7 % (0.0-4.3) H 06/12/18 13:06 Baso % (Auto) 0.4 % (0.0-1.8) 06/12/18 13:06 Lymph # 1.8 K/mm3 (1.2-5.4) 06/12/18 13:06 [place] # 0.9 K/mm3 (0.0-0.8) H 06/12/18 13:06 Eos # 0.5 K/mm3 (0.0-0.4) H 06/12/18 13:06 Baso # 0.0 K/mm3 (0.0-0.1) 06/12/18 13:06 Seg Neutrophils % 71.0 % (40.0-70.0) H 06/12/18 13:06 Seg Neutrophils # 7.8 K/mm3 (1.8-7.7) H 06/12/18 13:06 PT 10.6 Sec. (12.2-14.9) L 06/02/18 19:09 INR 0.73 (0.87-1.13) L 06/02/18 19:09 APTT 23.5 Sec. (24.2-36.6) L 06/02/18 19:09 Sodium 151 mmol/L (137-145) H 06/13/18 02:36 Potassium 3.5 mmol/L (3.6-5.0) L 06/13/18 02:36 Chloride 112.3 mmol/L (98-107) H 06/13/18 02:36 Carbon Dioxide 20 mmol/L (22-30) L 06/13/18 02:36 Anion Gap 22 mmol/L 06/13/18 02:36 BUN 23 mg/dL (7-17) H 06/13/18 02:36 Creatinine 1.5 mg/dL (0.7-1.2) H 06/13/18 02:36 Estimated GFR 36 ml/min 06/13/18 02:36 BUN/Creatinine Ratio 15 % 06/13/18 02:36 Glucose 131 mg/dL (65-100) H 06/13/18 02:36 POC Glucose 175 (70-105) H 06/12/18 13:14 Lactic Acid 2.00 mmol/L (0.7-2.0) 06/02/18 19:09 Calcium 9.2 mg/dL (8.4-10.2) 06/13/18 02:36 Magnesium 1.90 mg/dL (1.7-2.3) 06/02/18 19:09 Total Bilirubin 0.90 mg/dL (0.1-1.2) 06/12/18 13:06 AST 51 units/L (5-40) H 06/12/18 13:06 ALT 71 units/L (7-56) H 06/12/18 13:06 Alkaline Phosphatase 113 units/L (35-129) 06/12/18 13:06 Ammonia 20.0 umol/L (25-60) L 06/02/18 19:09 Troponin T < 0.010 ng/mL (0.00-0.029) 06/02/18 19:09 NT-Pro-B Natriuret Pep 60.88 pg/mL (0-900) 06/02/18 19:09 Total Protein 6.1 g/dL (6.3-8.2) L 06/12/18 13:06 Albumin 4.2 g/dL (3.9-5) 06/12/18 13:06 Albumin/Globulin Ratio 2.2 % 06/12/18 13:06 TSH 1.950 mlU/mL (0.270-4.200) 06/06/18 10:57 Free T4 1.40 ng/dL (0.76-1.46) 06/06/18 10:57 Urine Color Yellow (Yellow) 06/02/18 10:40 Urine Turbidity Clear (Clear) 06/02/18 10:40 Urine pH 7.0 (5.0-7.0) 06/02/18 10:40 Ur Specific [place] 1.005 (1.003-1.030) 06/02/18 10:40 Urine Protein <15 mg/dl mg/dL (Negative) 06/02/18 10:40 Urine Glucose (UA) Neg mg/dL (Negative) 06/02/18 10:40 Urine Ketones Neg mg/dL (Negative) 06/02/18 10:40 Urine Blood Sm (Negative) 06/02/18 10:40 Urine Nitrite Neg (Negative) 06/02/18 10:40 Urine Bilirubin Neg (Negative) 06/02/18 10:40 Urine Urobilinogen < 2.0 mg/dL (<2.0) 06/02/18 10:40 Ur Leukocyte Esterase Neg (Negative) 06/02/18 10:40 Urine WBC (Auto) < 1.0 /HPF (0.0-6.0) 06/02/18 10:40 Urine RBC (Auto) 5.0 /HPF (0.0-6.0) 06/02/18 10:40 U Epithel Cells (Auto) < 1.0 /HPF (0-13.0) 06/02/18 10:40 Urine Opiates Screen Presumptive negative 06/02/18 10:43 Urine Methadone Screen Presumptive negative 06/02/18 10:43 Ur Barbiturates Screen Presumptive negative 06/02/18 10:43 Ur Phencyclidine Scrn Presumptive negative 06/02/18 10:43 Ur Amphetamines Screen Presumptive negative 06/02/18 10:43 U Benzodiazepines Scrn Presumptive negative 06/02/18 10:43 Wing 0.1 mmol/L (0.0-1.2) 06/02/18 19:09 Urine Cocaine Screen Presumptive negative 06/02/18 10:43 U Marijuana (THC) Screen Presumptive negative 06/02/18 10:43 Drugs of Abuse Note Disclamer 06/02/18 10:43 Plasma/Serum Alcohol < 0.01 % (0-0.07) 06/02/18 09:57 Assessment and Plan Assessment and plan: Acute kidney injury -On IV fluid -Will monitor creatinine level -Nephrology consulted Hypernatremia secondary to dehydration -On IV fluid -Will monitor sodium level -Nephrology consulted Sinus tachycardia -Probably secondary to dehydration versus agitation -Will continue to monitor -Consider beta arnold if no improvement Acute psychosis -Continue medications per psych recommendations Prophylaxis -DVT prophylaxis with SCDs 35 minutes spent coordinating care
[2018-06-13] MEDS: HALDOL IM PRN (13:42)
--- NOTE | 2018-06-13 14:11 | Consultation ---
History of Present Illness - Reason for Consult Consult date: 06/13/18 acute renal failure, hypernatremia - History of Present Illness The patient is a 58-year-old female with who was brought to the ED on by family members for evaluation acute psychotic features. Unable to obtain any history from patient at this time. Unable to place the patient to an inpatient psychiatric facility at this time. Laboratory workup showed elevated creatinine and sodium level. Patient was admitted at medical service for further management. Past History Past Medical History: other (Unable to obtain due to altered mental status) Past Surgical History: Other (Unable to obtain due to altered mental status) Social history: lives with family, other (unable to obtain tobacco alcohol or illicit drug use history due to altered mental status) Family history: other (unable to obtain due to altered mental status) Medications and Allergies Allergies Allergy/AdvReac Type Severity Reaction Status Date / Time No Known Allergies Allergy Unverified 06/02/18 09:31 Home Medications Medication Instructions Recorded Confirmed Last Taken Type Benztropine [Cogentin] 1 mg PO BID 05/18/18 06/02/18 05/18/18 History [place] Carbonate [[place] 450 mg PO BID 05/18/18 06/02/18 05/18/18 History Carbonate ER] Olanzapine [Zyprexa] 10 mg PO QAM 05/18/18 06/02/18 05/18/18 History chlorproMAZINE (NF) [Thorazine 100 mg PO Q8H 05/18/18 06/02/18 05/18/18 History (Nf)] hydrOXYZINE PAMOATE [hydrOXYzine 50 mg PO TID 05/18/18 06/02/18 05/18/18 History Pamoate] traZODone [Desyrel] 200 mg PO QHS 05/18/18 06/02/18 05/17/18 History Potassium Chloride 20 meq PO 10 #10 tablet.er 05/25/18 06/02/18 Unknown Rx oxyCODONE /ACETAMINOPHEN [Percocet 1 tab PO Q6H PRN #16 tablet 05/25/18 Unknown Rx 5/325 mg] Active Meds: Active Medications Acetaminophen (Tylenol) 650 mg PO Q4HR PRN PRN Reason: Pain MILD(1-3)/Fever >100.5/RODRIGUEZ Acetaminophen/Hydrocodone Bitart ([place] 5/325) 1 each PO Q6H PRN PRN Reason: Pain, Moderate (4-6) Al Hydrox/Mg Hydrox/Simethicone (Alum-Mag Hydrox-Simeth [phone]/5ml) 30 ml PO Q4HR PRN PRN Reason: Indigestion Benztropine Mesylate (Cogentin) 0.5 mg PO [facility] Last Admin: 06/12/18 22:20 Dose: 0.5 mg Haloperidol Lactate (Haldol) 5 mg IM Q6H PRN PRN Reason: Agitation Last Admin: 06/13/18 13:42 Dose: 5 mg Sodium Chloride (Nacl 0.45% 1000 Ml) 1,000 mls @ 125 mls/hr IV DIRECT [facility] Magnesium Hydroxide (Milk Of Magnesia) 30 ml PO Q12HR PRN PRN Reason: Constipation Olanzapine (Zyprexa) 2.5 mg PO QHS [facility] Last Admin: 06/12/18 22:20 Dose: 2.5 mg Olanzapine (Zyprexa) 10 mg PO [facility] Last Admin: 06/12/18 22:20 Dose: 10 mg Ondansetron HCl (Zofran) 4 mg IV Q8H PRN PRN Reason: Nausea And Vomiting Sodium Chloride (Sodium Chloride Flush Syringe 10 Ml) 10 ml IV BID [facility] Last Admin: 06/13/18 12:52 Dose: Not Given Sodium Chloride (Sodium Chloride Flush Syringe 10 Ml) 10 ml IV PRN PRN PRN Reason: LINE FLUSH Review of Systems ROS unobtainable: due to mental status Exam - Vital Signs Vital signs: Vital Signs Temp Pulse Resp BP Pulse Ox 98.6 F 77 16 128/73 97 06/02/18 09:24 06/02/18 09:24 06/02/18 09:24 06/02/18 09:24 06/02/18 09:24 - General Appearance General appearance: well-developed, well-nourished, appears stated age, other ( no distress, sitting inthe chair) EENT: ATNC Neck: Present: trachea midline Respiratory: Clear to Ascultation Heart: regular, S1S2, no murmurs Neurologic: other (resists exam, not answering question) Results - Lab Results 06/12/18 13:06 06/13/18 02:36 Most recent lab results Calcium 9.2 mg/dL (8.4-10.2) 06/13/18 02:36 Magnesium 1.90 mg/dL (1.7-2.3) 06/02/18 19:09 Assessment and Plan 1. Acute kidney injury: Likely hemodynamic MINERVA due to volume depletion. Started on IV fluids. Monitor renal function. 2. Electrolytes: Hypernatremia, encourage PO fluids. On 11/09 NS. Metabolic acidosis. 3. Psychosis.
--- NOTE | 2018-06-13 22:01 | Event Note ---
Date: 06/13/18 PATIENT NOTED TO BE AGITATED ,YELLING ,SHOUTING AND HITTING SEATER AND PULLING OUT HER CLOTHES DESPITE I.M GEODON GIVEN EARLIER ON. PLAN: 1. I.V ATIVAN 2MG Q2H PRN AGITATION 2. ROLLER BELT RESTRAIN PER PROTOCOL.
[2018-06-13] MEDS: ATIVAN IV PRN (23:20)
[2018-06-14] MEDS: COGENTIN PO SCH (01:00)
[2018-06-14] MEDS: SODIUM CHLORIDE FLUSH SYRINGE 10 ML IV SCH ×2 (01:00→10:10)
[2018-06-14] MEDS: ATIVAN IV PRN ×3 (03:30→10:08)
[2018-06-14 06:49] LABS: Albumin 3.2 g/dL (3.9-5); Bilirubin,Direct 0.2 mg/dL (0-0.2)
--- NOTE | 2018-06-14 08:25 | Progress Note ---
Assessment and Plan 1. Acute kidney injury: Likely hemodynamic MINERVA due to volume depletion. Renal function is better. Continue IV fluids. Monitor renal function. 2. Electrolytes: Hypernatremia, encourage PO fluids. On 11/09 NS. One liter of IV D5W. Metabolic acidosis, improving. 3. Psychosis. Subjective Date of service: 06/14/18 Interval history: Patient was seen and examined at the bedside. Objective - General Appearance General appearance: well-developed, appears stated age, other (no distress, on restrains) EENT: ATNC Neck: supple Respiratory: Present: Clear to Ascultation Cardiology: regular, S1S2, no murmurs Gastrointestinal: normoactive bowel sounds, no tenderness Integumentary: no rash, warm and dry Neurologic: other (patient resists exam) Musculoskeletal: other (no edema) - Lab 06/12/18 13:06 06/14/18 19:45 Most recent lab results Calcium 9.0 mg/dL (8.4-10.2) 06/14/18 05:29 Magnesium 1.90 mg/dL (1.7-2.3) 06/02/18 19:09
[2018-06-14] MEDS ORDERED: K-DUR PO ONE (09:00)
[2018-06-14] MEDS ORDERED: KCL 40 MEQ in D5W 1,000 ML IV SCH (10:00)
--- NOTE | 2018-06-14 14:18 | Progress Note ---
Assessment and Plan Assessment and plan: Patient is a 58-year-old female with who was brought to the ED by family members on account of acute psychotic features. Initial Plan was to discharge the patient to an inpatient psychiatric facility, but there was difficulty finding a facility that could accept the patient. Nevertheless, subsequent lab testings done showed findings suggestive of dehydration, which necessitated her to be admitted under the medical team for treatment. Of note, no history could be obtained from the patient. Acute kidney injury secondary to vasomotor nephropathy -Resolving -On IV fluid -Nephrology consulted AND Input note Hypernatremia secondary to dehydration -On IV fluid-adjusted -Will monitor sodium level -Nephrology consulted Sinus tachycardia -Probably secondary to dehydration versus agitation -Will continue to monitor -Consider beta arnold if no improvement Acute psychosis/Schizoprenia/Delirium/bIPOLAR DISORDER -Continue medications per psych recommendations - hALDOL IM - stop zyprexa, cogentin and ativan Prophylaxis -DVT prophylaxis with SCDs Plan discussed with nursing staff. No family at bedside History Interval history: Patient seen and examined, continues with confusion, muttering a few words to herself. Was very belligerent overnight, Geodon given per documentation Hospitalist Physical - Physical exam Narrative exam: General appearance: Present: no acute distress, other (disoriented 3) restraint belt remains in place - EENT Eyes: Present: PERRL, EOM intact ENT: clear oral mucosa - Neck Neck: Present: supple, normal ROM - Respiratory Respiratory effort: normal Respiratory: bilateral: CTA - Cardiovascular Rhythm: other (tachycardia with regular rhythm) Heart Sounds: Present: S1 & S2 - Extremities Extremities: No edema - Abdominal General gastrointestinal: Present: soft, non-tender, normal bowel sounds - Neurologic Neurologic: CNII-XII intact - Constitutional Vitals: Temp Pulse Resp BP Pulse Ox 98.5 F 107 H 22 119/65 98 06/14/18 13:22 06/14/18 13:22 06/14/18 13:22 06/14/18 13:22 06/13/18 10:00 General appearance: Present: no acute distress, other (disoriented 3 and agitated) Results - Labs CBC & Chem 7: 06/12/18 13:06 06/14/18 19:45 Labs: Laboratory Last Values WBC 11.0 K/mm3 (4.5-11.0) 06/12/18 13:06 RBC 4.14 M/mm3 (3.65-5.03) 06/12/18 13:06 Hgb 12.9 gm/dl (10.1-14.3) 06/12/18 13:06 Hct 38.5 % (30.3-42.9) 06/12/18 13:06 MCV 93 fl (79-97) 06/12/18 13:06 MCH 31 pg (28-32) 06/12/18 13:06 MCHC 33 % (30-34) 06/12/18 13:06 RDW 15.6 % (13.2-15.2) H 06/12/18 13:06 Plt Count 207 K/mm3 (140-440) 06/12/18 13:06 Lymph % (Auto) 16.1 % (13.4-35.0) 06/12/18 13:06 [place] % (Auto) 7.8 % (0.0-7.3) H 06/12/18 13:06 Eos % (Auto) 4.7 % (0.0-4.3) H 06/12/18 13:06 Baso % (Auto) 0.4 % (0.0-1.8) 06/12/18 13:06 Lymph # 1.8 K/mm3 (1.2-5.4) 06/12/18 13:06 [place] # 0.9 K/mm3 (0.0-0.8) H 06/12/18 13:06 Eos # 0.5 K/mm3 (0.0-0.4) H 06/12/18 13:06 Baso # 0.0 K/mm3 (0.0-0.1) 06/12/18 13:06 Seg Neutrophils % 71.0 % (40.0-70.0) H 06/12/18 13:06 Seg Neutrophils # 7.8 K/mm3 (1.8-7.7) H 06/12/18 13:06 PT 10.6 Sec. (12.2-14.9) L 06/02/18 19:09 INR 0.73 (0.87-1.13) L 06/02/18 19:09 APTT 23.5 Sec. (24.2-36.6) L 06/02/18 19:09 Sodium 158 mmol/L (137-145) H 06/14/18 05:29 Potassium 3.2 mmol/L (3.6-5.0) L 06/14/18 05:29 Chloride 117.9 mmol/L (98-107) H 06/14/18 05:29 Carbon Dioxide 22 mmol/L (22-30) 06/14/18 05:29 Anion Gap 21 mmol/L 06/14/18 05:29 BUN 22 mg/dL (7-17) H 06/14/18 05:29 Creatinine 1.3 mg/dL (0.7-1.2) H 06/14/18 05:29 Estimated GFR 42 ml/min 06/14/18 05:29 BUN/Creatinine Ratio 17 % 06/14/18 05:29 Glucose 84 mg/dL (65-100) 06/14/18 05:29 POC Glucose 175 (70-105) H 06/12/18 13:14 Lactic Acid 2.00 mmol/L (0.7-2.0) 06/02/18 19:09 Calcium 9.0 mg/dL (8.4-10.2) 06/14/18 05:29 Magnesium 1.90 mg/dL (1.7-2.3) 06/02/18 19:09 Total Bilirubin 0.70 mg/dL (0.1-1.2) 06/14/18 05:29 Direct Bilirubin 0.2 mg/dL (0-0.2) 06/14/18 05:29 Indirect Bilirubin 0.5 mg/dL 06/14/18 05:29 AST 29 units/L (5-40) 06/14/18 05:29 ALT 49 units/L (7-56) 06/14/18 05:29 Alkaline Phosphatase 84 units/L (35-129) 06/14/18 05:29 Ammonia 20.0 umol/L (25-60) L 06/02/18 19:09 Troponin T < 0.010 ng/mL (0.00-0.029) 06/02/18 19:09 NT-Pro-B Natriuret Pep 60.88 pg/mL (0-900) 06/02/18 19:09 Total Protein 5.4 g/dL (6.3-8.2) L 06/14/18 05:29 Albumin 3.2 g/dL (3.9-5) L 06/14/18 05:29 Albumin/Globulin Ratio 1.5 % 06/14/18 05:29 TSH 1.950 mlU/mL (0.270-4.200) 06/06/18 10:57 Free T4 1.40 ng/dL (0.76-1.46) 06/06/18 10:57 Urine Color Yellow (Yellow) 06/02/18 10:40 Urine Turbidity Clear (Clear) 06/02/18 10:40 Urine pH 7.0 (5.0-7.0) 06/02/18 10:40 Ur Specific [place] 1.005 (1.003-1.030) 06/02/18 10:40 Urine Protein <15 mg/dl mg/dL (Negative) 06/02/18 10:40 Urine Glucose (UA) Neg mg/dL (Negative) 06/02/18 10:40 Urine Ketones Neg mg/dL (Negative) 06/02/18 10:40 Urine Blood Sm (Negative) 06/02/18 10:40 Urine Nitrite Neg (Negative) 06/02/18 10:40 Urine Bilirubin Neg (Negative) 06/02/18 10:40 Urine Urobilinogen < 2.0 mg/dL (<2.0) 06/02/18 10:40 Ur Leukocyte Esterase Neg (Negative) 06/02/18 10:40 Urine WBC (Auto) < 1.0 /HPF (0.0-6.0) 06/02/18 10:40 Urine RBC (Auto) 5.0 /HPF (0.0-6.0) 06/02/18 10:40 U Epithel Cells (Auto) < 1.0 /HPF (0-13.0) 06/02/18 10:40 Urine Opiates Screen Presumptive negative 06/02/18 10:43 Urine Methadone Screen Presumptive negative 06/02/18 10:43 Ur Barbiturates Screen Presumptive negative 06/02/18 10:43 Ur Phencyclidine Scrn Presumptive negative 06/02/18 10:43 Ur Amphetamines Screen Presumptive negative 06/02/18 10:43 U Benzodiazepines Scrn Presumptive negative 06/02/18 10:43 [place] 0.1 mmol/L (0.0-1.2) 06/02/18 19:09 Urine Cocaine Screen Presumptive negative 06/02/18 10:43 U Marijuana (THC) Screen Presumptive negative 06/02/18 10:43 Drugs of Abuse Note Disclamer 06/02/18 10:43 Plasma/Serum Alcohol < 0.01 % (0-0.07) 06/02/18 09:57
--- NOTE | 2018-06-14 14:28 | Progress Note ---
Subjective - Reason for Consult Consult date: 06/14/18 Reason for consult: Psychiatry Follow-up - Chief Complaint Chief complaint: "The patient is confused" 58-year-old female who presents to the ER for aggressive and threatening behavior towards family members. The patient was brought to the ER by her daughter. Today the patient is confused and continue to mumble during the assessment. She would not follow any commands when asked. Per the notes, the patient experienced acute agitation within the last 24 hours. No gestures of SI/ HI's. Mental Status Exam - Vital signs Last Vital Signs Temp 98.5 F 06/14/18 13:22 Pulse 107 H 06/14/18 13:22 Resp 22 06/14/18 13:22 BP 119/65 06/14/18 13:22 Pulse Ox 98 06/13/18 10:00 - Exam Narrative exam: Unable to complete the MSE because of the patient's condition. Assessment and Plan Impression: Hx of Schizophrenia per the record. Delirium. Today the patient is confused and continue to mumble during the assessment. The patient continue to be tachycardic. NA 158 and Cr 1.3. K 3.2. The patient is in a waist restraint. DDx: R/O Bipolar DO with psychosis Recommendation/Plan: Continue 1013 with placement to inpatient psy services once medically clear. Continue Haldol 5 mg IM Q6hrs for acute agitatiion. D/C Zyprexa, Cogentin, and Ativan. The patient is confused and sedation can be an issue when taking antipsychotics. Will start antipsychotic (Zyprexa) once the patient's labs normalize. Recommend Delirium precautions below: 1. Frequently reorient patient and involve him/her in their care (simple explanations of procedures, tests, medications). 2. Lights on and shades open during daytime hours. 3. Write date and goals of care in a visible place. 4. Try to avoid unnecessary interruptions to sleep during nighttime hours. 5. Obtain glasses, hearing aids from home if patient uses these at baseline. 6. Avoid medications that may exacerbate delirium (especially narcotics, benzodiazepines, barbiturates, ambien, lunesta, and medications with excessive anticholinergic properties). 7. D/C waist restraint when not indicated.
[2018-06-14] MEDS: HALDOL IM PRN (18:29)
[2018-06-14 20:16] LABS: Calcium 9.1 mg/dL (8.4-10.2)
[2018-06-15] MEDS: HALDOL IM PRN ×3 (00:15→21:55)
[2018-06-15] MEDS: SODIUM CHLORIDE FLUSH SYRINGE 10 ML IV SCH ×3 (02:55→21:54)
--- NOTE | 2018-06-15 08:01 | Progress Note ---
Assessment and Plan 1. Acute kidney injury: Likely hemodynamic MINERVA due to volume depletion. Renal function is improving. Continue IV fluids. Monitor renal function. 2. Electrolytes: Hypernatremia, encourage PO fluids. On 11/09 NS. One liter of IV D5W. Metabolic acidosis, improved. Hypokalemia, replete K. 3. Psychosis. Subjective Date of service: 06/15/18 Interval history: Patient was seen and examined at the bedside. Objective - Vital Signs Vital signs: Vital Signs - 12hr 06/14/18 23:19 Temperature 98.4 F Pulse Rate 111 H Respiratory 20 Rate Blood Pressure 109/56 O2 Sat by Pulse 93 Oximetry - General Appearance General appearance: well-developed, appears stated age, other (on restrains, agitated at times, limited exam) EENT: ATNC Neck: supple Respiratory: Present: Clear to Ascultation Cardiology: regular, S1S2, no murmurs Gastrointestinal: normoactive bowel sounds, no tenderness Integumentary: no rash, warm and dry Musculoskeletal: other (no edema) - Lab 06/12/18 13:06 06/15/18 06:11 Most recent lab results Calcium 9.1 mg/dL (8.4-10.2) 06/14/18 19:45 Magnesium 1.90 mg/dL (1.7-2.3) 06/02/18 19:09
[2018-06-15] MEDS: KCL 10MEQ/100ML 10 MEQ/100 ML BAG IV SCH (08:23)
--- NOTE | 2018-06-15 09:09 | Progress Note ---
Assessment and Plan Assessment and plan: Patient is a 58-year-old female with who was brought to the ED by family members on account of acute psychotic features. Initial Plan was to discharge the patient to an inpatient psychiatric facility, but there was difficulty finding a facility that could accept the patient. Nevertheless, subsequent lab testings done showed findings suggestive of dehydration, which necessitated her to be admitted under the medical team for treatment. Of note, no history could be obtained from the patient. Acute kidney injury secondary to vasomotor nephropathy -Resolving -On IV fluid -Nephrology consulted AND Input note Hypernatremia secondary to dehydration -On IV fluid-adjusted -Will monitor sodium level -Nephrology consulted Hypokalemia -Replace -Check Magnesium Sinus tachycardia -Probably secondary to dehydration versus agitation -Will continue to monitor -Consider beta arnold if no improvement Acute psychosis/Schizoprenia/Delirium/bIPOLAR DISORDER -Continue medications per psych recommendations - hALDOL IM -Now on restraints for safety reasons. -Still combative. Discussed with Psych team - stop zyprexa, cogentin and ativan Prophylaxis -DVT prophylaxis with SCDs Plan discussed with nursing staff. No family at bedside History Interval history: Patient seen and examined, continues with confusion, still combative this morning. Hospitalist Physical - Physical exam Narrative exam: General appearance: Present: no acute distress, other (disoriented 3) restraint belt remains in place - EENT Eyes: Present: PERRL, EOM intact ENT: clear oral mucosa - Neck Neck: Present: supple, normal ROM - Respiratory Respiratory effort: normal Respiratory: bilateral: CTA - Cardiovascular Rhythm: other (tachycardia with regular rhythm) Heart Sounds: Present: S1 & S2 - Extremities Extremities: No edema - Abdominal General gastrointestinal: Present: soft, non-tender, normal bowel sounds - Neurologic Neurologic: CNII-XII intact - Constitutional Vitals: Temp Pulse Resp BP Pulse Ox 98.4 F 111 H 20 109/56 93 06/14/18 23:19 06/14/18 23:19 06/14/18 23:19 06/14/18 23:19 06/14/18 23:19 General appearance: Present: no acute distress, other (disoriented 3 and agitated) Results - Labs CBC & Chem 7: 06/12/18 13:06 06/15/18 06:11 Labs: Laboratory Last Values WBC 11.0 K/mm3 (4.5-11.0) 08/05/18 13:06 RBC 4.14 M/mm3 (3.65-5.03) 06/12/18 13:06 Hgb 12.9 gm/dl (10.1-14.3) 06/12/18 13:06 Hct 38.5 % (30.3-42.9) 06/12/18 13:06 MCV 93 fl (79-97) 06/12/18 13:06 MCH 31 pg (28-32) 06/12/18 13:06 MCHC 33 % (30-34) 06/12/18 13:06 RDW 15.6 % (13.2-15.2) H 06/12/18 13:06 Plt Count 207 K/mm3 (140-440) 06/12/18 13:06 Lymph % (Auto) 16.1 % (13.4-35.0) 06/12/18 13:06 [place] % (Auto) 7.8 % (0.0-7.3) H 06/12/18 13:06 Eos % (Auto) 4.7 % (0.0-4.3) H 06/12/18 13:06 Baso % (Auto) 0.4 % (0.0-1.8) 06/12/18 13:06 Lymph # 1.8 K/mm3 (1.2-5.4) 06/12/18 13:06 [place] # 0.9 K/mm3 (0.0-0.8) H 06/12/18 13:06 Eos # 0.5 K/mm3 (0.0-0.4) H 06/12/18 13:06 Baso # 0.0 K/mm3 (0.0-0.1) 06/12/18 13:06 Seg Neutrophils % 71.0 % (40.0-70.0) H 06/12/18 13:06 Seg Neutrophils # 7.8 K/mm3 (1.8-7.7) H 06/12/18 13:06 PT 10.6 Sec. (12.2-14.9) L 06/02/18 19:09 INR 0.73 (0.87-1.13) L 06/02/18 19:09 APTT 23.5 Sec. (24.2-36.6) L 06/02/18 19:09 Sodium 156 mmol/L (137-145) H 06/15/18 06:11 Potassium 3.2 mmol/L (3.6-5.0) L 06/15/18 06:11 Chloride 119.2 mmol/L (98-107) H 06/15/18 06:11 Carbon Dioxide 23 mmol/L (22-30) 06/15/18 06:11 Anion Gap 17 mmol/L 06/15/18 06:11 BUN 14 mg/dL (7-17) 06/15/18 06:11 Creatinine 1.1 mg/dL (0.7-1.2) 06/15/18 06:11 Estimated GFR 51 ml/min 06/15/18 06:11 BUN/Creatinine Ratio 13 % 06/15/18 06:11 Glucose 86 mg/dL (65-100) 06/15/18 06:11 POC Glucose 175 (70-105) H 06/12/18 13:14 Lactic Acid 2.00 mmol/L (0.7-2.0) 06/02/18 19:09 Calcium 9.0 mg/dL (8.4-10.2) 06/15/18 06:11 Phosphorus 2.80 mg/dL (2.5-4.5) 06/15/18 06:11 Magnesium 2.00 mg/dL (1.7-2.3) 06/15/18 06:11 Total Bilirubin 0.70 mg/dL (0.1-1.2) 06/14/18 05:29 Direct Bilirubin 0.2 mg/dL (0-0.2) 06/14/18 05:29 Indirect Bilirubin 0.5 mg/dL 06/14/18 05:29 AST 29 units/L (5-40) 06/14/18 05:29 ALT 49 units/L (7-56) 06/14/18 05:29 Alkaline Phosphatase 84 units/L (35-129) 06/14/18 05:29 Ammonia 20.0 umol/L (25-60) L 06/02/18 19:09 Troponin T < 0.010 ng/mL (0.00-0.029) 06/02/18 19:09 NT-Pro-B Natriuret Pep 60.88 pg/mL (0-900) 06/02/18 19:09 Total Protein 5.4 g/dL (6.3-8.2) L 06/14/18 05:29 Albumin 3.2 g/dL (3.9-5) L 06/14/18 05:29 Albumin/Globulin Ratio 1.5 % 06/14/18 05:29 TSH 1.950 mlU/mL (0.270-4.200) 06/06/18 10:57 Free T4 1.40 ng/dL (0.76-1.46) 06/06/18 10:57 Urine Color Yellow (Yellow) 06/02/18 10:40 Urine Turbidity Clear (Clear) 06/02/18 10:40 Urine pH 7.0 (5.0-7.0) 06/02/18 10:40 Ur Specific [place] 1.005 (1.003-1.030) 06/02/18 10:40 Urine Protein <15 mg/dl mg/dL (Negative) 06/02/18 10:40 Urine Glucose (UA) Neg mg/dL (Negative) 06/02/18 10:40 Urine Ketones Neg mg/dL (Negative) 06/02/18 10:40 Urine Blood Sm (Negative) 06/02/18 10:40 Urine Nitrite Neg (Negative) 06/02/18 10:40 Urine Bilirubin Neg (Negative) 06/02/18 10:40 Urine Urobilinogen < 2.0 mg/dL (<2.0) 06/02/18 10:40 Ur Leukocyte Esterase Neg (Negative) 06/02/18 10:40 Urine WBC (Auto) < 1.0 /HPF (0.0-6.0) 06/02/18 10:40 Urine RBC (Auto) 5.0 /HPF (0.0-6.0) 06/02/18 10:40 U Epithel Cells (Auto) < 1.0 /HPF (0-13.0) 06/02/18 10:40 Urine Opiates Screen Presumptive negative 06/02/18 10:43 Urine Methadone Screen Presumptive negative 06/02/18 10:43 Ur Barbiturates Screen Presumptive negative 06/02/18 10:43 Ur Phencyclidine Scrn Presumptive negative 06/02/18 10:43 Ur Amphetamines Screen Presumptive negative 06/02/18 10:43 U Benzodiazepines Scrn Presumptive negative 06/02/18 10:43 [place] 0.1 mmol/L (0.0-1.2) 06/02/18 19:09 Urine Cocaine Screen Presumptive negative 06/02/18 10:43 U Marijuana (THC) Screen Presumptive negative 06/02/18 10:43 Drugs of Abuse Note Disclamer 06/02/18 10:43 Plasma/Serum Alcohol < 0.01 % (0-0.07) 06/02/18 09:57
[2018-06-15] MEDS ORDERED: KCL 40 MEQ in D5W 1,000 ML IV SCH (11:00)
[2018-06-15] MEDS ORDERED: K-DUR PO ONE (11:00)
--- NOTE | 2018-06-15 12:30 | Progress Note ---
Subjective - Reason for Consult Consult date: 06/15/18 Reason for consult: Psychiatric Follow-up Evaluation - Chief Complaint Chief complaint: "Good" Patient is a 58-year-old female who presents to the ER for aggressive and threatening behavior towards family members. The patient was brought to the ER by her daughter. Today the patient is still disorganized during the assessment. Per staff patient has not been eating. Food is all over patient's room. Patient seen singing aloud and responding to internal stimuli. Currently, patient is naked in room. Psychosis is evident. No gestures of SI/HI's. No indications of side effects of her medications. Mental Status Exam - Vital signs Last Vital Signs Temp 98.4 F 06/14/18 23:19 Pulse 111 H 06/14/18 23:19 Resp 20 06/14/18 23:19 BP 109/56 06/14/18 23:19 Pulse Ox 93 06/14/18 23:19 - Exam Narrative exam: Mental Status Exam General Appearance: Causally Dressed-hospital gown, poorly groomed Eye Contact: Poor Orientation: Alert. Unable to assess orientation. Attitude/Behavior: Uncooperative Sensorium: Distracted Psychomotor & Musculoskeletal Activity: Ambulatory/ Agitated Mood: Labile, anxious, agitated Affect: Incongruent Speech/Language: Loud Thought Processes: Disorganized Thought Content: Impoverished, paranoid Perception: + Auditory hallucinations, responding to internal stimuli (laughing inapp.) Concentration/Attention: Impaired Suicidal Ideations/Plan: Patient denies. Unable to Assess Homicidal Ideations/Plan: Patient denies. Unable to Assess Judgment: Poor Insight: Poor Assessment and Plan Impression: Hx of Schizophrenia per the record. Delirium. Today the patient is confused and continue to mumble during the assessment. The patient continue to be tachycardic. NA 158 and Cr 1.3. K 3.2. The patient is in a waist restraint. DDx: R/O Bipolar DO with psychosis Recommendation/Plan: Continue 1013 with placement to inpatient psy services once medically clear. Continue Haldol 5 mg IM Q6hrs for acute agitatiion. D/C Zyprexa, Cogentin, and Ativan. The patient is confused and sedation can be an issue when taking antipsychotics. Will start antipsychotic (Zyprexa) once the patient's labs normalize. Recommend Delirium precautions below: 1. Frequently reorient patient and involve him/her in their care (simple explanations of procedures, tests, medications). 2. Lights on and shades open during daytime hours. 3. Write date and goals of care in a visible place. 4. Try to avoid unnecessary interruptions to sleep during nighttime hours. 5. Obtain glasses, hearing aids from home if patient uses these at baseline. 6. Avoid medications that may exacerbate delirium (especially narcotics, benzodiazepines, barbiturates, ambien, lunesta, and medications with excessive anticholinergic properties). 7. D/C waist restraint when not indicated.
[2018-06-16] MEDS: HALDOL IM PRN ×3 (03:46→21:22)
[2018-06-16 07:47] LABS: Hematocrit 34.9 % (30.3-42.9); Hemoglobin 11.7 gm/dl (10.1-14.3); Mean Corpuscular HGB Conc 34 % (30-34); Mean Corpuscular Hemoglobin 32 pg (28-32); Mean Corpuscular Volume 94 fl (79-97); Platelet Count 164 K/mm3 (140-440); Red Blood Count 3.72 M/mm3 (3.65-5.03); Red Cell Distribution Width 16.1 % (13.2-15.2)
--- NOTE | 2018-06-16 07:54 | Progress Note ---
Assessment and Plan 1. Acute kidney injury: Likely hemodynamic MINERVA due to volume depletion. Renal function has improved. Monitor renal function. 2. Electrolytes: Hypernatremia, encourage PO fluids. Started on IV D5W. Metabolic acidosis, improved. 3. Psychosis. Subjective Date of service: 06/16/18 Interval history: Patient was seen and examined at the bedside. Objective - Vital Signs Vital signs: Vital Signs - 12hr 06/16/18 05:19 Temperature 98.0 F Pulse Rate 86 Respiratory 25 H Rate Blood Pressure 111/65 O2 Sat by Pulse 98 Oximetry - General Appearance General appearance: well-developed, well-nourished, appears stated age, other ( on restrains, not in distress) EENT: ATNC Respiratory: Present: Clear to Ascultation Cardiology: regular, S1S2, no murmurs Gastrointestinal: normoactive bowel sounds, no tenderness Integumentary: no rash Neurologic: other (not following any command) Musculoskeletal: other (no edema) - Lab 06/16/18 06:45 06/16/18 06:45 Most recent lab results Calcium 9.0 mg/dL (8.4-10.2) 06/15/18 06:11 Phosphorus 2.80 mg/dL (2.5-4.5) 06/15/18 06:11 Magnesium 2.00 mg/dL (1.7-2.3) 06/15/18 06:11
[2018-06-16 08:07] LABS: Calcium 9.1 mg/dL (8.4-10.2)
[2018-06-16] MEDS: SODIUM CHLORIDE FLUSH SYRINGE 10 ML IV SCH ×2 (09:49→21:21)
--- NOTE | 2018-06-16 10:00 | Progress Note ---
Assessment and Plan Assessment and plan: Patient is a 58-year-old female with who was brought to the ED by family members on account of acute psychotic features. Initial Plan was to discharge the patient to an inpatient psychiatric facility, but there was difficulty finding a facility that could accept the patient. Nevertheless, subsequent lab testings done showed findings suggestive of dehydration, which necessitated her to be admitted under the medical team for treatment. Of note, no history could be obtained from the patient. Acute kidney injury secondary to vasomotor nephropathy -Resolved -Nephrology consulted AND Input note Hypernatremia secondary to dehydration -On IV fluid-adjusted- some improvement noted -Will monitor sodium level -Nephrology consulted Hypokalemia -Replaced -Check Magnesium Sinus tachycardia -Probably secondary to dehydration versus agitation -Resolved Acute psychosis/Schizoprenia/Delirium/bIPOLAR DISORDER -Continue medications per psych recommendations -HALDOL IM -Now on restraints for safety reasons. -Still combative. Discussed with Psych team -Stop zyprexa, cogentin and ativan Prophylaxis -DVT prophylaxis with SCDs Plan discussed with nursing staff. No family at bedside Pending placement By Psych History Interval history: Patient seen and examined, Continues with confusion, Continues to be combative this morning. Hospitalist Physical - Physical exam Narrative exam: General appearance: Present: no acute distress, other (disoriented 3) restraint belt and soft remains in place - EENT Eyes: Present: PERRL, EOM intact ENT: clear oral mucosa - Neck Neck: Present: supple, normal ROM - Respiratory Respiratory effort: normal Respiratory: bilateral: CTA - Cardiovascular Rhythm: other Heart Sounds: Present: S1 & S2 - Extremities Extremities: No edema - Abdominal General gastrointestinal: Present: soft, non-tender, normal bowel sounds - Neurologic Neurologic: CNII-XII intact - Constitutional Vitals: Temp Pulse Resp BP Pulse Ox 98.0 F 86 25 H 111/65 98 06/16/18 05:19 06/16/18 05:19 06/16/18 05:19 06/16/18 05:19 06/16/18 05:19 General appearance: Present: no acute distress, other (disoriented 3 and agitated) Results - Labs CBC & Chem 7: 06/16/18 06:45 06/16/18 06:45 Labs: Laboratory Last Values WBC 4.2 K/mm3 (4.5-11.0) L 06/16/18 06:45 RBC 3.72 M/mm3 (3.65-5.03) 06/16/18 06:45 Hgb 11.7 gm/dl (10.1-14.3) 06/16/18 06:45 Hct 34.9 % (30.3-42.9) 06/16/18 06:45 MCV 94 fl (79-97) 06/16/18 06:45 MCH 32 pg (28-32) 06/16/18 06:45 MCHC 34 % (30-34) 06/16/18 06:45 RDW 16.1 % (13.2-15.2) H 06/16/18 06:45 Plt Count 164 K/mm3 (140-440) 06/16/18 06:45 Lymph % (Auto) 16.1 % (13.4-35.0) 06/12/18 13:06 [place] % (Auto) 7.8 % (0.0-7.3) H 06/12/18 13:06 Eos % (Auto) 4.7 % (0.0-4.3) H 06/12/18 13:06 Baso % (Auto) 0.4 % (0.0-1.8) 06/12/18 13:06 Lymph # 1.8 K/mm3 (1.2-5.4) 06/12/18 13:06 [place] # 0.9 K/mm3 (0.0-0.8) H 06/12/18 13:06 Eos # 0.5 K/mm3 (0.0-0.4) H 06/12/18 13:06 Baso # 0.0 K/mm3 (0.0-0.1) 06/12/18 13:06 Seg Neutrophils % 71.0 % (40.0-70.0) H 06/12/18 13:06 Seg Neutrophils # 7.8 K/mm3 (1.8-7.7) H 06/12/18 13:06 PT 10.6 Sec. (12.2-14.9) L 06/02/18 19:09 INR 0.73 (0.87-1.13) L 06/02/18 19:09 APTT 23.5 Sec. (24.2-36.6) L 06/02/18 19:09 Sodium 154 mmol/L (137-145) H 06/16/18 06:45 Potassium 4.1 mmol/L (3.6-5.0) D 06/16/18 06:45 Chloride 119.4 mmol/L (98-107) H 06/16/18 06:45 Carbon Dioxide 23 mmol/L (22-30) 06/16/18 06:45 Anion Gap 16 mmol/L 06/16/18 06:45 BUN 11 mg/dL (7-17) 06/16/18 06:45 Creatinine 1.0 mg/dL (0.7-1.2) 06/16/18 06:45 Estimated GFR 57 ml/min 06/16/18 06:45 BUN/Creatinine Ratio 11 % 06/16/18 06:45 Glucose 98 mg/dL (65-100) 06/16/18 06:45 POC Glucose 175 (70-105) H 06/12/18 13:14 Lactic Acid 2.00 mmol/L (0.7-2.0) 06/02/18 19:09 Calcium 9.1 mg/dL (8.4-10.2) 06/16/18 06:45 Phosphorus 2.80 mg/dL (2.5-4.5) 06/15/18 06:11 Magnesium 2.00 mg/dL (1.7-2.3) 06/15/18 06:11 Total Bilirubin 0.70 mg/dL (0.1-1.2) 06/14/18 05:29 Direct Bilirubin 0.2 mg/dL (0-0.2) 06/14/18 05:29 Indirect Bilirubin 0.5 mg/dL 06/14/18 05:29 AST 29 units/L (5-40) 06/14/18 05:29 ALT 49 units/L (7-56) 06/14/18 05:29 Alkaline Phosphatase 84 units/L (35-129) 06/14/18 05:29 Ammonia 20.0 umol/L (25-60) L 06/02/18 19:09 Troponin T < 0.010 ng/mL (0.00-0.029) 06/02/18 19:09 NT-Pro-B Natriuret Pep 60.88 pg/mL (0-900) 06/02/18 19:09 Total Protein 5.4 g/dL (6.3-8.2) L 06/14/18 05:29 Albumin 3.2 g/dL (3.9-5) L 06/14/18 05:29 Albumin/Globulin Ratio 1.5 % 06/14/18 05:29 TSH 1.950 mlU/mL (0.270-4.200) 06/06/18 10:57 Free T4 1.40 ng/dL (0.76-1.46) 06/06/18 10:57 Urine Color Yellow (Yellow) 06/02/18 10:40 Urine Turbidity Clear (Clear) 06/02/18 10:40 Urine pH 7.0 (5.0-7.0) 06/02/18 10:40 Ur Specific [place] 1.005 (1.003-1.030) 06/02/18 10:40 Urine Protein <15 mg/dl mg/dL (Negative) 06/02/18 10:40 Urine Glucose (UA) Neg mg/dL (Negative) 06/02/18 10:40 Urine Ketones Neg mg/dL (Negative) 06/02/18 10:40 Urine Blood Sm (Negative) 06/02/18 10:40 Urine Nitrite Neg (Negative) 06/02/18 10:40 Urine Bilirubin Neg (Negative) 06/02/18 10:40 Urine Urobilinogen < 2.0 mg/dL (<2.0) 06/02/18 10:40 Ur Leukocyte Esterase Neg (Negative) 06/02/18 10:40 Urine WBC (Auto) < 1.0 /HPF (0.0-6.0) 06/02/18 10:40 Urine RBC (Auto) 5.0 /HPF (0.0-6.0) 06/02/18 10:40 U Epithel Cells (Auto) < 1.0 /HPF (0-13.0) 06/02/18 10:40 Urine Opiates Screen Presumptive negative 06/02/18 10:43 Urine Methadone Screen Presumptive negative 06/02/18 10:43 Ur Barbiturates Screen Presumptive negative 06/02/18 10:43 Ur Phencyclidine Scrn Presumptive negative 06/02/18 10:43 Ur Amphetamines Screen Presumptive negative 06/02/18 10:43 U Benzodiazepines Scrn Presumptive negative 06/02/18 10:43 [place] 0.1 mmol/L (0.0-1.2) 06/02/18 19:09 Urine Cocaine Screen Presumptive negative 06/02/18 10:43 U Marijuana (THC) Screen Presumptive negative 06/02/18 10:43 Drugs of Abuse Note Disclamer 06/02/18 10:43 Plasma/Serum Alcohol < 0.01 % (0-0.07) 06/02/18 09:57
--- NOTE | 2018-06-16 11:50 | Progress Note ---
Subjective - Reason for Consult Consult date: 06/16/18 Reason for consult: Psychiatry Follow-up - Chief Complaint Chief complaint: "Milena" Patient is a 58-year-old female who presents to the ER for aggressive and threatening behavior towards family members. The patient was brought to the ER by her daughter. Today the patient is confused, but would follow some commands during the assessment. She would squeeze my hand when asked. Per the sitter, the patient ate 50% of breakfast. No gestures of SI/HI's. Mental Status Exam - Vital signs Last Vital Signs Temp 98.0 F 06/16/18 05:19 Pulse 86 06/16/18 05:19 Resp 25 H 06/16/18 05:19 BP 111/65 06/16/18 05:19 Pulse Ox 98 06/16/18 05:19 - Exam Narrative exam: MSE: Appearance: calm, cooperative Behavior: regular eye contact Speech: regular rate and tone Mood: unable to assess Affect: flat Thought Process: confused Thought Content: no gestures of SI/HI's Motor Activity: lying in in bed Cognition: alert Insight: limited Judgment: poor Assessment and Plan Impression: Hx of Schizophrenia per the record. Delirium. Today the patient is confused and continue to mumble during the assessment. The patient continue to be tachycardic. NA 154 and Cr 1.0. K 4.1. The patient is in wrist restraints. DDx: R/O Bipolar DO with psychosis Recommendation/Plan: Continue 1013 with placement to inpatient psy services once medically clear. Continue Haldol 5 mg IM Q6hrs for acute agitatiion. D/C Zyprexa, Cogentin, and Ativan. The patient is confused and sedation can be an issue when taking antipsychotics. Will start antipsychotic (Zyprexa) once the patient's labs normalize. Recommend Delirium precautions below: 1. Frequently reorient patient and involve him/her in their care (simple explanations of procedures, tests, medications). 2. Lights on and shades open during daytime hours. 3. Write date and goals of care in a visible place. 4. Try to avoid unnecessary interruptions to sleep during nighttime hours. 5. Obtain glasses, hearing aids from home if patient uses these at baseline. 6. Avoid medications that may exacerbate delirium (especially narcotics, benzodiazepines, barbiturates, ambien, lunesta, and medications with excessive anticholinergic properties). 7. D/C wrist restraints when not indicated.
[2018-06-16] MEDS: KCL 20 MEQ in D5W 1,000 ML IV SCH (13:02)
[2018-06-16] MEDS: NORCO 5/325 PO PRN (23:16)
[2018-06-17] MEDS: KCL 20 MEQ in D5W 1,000 ML IV SCH ×2 (02:17→16:52)
[2018-06-17 06:46] LABS: Hematocrit 34.6 % (30.3-42.9); Hemoglobin 11.6 gm/dl (10.1-14.3); Mean Corpuscular HGB Conc 34 % (30-34); Mean Corpuscular Hemoglobin 31 pg (28-32); Mean Corpuscular Volume 94 fl (79-97); Platelet Count 166 K/mm3 (140-440); Red Cell Distribution Width 16.2 % (13.2-15.2)
[2018-06-17 07:08] LABS: BUN/Creatinine Ratio 11; Blood Urea Nitrogen 10 mg/dL (7-17); Calcium 8.6 mg/dL (8.4-10.2); Hemolysis Index 9
--- NOTE | 2018-06-17 11:27 | Progress Note ---
Assessment and Plan 1. Acute kidney injury: Likely hemodynamic MINERVA due to volume depletion. Renal function has improved. Monitor renal function. 2. Electrolytes: Hypernatremia, encourage PO fluids. Continue IV D5W. Metabolic acidosis, improved. 3. Psychosis. Will sign off. Subjective Date of service: 06/17/18 Interval history: Patient was seen and examined at the bedside. Objective - Vital Signs Vital signs: Vital Signs - 12hr 06/17/18 06/17/18 06/17/18 00:16 01:26 05:10 Temperature 98.4 F 97.9 F Pulse Rate 90 Respiratory 18 19 18 Rate Blood Pressure 97/60 119/70 O2 Sat by Pulse 97 Oximetry - General Appearance General appearance: well-developed, well-nourished, appears stated age, other ( on restrains, no distress) EENT: ATNC Respiratory: Present: Clear to Ascultation Cardiology: regular, S1S2, no murmurs Gastrointestinal: normoactive bowel sounds, no tenderness Integumentary: no rash Neurologic: other (not following any command) Musculoskeletal: other (no edema) - Lab 06/17/18 06:00 06/17/18 06:00 Most recent lab results Calcium 8.6 mg/dL (8.4-10.2) 06/17/18 06:00 Phosphorus 2.90 mg/dL (2.5-4.5) 06/17/18 06:00 Magnesium 2.00 mg/dL (1.7-2.3) 06/15/18 06:11
[2018-06-17] MEDS: SODIUM CHLORIDE FLUSH SYRINGE 10 ML IV SCH ×2 (12:20→22:00)
--- NOTE | 2018-06-17 17:53 | Progress Note ---
Assessment and Plan - Patient Problems (1) Acute renal failure Current Visit: Yes Status: Acute Plan to address problem: We'll continue current IV volume replacement. Appears to be resolving with intravascular volume replacement. (2) Hypernatremia Current Visit: Yes Status: Acute Plan to address problem: Continues to improve secondary to most likely dehydration. Sodium has gone from 153-147. Follow-up labs in the a.m. (3) Acute delirium Current Visit: No Status: Acute (4) Acute psychosis Current Visit: No Status: Acute Plan to address problem: Acute psychosis secondary to schizophrenia once patient is medically clear for discharge to inpatient psychiatric facility. (5) Schizophrenia Current Visit: No Status: Acute Qualifiers: Schizophrenia type: unspecified Qualified Code(s): F20.9 - Schizophrenia, unspecified History Interval history: Hospital course unremarkable over p.m. Patient was getting bath today. No new concerns for staff Hospitalist Physical - Constitutional Vitals: Temp Pulse Resp BP Pulse Ox 99.5 F 99 H 20 109/62 95 06/17/18 17:30 06/17/18 17:30 06/17/18 17:30 06/17/18 17:30 06/17/18 17:30 General appearance: Present: no acute distress, other (disoriented 3 and agitated) - EENT Eyes: Present: PERRL, EOM intact ENT: hearing intact, clear oral mucosa, dentition normal - Neck Neck: Present: supple, normal ROM - Respiratory Respiratory: bilateral: CTA - Cardiovascular Rhythm: regular - Extremities Extremities: no ischemia, pulses intact, pulses symmetrical Peripheral Pulses: within normal limits - Abdominal General gastrointestinal: soft, tender, normal bowel sounds - Integumentary Integumentary: Present: clear, warm, dry - Psychiatric Psychiatric: other (or judgment no insight into her disease.) - Neurologic Neurologic: gait normal Results - Labs CBC & Chem 7: 06/17/18 06:00 06/17/18 06:00 Labs: Laboratory Last Values WBC 4.0 K/mm3 (4.5-11.0) L 06/17/18 06:00 RBC 3.70 M/mm3 (3.65-5.03) 06/17/18 06:00 Hgb 11.6 gm/dl (10.1-14.3) 06/17/18 06:00 Hct 34.6 % (30.3-42.9) 06/17/18 06:00 MCV 94 fl (79-97) 06/17/18 06:00 MCH 31 pg (28-32) 06/17/18 06:00 MCHC 34 % (30-34) 06/17/18 06:00 RDW 16.2 % (13.2-15.2) H 06/17/18 06:00 Plt Count 166 K/mm3 (140-440) 06/17/18 06:00 Lymph % (Auto) 16.1 % (13.4-35.0) 06/12/18 13:06 [place] % (Auto) 7.8 % (0.0-7.3) H 06/12/18 13:06 Eos % (Auto) 4.7 % (0.0-4.3) H 06/12/18 13:06 Baso % (Auto) 0.4 % (0.0-1.8) 06/12/18 13:06 Lymph # 1.8 K/mm3 (1.2-5.4) 06/12/18 13:06 [place] # 0.9 K/mm3 (0.0-0.8) H 06/12/18 13:06 Eos # 0.5 K/mm3 (0.0-0.4) H 06/12/18 13:06 Baso # 0.0 K/mm3 (0.0-0.1) 06/12/18 13:06 Seg Neutrophils % 71.0 % (40.0-70.0) H 06/12/18 13:06 Seg Neutrophils # 7.8 K/mm3 (1.8-7.7) H 06/12/18 13:06 PT 10.6 Sec. (12.2-14.9) L 06/02/18 19:09 INR 0.73 (0.87-1.13) L 06/02/18 19:09 APTT 23.5 Sec. (24.2-36.6) L 06/02/18 19:09 Sodium 147 mmol/L (137-145) H 06/17/18 06:00 Potassium 4.0 mmol/L (3.6-5.0) 06/17/18 06:00 Chloride 111.6 mmol/L (98-107) H 06/17/18 06:00 Carbon Dioxide 22 mmol/L (22-30) 06/17/18 06:00 Anion Gap 17 mmol/L 06/17/18 06:00 BUN 10 mg/dL (7-17) 06/17/18 06:00 Creatinine 0.9 mg/dL (0.7-1.2) 06/17/18 06:00 Estimated GFR > 60 ml/min 06/17/18 06:00 BUN/Creatinine Ratio 11 % 06/17/18 06:00 Glucose 122 mg/dL (65-100) H 06/17/18 06:00 POC Glucose 175 (70-105) H 06/12/18 13:14 Lactic Acid 2.00 mmol/L (0.7-2.0) 06/02/18 19:09 Calcium 8.6 mg/dL (8.4-10.2) 06/17/18 06:00 Phosphorus 2.90 mg/dL (2.5-4.5) 06/17/18 06:00 Magnesium 2.00 mg/dL (1.7-2.3) 06/15/18 06:11 Total Bilirubin 0.70 mg/dL (0.1-1.2) 06/14/18 05:29 Direct Bilirubin 0.2 mg/dL (0-0.2) 06/14/18 05:29 Indirect Bilirubin 0.5 mg/dL 06/14/18 05:29 AST 29 units/L (5-40) 06/14/18 05:29 ALT 49 units/L (7-56) 06/14/18 05:29 Alkaline Phosphatase 84 units/L (35-129) 06/14/18 05:29 Ammonia 20.0 umol/L (25-60) L 06/02/18 19:09 Troponin T < 0.010 ng/mL (0.00-0.029) 06/02/18 19:09 NT-Pro-B Natriuret Pep 60.88 pg/mL (0-900) 06/02/18 19:09 Total Protein 5.4 g/dL (6.3-8.2) L 06/14/18 05:29 Albumin 3.2 g/dL (3.9-5) L 06/14/18 05:29 Albumin/Globulin Ratio 1.5 % 06/14/18 05:29 TSH 1.950 mlU/mL (0.270-4.200) 06/06/18 10:57 Free T4 1.40 ng/dL (0.76-1.46) 06/06/18 10:57 Urine Color Yellow (Yellow) 06/02/18 10:40 Urine Turbidity Clear (Clear) 06/02/18 10:40 Urine pH 7.0 (5.0-7.0) 06/02/18 10:40 Ur Specific [place] 1.005 (1.003-1.030) 06/02/18 10:40 Urine Protein <15 mg/dl mg/dL (Negative) 06/02/18 10:40 Urine Glucose (UA) Neg mg/dL (Negative) 06/02/18 10:40 Urine Ketones Neg mg/dL (Negative) 06/02/18 10:40 Urine Blood Sm (Negative) 06/02/18 10:40 Urine Nitrite Neg (Negative) 06/02/18 10:40 Urine Bilirubin Neg (Negative) 06/02/18 10:40 Urine Urobilinogen < 2.0 mg/dL (<2.0) 06/02/18 10:40 Ur Leukocyte Esterase Neg (Negative) 06/02/18 10:40 Urine WBC (Auto) < 1.0 /HPF (0.0-6.0) 06/02/18 10:40 Urine RBC (Auto) 5.0 /HPF (0.0-6.0) 06/02/18 10:40 U Epithel Cells (Auto) < 1.0 /HPF (0-13.0) 06/02/18 10:40 Urine Opiates Screen Presumptive negative 06/02/18 10:43 Urine Methadone Screen Presumptive negative 06/02/18 10:43 Ur Barbiturates Screen Presumptive negative 06/02/18 10:43 Ur Phencyclidine Scrn Presumptive negative 06/02/18 10:43 Ur Amphetamines Screen Presumptive negative 06/02/18 10:43 U Benzodiazepines Scrn Presumptive negative 06/02/18 10:43 [place] 0.1 mmol/L (0.0-1.2) 06/02/18 19:09 Urine Cocaine Screen Presumptive negative 06/02/18 10:43 U Marijuana (THC) Screen Presumptive negative 06/02/18 10:43 Drugs of Abuse Note Disclamer 06/02/18 10:43 Plasma/Serum Alcohol < 0.01 % (0-0.07) 06/02/18 09:57
[2018-06-18] MEDS: NORCO 5/325 PO PRN ×2 (01:25→12:52)
[2018-06-18] MEDS: KCL 20 MEQ in D5W 1,000 ML IV SCH (07:16)
[2018-06-18 09:32] LABS: BUN/Creatinine Ratio 8; Blood Urea Nitrogen 7 mg/dL (7-17); Calcium 8.8 mg/dL (8.4-10.2); Hemolysis Index 4
--- NOTE | 2018-06-18 12:26 | Progress Note ---
Assessment and Plan - Patient Problems (1) Acute renal failure Current Visit: Yes Status: Acute Plan to address problem: We'll continue current IV volume replacement. Appears to be resolving with intravascular volume replacement. (2) Hypernatremia Current Visit: Yes Status: Acute Plan to address problem: Continues to improve secondary to most likely dehydration. Sodium has gone from 153-147. Follow-up labs in the a.m. (3) Acute delirium Current Visit: No Status: Acute (4) Acute psychosis Current Visit: No Status: Acute Plan to address problem: Acute psychosis secondary to schizophrenia once patient is medically clear for discharge to inpatient psychiatric facility. (5) Schizophrenia Current Visit: No Status: Acute Qualifiers: Schizophrenia type: unspecified Qualified Code(s): F20.9 - Schizophrenia, unspecified Plan to address problem: Patient would need inpatient psych. Awaiting case management options. History Interval history: Upon answering patient's questions. She placed left leg had in the air and look at me weird. Then put it down and open legs and did not see anything just looked at me. Hospitalist Physical - Constitutional Vitals: Temp Pulse Resp BP Pulse Ox 93.6 F L 97 H 18 129/84 96 06/18/18 05:49 06/18/18 10:58 06/18/18 10:58 06/18/18 10:58 06/18/18 10:58 General appearance: Present: no acute distress, other (disoriented 3 and agitated) - EENT Eyes: Present: PERRL, EOM intact. Absent: scleral icterus, exopthalmos ENT: hearing intact, clear oral mucosa, dentition normal, no hearing decreased - Neck Neck: Present: supple - Respiratory Respiratory effort: normal Respiratory: bilateral: CTA - Cardiovascular Rhythm: regular Heart Sounds: Present: S1 & S2 - Extremities Extremities: no ischemia, pulses intact, pulses symmetrical, No edema - Abdominal General gastrointestinal: soft, non-tender, normal bowel sounds - Integumentary Integumentary: Present: clear, warm, dry - Psychiatric Psychiatric: appropriate mood/affect - Neurologic Neurologic: CNII-XII intact, focal deficits, moves all extremities Results - Labs CBC & Chem 7: 06/17/18 06:00 06/18/18 06:47 Labs: Laboratory Last Values WBC 4.0 K/mm3 (4.5-11.0) L 06/17/18 06:00 RBC 3.70 M/mm3 (3.65-5.03) 06/17/18 06:00 Hgb 11.6 gm/dl (10.1-14.3) 06/17/18 06:00 Hct 34.6 % (30.3-42.9) 06/17/18 06:00 MCV 94 fl (79-97) 06/17/18 06:00 MCH 31 pg (28-32) 06/17/18 06:00 MCHC 34 % (30-34) 06/17/18 06:00 RDW 16.2 % (13.2-15.2) H 06/17/18 06:00 Plt Count 166 K/mm3 (140-440) 06/17/18 06:00 Lymph % (Auto) 16.1 % (13.4-35.0) 06/12/18 13:06 [place] % (Auto) 7.8 % (0.0-7.3) H 06/12/18 13:06 Eos % (Auto) 4.7 % (0.0-4.3) H 06/12/18 13:06 Baso % (Auto) 0.4 % (0.0-1.8) 06/12/18 13:06 Lymph # 1.8 K/mm3 (1.2-5.4) 06/12/18 13:06 [place] # 0.9 K/mm3 (0.0-0.8) H 06/12/18 13:06 Eos # 0.5 K/mm3 (0.0-0.4) H 06/12/18 13:06 Baso # 0.0 K/mm3 (0.0-0.1) 06/12/18 13:06 Seg Neutrophils % 71.0 % (40.0-70.0) H 06/12/18 13:06 Seg Neutrophils # 7.8 K/mm3 (1.8-7.7) H 06/12/18 13:06 PT 10.6 Sec. (12.2-14.9) L 06/02/18 19:09 INR 0.73 (0.87-1.13) L 06/02/18 19:09 APTT 23.5 Sec. (24.2-36.6) L 06/02/18 19:09 Sodium 144 mmol/L (137-145) 06/18/18 06:47 Potassium 3.7 mmol/L (3.6-5.0) 06/18/18 06:47 Chloride 107.9 mmol/L (98-107) H 06/18/18 06:47 Carbon Dioxide 26 mmol/L (22-30) 06/18/18 06:47 Anion Gap 14 mmol/L 06/18/18 06:47 BUN 7 mg/dL (7-17) 06/18/18 06:47 Creatinine 0.9 mg/dL (0.7-1.2) 06/18/18 06:47 Estimated GFR > 60 ml/min 06/18/18 06:47 BUN/Creatinine Ratio 8 % 06/18/18 06:47 Glucose 100 mg/dL (65-100) 06/18/18 06:47 POC Glucose 175 (70-105) H 06/12/18 13:14 Lactic Acid 2.00 mmol/L (0.7-2.0) 06/02/18 19:09 Calcium 8.8 mg/dL (8.4-10.2) 06/18/18 06:47 Phosphorus 2.90 mg/dL (2.5-4.5) 06/17/18 06:00 Magnesium 2.00 mg/dL (1.7-2.3) 06/15/18 06:11 Total Bilirubin 0.70 mg/dL (0.1-1.2) 06/14/18 05:29 Direct Bilirubin 0.2 mg/dL (0-0.2) 06/14/18 05:29 Indirect Bilirubin 0.5 mg/dL 06/14/18 05:29 AST 29 units/L (5-40) 06/14/18 05:29 ALT 49 units/L (7-56) 06/14/18 05:29 Alkaline Phosphatase 84 units/L (35-129) 06/14/18 05:29 Ammonia 20.0 umol/L (25-60) L 06/02/18 19:09 Troponin T < 0.010 ng/mL (0.00-0.029) 06/02/18 19:09 NT-Pro-B Natriuret Pep 60.88 pg/mL (0-900) 06/02/18 19:09 Total Protein 5.4 g/dL (6.3-8.2) L 06/14/18 05:29 Albumin 3.2 g/dL (3.9-5) L 06/14/18 05:29 Albumin/Globulin Ratio 1.5 % 06/14/18 05:29 TSH 1.950 mlU/mL (0.270-4.200) 06/06/18 10:57 Free T4 1.40 ng/dL (0.76-1.46) 06/06/18 10:57 Urine Color Yellow (Yellow) 06/02/18 10:40 Urine Turbidity Clear (Clear) 06/02/18 10:40 Urine pH 7.0 (5.0-7.0) 06/02/18 10:40 Ur Specific [place] 1.005 (1.003-1.030) 06/02/18 10:40 Urine Protein <15 mg/dl mg/dL (Negative) 06/02/18 10:40 Urine Glucose (UA) Neg mg/dL (Negative) 06/02/18 10:40 Urine Ketones Neg mg/dL (Negative) 06/02/18 10:40 Urine Blood Sm (Negative) 06/02/18 10:40 Urine Nitrite Neg (Negative) 06/02/18 10:40 Urine Bilirubin Neg (Negative) 06/02/18 10:40 Urine Urobilinogen < 2.0 mg/dL (<2.0) 06/02/18 10:40 Ur Leukocyte Esterase Neg (Negative) 06/02/18 10:40 Urine WBC (Auto) < 1.0 /HPF (0.0-6.0) 06/02/18 10:40 Urine RBC (Auto) 5.0 /HPF (0.0-6.0) 06/02/18 10:40 U Epithel Cells (Auto) < 1.0 /HPF (0-13.0) 06/02/18 10:40 Urine Opiates Screen Presumptive negative 06/02/18 10:43 Urine Methadone Screen Presumptive negative 06/02/18 10:43 Ur Barbiturates Screen Presumptive negative 06/02/18 10:43 Ur Phencyclidine Scrn Presumptive negative 06/02/18 10:43 Ur Amphetamines Screen Presumptive negative 06/02/18 10:43 U Benzodiazepines Scrn Presumptive negative 06/02/18 10:43 [place] 0.1 mmol/L (0.0-1.2) 06/02/18 19:09 Urine Cocaine Screen Presumptive negative 06/02/18 10:43 U Marijuana (THC) Screen Presumptive negative 06/02/18 10:43 Drugs of Abuse Note Disclamer 06/02/18 10:43 Plasma/Serum Alcohol < 0.01 % (0-0.07) 06/02/18 09:57
[2018-06-18] MEDS: SODIUM CHLORIDE FLUSH SYRINGE 10 ML IV SCH ×2 (12:37→22:48)
[2018-06-18] MEDS: HALDOL IM PRN (12:52)
--- NOTE | 2018-06-18 16:45 | Progress Note ---
Subjective - Reason for Consult Consult date: 06/18/18 Reason for consult: follow up - Chief Complaint Chief complaint: skye Patient is a 58-year-old female who presented to the ER for aggressive and threatening behavior towards family members. The patient was brought to the ER by her daughter. Today the patient is confused. Her speech was incoherent. She held out her hand when I introduced myself to her. It is unclear if this was intentional. She is in wrist restraints and has moved to the end of the bed with her head lower than her body. Staff reports they have moved her several times but she goes back to this position each time. She is wearing a diaper. Mental Status Exam - Vital signs Last Vital Signs Temp 93.6 F L 06/18/18 05:49 Pulse 97 H 06/18/18 10:58 Resp 18 06/18/18 10:58 BP 129/84 06/18/18 10:58 Pulse Ox 96 06/18/18 10:58 - Exam Narrative exam: MSE: Appearance: calm, makes eye contact Behavior: moving to the end of the bed while in restraints Speech: mumbles and moans Mood: unable to assess Affect: flat Thought Process: confused Thought Content: no gestures of SI/HI Motor Activity: lying with head down in the bed Cognition: alert Insight: limited Judgment: poor Assessment and Plan Impression: Hx of Schizophrenia per the record. Delirium. Today the patient is confused and continue to mumble during the assessment. Heart rates in the 90s NA 144 and K+ 3.7 The patient is in wrist restraints. DDx: R/O Bipolar DO with psychosis Recommendation/Plan: Continue 1013 with placement to inpatient psy services once medically clear. Continue Haldol 5 mg IM Q6hrs for acute agitation. D/C Zyprexa, Cogentin, and Ativan. The patient is confused and sedation can be an issue when taking antipsychotics. Recommend Delirium precautions below: 1. Frequently reorient patient and involve him/her in their care (simple explanations of procedures, tests, medications). 2. Lights on and shades open during daytime hours. 3. Write date and goals of care in a visible place. 4. Try to avoid unnecessary interruptions to sleep during nighttime hours. 5. Obtain glasses, hearing aids from home if patient uses these at baseline. 6. Avoid medications that may exacerbate delirium (especially narcotics, benzodiazepines, barbiturates, ambien, lunesta, and medications with excessive anticholinergic properties). 7. D/C wrist restraints when not indicated.
[2018-06-19] MEDS: KCL 20 MEQ in D5W 1,000 ML IV SCH ×2 (00:56→15:00)
[2018-06-19] MEDS: NORCO 5/325 PO PRN (09:32)
[2018-06-19] MEDS: HALDOL IM PRN (09:33)
[2018-06-19] MEDS: SODIUM CHLORIDE FLUSH SYRINGE 10 ML IV SCH ×2 (12:33→22:30)
--- NOTE | 2018-06-19 13:40 | Progress Note ---
Assessment and Plan - Patient Problems (1) Acute renal failure Current Visit: Yes Status: Acute Plan to address problem: We'll continue current IV volume replacement. Appears to be resolving with intravascular volume replacement. (2) Hypernatremia Current Visit: Yes Status: Acute Plan to address problem: Operative treatment has resolved. We'll follow up in a.m. Patient cleared to be discharged to inpatient psychiatric facility. (3) Acute delirium Current Visit: No Status: Acute (4) Acute psychosis Current Visit: No Status: Acute Plan to address problem: Acute psychosis secondary to schizophrenia once patient is medically clear for discharge to inpatient psychiatric facility. (5) Schizophrenia Current Visit: No Status: Acute Qualifiers: Schizophrenia type: unspecified Qualified Code(s): F20.9 - Schizophrenia, unspecified Plan to address problem: Patient would need inpatient psych. Awaiting case management options. (6) Insomnia Current Visit: Yes Status: Acute Plan to address problem: Possibly consistent with marjorie manic episode. History Interval history: Normal events over p.m. after evaluation of patient's sleep pattern patient only slept maybe an hour early this morning. Did not sleep at all last night. Insomnia may be contributing to patient's agitation.. Did form I contact. Hospitalist Physical - Constitutional Vitals: Temp Pulse Resp BP Pulse Ox 98.4 F 96 H 17 121/64 98 06/19/18 12:08 06/19/18 12:08 06/19/18 12:08 06/19/18 12:08 06/19/18 12:08 General appearance: Present: no acute distress, other (disoriented 3 and agitated) - EENT Eyes: Present: PERRL, EOM intact ENT: hearing intact, clear oral mucosa, dentition normal, no oropharyngeal erythema, no poor dentition - Neck Neck: Present: supple, normal ROM. Absent: enlarged thyroid, masses or JVD, cervical LAD - Cardiovascular Rhythm: regular Heart Sounds: Present: S1 & S2 - Extremities Extremities: no ischemia, pulses intact, pulses symmetrical, No edema, normal temperature Peripheral Pulses: within normal limits - Abdominal General gastrointestinal: soft, non-tender, normal bowel sounds - Integumentary Integumentary: Present: clear, dry - Psychiatric Psychiatric: other (poor judgment pressures speech possible hallucinations delusions.) Results - Labs CBC & Chem 7: 06/17/18 06:00 06/18/18 06:47 Labs: Laboratory Last Values WBC 4.0 K/mm3 (4.5-11.0) L 06/17/18 06:00 RBC 3.70 M/mm3 (3.65-5.03) 06/17/18 06:00 Hgb 11.6 gm/dl (10.1-14.3) 06/17/18 06:00 Hct 34.6 % (30.3-42.9) 06/17/18 06:00 MCV 94 fl (79-97) 06/17/18 06:00 MCH 31 pg (28-32) 06/17/18 06:00 MCHC 34 % (30-34) 06/17/18 06:00 RDW 16.2 % (13.2-15.2) H 06/17/18 06:00 Plt Count 166 K/mm3 (140-440) 06/17/18 06:00 Lymph % (Auto) 16.1 % (13.4-35.0) 06/12/18 13:06 [place] % (Auto) 7.8 % (0.0-7.3) H 06/12/18 13:06 Eos % (Auto) 4.7 % (0.0-4.3) H 06/12/18 13:06 Baso % (Auto) 0.4 % (0.0-1.8) 06/12/18 13:06 Lymph # 1.8 K/mm3 (1.2-5.4) 06/12/18 13:06 [place] # 0.9 K/mm3 (0.0-0.8) H 06/12/18 13:06 Eos # 0.5 K/mm3 (0.0-0.4) H 06/12/18 13:06 Baso # 0.0 K/mm3 (0.0-0.1) 06/12/18 13:06 Seg Neutrophils % 71.0 % (40.0-70.0) H 06/12/18 13:06 Seg Neutrophils # 7.8 K/mm3 (1.8-7.7) H 06/12/18 13:06 PT 10.6 Sec. (12.2-14.9) L 06/02/18 19:09 INR 0.73 (0.87-1.13) L 06/02/18 19:09 APTT 23.5 Sec. (24.2-36.6) L 06/02/18 19:09 Sodium 144 mmol/L (137-145) 06/18/18 06:47 Potassium 3.7 mmol/L (3.6-5.0) 06/18/18 06:47 Chloride 107.9 mmol/L (98-107) H 06/18/18 06:47 Carbon Dioxide 26 mmol/L (22-30) 06/18/18 06:47 Anion Gap 14 mmol/L 06/18/18 06:47 BUN 7 mg/dL (7-17) 06/18/18 06:47 Creatinine 0.9 mg/dL (0.7-1.2) 06/18/18 06:47 Estimated GFR > 60 ml/min 06/18/18 06:47 BUN/Creatinine Ratio 8 % 06/18/18 06:47 Glucose 100 mg/dL (65-100) 06/18/18 06:47 POC Glucose 175 (70-105) H 06/12/18 13:14 Lactic Acid 2.00 mmol/L (0.7-2.0) 06/02/18 19:09 Calcium 8.8 mg/dL (8.4-10.2) 06/18/18 06:47 Phosphorus 2.90 mg/dL (2.5-4.5) 06/17/18 06:00 Magnesium 2.00 mg/dL (1.7-2.3) 06/15/18 06:11 Total Bilirubin 0.70 mg/dL (0.1-1.2) 06/14/18 05:29 Direct Bilirubin 0.2 mg/dL (0-0.2) 06/14/18 05:29 Indirect Bilirubin 0.5 mg/dL 06/14/18 05:29 AST 29 units/L (5-40) 06/14/18 05:29 ALT 49 units/L (7-56) 06/14/18 05:29 Alkaline Phosphatase 84 units/L (35-129) 06/14/18 05:29 Ammonia 20.0 umol/L (25-60) L 06/02/18 19:09 Troponin T < 0.010 ng/mL (0.00-0.029) 06/02/18 19:09 NT-Pro-B Natriuret Pep 60.88 pg/mL (0-900) 06/02/18 19:09 Total Protein 5.4 g/dL (6.3-8.2) L 06/14/18 05:29 Albumin 3.2 g/dL (3.9-5) L 06/14/18 05:29 Albumin/Globulin Ratio 1.5 % 06/14/18 05:29 TSH 1.950 mlU/mL (0.270-4.200) 06/06/18 10:57 Free T4 1.40 ng/dL (0.76-1.46) 06/06/18 10:57 Urine Color Yellow (Yellow) 06/02/18 10:40 Urine Turbidity Clear (Clear) 06/02/18 10:40 Urine pH 7.0 (5.0-7.0) 06/02/18 10:40 Ur Specific [place] 1.005 (1.003-1.030) 06/02/18 10:40 Urine Protein <15 mg/dl mg/dL (Negative) 06/02/18 10:40 Urine Glucose (UA) Neg mg/dL (Negative) 06/02/18 10:40 Urine Ketones Neg mg/dL (Negative) 06/02/18 10:40 Urine Blood Sm (Negative) 06/02/18 10:40 Urine Nitrite Neg (Negative) 06/02/18 10:40 Urine Bilirubin Neg (Negative) 06/02/18 10:40 Urine Urobilinogen < 2.0 mg/dL (<2.0) 06/02/18 10:40 Ur Leukocyte Esterase Neg (Negative) 06/02/18 10:40 Urine WBC (Auto) < 1.0 /HPF (0.0-6.0) 06/02/18 10:40 Urine RBC (Auto) 5.0 /HPF (0.0-6.0) 06/02/18 10:40 U Epithel Cells (Auto) < 1.0 /HPF (0-13.0) 06/02/18 10:40 Urine Opiates Screen Presumptive negative 06/02/18 10:43 Urine Methadone Screen Presumptive negative 06/02/18 10:43 Ur Barbiturates Screen Presumptive negative 06/02/18 10:43 Ur Phencyclidine Scrn Presumptive negative 06/02/18 10:43 Ur Amphetamines Screen Presumptive negative 06/02/18 10:43 U Benzodiazepines Scrn Presumptive negative 06/02/18 10:43 [place] 0.1 mmol/L (0.0-1.2) 06/02/18 19:09 Urine Cocaine Screen Presumptive negative 06/02/18 10:43 U Marijuana (THC) Screen Presumptive negative 06/02/18 10:43 Drugs of Abuse Note Disclamer 06/02/18 10:43 Plasma/Serum Alcohol < 0.01 % (0-0.07) 06/02/18 09:57
[2018-06-19] MEDS ORDERED: ATIVAN IV ONE (13:42)
[2018-06-19] MEDS ORDERED: ATIVAN ONE (18:43)
--- NOTE | 2018-06-19 21:29 | Progress Note ---
Subjective - Reason for Consult Consult date: 06/19/18 Reason for consult: follow up - Chief Complaint Chief complaint: skye Patient is a 58-year-old female who presented to the ER for aggressive and threatening behavior towards family members. The patient was brought to the ER by her daughter. Today the patient is confused. She is in restraints. Her speech was incoherent. She held her leg out to kick the PERINATAL SPECIALIST. She was smiling to the patient care associate working with her. Staff report she slept for an hour today and has been eating all of her meals. Mental Status Exam - Vital signs Last Vital Signs Temp 98.2 F 06/19/18 17:38 Pulse 103 H 06/19/18 17:38 Resp 16 06/19/18 17:38 BP 129/74 06/19/18 17:38 Pulse Ox 95 06/19/18 17:38 - Exam Narrative exam: MSE: Appearance: calm, makes eye contact Behavior: moves herself while in restraints Speech: mumbles and moans Mood: unable to assess Affect: flat Thought Process: confused Thought Content: no gestures of SI/HI Motor Activity: wnl Cognition: alert Insight: limited Judgment: poor Assessment and Plan Impression: Hx of Schizophrenia per the record. Delirium. Today the patient is confused and continue to mumble during the assessment. Heart rates in the 90s NA 144 and K+ 3.7 at last check, 06/18/2018. The patient is in wrist restraints and waist restraint. DDx: R/O Bipolar DO with psychosis Recommendation/Plan: Continue 1013 with placement to inpatient psy services once medically clear. Continue Haldol 5 mg IM Q6hrs for acute agitation. The patient is confused and sedation can be an issue when taking antipsychotics. Recommend Delirium precautions below: 1. Frequently reorient patient and involve him/her in their care (simple explanations of procedures, tests, medications). 2. Lights on and shades open during daytime hours. 3. Write date and goals of care in a visible place. 4. Try to avoid unnecessary interruptions to sleep during nighttime hours. 5. Obtain glasses, hearing aids from home if patient uses these at baseline. 6. Avoid medications that may exacerbate delirium (especially narcotics, benzodiazepines, barbiturates, ambien, lunesta, and medications with excessive anticholinergic properties). 7. D/C restraints when not indicated.
[2018-06-19] MEDS: DESYREL PO SCH (22:30)
[2018-06-20] MEDS: HALDOL IM PRN (08:46)
[2018-06-20] MEDS: KCL 20 MEQ in D5W 1,000 ML IV SCH (08:50)
--- NOTE | 2018-06-20 10:09 | Progress Note ---
Assessment and Plan (1) Acute renal failure Current Visit: Yes Status: Acute Plan to address problem: Appears to be resolving with intravascular volume replacement. (2) Hypernatremia - resoved Current Visit: Yes Status: Acute Plan to address problem: Medically cleared for d/c. Patient cleared to be discharged to inpatient psychiatric facility. (3) Acute delirium - resolving Current Visit: No Status: Acute (4) Acute psychosis Current Visit: No Status: Acute Plan to address problem: Acute psychosis secondary to schizophrenia once patient is medically clear for discharge to inpatient psychiatric facility. (5) Schizophrenia Current Visit: No Status: Acute Qualifiers: Schizophrenia type: unspecified Qualified Code(s): F20.9 - Schizophrenia, unspecified Plan to address problem: Patient would need inpatient psych. Awaiting case management options. (6) Insomnia Current Visit: Yes Status: Acute Plan to address problem: Possibly consistent with marjorie manic episode. Subjective Date of service: 06/20/18 Principal diagnosis: bipolar d/o with Schizophrenia Interval history: still agitated and lying in bed with restrain Objective - Constitutional Vitals: Vital Signs - 12hr 06/19/18 06/20/18 23:22 05:41 Temperature 98.1 F 98.0 F Pulse Rate 106 H 103 H Respiratory 19 19 Rate Blood Pressure 127/75 121/74 O2 Sat by Pulse 96 96 Oximetry General appearance: Present: no acute distress, well-nourished - EENT Eyes: PERRL, EOM intact - Neck Neck: supple, normal ROM - Respiratory Respiratory effort: normal Respiratory: bilateral: CTA - Cardiovascular Rhythm: regular Heart Sounds: Present: S1 & S2. Absent: gallop, rub Extremities: pulses intact, No edema, normal color, Full ROM - Gastrointestinal General gastrointestinal: Present: soft, non-tender, non-distended, normal bowel sounds - Integumentary Integumentary: clear, warm, dry - Musculoskeletal Musculoskeletal: 1, strength equal bilaterally - Neurologic Neurologic: moves all extremities - Psychiatric Psychiatric: no appropriate mood/affect, no intact judgment & insight, no memory intact, agitated - Labs CBC & Chem 7: 06/17/18 06:00 06/18/18 06:47
--- NOTE | 2018-06-20 10:44 | Progress Note ---
Subjective - Reason for Consult Consult date: 06/20/18 Reason for consult: Psychiatry Follow-up - Chief Complaint Chief complaint: "The patient's speech is incoherent" Patient is a 58-year-old female who presented to the ER for aggressive and threatening behavior towards family members. The patient was brought to the ER by her daughter. Today the patient is calm with incoherent speech during the assessment. The patient has a euphoric affect, but was unable to assess her mood. When her speech wasn't incoherent, her thoughts were disorganized. Per the sitter, the patient ate her breakfast this AM. No gestures of SI/HI's. Mental Status Exam - Vital signs Last Vital Signs Temp 98.0 F 06/20/18 05:41 Pulse 103 H 06/20/18 05:41 Resp 19 06/20/18 05:41 BP 121/74 06/20/18 05:41 Pulse Ox 96 06/20/18 05:41 - Exam Narrative exam: MSE: Appearance: calm Behavior: regular eye contact Speech: incoherent speech intermittently Mood: unable to assess Affect: euphoric Thought Process: disorganized Thought Content: no gestures of SI/HI's Motor Activity: lying in in bed Cognition: alert Insight: limited Judgment: poor Assessment and Plan Impression: Hx of Schizophrenia per the record. Delirium when admitted to the floor. Today the patient is calm with incoherent speech during the assessment. NA 144 and Cr 0.9. The patient is in wrist/waist restraints. DDx: R/O Bipolar DO with psychosis Recommendation/Plan: Continue 1013 with placement to inpatient psy services once medically clear. Continue Haldol 5 mg IM Q6hrs for acute agitatiion and start Zyprexa 2.5 mg PO HS for schizophrenia. Attempted to discuss possible metabolic side effects of Zyprexa with patient.
[2018-06-20] MEDS: SODIUM CHLORIDE FLUSH SYRINGE 10 ML IV SCH ×2 (16:43→22:14)
[2018-06-20] MEDS: DESYREL PO SCH (22:05)
[2018-06-21] MEDS: KCL 20 MEQ in D5W 1,000 ML IV SCH ×2 (05:44→21:29)
[2018-06-21] MEDS: HALDOL IM PRN (05:44)
--- NOTE | 2018-06-21 10:00 | Progress Note ---
Subjective - Reason for Consult Consult date: 06/21/18 Reason for consult: Psychiatry Follow-up - Chief Complaint Chief complaint: "Milena" Patient is a 58-year-old female who presented to the ER for aggressive and threatening behavior towards family members. The patient was brought to the ER by her daughter. Today the patient is calm, but disorganized during the assessment. Her answers to questions asked of her were not logical. Her speech is much better today than yesterday (regular rate and tone). Per the sitter, the patient ate her breakfast this AM. No gestures of SI/HI's. Mental Status Exam - Vital signs Last Vital Signs Temp 97.4 F L 06/21/18 06:03 Pulse 107 H 06/21/18 06:03 Resp 17 06/21/18 06:03 BP 110/54 06/21/18 06:03 Pulse Ox 94 06/21/18 06:03 - Exam Narrative exam: MSE: Appearance: calm Behavior: regular eye contact Speech: regular rate and tone Mood: unable to assess Affect: constricted Thought Process: disorganized Thought Content: no gestures of SI/HI's Motor Activity: lying in in bed Cognition: alert Insight: poor Judgment: poor Assessment and Plan Impression: Hx of Schizophrenia per the record. Delirium when admitted to the floor. Today the patient is calm with incoherent speech during the assessment. NA 144 and Cr 0.9. The patient is in wrist/waist restraints. DDx: R/O Bipolar DO with psychosis Recommendation/Plan: Continue 1013 with placement to inpatient psy services once medically clear. Continue Haldol 5 mg IM Q6hrs for acute agitatiion and Zyprexa 2.5 mg PO HS for schizophrenia. Attempted to discuss possible metabolic side effects of Zyprexa with patient. Recommend DVT prophylaxis. D/C restraints when not indicated. CK ordered.
[2018-06-21] MEDS: SODIUM CHLORIDE FLUSH SYRINGE 10 ML IV SCH ×2 (11:03→21:31)
--- NOTE | 2018-06-21 15:56 | Progress Note ---
Assessment and Plan Assessment and plan: Patient is a 58 yo woman with a history of Schizophrenia who pw agitation. -Acute renal failure vasomotor nephropathy, resolved -Hypernatremia - resolved -Acute encephalopathy with arf, resolved -Acute psychosis: Acute psychosis secondary to schizophrenia once patient is medically clear for discharge to inpatient psychiatric facility. -Schizophrenia in 1012; Patient would need inpatient psych. Awaiting case management options. History Interval history: Patient was seen and examined. Follow-up on current diagnosis of AMS. Overnight uneventful. Patient is not cooperative. Imaging, nursing note, chart, labs and old chart reviewed. Hospitalist Physical - Physical exam Narrative exam: GEN: WDWN, NAD, Awake, Alert, confused HEENT: NCAT, EOMI, PERRL, OP Clear NECK: supple, no adenopathy, no thyromegaly, no JVD CVS/HEART: Regular tachycardia, normal S1S2, pulses present bilaterally CHEST/LUNGS: CTA B, Symmetrical chest expansion, good air entry bilaterally GI/Abdomen: soft, NTND, good bowel sounds, no guarding or rebound /Bladder: no suprapubic tenderness, no CVA or paraspinal tenderness EXT/Skin: no c/c/e, no obvious rash MSK: FROM x 4 Neuro: CN 2-12 grossly intact, no new focal deficits Psych: agitated - Constitutional Vitals: Temp Pulse Resp BP Pulse Ox 98.3 F 112 H 18 128/79 95 06/21/18 13:34 06/21/18 13:34 06/21/18 13:34 06/21/18 13:34 06/21/18 13:34 General appearance: Present: no acute distress, well-nourished Results - Labs CBC & Chem 7: 06/17/18 06:00 06/18/18 06:47 Labs: Laboratory Last Values WBC 4.0 K/mm3 (4.5-11.0) L 06/17/18 06:00 RBC 3.70 M/mm3 (3.65-5.03) 06/17/18 06:00 Hgb 11.6 gm/dl (10.1-14.3) 06/17/18 06:00 Hct 34.6 % (30.3-42.9) 06/17/18 06:00 MCV 94 fl (79-97) 06/17/18 06:00 MCH 31 pg (28-32) 06/17/18 06:00 MCHC 34 % (30-34) 06/17/18 06:00 RDW 16.2 % (13.2-15.2) H 06/17/18 06:00 Plt Count 166 K/mm3 (140-440) 06/17/18 06:00 Lymph % (Auto) 16.1 % (13.4-35.0) 06/12/18 13:06 [place] % (Auto) 7.8 % (0.0-7.3) H 06/12/18 13:06 Eos % (Auto) 4.7 % (0.0-4.3) H 06/12/18 13:06 Baso % (Auto) 0.4 % (0.0-1.8) 06/12/18 13:06 Lymph # 1.8 K/mm3 (1.2-5.4) 06/12/18 13:06 [place] # 0.9 K/mm3 (0.0-0.8) H 06/12/18 13:06 Eos # 0.5 K/mm3 (0.0-0.4) H 06/12/18 13:06 Baso # 0.0 K/mm3 (0.0-0.1) 06/12/18 13:06 Seg Neutrophils % 71.0 % (40.0-70.0) H 06/12/18 13:06 Seg Neutrophils # 7.8 K/mm3 (1.8-7.7) H 06/12/18 13:06 PT 10.6 Sec. (12.2-14.9) L 06/02/18 19:09 INR 0.73 (0.87-1.13) L 06/02/18 19:09 APTT 23.5 Sec. (24.2-36.6) L 06/02/18 19:09 Sodium 144 mmol/L (137-145) 06/18/18 06:47 Potassium 3.7 mmol/L (3.6-5.0) 06/18/18 06:47 Chloride 107.9 mmol/L (98-107) H 06/18/18 06:47 Carbon Dioxide 26 mmol/L (22-30) 06/18/18 06:47 Anion Gap 14 mmol/L 06/18/18 06:47 BUN 7 mg/dL (7-17) 06/18/18 06:47 Creatinine 0.9 mg/dL (0.7-1.2) 06/18/18 06:47 Estimated GFR > 60 ml/min 06/18/18 06:47 BUN/Creatinine Ratio 8 % 06/18/18 06:47 Glucose 100 mg/dL (65-100) 06/18/18 06:47 POC Glucose 175 (70-105) H 06/12/18 13:14 Lactic Acid 2.00 mmol/L (0.7-2.0) 06/02/18 19:09 Calcium 8.8 mg/dL (8.4-10.2) 06/18/18 06:47 Phosphorus 2.90 mg/dL (2.5-4.5) 06/17/18 06:00 Magnesium 2.00 mg/dL (1.7-2.3) 06/15/18 06:11 Total Bilirubin 0.70 mg/dL (0.1-1.2) 06/14/18 05:29 Direct Bilirubin 0.2 mg/dL (0-0.2) 06/14/18 05:29 Indirect Bilirubin 0.5 mg/dL 06/14/18 05:29 AST 29 units/L (5-40) 06/14/18 05:29 ALT 49 units/L (7-56) 06/14/18 05:29 Alkaline Phosphatase 84 units/L (35-129) 06/14/18 05:29 Ammonia 20.0 umol/L (25-60) L 06/02/18 19:09 Total Creatine Kinase 112 units/L (30-135) 06/21/18 13:12 Troponin T < 0.010 ng/mL (0.00-0.029) 06/02/18 19:09 NT-Pro-B Natriuret Pep 60.88 pg/mL (0-900) 06/02/18 19:09 Total Protein 5.4 g/dL (6.3-8.2) L 06/14/18 05:29 Albumin 3.2 g/dL (3.9-5) L 06/14/18 05:29 Albumin/Globulin Ratio 1.5 % 06/14/18 05:29 TSH 1.950 mlU/mL (0.270-4.200) 06/06/18 10:57 Free T4 1.40 ng/dL (0.76-1.46) 06/06/18 10:57 Urine Color Yellow (Yellow) 06/02/18 10:40 Urine Turbidity Clear (Clear) 06/02/18 10:40 Urine pH 7.0 (5.0-7.0) 06/02/18 10:40 Ur Specific [place] 1.005 (1.003-1.030) 06/02/18 10:40 Urine Protein <15 mg/dl mg/dL (Negative) 06/02/18 10:40 Urine Glucose (UA) Neg mg/dL (Negative) 06/02/18 10:40 Urine Ketones Neg mg/dL (Negative) 06/02/18 10:40 Urine Blood Sm (Negative) 06/02/18 10:40 Urine Nitrite Neg (Negative) 06/02/18 10:40 Urine Bilirubin Neg (Negative) 06/02/18 10:40 Urine Urobilinogen < 2.0 mg/dL (<2.0) 06/02/18 10:40 Ur Leukocyte Esterase Neg (Negative) 06/02/18 10:40 Urine WBC (Auto) < 1.0 /HPF (0.0-6.0) 06/02/18 10:40 Urine RBC (Auto) 5.0 /HPF (0.0-6.0) 06/02/18 10:40 U Epithel Cells (Auto) < 1.0 /HPF (0-13.0) 06/02/18 10:40 Urine Opiates Screen Presumptive negative 06/02/18 10:43 Urine Methadone Screen Presumptive negative 06/02/18 10:43 Ur Barbiturates Screen Presumptive negative 06/02/18 10:43 Ur Phencyclidine Scrn Presumptive negative 06/02/18 10:43 Ur Amphetamines Screen Presumptive negative 06/02/18 10:43 U Benzodiazepines Scrn Presumptive negative 06/02/18 10:43 [place] 0.1 mmol/L (0.0-1.2) 06/02/18 19:09 Urine Cocaine Screen Presumptive negative 06/02/18 10:43 U Marijuana (THC) Screen Presumptive negative 06/02/18 10:43 Drugs of Abuse Note Disclamer 06/02/18 10:43 Plasma/Serum Alcohol < 0.01 % (0-0.07) 06/02/18 09:57
[2018-06-21] MEDS: NORCO 5/325 PO PRN (19:46)
[2018-06-21] MEDS: DESYREL PO SCH (21:32)
[2018-06-22] MEDS: HALDOL IM PRN ×2 (00:29→06:42)
[2018-06-22] MEDS: SODIUM CHLORIDE FLUSH SYRINGE 10 ML IV SCH ×2 (15:03→21:44)
[2018-06-22] MEDS: KCL 20 MEQ in D5W 1,000 ML IV SCH (16:46)
--- NOTE | 2018-06-22 17:00 | Progress Note ---
Assessment and Plan Assessment and plan: Patient is a 58 yo woman with a history of Schizophrenia who pw agitation. -Acute renal failure vasomotor nephropathy, resolved -Hypernatremia - resolved -Acute encephalopathy with arf, resolved -Acute psychosis: Acute psychosis secondary to schizophrenia once patient is medically clear for discharge to inpatient psychiatric facility. -Schizophrenia in 1012; Patient would need inpatient psych. Awaiting case management options. -Tachycardia as high at 141 then 131 overnight: stat EKG, appears Sinus tachycardia, also with low grade temp of 100.0 F: get cxr, ua, blood cultures, aspiration precaution, troponin and add remote telemetry History Interval history: Patient was seen and examined. Follow-up on current diagnosis of AMS. Overnight eventful with tachycardia. Patient is not cooperative. Imaging, nursing note, chart, labs and old chart reviewed. Hospitalist Physical - Physical exam Narrative exam: GEN: WDWN, NAD, Awake, Alert, confused HEENT: NCAT, EOMI, PERRL, OP Clear NECK: supple, no adenopathy, no thyromegaly, no JVD CVS/HEART: Regular tachycardia, normal S1S2, pulses present bilaterally CHEST/LUNGS: CTA B, Symmetrical chest expansion, good air entry bilaterally GI/Abdomen: soft, NTND, good bowel sounds, no guarding or rebound /Bladder: no suprapubic tenderness, no CVA or paraspinal tenderness EXT/Skin: no c/c/e, no obvious rash MSK: FROM x 4 Neuro: CN 2-12 grossly intact, no new focal deficits Psych: agitated - Constitutional Vitals: Temp Pulse Resp BP Pulse Ox 98.8 F 107 H 20 102/64 95 06/22/18 11:57 06/22/18 11:57 06/22/18 11:57 06/22/18 11:57 06/22/18 11:57 General appearance: Present: no acute distress, well-nourished Results - Labs CBC & Chem 7: 06/17/18 06:00 06/18/18 06:47 Labs: Laboratory Last Values WBC 4.0 K/mm3 (4.5-11.0) L 06/17/18 06:00 RBC 3.70 M/mm3 (3.65-5.03) 06/17/18 06:00 Hgb 11.6 gm/dl (10.1-14.3) 06/17/18 06:00 Hct 34.6 % (30.3-42.9) 06/17/18 06:00 MCV 94 fl (79-97) 06/17/18 06:00 MCH 31 pg (28-32) 06/17/18 06:00 MCHC 34 % (30-34) 06/17/18 06:00 RDW 16.2 % (13.2-15.2) H 06/17/18 06:00 Plt Count 166 K/mm3 (140-440) 06/17/18 06:00 Lymph % (Auto) 16.1 % (13.4-35.0) 06/12/18 13:06 [place] % (Auto) 7.8 % (0.0-7.3) H 06/12/18 13:06 Eos % (Auto) 4.7 % (0.0-4.3) H 06/12/18 13:06 Baso % (Auto) 0.4 % (0.0-1.8) 06/12/18 13:06 Lymph # 1.8 K/mm3 (1.2-5.4) 06/12/18 13:06 [place] # 0.9 K/mm3 (0.0-0.8) H 06/12/18 13:06 Eos # 0.5 K/mm3 (0.0-0.4) H 06/12/18 13:06 Baso # 0.0 K/mm3 (0.0-0.1) 06/12/18 13:06 Seg Neutrophils % 71.0 % (40.0-70.0) H 06/12/18 13:06 Seg Neutrophils # 7.8 K/mm3 (1.8-7.7) H 06/12/18 13:06 PT 10.6 Sec. (12.2-14.9) L 06/02/18 19:09 INR 0.73 (0.87-1.13) L 06/02/18 19:09 APTT 23.5 Sec. (24.2-36.6) L 06/02/18 19:09 Sodium 144 mmol/L (137-145) 06/18/18 06:47 Potassium 3.7 mmol/L (3.6-5.0) 06/18/18 06:47 Chloride 107.9 mmol/L (98-107) H 06/18/18 06:47 Carbon Dioxide 26 mmol/L (22-30) 06/18/18 06:47 Anion Gap 14 mmol/L 06/18/18 06:47 BUN 7 mg/dL (7-17) 06/18/18 06:47 Creatinine 0.9 mg/dL (0.7-1.2) 06/18/18 06:47 Estimated GFR > 60 ml/min 06/18/18 06:47 BUN/Creatinine Ratio 8 % 06/18/18 06:47 Glucose 100 mg/dL (65-100) 06/18/18 06:47 POC Glucose 175 (70-105) H 06/12/18 13:14 Lactic Acid 2.00 mmol/L (0.7-2.0) 06/02/18 19:09 Calcium 8.8 mg/dL (8.4-10.2) 06/18/18 06:47 Phosphorus 2.90 mg/dL (2.5-4.5) 06/17/18 06:00 Magnesium 2.00 mg/dL (1.7-2.3) 06/15/18 06:11 Total Bilirubin 0.70 mg/dL (0.1-1.2) 06/14/18 05:29 Direct Bilirubin 0.2 mg/dL (0-0.2) 06/14/18 05:29 Indirect Bilirubin 0.5 mg/dL 06/14/18 05:29 AST 29 units/L (5-40) 06/14/18 05:29 ALT 49 units/L (7-56) 06/14/18 05:29 Alkaline Phosphatase 84 units/L (35-129) 06/14/18 05:29 Ammonia 20.0 umol/L (25-60) L 06/02/18 19:09 Total Creatine Kinase 112 units/L (30-135) 06/21/18 13:12 Troponin T < 0.010 ng/mL (0.00-0.029) 06/02/18 19:09 NT-Pro-B Natriuret Pep 60.88 pg/mL (0-900) 06/02/18 19:09 Total Protein 5.4 g/dL (6.3-8.2) L 06/14/18 05:29 Albumin 3.2 g/dL (3.9-5) L 06/14/18 05:29 Albumin/Globulin Ratio 1.5 % 06/14/18 05:29 TSH 1.950 mlU/mL (0.270-4.200) 06/06/18 10:57 Free T4 1.40 ng/dL (0.76-1.46) 06/06/18 10:57 Urine Color Yellow (Yellow) 06/02/18 10:40 Urine Turbidity Clear (Clear) 06/02/18 10:40 Urine pH 7.0 (5.0-7.0) 06/02/18 10:40 Ur Specific [place] 1.005 (1.003-1.030) 06/02/18 10:40 Urine Protein <15 mg/dl mg/dL (Negative) 06/02/18 10:40 Urine Glucose (UA) Neg mg/dL (Negative) 06/02/18 10:40 Urine Ketones Neg mg/dL (Negative) 06/02/18 10:40 Urine Blood Sm (Negative) 06/02/18 10:40 Urine Nitrite Neg (Negative) 06/02/18 10:40 Urine Bilirubin Neg (Negative) 06/02/18 10:40 Urine Urobilinogen < 2.0 mg/dL (<2.0) 06/02/18 10:40 Ur Leukocyte Esterase Neg (Negative) 06/02/18 10:40 Urine WBC (Auto) < 1.0 /HPF (0.0-6.0) 06/02/18 10:40 Urine RBC (Auto) 5.0 /HPF (0.0-6.0) 06/02/18 10:40 U Epithel Cells (Auto) < 1.0 /HPF (0-13.0) 06/02/18 10:40 Urine Opiates Screen Presumptive negative 06/02/18 10:43 Urine Methadone Screen Presumptive negative 06/02/18 10:43 Ur Barbiturates Screen Presumptive negative 06/02/18 10:43 Ur Phencyclidine Scrn Presumptive negative 06/02/18 10:43 Ur Amphetamines Screen Presumptive negative 06/02/18 10:43 U Benzodiazepines Scrn Presumptive negative 06/02/18 10:43 [place] 0.1 mmol/L (0.0-1.2) 06/02/18 19:09 Urine Cocaine Screen Presumptive negative 06/02/18 10:43 U Marijuana (THC) Screen Presumptive negative 06/02/18 10:43 Drugs of Abuse Note Disclamer 06/02/18 10:43 Plasma/Serum Alcohol < 0.01 % (0-0.07) 06/02/18 09:57
--- NOTE | 2018-06-22 18:27 | XRay Report ---
FINAL REPORT EXAM: XR CHEST 1V AP HISTORY: fever TECHNIQUE: AP portable view of the chest PRIORS: None. FINDINGS: Lines, tubes, and devices: N/A Lungs and pleura: Trachea is normal in position. Lungs are clear of infiltrate, pleural effusion, vascular congestion, or pneumothorax. Cardiomediastinal silhouette: Cardiac and mediastinal silhouettes are unremarkable. Other: Bony structures are intact. IMPRESSION: No acute cardiopulmonary process seen.
[2018-06-22 18:48] LABS: Bilirubin,Urine Negative (Negative); Color,Urine Straw (Yellow); RBC,Urine < 1.0 /HPF (0.0-6.0)
[2018-06-22 18:49] LABS: Blood,Urine Negative (Negative); Protein,Urine <15 mg/dL mg/dL (Negative); Urobilinogen,Urine < 2.0 mg/dL (<2.0)
[2018-06-22] MEDS: NORCO 5/325 PO PRN (21:44)
[2018-06-22] MEDS: DESYREL PO SCH (21:44)
[2018-06-23] MEDS: KCL 20 MEQ in D5W 1,000 ML IV SCH (03:58)
[2018-06-23] MEDS: LEVAQUIN PO SCH (10:13)
[2018-06-23] MEDS: SODIUM CHLORIDE FLUSH SYRINGE 10 ML IV SCH ×2 (10:14→21:16)
--- NOTE | 2018-06-23 13:16 | Progress Note ---
Assessment and Plan Assessment and plan: Patient is a 58 yo woman with a history of Schizophrenia who pw agitation and violent outburst, and was admitted for ARF. -Acute renal failure vasomotor nephropathy, resolved -Hypernatremia: resolved, d/c D5 with potassium IVF -Acute encephalopathy with arf, resolved -Acute psychosis: Acute psychosis secondary to schizophrenia once patient is medically clear for discharge to inpatient psychiatric facility. -Schizophrenia in 3; Patient would need inpatient psych. Awaiting case management options. -Sinus Tachycardia due to UTI: start abx, get urine culture still in restraints and mentally inappropriate History Interval history: Patient was seen and examined. Follow-up on current diagnosis of AMS. Overnight eventful with tachycardia. Patient is not cooperative. Imaging, nursing note, chart, labs and old chart reviewed. Hospitalist Physical - Physical exam Narrative exam: GEN: WDWN, NAD, Awake, Alert, confused HEENT: NCAT, EOMI, PERRL, OP Clear NECK: supple, no adenopathy, no thyromegaly, no JVD CVS/HEART: Regular tachycardia, normal S1S2, pulses present bilaterally CHEST/LUNGS: CTA B, Symmetrical chest expansion, good air entry bilaterally GI/Abdomen: soft, NTND, good bowel sounds, no guarding or rebound /Bladder: no suprapubic tenderness, no CVA or paraspinal tenderness EXT/Skin: no c/c/e, no obvious rash MSK: FROM x 4 Neuro: CN 2-12 grossly intact, no new focal deficits Psych: agitated - Constitutional Vitals: Temp Pulse Resp BP Pulse Ox 98.6 F 116 H 16 117/77 94 06/23/18 00:03 06/23/18 00:03 06/23/18 00:03 06/23/18 00:03 06/23/18 00:03 General appearance: Present: no acute distress, well-nourished Results - Labs CBC & Chem 7: 06/17/18 06:00 06/18/18 06:47 Labs: Laboratory Last Values WBC 4.0 K/mm3 (4.5-11.0) L 06/17/18 06:00 RBC 3.70 M/mm3 (3.65-5.03) 06/17/18 06:00 Hgb 11.6 gm/dl (10.1-14.3) 06/17/18 06:00 Hct 34.6 % (30.3-42.9) 06/17/18 06:00 MCV 94 fl (79-97) 06/17/18 06:00 MCH 31 pg (28-32) 06/17/18 06:00 MCHC 34 % (30-34) 06/17/18 06:00 RDW 16.2 % (13.2-15.2) H 06/17/18 06:00 Plt Count 166 K/mm3 (140-440) 06/17/18 06:00 Lymph % (Auto) 16.1 % (13.4-35.0) 06/12/18 13:06 Lane % (Auto) 7.8 % (0.0-7.3) H 06/12/18 13:06 Eos % (Auto) 4.7 % (0.0-4.3) H 06/12/18 13:06 Baso % (Auto) 0.4 % (0.0-1.8) 06/12/18 13:06 Lymph # 1.8 K/mm3 (1.2-5.4) 06/12/18 13:06 Lane # 0.9 K/mm3 (0.0-0.8) H 06/12/18 13:06 Eos # 0.5 K/mm3 (0.0-0.4) H 06/12/18 13:06 Baso # 0.0 K/mm3 (0.0-0.1) 06/12/18 13:06 Seg Neutrophils % 71.0 % (40.0-70.0) H 06/12/18 13:06 Seg Neutrophils # 7.8 K/mm3 (1.8-7.7) H 06/12/18 13:06 PT 10.6 Sec. (12.2-14.9) L 06/02/18 19:09 INR 0.73 (0.87-1.13) L 06/02/18 19:09 APTT 23.5 Sec. (24.2-36.6) L 06/02/18 19:09 Sodium 144 mmol/L (137-145) 06/18/18 06:47 Potassium 3.7 mmol/L (3.6-5.0) 06/18/18 06:47 Chloride 107.9 mmol/L (98-107) H 06/18/18 06:47 Carbon Dioxide 26 mmol/L (22-30) 06/18/18 06:47 Anion Gap 14 mmol/L 06/18/18 06:47 BUN 7 mg/dL (7-17) 06/18/18 06:47 Creatinine 0.9 mg/dL (0.7-1.2) 06/18/18 06:47 Estimated GFR > 60 ml/min 06/18/18 06:47 BUN/Creatinine Ratio 8 % 06/18/18 06:47 Glucose 100 mg/dL (65-100) 06/18/18 06:47 POC Glucose 175 (70-105) H 06/12/18 13:14 Lactic Acid 2.00 mmol/L (0.7-2.0) 06/02/18 19:09 Calcium 8.8 mg/dL (8.4-10.2) 06/18/18 06:47 Phosphorus 2.90 mg/dL (2.5-4.5) 06/17/18 06:00 Magnesium 2.00 mg/dL (1.7-2.3) 06/15/18 06:11 Total Bilirubin 0.70 mg/dL (0.1-1.2) 06/14/18 05:29 Direct Bilirubin 0.2 mg/dL (0-0.2) 06/14/18 05:29 Indirect Bilirubin 0.5 mg/dL 06/14/18 05:29 AST 29 units/L (5-40) 06/14/18 05:29 ALT 49 units/L (7-56) 06/14/18 05:29 Alkaline Phosphatase 84 units/L (35-129) 06/14/18 05:29 Ammonia 20.0 umol/L (25-60) L 06/02/18 19:09 Total Creatine Kinase 112 units/L (30-135) 06/21/18 13:12 Troponin T < 0.010 ng/mL (0.00-0.029) 06/22/18 21:31 NT-Pro-B Natriuret Pep 60.88 pg/mL (0-900) 06/02/18 19:09 Total Protein 5.4 g/dL (6.3-8.2) L 06/14/18 05:29 Albumin 3.2 g/dL (3.9-5) L 06/14/18 05:29 Albumin/Globulin Ratio 1.5 % 06/14/18 05:29 TSH 1.950 mlU/mL (0.270-4.200) 06/06/18 10:57 Free T4 1.40 ng/dL (0.76-1.46) 06/06/18 10:57 Urine Color [place] (Yellow) 06/22/18 18:00 Urine Turbidity Clear (Clear) 06/22/18 18:00 Urine pH 7.0 (5.0-7.0) 06/22/18 18:00 Ur Specific [place] 1.005 (1.003-1.030) 06/22/18 18:00 Urine Protein <15 mg/dl mg/dL (Negative) 06/22/18 18:00 Urine Glucose (UA) Negative mg/dL (Negative) 06/22/18 18:00 Urine Ketones Negative mg/dL (Negative) 06/22/18 18:00 Urine Blood Negative (Negative) 06/22/18 18:00 Urine Nitrite Positive (Negative) 06/22/18 18:00 Ur Reducing Substances Not Reportable 06/22/18 18:00 Urine Bilirubin Negative (Negative) 06/22/18 18:00 Urine Ictotest Not Reportable 06/22/18 18:00 Urine Urobilinogen < 2.0 mg/dL (<2.0) 06/22/18 18:00 Ur Leukocyte Esterase Moderate (Negative) 06/22/18 18:00 Urine WBC (Auto) 23.0 /HPF (0.0-6.0) H 06/22/18 18:00 Urine RBC (Auto) < 1.0 /HPF (0.0-6.0) 06/22/18 18:00 U Epithel Cells (Auto) 1.0 /HPF (0-13.0) 06/22/18 18:00 Urine Opiates Screen Presumptive negative 06/02/18 10:43 Urine Methadone Screen Presumptive negative 06/02/18 10:43 Ur Barbiturates Screen Presumptive negative 06/02/18 10:43 Ur Phencyclidine Scrn Presumptive negative 06/02/18 10:43 Ur Amphetamines Screen Presumptive negative 06/02/18 10:43 U Benzodiazepines Scrn Presumptive negative 06/02/18 10:43 Walls 0.1 mmol/L (0.0-1.2) 06/02/18 19:09 Urine Cocaine Screen Presumptive negative 06/02/18 10:43 U Marijuana (THC) Screen Presumptive negative 06/02/18 10:43 Drugs of Abuse Note Disclamer 06/02/18 10:43 Plasma/Serum Alcohol < 0.01 % (0-0.07) 06/02/18 09:57
--- NOTE | 2018-06-23 13:24 | Progress Note ---
Subjective - Reason for Consult Consult date: 06/23/18 Reason for consult: Psychiatry Follow-up - Chief Complaint Chief complaint: "What " Patient is a 58-year-old female who presented to the ER for aggressive and threatening behavior towards family members. The patient was brought to the ER by her daughter. Today the patient is calm during the assessment. The patient repeats questions asked of her. The patient isn't lucid nor organizes with her thought content. Per the sitter, the patient ate 100% of her breakfast. Per the record the patient is tachycardic secondary to a UTI. No gestures of SI/HI's. Mental Status Exam - Vital signs Last Vital Signs Temp 98.6 F 06/23/18 00:03 Pulse 116 H 06/23/18 00:03 Resp 16 06/23/18 00:03 BP 117/77 06/23/18 00:03 Pulse Ox 94 06/23/18 00:03 - Exam Narrative exam: MSE: Appearance: calm Behavior: regular eye contact Speech: echolalia Mood: unable to assess Affect: euphoric Thought Process: unable to assess Thought Content: no gestures of SI/HI's Motor Activity: lying in in bed Cognition: alert Insight: poor Judgment: poor Assessment and Plan Impression: Hx of Schizophrenia per the record. Today the patient is calm during the assessment. NA 144 and Cr 0.9. The patient is in waist restraints and wearing mittens. The patient is tachycardic. Medical: Sinus Tachycardia due to UTI per the hospitalist DDx: R/O Bipolar DO with psychosis Recommendation/Plan: Continue 1013 with placement to inpatient psy services once medically clear. Continue Haldol 5 mg IM Q6hrs for acute agitatiion and Zyprexa 2.5 mg PO HS for schizophrenia. Attempted to discuss possible metabolic side effects of Zyprexa with patient. Recommend DVT prophylaxis. D/C restraints when not indicated.
[2018-06-23] MEDS: NORCO 5/325 PO PRN (18:22)
[2018-06-23] MEDS: HALDOL IM PRN ×2 (18:23→23:25)
[2018-06-23] MEDS: DESYREL PO SCH (21:15)
[2018-06-24] MEDS: HALDOL IM PRN ×2 (09:10→15:01)
[2018-06-24] MEDS: LEVAQUIN PO SCH (09:13)
--- NOTE | 2018-06-24 12:29 | Progress Note ---
Subjective - Reason for Consult Consult date: 06/24/18 Reason for consult: Psychiatry Follow-up - Chief Complaint Chief complaint: "Caroline" Patient is a 58-year-old female who presented to the ER for aggressive and threatening behavior towards family members. The patient was brought to the ER by her daughter. Today the patient is calm during the assessment. She said "caroline" when her name was called upon my arrival to her room. She continue to repeat questions asked of her. She was asked if she is afraid of something or someone, she would look to the ceiling multiple times. The patient could be experiencing perceptual disturbances. No indications of of side effects of her medication. No gestures of SI/HI's. Mental Status Exam - Vital signs Last Vital Signs Temp 98.7 F 06/24/18 06:59 Pulse 78 06/24/18 07:05 Resp 12 06/24/18 07:05 BP 113/72 06/24/18 07:05 Pulse Ox 98 06/24/18 07:05 - Exam Narrative exam: MSE: Appearance: calm Behavior: regular eye contact Speech: echolalia Mood: unable to assess Affect: euphoric Thought Process: disorganized Thought Content: no gestures of SI/HI's Motor Activity: lying in in bed Cognition: alert Insight: poor Judgment: poor Assessment and Plan Impression: Hx of Schizophrenia per the record. Today the patient is calm during the assessment. NA 144 and Cr 0.9. The patient is in a waist restraint. The patient possibly could be experiencing perceptual disturbances. Medical: Sinus Tachycardia due to UTI per the hospitalist DDx: R/O Bipolar DO with psychosis Recommendation/Plan: Continue 1013 with placement to inpatient psy services once medically clear. Continue Haldol 5 mg IM Q6hrs for acute agitatiion and increase Zyprexa to 5 mg PO HS for schizophrenia. Attempted to discuss possible metabolic side effects of Zyprexa with patient. Recommend DVT prophylaxis. D/C waist restraint when not indicated.
[2018-06-24] MEDS: SODIUM CHLORIDE FLUSH SYRINGE 10 ML IV SCH ×2 (14:33→22:34)
--- NOTE | 2018-06-24 17:22 | Progress Note ---
Assessment and Plan Assessment and plan: Patient is a 58 yo woman with a history of Schizophrenia who pw agitation and violent outburst, and was admitted for ARF. -Acute renal failure vasomotor nephropathy, resolved -Hypernatremia: resolved, d/c D5 with potassium IVF -Acute encephalopathy with arf, resolved -Acute psychosis: Acute psychosis secondary to schizophrenia once patient is medically clear for discharge to inpatient psychiatric facility. -Schizophrenia in 1012; Patient would need inpatient psych. Awaiting case management options. -Sinus Tachycardia due to UTI resolved with po Levaquin I was called by nurse Garcia to clarify the following note by the Mental health assistive technology specialist: "06/24/18 15:05 - Manager Meat's Note by GIOVANNY CASTRO Acct Num: [id number] : 1960 Patient Age: 58 Late entry Updated vitals faxed to [facility]. Spoke with Nurse Garcia regarding the IV therapy note as well as explaining the Hyperchloridia. Per Nurse Garcia, she will talk to Dr. Greene regarding the Hyperchloridia." I believe the assistive technology specialist means Hyperchloremia instead of "Hyperchloridia", which refers to elevated Chloride levels. Well, The Chloride level on 06/18/2018 was 107.9 and normal level is 107 or less, so this is insignificant and I would not diagnosis patient was hyperchloremia. The reason she had hyperchloremia was excess sodium/hypernatremia which corrected faster the chloride level. Medical stable for Inpatient Psych admission, follow urine culture History Interval history: Patient was seen and examined. Follow-up on current diagnosis of AMS. Overnight eventful with tachycardia. Patient is not cooperative. Imaging, nursing note, chart, labs and old chart reviewed. Hospitalist Physical - Physical exam Narrative exam: GEN: WDWN, NAD, Awake, Alert, confused HEENT: NCAT, EOMI, PERRL, OP Clear NECK: supple, no adenopathy, no thyromegaly, no JVD CVS/HEART: Regular tachycardia, normal S1S2, pulses present bilaterally CHEST/LUNGS: CTA B, Symmetrical chest expansion, good air entry bilaterally GI/Abdomen: soft, NTND, good bowel sounds, no guarding or rebound /Bladder: no suprapubic tenderness, no CVA or paraspinal tenderness EXT/Skin: no c/c/e, no obvious rash MSK: FROM x 4 Neuro: CN 2-12 grossly intact, no new focal deficits Psych: agitated - Constitutional Vitals: Temp Pulse Resp BP Pulse Ox 98.7 F 78 12 113/72 98 06/24/18 06:59 06/24/18 07:05 06/24/18 07:05 06/24/18 07:05 06/24/18 07:05 General appearance: Present: no acute distress, well-nourished Results - Labs CBC & Chem 7: 06/17/18 06:00 06/18/18 06:47 Labs: Laboratory Last Values WBC 4.0 K/mm3 (4.5-11.0) L 06/17/18 06:00 RBC 3.70 M/mm3 (3.65-5.03) 06/17/18 06:00 Hgb 11.6 gm/dl (10.1-14.3) 06/17/18 06:00 Hct 34.6 % (30.3-42.9) 06/17/18 06:00 MCV 94 fl (79-97) 06/17/18 06:00 MCH 31 pg (28-32) 06/17/18 06:00 MCHC 34 % (30-34) 06/17/18 06:00 RDW 16.2 % (13.2-15.2) H 06/17/18 06:00 Plt Count 166 K/mm3 (140-440) 06/17/18 06:00 Lymph % (Auto) 16.1 % (13.4-35.0) 06/12/18 13:06 [place] % (Auto) 7.8 % (0.0-7.3) H 06/12/18 13:06 Eos % (Auto) 4.7 % (0.0-4.3) H 06/12/18 13:06 Baso % (Auto) 0.4 % (0.0-1.8) 06/12/18 13:06 Lymph # 1.8 K/mm3 (1.2-5.4) 06/12/18 13:06 [place] # 0.9 K/mm3 (0.0-0.8) H 06/12/18 13:06 Eos # 0.5 K/mm3 (0.0-0.4) H 06/12/18 13:06 Baso # 0.0 K/mm3 (0.0-0.1) 06/12/18 13:06 Seg Neutrophils % 71.0 % (40.0-70.0) H 06/12/18 13:06 Seg Neutrophils # 7.8 K/mm3 (1.8-7.7) H 06/12/18 13:06 PT 10.6 Sec. (12.2-14.9) L 06/02/18 19:09 INR 0.73 (0.87-1.13) L 06/02/18 19:09 APTT 23.5 Sec. (24.2-36.6) L 06/02/18 19:09 Sodium 144 mmol/L (137-145) 06/18/18 06:47 Potassium 3.7 mmol/L (3.6-5.0) 06/18/18 06:47 Chloride 107.9 mmol/L (98-107) H 06/18/18 06:47 Carbon Dioxide 26 mmol/L (22-30) 06/18/18 06:47 Anion Gap 14 mmol/L 06/18/18 06:47 BUN 7 mg/dL (7-17) 06/18/18 06:47 Creatinine 0.9 mg/dL (0.7-1.2) 06/18/18 06:47 Estimated GFR > 60 ml/min 06/18/18 06:47 BUN/Creatinine Ratio 8 % 06/18/18 06:47 Glucose 100 mg/dL (65-100) 06/18/18 06:47 POC Glucose 175 (70-105) H 06/12/18 13:14 Lactic Acid 2.00 mmol/L (0.7-2.0) 06/02/18 19:09 Calcium 8.8 mg/dL (8.4-10.2) 06/18/18 06:47 Phosphorus 2.90 mg/dL (2.5-4.5) 06/17/18 06:00 Magnesium 2.00 mg/dL (1.7-2.3) 06/15/18 06:11 Total Bilirubin 0.70 mg/dL (0.1-1.2) 06/14/18 05:29 Direct Bilirubin 0.2 mg/dL (0-0.2) 06/14/18 05:29 Indirect Bilirubin 0.5 mg/dL 06/14/18 05:29 AST 29 units/L (5-40) 06/14/18 05:29 ALT 49 units/L (7-56) 06/14/18 05:29 Alkaline Phosphatase 84 units/L (35-129) 06/14/18 05:29 Ammonia 20.0 umol/L (25-60) L 06/02/18 19:09 Total Creatine Kinase 112 units/L (30-135) 06/21/18 13:12 Troponin T < 0.010 ng/mL (0.00-0.029) 06/22/18 21:31 NT-Pro-B Natriuret Pep 60.88 pg/mL (0-900) 06/02/18 19:09 Total Protein 5.4 g/dL (6.3-8.2) L 06/14/18 05:29 Albumin 3.2 g/dL (3.9-5) L 06/14/18 05:29 Albumin/Globulin Ratio 1.5 % 06/14/18 05:29 TSH 1.950 mlU/mL (0.270-4.200) 06/06/18 10:57 Free T4 1.40 ng/dL (0.76-1.46) 06/06/18 10:57 Urine Color Straw (Yellow) 06/22/18 18:00 Urine Turbidity Clear (Clear) 06/22/18 18:00 Urine pH 7.0 (5.0-7.0) 06/22/18 18:00 Ur Specific [place] 1.005 (1.003-1.030) 06/22/18 18:00 Urine Protein <15 mg/dl mg/dL (Negative) 06/22/18 18:00 Urine Glucose (UA) Negative mg/dL (Negative) 06/22/18 18:00 Urine Ketones Negative mg/dL (Negative) 06/22/18 18:00 Urine Blood Negative (Negative) 06/22/18 18:00 Urine Nitrite Positive (Negative) 06/22/18 18:00 Ur Reducing Substances Not Reportable 06/22/18 18:00 Urine Bilirubin Negative (Negative) 06/22/18 18:00 Urine Ictotest Not Reportable 06/22/18 18:00 Urine Urobilinogen < 2.0 mg/dL (<2.0) 06/22/18 18:00 Ur Leukocyte Esterase Moderate (Negative) 06/22/18 18:00 Urine WBC (Auto) 23.0 /HPF (0.0-6.0) H 06/22/18 18:00 Urine RBC (Auto) < 1.0 /HPF (0.0-6.0) 06/22/18 18:00 U Epithel Cells (Auto) 1.0 /HPF (0-13.0) 06/22/18 18:00 Urine Opiates Screen Presumptive negative 06/02/18 10:43 Urine Methadone Screen Presumptive negative 06/02/18 10:43 Ur Barbiturates Screen Presumptive negative 06/02/18 10:43 Ur Phencyclidine Scrn Presumptive negative 06/02/18 10:43 Ur Amphetamines Screen Presumptive negative 06/02/18 10:43 U Benzodiazepines Scrn Presumptive negative 06/02/18 10:43 [place] 0.1 mmol/L (0.0-1.2) 06/02/18 19:09 Urine Cocaine Screen Presumptive negative 06/02/18 10:43 U Marijuana (THC) Screen Presumptive negative 06/02/18 10:43 Drugs of Abuse Note Disclamer 06/02/18 10:43 Plasma/Serum Alcohol < 0.01 % (0-0.07) 06/02/18 09:57
[2018-06-24] MEDS: DESYREL PO SCH (22:34)
[2018-06-25] MEDS: HALDOL IM PRN ×2 (02:25→23:50)
[2018-06-25] MEDS: SODIUM CHLORIDE FLUSH SYRINGE 10 ML IV SCH ×2 (11:05→22:09)
[2018-06-25] MEDS: LEVAQUIN PO SCH (11:07)
--- NOTE | 2018-06-25 12:25 | Progress Note ---
Assessment and Plan Assessment and plan: Patient is a 58 yo woman with a history of Schizophrenia who pw agitation and violent outburst, and was admitted for ARF. -Acute renal failure vasomotor nephropathy, resolved -Hypernatremia: resolved, d/c D5 with potassium IVF -Acute encephalopathy with arf, resolved -Acute psychosis: Acute psychosis secondary to schizophrenia once patient is medically clear for discharge to inpatient psychiatric facility. -Schizophrenia in 1012; Patient would need inpatient psych. Awaiting case management options. -Sinus Tachycardia due to UTI with po Levaquin I was called by nurse Garcia to clarify the following note by the Mental health housing court judge: "06/24/18 15:05 - Care Analyst's Note by GIOVANNY CASTRO Acct Num: [id number] : 1960 Patient Age: 58 Late entry Updated vitals faxed to [facility]. Spoke with Nurse Garcia regarding the IV therapy note as well as explaining the Hyperchloridia. Per Nurse Garcia, she will talk to Dr. Greene regarding the Hyperchloridia." I believe the housing court judge means Hyperchloremia instead of "Hyperchloridia", which refers to elevated Chloride levels. Well, The Chloride level on 06/18/2018 was 107.9 and normal level is 107 or less, so this is insignificant and I would not diagnosis patient was hyperchloremia. The reason she had hyperchloremia was excess sodium/hypernatremia which corrected faster the chloride level. Medical stable for Inpatient Psych admission, follow urine culture BMP in am History Interval history: Patient was seen and examined. Follow-up on current diagnosis of AMS. Overnight eventful with tachycardia. Patient is not cooperative. Imaging, nursing note, chart, labs and old chart reviewed. Hospitalist Physical - Physical exam Narrative exam: GEN: WDWN, NAD, Awake, Alert, confused HEENT: NCAT, EOMI, PERRL, OP Clear NECK: supple, no adenopathy, no thyromegaly, no JVD CVS/HEART: Regular tachycardia, normal S1S2, pulses present bilaterally CHEST/LUNGS: CTA B, Symmetrical chest expansion, good air entry bilaterally GI/Abdomen: soft, NTND, good bowel sounds, no guarding or rebound /Bladder: no suprapubic tenderness, no CVA or paraspinal tenderness EXT/Skin: no c/c/e, no obvious rash MSK: FROM x 4 Neuro: CN 2-12 grossly intact, no new focal deficits Psych: agitated - Constitutional Vitals: Temp Pulse Resp BP Pulse Ox 97.6 F 116 H 20 108/72 98 06/25/18 05:21 06/25/18 05:21 06/25/18 05:21 06/25/18 05:21 06/25/18 05:21 General appearance: Present: no acute distress, well-nourished Results - Labs CBC & Chem 7: 06/17/18 06:00 06/18/18 06:47 Labs: Laboratory Last Values WBC 4.0 K/mm3 (4.5-11.0) L 06/17/18 06:00 RBC 3.70 M/mm3 (3.65-5.03) 06/17/18 06:00 Hgb 11.6 gm/dl (10.1-14.3) 06/17/18 06:00 Hct 34.6 % (30.3-42.9) 06/17/18 06:00 MCV 94 fl (79-97) 06/17/18 06:00 MCH 31 pg (28-32) 06/17/18 06:00 MCHC 34 % (30-34) 06/17/18 06:00 RDW 16.2 % (13.2-15.2) H 06/17/18 06:00 Plt Count 166 K/mm3 (140-440) 06/17/18 06:00 Lymph % (Auto) 16.1 % (13.4-35.0) 06/12/18 13:06 [place] % (Auto) 7.8 % (0.0-7.3) H 06/12/18 13:06 Eos % (Auto) 4.7 % (0.0-4.3) H 06/12/18 13:06 Baso % (Auto) 0.4 % (0.0-1.8) 06/12/18 13:06 Lymph # 1.8 K/mm3 (1.2-5.4) 06/12/18 13:06 [place] # 0.9 K/mm3 (0.0-0.8) H 06/12/18 13:06 Eos # 0.5 K/mm3 (0.0-0.4) H 06/12/18 13:06 Baso # 0.0 K/mm3 (0.0-0.1) 06/12/18 13:06 Seg Neutrophils % 71.0 % (40.0-70.0) H 06/12/18 13:06 Seg Neutrophils # 7.8 K/mm3 (1.8-7.7) H 06/12/18 13:06 PT 10.6 Sec. (12.2-14.9) L 06/02/18 19:09 INR 0.73 (0.87-1.13) L 06/02/18 19:09 APTT 23.5 Sec. (24.2-36.6) L 06/02/18 19:09 Sodium 144 mmol/L (137-145) 06/18/18 06:47 Potassium 3.7 mmol/L (3.6-5.0) 06/18/18 06:47 Chloride 107.9 mmol/L (98-107) H 06/18/18 06:47 Carbon Dioxide 26 mmol/L (22-30) 06/18/18 06:47 Anion Gap 14 mmol/L 06/18/18 06:47 BUN 7 mg/dL (7-17) 06/18/18 06:47 Creatinine 0.9 mg/dL (0.7-1.2) 06/18/18 06:47 Estimated GFR > 60 ml/min 06/18/18 06:47 BUN/Creatinine Ratio 8 % 06/18/18 06:47 Glucose 100 mg/dL (65-100) 06/18/18 06:47 POC Glucose 175 (70-105) H 06/12/18 13:14 Lactic Acid 2.00 mmol/L (0.7-2.0) 06/02/18 19:09 Calcium 8.8 mg/dL (8.4-10.2) 06/18/18 06:47 Phosphorus 2.90 mg/dL (2.5-4.5) 06/17/18 06:00 Magnesium 2.00 mg/dL (1.7-2.3) 06/15/18 06:11 Total Bilirubin 0.70 mg/dL (0.1-1.2) 06/14/18 05:29 Direct Bilirubin 0.2 mg/dL (0-0.2) 06/14/18 05:29 Indirect Bilirubin 0.5 mg/dL 06/14/18 05:29 AST 29 units/L (5-40) 06/14/18 05:29 ALT 49 units/L (7-56) 06/14/18 05:29 Alkaline Phosphatase 84 units/L (35-129) 06/14/18 05:29 Ammonia 20.0 umol/L (25-60) L 06/02/18 19:09 Total Creatine Kinase 112 units/L (30-135) 06/21/18 13:12 Troponin T < 0.010 ng/mL (0.00-0.029) 06/22/18 21:31 NT-Pro-B Natriuret Pep 60.88 pg/mL (0-900) 06/02/18 19:09 Total Protein 5.4 g/dL (6.3-8.2) L 06/14/18 05:29 Albumin 3.2 g/dL (3.9-5) L 06/14/18 05:29 Albumin/Globulin Ratio 1.5 % 06/14/18 05:29 TSH 1.950 mlU/mL (0.270-4.200) 06/06/18 10:57 Free T4 1.40 ng/dL (0.76-1.46) 06/06/18 10:57 Urine Color Straw (Yellow) 06/22/18 18:00 Urine Turbidity Clear (Clear) 06/22/18 18:00 Urine pH 7.0 (5.0-7.0) 06/22/18 18:00 Ur Specific [place] 1.005 (1.003-1.030) 06/22/18 18:00 Urine Protein <15 mg/dl mg/dL (Negative) 06/22/18 18:00 Urine Glucose (UA) Negative mg/dL (Negative) 06/22/18 18:00 Urine Ketones Negative mg/dL (Negative) 06/22/18 18:00 Urine Blood Negative (Negative) 06/22/18 18:00 Urine Nitrite Positive (Negative) 06/22/18 18:00 Ur Reducing Substances Not Reportable 06/22/18 18:00 Urine Bilirubin Negative (Negative) 06/22/18 18:00 Urine Ictotest Not Reportable 06/22/18 18:00 Urine Urobilinogen < 2.0 mg/dL (<2.0) 06/22/18 18:00 Ur Leukocyte Esterase Moderate (Negative) 06/22/18 18:00 Urine WBC (Auto) 23.0 /HPF (0.0-6.0) H 06/22/18 18:00 Urine RBC (Auto) < 1.0 /HPF (0.0-6.0) 06/22/18 18:00 U Epithel Cells (Auto) 1.0 /HPF (0-13.0) 06/22/18 18:00 Urine Opiates Screen Presumptive negative 06/02/18 10:43 Urine Methadone Screen Presumptive negative 06/02/18 10:43 Ur Barbiturates Screen Presumptive negative 06/02/18 10:43 Ur Phencyclidine Scrn Presumptive negative 06/02/18 10:43 Ur Amphetamines Screen Presumptive negative 06/02/18 10:43 U Benzodiazepines Scrn Presumptive negative 06/02/18 10:43 [place] 0.1 mmol/L (0.0-1.2) 06/02/18 19:09 Urine Cocaine Screen Presumptive negative 06/02/18 10:43 U Marijuana (THC) Screen Presumptive negative 06/02/18 10:43 Drugs of Abuse Note Disclamer 06/02/18 10:43 Plasma/Serum Alcohol < 0.01 % (0-0.07) 06/02/18 09:57
[2018-06-25] MEDS: NORCO 5/325 PO PRN (18:12)
[2018-06-25] MEDS: DESYREL PO SCH (22:09)
[2018-06-26 06:39] LABS: Hematocrit 36.5 % (30.3-42.9); Hemoglobin 12.4 gm/dl (10.1-14.3); Mean Corpuscular HGB Conc 34 % (30-34); Mean Corpuscular Hemoglobin 31 pg (28-32); Mean Corpuscular Volume 91 fl (79-97); Platelet Count 227 K/mm3 (140-440); Red Blood Count 3.99 M/mm3 (3.65-5.03); Red Cell Distribution Width 15.8 % (13.2-15.2)
[2018-06-26 06:54] LABS: Calcium 9.5 mg/dL (8.4-10.2)
[2018-06-26] MEDS: SODIUM CHLORIDE FLUSH SYRINGE 10 ML IV SCH ×2 (09:02→21:53)
[2018-06-26] MEDS: LEVAQUIN PO SCH (09:11)
[2018-06-26] MEDS: NORCO 5/325 PO PRN (09:11)
--- NOTE | 2018-06-26 13:33 | Progress Note ---
Assessment and Plan Assessment and plan: Patient is a 58 yo woman with a history of Schizophrenia who pw agitation and violent outburst, and was admitted for ARF. -Acute renal failure vasomotor nephropathy, resolved -Hypernatremia, mild, at 146, encourage water consumption -Acute encephalopathy with arf, resolved -Acute psychosis: Acute psychosis secondary to schizophrenia once patient is medically clear for discharge to inpatient psychiatric facility. -Schizophrenia in 1012; Patient would need inpatient psych. Awaiting case management options. -Sinus Tachycardia due to UTI with po Levaquin I was called by nurse Garcia to clarify the following note by the Mental health tableau administrator: "06/24/18 15:05 - Food Safety Director's Note by GIOVANNY CASTRO Acct Num: [id number] : 1960 Patient Age: 58 Late entry Updated vitals faxed to [facility]. Spoke with Nurse Garcia regarding the IV therapy note as well as explaining the Hyperchloridia. Per Nurse Garcia, she will talk to Dr. Greene regarding the Hyperchloridia." I believe the tableau administrator means Hyperchloremia instead of "Hyperchloridia", which refers to elevated Chloride levels. Well, The Chloride level on 06/18/2018 was 107.9 and normal level is 107 or less, so this is insignificant and I would not diagnosis patient was hyperchloremia. The reason she had hyperchloremia was excess sodium/hypernatremia which corrected faster the chloride level. Medical stable for Inpatient Psych admission, urine culture shows Lactobacillus species, vaginal contamination most likely She really needing inpatient psych, her heart rate is mainly due to her agitation and violence. She uses the word "motherfucker" all the time. She hits , spits, kicks, fights staff. She initially came to [facility] ED on 06/02/18 for violence toward family members, she stayed in the ED until they took labwork on 06/12/2018 and found that her sodium level was 151 and cr 1.3, BUN was 22, BG was 161. So, ED physician asked Hospitalist to admitted patient. She has been tachycardiac since admission. Her TSH is elevated, normal free T4. She continue to demonstate Echolalia and aggression. Her medical condition such as tachycardia, hypernatremia is main due to her psychosis with agitation and not drinking water. Since, Psych team has not documented a visit since 06/24/18, I will increase her Zyprexa to 10mg qhs. History Interval history: Patient was seen and examined. Follow-up on current diagnosis of AMS. Overnight eventful with tachycardia. Patient is not cooperative. Imaging, nursing note, chart, labs and old chart reviewed. Hospitalist Physical - Physical exam Narrative exam: GEN: WDWN, NAD, Awake, Alert, confused HEENT: NCAT, EOMI, PERRL, OP Clear NECK: supple, no adenopathy, no thyromegaly, no JVD CVS/HEART: Regular tachycardia, normal S1S2, pulses present bilaterally CHEST/LUNGS: CTA B, Symmetrical chest expansion, good air entry bilaterally GI/Abdomen: soft, NTND, good bowel sounds, no guarding or rebound /Bladder: no suprapubic tenderness, no CVA or paraspinal tenderness EXT/Skin: no c/c/e, no obvious rash MSK: FROM x 4 Neuro: CN 2-12 grossly intact, no new focal deficits Psych: agitated - Constitutional Vitals: Temp Pulse Resp BP Pulse Ox 99.4 F 127 H 18 115/81 96 06/26/18 04:45 06/26/18 04:45 06/26/18 04:45 06/26/18 04:45 06/26/18 04:45 General appearance: Present: no acute distress, well-nourished Results - Labs CBC & Chem 7: 06/26/18 05:37 06/26/18 05:37 Labs: Laboratory Last Values WBC 6.0 K/mm3 (4.5-11.0) 06/26/18 05:37 RBC 3.99 M/mm3 (3.65-5.03) 06/26/18 05:37 Hgb 12.4 gm/dl (10.1-14.3) 06/26/18 05:37 Hct 36.5 % (30.3-42.9) 06/26/18 05:37 MCV 91 fl (79-97) 06/26/18 05:37 MCH 31 pg (28-32) 06/26/18 05:37 MCHC 34 % (30-34) 06/26/18 05:37 RDW 15.8 % (13.2-15.2) H 06/26/18 05:37 Plt Count 227 K/mm3 (140-440) 06/26/18 05:37 Lymph % (Auto) 16.1 % (13.4-35.0) 06/12/18 13:06 [place] % (Auto) 7.8 % (0.0-7.3) H 06/12/18 13:06 Eos % (Auto) 4.7 % (0.0-4.3) H 06/12/18 13:06 Baso % (Auto) 0.4 % (0.0-1.8) 06/12/18 13:06 Lymph # 1.8 K/mm3 (1.2-5.4) 06/12/18 13:06 [place] # 0.9 K/mm3 (0.0-0.8) H 06/12/18 13:06 Eos # 0.5 K/mm3 (0.0-0.4) H 06/12/18 13:06 Baso # 0.0 K/mm3 (0.0-0.1) 06/12/18 13:06 Seg Neutrophils % 71.0 % (40.0-70.0) H 06/12/18 13:06 Seg Neutrophils # 7.8 K/mm3 (1.8-7.7) H 06/12/18 13:06 PT 10.6 Sec. (12.2-14.9) L 06/02/18 19:09 INR 0.73 (0.87-1.13) L 06/02/18 19:09 APTT 23.5 Sec. (24.2-36.6) L 06/02/18 19:09 Sodium 146 mmol/L (137-145) H 06/26/18 05:37 Potassium 3.7 mmol/L (3.6-5.0) 06/26/18 05:37 Chloride 104.9 mmol/L (98-107) 06/26/18 05:37 Carbon Dioxide 23 mmol/L (22-30) 06/26/18 05:37 Anion Gap 22 mmol/L 06/26/18 05:37 BUN 18 mg/dL (7-17) H 06/26/18 05:37 Creatinine 1.0 mg/dL (0.7-1.2) 06/26/18 05:37 Estimated GFR 57 ml/min 06/26/18 05:37 BUN/Creatinine Ratio 18 % 06/26/18 05:37 Glucose 120 mg/dL (65-100) H 06/26/18 05:37 POC Glucose 175 (70-105) H 06/12/18 13:14 Lactic Acid 2.00 mmol/L (0.7-2.0) 06/02/18 19:09 Calcium 9.5 mg/dL (8.4-10.2) 06/26/18 05:37 Phosphorus 2.90 mg/dL (2.5-4.5) 06/17/18 06:00 Magnesium 2.00 mg/dL (1.7-2.3) 06/15/18 06:11 Total Bilirubin 0.70 mg/dL (0.1-1.2) 06/14/18 05:29 Direct Bilirubin 0.2 mg/dL (0-0.2) 06/14/18 05:29 Indirect Bilirubin 0.5 mg/dL 06/14/18 05:29 AST 29 units/L (5-40) 06/14/18 05:29 ALT 49 units/L (7-56) 06/14/18 05:29 Alkaline Phosphatase 84 units/L (35-129) 06/14/18 05:29 Ammonia 20.0 umol/L (25-60) L 06/02/18 19:09 Total Creatine Kinase 112 units/L (30-135) 06/21/18 13:12 Troponin T < 0.010 ng/mL (0.00-0.029) 06/22/18 21:31 NT-Pro-B Natriuret Pep 60.88 pg/mL (0-900) 06/02/18 19:09 Total Protein 5.4 g/dL (6.3-8.2) L 06/14/18 05:29 Albumin 3.2 g/dL (3.9-5) L 06/14/18 05:29 Albumin/Globulin Ratio 1.5 % 06/14/18 05:29 TSH 1.950 mlU/mL (0.270-4.200) 06/06/18 10:57 Free T4 1.40 ng/dL (0.76-1.46) 06/06/18 10:57 Urine Color Straw (Yellow) 06/22/18 18:00 Urine Turbidity Clear (Clear) 06/22/18 18:00 Urine pH 7.0 (5.0-7.0) 06/22/18 18:00 Ur Specific [place] 1.005 (1.003-1.030) 06/22/18 18:00 Urine Protein <15 mg/dl mg/dL (Negative) 06/22/18 18:00 Urine Glucose (UA) Negative mg/dL (Negative) 06/22/18 18:00 Urine Ketones Negative mg/dL (Negative) 06/22/18 18:00 Urine Blood Negative (Negative) 06/22/18 18:00 Urine Nitrite Positive (Negative) 06/22/18 18:00 Ur Reducing Substances Not Reportable 06/22/18 18:00 Urine Bilirubin Negative (Negative) 06/22/18 18:00 Urine Ictotest Not Reportable 06/22/18 18:00 Urine Urobilinogen < 2.0 mg/dL (<2.0) 06/22/18 18:00 Ur Leukocyte Esterase Moderate (Negative) 06/22/18 18:00 Urine WBC (Auto) 23.0 /HPF (0.0-6.0) H 06/22/18 18:00 Urine RBC (Auto) < 1.0 /HPF (0.0-6.0) 06/22/18 18:00 U Epithel Cells (Auto) 1.0 /HPF (0-13.0) 06/22/18 18:00 Urine Opiates Screen Presumptive negative 06/02/18 10:43 Urine Methadone Screen Presumptive negative 06/02/18 10:43 Ur Barbiturates Screen Presumptive negative 06/02/18 10:43 Ur Phencyclidine Scrn Presumptive negative 06/02/18 10:43 Ur Amphetamines Screen Presumptive negative 06/02/18 10:43 U Benzodiazepines Scrn Presumptive negative 06/02/18 10:43 [place] 0.1 mmol/L (0.0-1.2) 06/02/18 19:09 Urine Cocaine Screen Presumptive negative 06/02/18 10:43 U Marijuana (THC) Screen Presumptive negative 06/02/18 10:43 Drugs of Abuse Note Disclamer 06/02/18 10:43 Plasma/Serum Alcohol < 0.01 % (0-0.07) 06/02/18 09:57
[2018-06-26] MEDS: HALDOL IM PRN ×2 (14:06→21:45)
[2018-06-26] MEDS: DESYREL PO SCH (21:44)
[2018-06-27 06:50] LABS: Calcium 9.2 mg/dL (8.4-10.2)
--- NOTE | 2018-06-27 07:49 | Progress Note ---
Assessment and Plan Assessment and plan: Patient is a 58 yo woman with a history of Schizophrenia who pw agitation and violent outburst, and was admitted for ARF. She initially came to [facility] ED on for violence toward family members, she stayed in the ED until they took labwork on 06/12/2018 and found that her sodium level was 151 and cr 1.3, BUN was 22, BG was 161. So, ED physician asked Hospitalist to admitted patient. She has been tachycardiac since admission. Her TSH is elevated, normal free T4. She continue to demonstate Echolalia and aggression. Her medical condition such as tachycardia, hypernatremia is main due to her psychosis with agitation and not drinking water. She really needing inpatient psych, her heart rate is mainly due to her agitation and violence. She uses the word "motherfucker" all the time. She hits, spits, kicks, fights staff. She has taken out her IV line. She is in restraints. Since, Psych team has not documented a visit since 06/24/18, I will increase her Zyprexa to 10mg qhs. -Acute renal failure vasomotor nephropathy, resolved -Hypernatremia, mild, at 146, encourage water consumption -Acute encephalopathy with arf, resolved -Acute psychosis: Acute psychosis secondary to schizophrenia once patient is medically clear for discharge to inpatient psychiatric facility. -Schizophrenia in 1013; Patient would need inpatient psych. Awaiting case management options. -Sinus Tachycardia due to UTI with po Levaquin -UTI, urine culture shows Lactobacillus species, vaginal contamination most likely, but will consult ID I was called by nurse Garcia to clarify the following note by the Mental health director school of nursing: "06/24/18 15:05 - Fund Development Manager's Note by GIOVANNY CASTRO Acct Num: [id number] : 1960 Patient Age: 58 Late entry Updated vitals faxed to [facility]. Spoke with Nurse Garcia regarding the IV therapy note as well as explaining the Hyperchloridia. Per Nurse Garcia, she will talk to Dr. Greene regarding the Hyperchloridia." I believe the director school of nursing means Hyperchloremia instead of "Hyperchloridia". Well, The Chloride level on 06/18/2018 was 107.9 and normal level is 107 or less , so this is insignificant and I would not diagnosis patient was hyperchloremia. The reason she had hyperchloremia was excess sodium/ hypernatremia which corrected faster the chloride level. Patient continue to have low grade temperatures despite being on Levaquin. Consulted Neurology and ID this morning Hold discharge to psych unit History Interval history: Patient was seen and examined. Follow-up on current diagnosis of AMS. Overnight eventful with tachycardia. Patient is not cooperative. Imaging, nursing note, chart, labs and old chart reviewed. Hospitalist Physical - Physical exam Narrative exam: GEN: WDWN, NAD, Awake, Alert, confused HEENT: NCAT, EOMI, PERRL, OP Clear NECK: supple, no adenopathy, no thyromegaly, no JVD CVS/HEART: Regular tachycardia, normal S1S2, pulses present bilaterally CHEST/LUNGS: CTA B, Symmetrical chest expansion, good air entry bilaterally GI/Abdomen: soft, NTND, good bowel sounds, no guarding or rebound /Bladder: no suprapubic tenderness, no CVA or paraspinal tenderness EXT/Skin: no c/c/e, no obvious rash MSK: FROM x 4 Neuro: CN 2-12 grossly intact, no new focal deficits Psych: agitated - Constitutional Vitals: Temp Pulse Resp BP Pulse Ox 98.7 F 130 H 18 118/89 96 06/26/18 22:08 06/26/18 22:08 06/26/18 22:08 06/26/18 22:08 06/26/18 22:08 General appearance: Present: no acute distress, well-nourished Results - Labs CBC & Chem 7: 06/26/18 05:37 06/27/18 05:22 Labs: Laboratory Last Values WBC 6.0 K/mm3 (4.5-11.0) 06/26/18 05:37 RBC 3.99 M/mm3 (3.65-5.03) 06/26/18 05:37 Hgb 12.4 gm/dl (10.1-14.3) 06/26/18 05:37 Hct 36.5 % (30.3-42.9) 06/26/18 05:37 MCV 91 fl (79-97) 06/26/18 05:37 MCH 31 pg (28-32) 06/26/18 05:37 MCHC 34 % (30-34) 06/26/18 05:37 RDW 15.8 % (13.2-15.2) H 06/26/18 05:37 Plt Count 227 K/mm3 (140-440) 06/26/18 05:37 Lymph % (Auto) 16.1 % (13.4-35.0) 06/12/18 13:06 [place] % (Auto) 7.8 % (0.0-7.3) H 06/12/18 13:06 Eos % (Auto) 4.7 % (0.0-4.3) H 06/12/18 13:06 Baso % (Auto) 0.4 % (0.0-1.8) 06/12/18 13:06 Lymph # 1.8 K/mm3 (1.2-5.4) 06/12/18 13:06 [place] # 0.9 K/mm3 (0.0-0.8) H 06/12/18 13:06 Eos # 0.5 K/mm3 (0.0-0.4) H 06/12/18 13:06 Baso # 0.0 K/mm3 (0.0-0.1) 06/12/18 13:06 Seg Neutrophils % 71.0 % (40.0-70.0) H 06/12/18 13:06 Seg Neutrophils # 7.8 K/mm3 (1.8-7.7) H 06/12/18 13:06 PT 10.6 Sec. (12.2-14.9) L 06/02/18 19:09 INR 0.73 (0.87-1.13) L 06/02/18 19:09 APTT 23.5 Sec. (24.2-36.6) L 06/02/18 19:09 Sodium 142 mmol/L (137-145) 06/27/18 05:22 Potassium 3.4 mmol/L (3.6-5.0) L 06/27/18 05:22 Chloride 104.4 mmol/L (98-107) 06/27/18 05:22 Carbon Dioxide 24 mmol/L (22-30) 06/27/18 05:22 Anion Gap 17 mmol/L 06/27/18 05:22 BUN 15 mg/dL (7-17) 06/27/18 05:22 Creatinine 1.0 mg/dL (0.7-1.2) 06/27/18 05:22 Estimated GFR 57 ml/min 06/27/18 05:22 BUN/Creatinine Ratio 15 % 06/27/18 05:22 Glucose 122 mg/dL (65-100) H 06/27/18 05:22 POC Glucose 175 (70-105) H 06/12/18 13:14 Lactic Acid 2.00 mmol/L (0.7-2.0) 06/02/18 19:09 Calcium 9.2 mg/dL (8.4-10.2) 06/27/18 05:22 Phosphorus 2.90 mg/dL (2.5-4.5) 06/17/18 06:00 Magnesium 2.00 mg/dL (1.7-2.3) 06/15/18 06:11 Total Bilirubin 0.70 mg/dL (0.1-1.2) 06/14/18 05:29 Direct Bilirubin 0.2 mg/dL (0-0.2) 06/14/18 05:29 Indirect Bilirubin 0.5 mg/dL 06/14/18 05:29 AST 29 units/L (5-40) 06/14/18 05:29 ALT 49 units/L (7-56) 06/14/18 05:29 Alkaline Phosphatase 84 units/L (35-129) 06/14/18 05:29 Ammonia 20.0 umol/L (25-60) L 06/02/18 19:09 Total Creatine Kinase 112 units/L (30-135) 06/21/18 13:12 Troponin T < 0.010 ng/mL (0.00-0.029) 06/22/18 21:31 NT-Pro-B Natriuret Pep 60.88 pg/mL (0-900) 06/02/18 19:09 Total Protein 5.4 g/dL (6.3-8.2) L 06/14/18 05:29 Albumin 3.2 g/dL (3.9-5) L 06/14/18 05:29 Albumin/Globulin Ratio 1.5 % 06/14/18 05:29 TSH 1.950 mlU/mL (0.270-4.200) 06/06/18 10:57 Free T4 1.40 ng/dL (0.76-1.46) 06/06/18 10:57 Urine Color Straw (Yellow) 06/22/18 18:00 Urine Turbidity Clear (Clear) 06/22/18 18:00 Urine pH 7.0 (5.0-7.0) 06/22/18 18:00 Ur Specific [place] 1.005 (1.003-1.030) 06/22/18 18:00 Urine Protein <15 mg/dl mg/dL (Negative) 06/22/18 18:00 Urine Glucose (UA) Negative mg/dL (Negative) 06/22/18 18:00 Urine Ketones Negative mg/dL (Negative) 06/22/18 18:00 Urine Blood Negative (Negative) 06/22/18 18:00 Urine Nitrite Positive (Negative) 06/22/18 18:00 Ur Reducing Substances Not Reportable 06/22/18 18:00 Urine Bilirubin Negative (Negative) 06/22/18 18:00 Urine Ictotest Not Reportable 06/22/18 18:00 Urine Urobilinogen < 2.0 mg/dL (<2.0) 06/22/18 18:00 Ur Leukocyte Esterase Moderate (Negative) 06/22/18 18:00 Urine WBC (Auto) 23.0 /HPF (0.0-6.0) H 06/22/18 18:00 Urine RBC (Auto) < 1.0 /HPF (0.0-6.0) 06/22/18 18:00 U Epithel Cells (Auto) 1.0 /HPF (0-13.0) 06/22/18 18:00 Urine Opiates Screen Presumptive negative 06/02/18 10:43 Urine Methadone Screen Presumptive negative 06/02/18 10:43 Ur Barbiturates Screen Presumptive negative 06/02/18 10:43 Ur Phencyclidine Scrn Presumptive negative 06/02/18 10:43 Ur Amphetamines Screen Presumptive negative 06/02/18 10:43 U Benzodiazepines Scrn Presumptive negative 06/02/18 10:43 [place] 0.1 mmol/L (0.0-1.2) 06/02/18 19:09 Urine Cocaine Screen Presumptive negative 06/02/18 10:43 U Marijuana (THC) Screen Presumptive negative 06/02/18 10:43 Drugs of Abuse Note Disclamer 06/02/18 10:43 Plasma/Serum Alcohol < 0.01 % (0-0.07) 06/02/18 09:57
[2018-06-27] MEDS: HALDOL IM PRN (08:36)
--- NOTE | 2018-06-27 11:55 | Progress Note ---
Subjective - Reason for Consult Consult date: 06/27/18 Reason for consult: Psychiatry Follow-up - Chief Complaint Chief complaint: "I am here" Patient is a 58-year-old female who presented to the ER for aggressive and threatening behavior towards family members. The patient was brought to the ER by her daughter. Today the patient is calm during the assessment. She continue to be disorganized during the assessment. Per the staff, the patient isn't sleeping at night. No gestures of SI/HI's. No indications of side effects of her medications. Mental Status Exam - Vital signs Last Vital Signs Temp 98.7 F 06/26/18 22:08 Pulse 130 H 06/26/18 22:08 Resp 18 06/26/18 22:08 BP 118/89 06/26/18 22:08 Pulse Ox 96 06/26/18 22:08 - Exam Narrative exam: MSE: Appearance: calm Behavior: regular eye contact Speech: regular rate and tone Mood: unable to assess Affect: constricted Thought Process: disorganized Thought Content: no gestures of SI/HI's Motor Activity: lying in in bed Cognition: alert Insight: poor Judgment: poor Assessment and Plan Impression: Hx of Schizophrenia per the record. Today the patient is calm during the assessment. NA 142 and Cr 1.0. The patient is in a waist restraint. The patient possibly could be experiencing perceptual disturbances. Medical: Sinus Tachycardia due to UTI per the hospitalist DDx: R/O Bipolar DO with psychosis Recommendation/Plan: Continue 1013 with placement to inpatient psy services once medically clear. Continue Haldol 5 mg IM Q6hrs for acute agitatiion and Zyprexa 10 mg PO HS for schizophrenia. Attempted to discuss possible metabolic side effects of Zyprexa with patient. Recommend DVT prophylaxis. D/C waist restraint when not indicated.
--- NOTE | 2018-06-27 15:25 | Consultation ---
History of Present Illness - Reason for Consult Consult date: 06/27/18 low grade fever Requesting physician: MARK FISH - History of Present Illness 58 y/o female with history of Schizophrenia, brought to the ED on 06/02/18 for agitation and violent outburs. She initially came to [facility] ED on 06/02/18 for violence toward family members. Finally labwork was collected on 06/12/2018 and found that her sodium level was 151 and cr 1.3, BUN was 22, BG was 161. Her TSH is elevated, normal free T4. Upon ED arrival, her mami 98.6, HR 77, R 16, BP 128/73. WBC 8.1. Hg 12.7. Plat 208. UA was negative. Patient is not cooperating with interview, unable to provide details. By 06/21 she started to spike a fever at 100, then 101.4 on 06/24. Repeat UA on showed 23 wbc, LE mod. Urine cx 06/23 grew 10-100K Lactobacillus. Microbiology: Blood cultures: 06/02 neg 06/22 ngtd Urine cultures: 06/23 Lactobacillus Current Antimicrobials: Levaquin 06/27 Previous Antimicrobials: Past History Past Medical History: other (Unable to obtain due to altered mental status) Past Surgical History: Other (Unable to obtain due to altered mental status) Social history: lives with family, other (unable to obtain tobacco alcohol or illicit drug use history due to altered mental status) Family history: other (unable to obtain due to altered mental status) Medications and Allergies Allergies Allergy/AdvReac Type Severity Reaction Status Date / Time No Known Allergies Allergy Unverified 06/02/18 09:31 Home Medications Medication Instructions Recorded Confirmed Last Taken Type Benztropine [Cogentin] 1 mg PO BID 05/18/18 06/02/18 05/18/18 History [place] Carbonate [[place] 450 mg PO BID 05/18/18 06/02/18 05/18/18 History Carbonate ER] OLANZapine [Zyprexa] 10 mg PO QAM 05/18/18 06/02/18 05/18/18 History chlorproMAZINE (NF) [Thorazine 100 mg PO Q8H 05/18/18 06/02/18 05/18/18 History (Nf)] hydrOXYzine pamoate [hydrOXYzine 50 mg PO TID 0706/02/18 05/18/18 History Pamoate] traZODone [Desyrel] 200 mg PO QHS 05/18/18 06/02/18 05/17/18 History Potassium Chloride 20 meq PO 10 #10 tablet.er 05/25/18 06/02/18 Unknown Rx oxyCODONE /ACETAMINOPHEN [Percocet 1 tab PO Q6H PRN #16 tablet 05/25/18 Unknown Rx 5/325 mg] Active Meds: Active Medications Acetaminophen (Tylenol) 650 mg PO Q4HR PRN PRN Reason: Pain MILD(1-3)/Fever >100.5/RODRIGUEZ Last Admin: 06/24/18 18:59 Dose: 650 mg Acetaminophen/Hydrocodone Bitart ([place] 5/325) 1 each PO Q6H PRN PRN Reason: Pain, Moderate (4-6) Last Admin: 06/26/18 09:11 Dose: 1 each Haloperidol Lactate (Haldol) 5 mg IM Q6H PRN PRN Reason: Agitation Last Admin: 06/27/18 08:36 Dose: 5 mg Levofloxacin (Levaquin) 750 mg PO Q24HR [facility] Last Admin: 06/26/18 09:11 Dose: 750 mg Olanzapine (Zyprexa) 10 mg PO HS [facility] Last Admin: 06/26/18 21:45 Dose: 10 mg Ondansetron HCl (Zofran) 4 mg IV Q8H PRN PRN Reason: Nausea And Vomiting Sodium Chloride (Sodium Chloride Flush Syringe 10 Ml) 10 ml IV BID [facility] Last Admin: 06/26/18 21:53 Dose: 10 ml Sodium Chloride (Sodium Chloride Flush Syringe 10 Ml) 10 ml IV PRN PRN PRN Reason: LINE FLUSH Trazodone HCl (Desyrel) 100 mg PO QHS [facility] Review of Systems ROS unobtainable: due to mental status Physical Examination - Physical Exam Narrative exam: General appearance: Alert in NAD, conversant Eyes: anicteric sclerae, moist conjunctivae; no lid-lag; PERRLA HENT: Atraumatic; oropharynx clear thrush; normal hard and soft palate. Normal external ears. Neck: Trachea midline; supple, no thyromegaly or lymphadenopathy Lungs: CTA CV: RRR, Abdomen: Soft, non-tender; no masses or hepatosplenomegaly Extremities: No peripheral edema or extremity lymphadenopathy Skin: Normal temperature, turgor and texture; no rash, ulcers or subcutaneous nodules Psych: Appropriate affect, alert and oriented to person, place and time. Neuro: alert and oriented x 3. Moving all extermities Lines: No CVL / PICC - Constitutional Vitals: Vital Signs Temp Pulse Resp BP Pulse Ox 98.4 F 130 H 20 140/98 96 06/27/18 11:56 06/26/18 22:08 06/27/18 11:56 06/27/18 11:56 06/26/18 22:08 Temperature -Last 24 Hours Temperature 98.4 F Temperature 98.7 F Temperature 100.2 F Results - Labs CBC & Chem 7: 06/26/18 05:37 06/27/18 05:22 Labs: Abnormal lab results 06/27/18 Range/Units 05:22 Potassium 3.4 L (3.6-5.0) mmol/L Glucose 122 H (65-100) mg/dL Assessment and Plan Assessment: 1) Sepsis: NOT Present on admission, manifested by fever, tachycardia. Etiology most likely UTI. 2) Schizophrenia 3) Hypernatremia 4) UTI: Urine cx 06/23 grew 10-100K Lactobacillus. Plan: -follow-up blood cultures, urine culture -stop levaquin -start augmentin -review CXR - unable to open report Thank you for your consultation, will follow up with you. Bernadette Urban MD Infectious Diseases Specialist [facility], [place], [facility] ([facility]) M [phone] O [phone]
[2018-06-27] MEDS: SODIUM CHLORIDE FLUSH SYRINGE 10 ML IV SCH ×2 (16:13→23:09)
[2018-06-27] MEDS: LEVAQUIN PO SCH (16:20)
[2018-06-27] MEDS: DESYREL PO SCH (23:07)
[2018-06-27] MEDS: AUGMENTIN 875 MG PO SCH (23:08)
--- NOTE | 2018-06-28 01:26 | Consultation ---
NEUROLOGICAL CONSULTATION REASON FOR CONSULTATION: Psychosis, altered mental status. HISTORY OF PRESENT ILLNESS: The patient obviously cannot give any history. She is a 58-year-old female who apparently brought by the family members to the Emergency Room because of acute psychotic features. This history was obtained from Dr. Banerjee. No family members up to this time. Apparently, the plan was to discharge the patient to an inpatient psychiatric facility, but they could not find a facility that could accept the patient. The patient was evaluated medically and was seen to have dehydration that necessitate admission. Therefore, it is possible that she was admitted to rule out any medical cause for psychosis or psychiatric disorder. However, right now, we do not have any adequate history and we do not know what really is going on. No family members. PAST MEDICAL HISTORY: Has possible hypertension. She must have a long history of psychotic or psychiatric disorder. PAST SURGICAL HISTORY: None is known. SOCIAL HISTORY: The patient apparently lives with the family, they are not present right now. REVIEW OF SYSTEMS: Not clear considering the patient's mental status. PHYSICAL EXAMINATION: GENERAL: Revealed a well-developed, [id number] female who is mildly obese. The patient allowed me to examine her, she is restrained. VITAL SIGNS: Blood pressure is 126/81. She is afebrile at 98.5, pulse oximetry is 98. Respirations about 18, pulse rate is 130. She is tachycardic. HEAD, EYES, EARS, NOSE AND THROAT: Unremarkable. No teeth. No intracranial or intraorbital bruit. NECK: Supple. No carotid bruit. CARDIOVASCULAR: Heart was in regular rhythm, but tachycardic. ABDOMEN: Soft. EXTREMITIES: Unremarkable. NEUROLOGIC: The patient is at this time confused, delirious. She does not answer by her name. Her responses seem appropriate. She points to things that does not have any meaning. However, she followed simple verbal commands. I was told by the sister that sometimes she becomes restless and agitated and there is a risk that she might hurt care personnel. Therefore, obviously this patient has a mental status change with psychiatric features. Cranial nerve examination, although limited, is unremarkable. I could not look at the fundi. Motor examination: She moves both upper and lower extremities, but individual muscle testing not possible. Sensory testing not reliable. Coordination impossible, patient would not follow commands on that. Reflexes symmetrical. No Babinski. INITIAL CLINICAL IMPRESSION: This patient has, I believe, a psychiatric disorder. Her examination is not very revealing to suggest a medical course, but there are other thing that needs to be checked that can cause psychiatric symptoms. Consider kidney problem as the cause, thyroid, low vitamin, especially vitamin B12, liver. The patient is tachycardic on the basis that she is agitated and restless. PLAN: 1. At this time is to check for any medical cause of the psychiatric problem. 2. Once this has been controlled, then I believe we should get at least an MRI of the brain, even without contrast, and an EEG. 3. Psychiatric intervention obviously needed, especially to modify or handle the antipsychotic medication, especially in regards to dosing. Sixty minutes involved in reviewing the history and doing physical examination and more than 50% involved in coordinating of the care. Further history is needed from the family. JOB# [id number] APRIL/NEYDA
[2018-06-28] MEDS: HALDOL IM PRN ×4 (04:12→21:57)
--- NOTE | 2018-06-28 11:59 | Progress Note ---
Subjective - Reason for Consult Consult date: 06/28/18 Reason for consult: Psychiatry Follow-up - Chief Complaint Chief complaint: "I am here" Patient is a 58-year-old female who presented to the ER for aggressive and threatening behavior towards family members. The patient was brought to the ER by her daughter. Today the patient is disorganized during the assessment. Also, the patient's thought content continue to be disorganized. Upon my arrival to the floor, the patient was heard yelling and screaming in her room. No gestures of SI/HI's. No indications of side effects of her medications. Mental Status Exam - Vital signs Last Vital Signs Temp 98.3 F 06/28/18 11:29 Pulse 108 H 06/28/18 11:29 Resp 18 06/28/18 11:29 BP 94/60 06/28/18 11:29 Pulse Ox 95 06/28/18 11:29 - Exam Narrative exam: MSE: Appearance: wearing a hospital gown Behavior: regular eye contact Speech: yelling with incoherent speech intermittently Mood: anxious Affect: congruent to mood Thought Process: disorganized Thought Content: no gestures of SI/HI's, possible paranoia Motor Activity: frigidity Cognition: alert Insight: poor Judgment: poor Assessment and Plan Impression: Hx of Schizophrenia per the record. Today the patient is anxious and disorganized during the assessment. NA 142 and Cr 1.0. The patient is in a waist restraint. QTc WNL 06/27/2018. The patient could be experiencing perceptional disturbances. Medical: Sinus Tachycardia due to UTI per the hospitalist DDx: R/O Bipolar DO with psychosis Recommendation/Plan: Continue 1013 with placement to inpatient psy services once medically clear. Continue Haldol 5 mg IM Q6hrs for acute agitatiion and Zyprexa 10 mg PO HS for schizophrenia. Start Buspar 7.5 mg PO BID for anxiety. Attempted to discuss possible metabolic side effects of Zyprexa with patient. Recommend DVT prophylaxis. D/C waist restraint when not indicated. Called the patient's daughter was called, but had to leave a voicemail.
[2018-06-28] MEDS: SODIUM CHLORIDE FLUSH SYRINGE 10 ML IV SCH ×2 (12:38→21:57)
[2018-06-28] MEDS: AUGMENTIN 875 MG PO SCH ×2 (12:38→22:07)
[2018-06-28] MEDS: BUSPAR PO SCH ×2 (12:45→21:54)
--- NOTE | 2018-06-28 13:44 | Progress Note ---
Assessment and Plan Assessment and plan: Patient is a 58 yo woman with a history of Schizophrenia who pw agitation and violent outburst, and was admitted for ARF. She initially came to [facility] ED on for violence toward family members, she stayed in the ED until they took labwork on 06/12/2018 and found that her sodium level was 151 and cr 1.3, BUN was 22, BG was 161. So, ED physician asked Hospitalist to admitted patient. She has been tachycardiac since admission. Her TSH is elevated, normal free T4. She continue to demonstate Echolalia and aggression. Her medical condition such as tachycardia, hypernatremia is main due to her psychosis with agitation and not drinking water. She really needing inpatient psych, her heart rate is mainly due to her agitation and violence. She uses the word "motherfucker" all the time. She hits, spits, kicks and fights staff. She has taken out her IV line. She is in restraints. Since, Psych team has not documented a visit since 06/24/18 , I will increase her Zyprexa to 10mg qhs. -Acute renal failure vasomotor nephropathy, resolved -Hypernatremia, mild, at 146, encourage water consumption -Acute encephalopathy with arf, resolved -Acute psychosis: Acute psychosis secondary to schizophrenia once patient is medically clear for discharge to inpatient psychiatric facility. -Schizophrenia in 3; Patient would need inpatient psych. Awaiting case management options. -Sinus Tachycardia due to agitation -UTI, urine culture shows Lactobacillus species, vaginal contamination most likely, ID is following I was called by nurse Garcia to clarify the following note by the Mental health bioinformatics software engineer: "06/24/18 15:05 - Bench Manager's Note by GIOVANNY CASTRO Acct Num: [id number] : 1960 Patient Age: 58 Late entry Updated vitals faxed to [facility]. Spoke with Nurse Garcia regarding the IV therapy note as well as explaining the Hyperchloridia. Per Nurse Garcia, she will talk to Dr. Greene regarding the Hyperchloridia." I believe the bioinformatics software engineer means Hyperchloremia instead of "Hyperchloridia". Well, The Chloride level on 06/18/2018 was 107.9 and normal level is 107 or less , so this is insignificant and I would not diagnosis patient was hyperchloremia. The reason she had hyperchloremia was excess sodium/ hypernatremia which corrected faster the chloride level. Patient is Medical optimized to go to psych, fever resolved History Interval history: Patient was seen and examined. Follow-up on current diagnosis of AMS. Overnight uneventful. Patient is not cooperative. She is yelling, screaming and cursing, Imaging, nursing note, chart, labs and old chart reviewed. Hospitalist Physical - Physical exam Narrative exam: Patient is aggressive and will not allow me to touch her. She is talking/ cursing. She is moving all extremities and I don't see any localized deficits - Constitutional Vitals: Temp Pulse Resp BP Pulse Ox 98.3 F 108 H 18 94/60 95 06/28/18 11:29 06/28/18 11:29 06/28/18 11:29 06/28/18 11:29 06/28/18 11:29 General appearance: Present: no acute distress, well-nourished Results - Labs CBC & Chem 7: 06/26/18 05:37 06/27/18 05:22 Labs: Laboratory Last Values WBC 6.0 K/mm3 (4.5-11.0) 06/26/18 05:37 RBC 3.99 M/mm3 (3.65-5.03) 06/26/18 05:37 Hgb 12.4 gm/dl (10.1-14.3) 06/26/18 05:37 Hct 36.5 % (30.3-42.9) 06/26/18 05:37 MCV 91 fl (79-97) 06/26/18 05:37 MCH 31 pg (28-32) 06/26/18 05:37 MCHC 34 % (30-34) 06/26/18 05:37 RDW 15.8 % (13.2-15.2) H 06/26/18 05:37 Plt Count 227 K/mm3 (140-440) 06/26/18 05:37 Lymph % (Auto) 16.1 % (13.4-35.0) 06/12/18 13:06 [place] % (Auto) 7.8 % (0.0-7.3) H 06/12/18 13:06 Eos % (Auto) 4.7 % (0.0-4.3) H 06/12/18 13:06 Baso % (Auto) 0.4 % (0.0-1.8) 06/12/18 13:06 Lymph # 1.8 K/mm3 (1.2-5.4) 06/12/18 13:06 [place] # 0.9 K/mm3 (0.0-0.8) H 06/12/18 13:06 Eos # 0.5 K/mm3 (0.0-0.4) H 06/12/18 13:06 Baso # 0.0 K/mm3 (0.0-0.1) 06/12/18 13:06 Seg Neutrophils % 71.0 % (40.0-70.0) H 06/12/18 13:06 Seg Neutrophils # 7.8 K/mm3 (1.8-7.7) H 06/12/18 13:06 PT 10.6 Sec. (12.2-14.9) L 06/02/18 19:09 INR 0.73 (0.87-1.13) L 06/02/18 19:09 APTT 23.5 Sec. (24.2-36.6) L 06/02/18 19:09 Sodium 142 mmol/L (137-145) 06/27/18 05:22 Potassium 3.4 mmol/L (3.6-5.0) L 06/27/18 05:22 Chloride 104.4 mmol/L (98-107) 06/27/18 05:22 Carbon Dioxide 24 mmol/L (22-30) 06/27/18 05:22 Anion Gap 17 mmol/L 06/27/18 05:22 BUN 15 mg/dL (7-17) 06/27/18 05:22 Creatinine 1.0 mg/dL (0.7-1.2) 06/27/18 05:22 Estimated GFR 57 ml/min 06/27/18 05:22 BUN/Creatinine Ratio 15 % 06/27/18 05:22 Glucose 122 mg/dL (65-100) H 06/27/18 05:22 POC Glucose 175 (70-105) H 06/12/18 13:14 Lactic Acid 2.00 mmol/L (0.7-2.0) 06/02/18 19:09 Calcium 9.2 mg/dL (8.4-10.2) 06/27/18 05:22 Phosphorus 2.90 mg/dL (2.5-4.5) 06/17/18 06:00 Magnesium 2.00 mg/dL (1.7-2.3) 06/15/18 06:11 Total Bilirubin 0.70 mg/dL (0.1-1.2) 06/14/18 05:29 Direct Bilirubin 0.2 mg/dL (0-0.2) 06/14/18 05:29 Indirect Bilirubin 0.5 mg/dL 06/14/18 05:29 AST 29 units/L (5-40) 06/14/18 05:29 ALT 49 units/L (7-56) 06/14/18 05:29 Alkaline Phosphatase 84 units/L (35-129) 06/14/18 05:29 Ammonia 23.0 umol/L (25-60) L 06/27/18 20:55 Total Creatine Kinase 112 units/L (30-135) 06/21/18 13:12 Troponin T < 0.010 ng/mL (0.00-0.029) 06/22/18 21:31 NT-Pro-B Natriuret Pep 60.88 pg/mL (0-900) 06/02/18 19:09 Total Protein 5.4 g/dL (6.3-8.2) L 06/14/18 05:29 Albumin 3.2 g/dL (3.9-5) L 06/14/18 05:29 Albumin/Globulin Ratio 1.5 % 06/14/18 05:29 TSH 1.950 mlU/mL (0.270-4.200) 06/06/18 10:57 Free T4 1.40 ng/dL (0.76-1.46) 06/06/18 10:57 Urine Color Straw (Yellow) 06/22/18 18:00 Urine Turbidity Clear (Clear) 06/22/18 18:00 Urine pH 7.0 (5.0-7.0) 06/22/18 18:00 Ur Specific [place] 1.005 (1.003-1.030) 06/22/18 18:00 Urine Protein <15 mg/dl mg/dL (Negative) 06/22/18 18:00 Urine Glucose (UA) Negative mg/dL (Negative) 06/22/18 18:00 Urine Ketones Negative mg/dL (Negative) 06/22/18 18:00 Urine Blood Negative (Negative) 06/22/18 18:00 Urine Nitrite Positive (Negative) 06/22/18 18:00 Ur Reducing Substances Not Reportable 06/22/18 18:00 Urine Bilirubin Negative (Negative) 06/22/18 18:00 Urine Ictotest Not Reportable 06/22/18 18:00 Urine Urobilinogen < 2.0 mg/dL (<2.0) 06/22/18 18:00 Ur Leukocyte Esterase Moderate (Negative) 06/22/18 18:00 Urine WBC (Auto) 23.0 /HPF (0.0-6.0) H 06/22/18 18:00 Urine RBC (Auto) < 1.0 /HPF (0.0-6.0) 06/22/18 18:00 U Epithel Cells (Auto) 1.0 /HPF (0-13.0) 06/22/18 18:00 Urine Opiates Screen Presumptive negative 06/02/18 10:43 Urine Methadone Screen Presumptive negative 06/02/18 10:43 Ur Barbiturates Screen Presumptive negative 06/02/18 10:43 Ur Phencyclidine Scrn Presumptive negative 06/02/18 10:43 Ur Amphetamines Screen Presumptive negative 06/02/18 10:43 U Benzodiazepines Scrn Presumptive negative 06/02/18 10:43 [place] 0.1 mmol/L (0.0-1.2) 06/02/18 19:09 Urine Cocaine Screen Presumptive negative 06/02/18 10:43 U Marijuana (THC) Screen Presumptive negative 06/02/18 10:43 Drugs of Abuse Note Disclamer 06/02/18 10:43 Plasma/Serum Alcohol < 0.01 % (0-0.07) 06/02/18 09:57
--- NOTE | 2018-06-28 14:14 | Progress Note ---
Assessment and Plan Assessment: 1) Sepsis: better. Etiology most likely UTI. CXR neg. Doubt meningitis. 2) Schizophrenia 3) Hypernatremia 4) UTI: Urine cx 06/23 grew 10-100K Lactobacillus. Plan: -follow-up blood cultures, urine culture -continue augmentin total 7 days -monitor fever Thank you for your consultation, will follow up with you. Bernadette Urban MD Infectious Diseases Specialist [facility] ([facility]) M [phone] O [phone] Subjective Date of service: 06/28/18 Principal diagnosis: bipolar d/o with Schizophrenia Interval history: Feels ok, still aggressive behavior, no fever. Denies headache. \ Microbiology: Blood cultures: 06/02 neg 06/22 ngtd Urine cultures: 06/23 Lactobacillus Current Antimicrobials: augmentin 06/27 Previous Antimicrobials: Levaquin 06/27 Objective - Exam Narrative Exam: General appearance: Alert in NAD, conversant aggressive Eyes: anicteric sclerae, moist conjunctivae; no lid-lag; PERRLA HENT: Atraumatic; oropharynx clear ; normal hard and soft palate. Normal external ears. Neck: Trachea midline; supple, no thyromegaly or lymphadenopathy Lungs: CTA CV: RRR, Abdomen: Soft, non-tender; no masses or hepatosplenomegaly Extremities: No peripheral edema or extremity lymphadenopathy Skin: Normal temperature, turgor and texture; no rash, ulcers or subcutaneous nodules Psych: Appropriate affect, alert and oriented to person, place and time. Neuro: alert and oriented x 3. Moving all extermities Lines: No CVL / PICC - Constitutional Vitals: Vital Signs Temp Pulse Resp BP Pulse Ox 98.3 F 108 H 18 94/60 95 06/28/18 11:29 06/28/18 11:29 06/28/18 11:29 06/28/18 11:29 06/28/18 11:29 Temperature -Last 24 Hours Temperature 98.3 F Temperature 95.5 F Temperature 97.5 F Temperature 98.7 F Temperature 99.4 F - Labs CBC & Chem 7: 06/26/18 05:37 06/27/18 05:22 Labs: Abnormal lab results 06/27/18 Range/Units 20:55 Ammonia 23.0 L (25-60) umol/L
[2018-06-28] MEDS: DESYREL PO SCH (21:55)
[2018-06-29] MEDS ORDERED: ATIVAN IV ONE (02:43)
[2018-06-29] MEDS: NORCO 5/325 PO PRN (03:02)
[2018-06-29] MEDS ORDERED: ATIVAN IV NR (08:27)
--- NOTE | 2018-06-29 08:29 | Progress Note ---
Assessment and Plan Assessment and plan: Patient is a 58 yo woman with a history of Schizophrenia who pw agitation and violent outburst, and was admitted for ARF. She initially came to [facility] ED on for violence toward family members, she stayed in the ED until they took labwork on 06/12/2018 and found that her sodium level was 151 and cr 1.3, BUN was 22, BG was 161. So, ED physician asked Hospitalist to admitted patient. She has been tachycardiac since admission. Her TSH is elevated, normal free T4. She continue to demonstate Echolalia and aggression. Her medical condition such as tachycardia, hypernatremia is main due to her psychosis with agitation and not drinking water. She really needing inpatient psych, her heart rate is mainly due to her agitation and violence. She uses the word "motherfucker" all the time. She hits, spits, kicks and fights staff. She has taken out her IV line. She is in restraints. Since, Psych team has not documented a visit since 06/24/18 , I will increase her Zyprexa to 10mg qhs. -Acute renal failure vasomotor nephropathy, resolved -Hypernatremia, mild, at 146, encourage water consumption -Acute encephalopathy with arf, resolved -Acute psychosis: Acute psychosis secondary to schizophrenia once patient is medically clear for discharge to inpatient psychiatric facility. -Schizophrenia in 3; Patient would need inpatient psych. Awaiting case management options. -Sinus Tachycardia due to agitation -UTI, urine culture shows Lactobacillus species, vaginal contamination most likely, ID is following I was called by nurse Garcia to clarify the following note by the Mental health maintenance department technician: "06/24/18 15:05 - Service Advocate Contact's Note by GIOVANNY CASTRO Acct Num: [id number] : 1960 Patient Age: 58 Late entry Updated vitals faxed to [facility]. Spoke with Nurse Garcia regarding the IV therapy note as well as explaining the Hyperchloridia. Per Nurse Garcia, she will talk to Dr. Greene regarding the Hyperchloridia." I believe the maintenance department technician means Hyperchloremia instead of "Hyperchloridia". Well, The Chloride level on 06/18/2018 was 107.9 and normal level is 107 or less , so this is insignificant and I would not diagnosis patient was hyperchloremia. The reason she had hyperchloremia was excess sodium/ hypernatremia which corrected faster the chloride level. d/w Dr. Morillo, neurologist, late yesterday evening, he wanted MRI brain but patient was too agitated. Will try to obtain MRI today with IV ativan CCT 32 minutes History Interval history: Patient was seen and examined. Follow-up on current diagnosis of AMS. Overnight uneventful. Patient is not cooperative. It appears Ativan helped more than the Haldol. Imaging, nursing note, chart, labs and old chart reviewed. Hospitalist Physical - Physical exam Narrative exam: Patient is aggressive and will not allow me to touch her. She is talking/ cursing. She is moving all extremities and I don't see any localized deficits - Constitutional Vitals: Temp Pulse Resp BP Pulse Ox 98.0 F 107 H 18 87/59 94 06/29/18 05:19 06/29/18 05:19 06/29/18 05:19 06/29/18 05:19 06/29/18 05:19 General appearance: Present: no acute distress, well-nourished Results - Labs CBC & Chem 7: 06/26/18 05:37 06/27/18 05:22 Labs: Laboratory Last Values WBC 6.0 K/mm3 (4.5-11.0) 06/26/18 05:37 RBC 3.99 M/mm3 (3.65-5.03) 06/26/18 05:37 Hgb 12.4 gm/dl (10.1-14.3) 06/26/18 05:37 Hct 36.5 % (30.3-42.9) 06/26/18 05:37 MCV 91 fl (79-97) 06/26/18 05:37 MCH 31 pg (28-32) 06/26/18 05:37 MCHC 34 % (30-34) 06/26/18 05:37 RDW 15.8 % (13.2-15.2) H 06/26/18 05:37 Plt Count 227 K/mm3 (140-440) 06/26/18 05:37 Lymph % (Auto) 16.1 % (13.4-35.0) 06/12/18 13:06 [place] % (Auto) 7.8 % (0.0-7.3) H 06/12/18 13:06 Eos % (Auto) 4.7 % (0.0-4.3) H 06/12/18 13:06 Baso % (Auto) 0.4 % (0.0-1.8) 06/12/18 13:06 Lymph # 1.8 K/mm3 (1.2-5.4) 06/12/18 13:06 [place] # 0.9 K/mm3 (0.0-0.8) H 06/12/18 13:06 Eos # 0.5 K/mm3 (0.0-0.4) H 06/12/18 13:06 Baso # 0.0 K/mm3 (0.0-0.1) 06/12/18 13:06 Seg Neutrophils % 71.0 % (40.0-70.0) H 06/12/18 13:06 Seg Neutrophils # 7.8 K/mm3 (1.8-7.7) H 06/12/18 13:06 PT 10.6 Sec. (12.2-14.9) L 06/02/18 19:09 INR 0.73 (0.87-1.13) L 06/02/18 19:09 APTT 23.5 Sec. (24.2-36.6) L 06/02/18 19:09 Sodium 142 mmol/L (137-145) 06/27/18 05:22 Potassium 3.4 mmol/L (3.6-5.0) L 06/27/18 05:22 Chloride 104.4 mmol/L (98-107) 06/27/18 05:22 Carbon Dioxide 24 mmol/L (22-30) 06/27/18 05:22 Anion Gap 17 mmol/L 06/27/18 05:22 BUN 15 mg/dL (7-17) 06/27/18 05:22 Creatinine 1.0 mg/dL (0.7-1.2) 06/27/18 05:22 Estimated GFR 57 ml/min 06/27/18 05:22 BUN/Creatinine Ratio 15 % 06/27/18 05:22 Glucose 122 mg/dL (65-100) H 06/27/18 05:22 POC Glucose 175 (70-105) H 06/12/18 13:14 Lactic Acid 2.00 mmol/L (0.7-2.0) 06/02/18 19:09 Calcium 9.2 mg/dL (8.4-10.2) 06/27/18 05:22 Phosphorus 2.90 mg/dL (2.5-4.5) 06/17/18 06:00 Magnesium 2.00 mg/dL (1.7-2.3) 06/15/18 06:11 Total Bilirubin 0.70 mg/dL (0.1-1.2) 06/14/18 05:29 Direct Bilirubin 0.2 mg/dL (0-0.2) 06/14/18 05:29 Indirect Bilirubin 0.5 mg/dL 06/14/18 05:29 AST 29 units/L (5-40) 06/14/18 05:29 ALT 49 units/L (7-56) 06/14/18 05:29 Alkaline Phosphatase 84 units/L (35-129) 06/14/18 05:29 Ammonia 23.0 umol/L (25-60) L 06/27/18 20:55 Total Creatine Kinase 112 units/L (30-135) 06/21/18 13:12 Troponin T < 0.010 ng/mL (0.00-0.029) 06/22/18 21:31 NT-Pro-B Natriuret Pep 60.88 pg/mL (0-900) 06/02/18 19:09 Total Protein 5.4 g/dL (6.3-8.2) L 06/14/18 05:29 Albumin 3.2 g/dL (3.9-5) L 06/14/18 05:29 Albumin/Globulin Ratio 1.5 % 06/14/18 05:29 TSH 1.950 mlU/mL (0.270-4.200) 06/06/18 10:57 Free T4 1.40 ng/dL (0.76-1.46) 06/06/18 10:57 Urine Color Straw (Yellow) 06/22/18 18:00 Urine Turbidity Clear (Clear) 06/22/18 18:00 Urine pH 7.0 (5.0-7.0) 06/22/18 18:00 Ur Specific [place] 1.005 (1.003-1.030) 06/22/18 18:00 Urine Protein <15 mg/dl mg/dL (Negative) 06/22/18 18:00 Urine Glucose (UA) Negative mg/dL (Negative) 06/22/18 18:00 Urine Ketones Negative mg/dL (Negative) 06/22/18 18:00 Urine Blood Negative (Negative) 06/22/18 18:00 Urine Nitrite Positive (Negative) 06/22/18 18:00 Ur Reducing Substances Not Reportable 06/22/18 18:00 Urine Bilirubin Negative (Negative) 06/22/18 18:00 Urine Ictotest Not Reportable 06/22/18 18:00 Urine Urobilinogen < 2.0 mg/dL (<2.0) 06/22/18 18:00 Ur Leukocyte Esterase Moderate (Negative) 06/22/18 18:00 Urine WBC (Auto) 23.0 /HPF (0.0-6.0) H 06/22/18 18:00 Urine RBC (Auto) < 1.0 /HPF (0.0-6.0) 06/22/18 18:00 U Epithel Cells (Auto) 1.0 /HPF (0-13.0) 06/22/18 18:00 Urine Opiates Screen Presumptive negative 06/02/18 10:43 Urine Methadone Screen Presumptive negative 06/02/18 10:43 Ur Barbiturates Screen Presumptive negative 06/02/18 10:43 Ur Phencyclidine Scrn Presumptive negative 06/02/18 10:43 Ur Amphetamines Screen Presumptive negative 06/02/18 10:43 U Benzodiazepines Scrn Presumptive negative 06/02/18 10:43 [place] 0.1 mmol/L (0.0-1.2) 06/02/18 19:09 Urine Cocaine Screen Presumptive negative 06/02/18 10:43 U Marijuana (THC) Screen Presumptive negative 06/02/18 10:43 Drugs of Abuse Note Disclamer 06/02/18 10:43 Plasma/Serum Alcohol < 0.01 % (0-0.07) 06/02/18 09:57
--- NOTE | 2018-06-29 09:43 | Progress Note ---
Assessment and Plan Assessment: 1) Sepsis: resolved. Etiology most likely UTI. CXR neg. Doubt meningitis. 2) Schizophrenia: better 3) Hypernatremia: resolved 4) UTI: Urine cx 06/23 grew 10-100K Lactobacillus. Plan: -follow-up blood cultures, urine culture -continue augmentin total 7 days until 07/04 I am signing off Thank you for your consultation, will follow up with you. Bernadette Urban MD Infectious Diseases Specialist [facility] ([facility]) M [phone] O [phone] Subjective Date of service: 06/29/18 Principal diagnosis: bipolar d/o with Schizophrenia Interval history: Feels better, more calm down, no fever since 06/25 Microbiology: Blood cultures: 06/02 neg 06/22 neg Urine cultures: 06/23 Lactobacillus Current Antimicrobials: augmentin 06/27 Previous Antimicrobials: Levaquin 06/27 Objective - Exam Narrative Exam: General appearance: Alert in NAD, conversant pleasant Eyes: anicteric sclerae, moist conjunctivae; no lid-lag; PERRLA HENT: Atraumatic; oropharynx clear ; normal hard and soft palate. Normal external ears. Neck: Trachea midline; supple, no thyromegaly or lymphadenopathy Lungs: CTA CV: RRR, Abdomen: Soft, non-tender; no masses or hepatosplenomegaly Extremities: No peripheral edema or extremity lymphadenopathy Skin: Normal temperature, turgor and texture; no rash, ulcers or subcutaneous nodules Psych: Appropriate affect, alert and oriented to person, place and time. Neuro: alert and oriented x 3. Moving all extermities Lines: No CVL / PICC - Constitutional Vitals: Vital Signs Temp Pulse Resp BP Pulse Ox 98.0 F 107 H 18 87/59 94 06/29/18 05:19 06/29/18 05:19 06/29/18 05:19 06/29/18 05:19 06/29/18 05:19 Temperature -Last 24 Hours Temperature 98.0 F Temperature 98.8 F Temperature 97.6 F Temperature 98.3 F - Labs CBC & Chem 7: 06/26/18 05:37 06/27/18 05:22
[2018-06-29] MEDS: BUSPAR PO SCH ×2 (10:06→21:08)
[2018-06-29] MEDS: SODIUM CHLORIDE FLUSH SYRINGE 10 ML IV SCH ×2 (10:07→21:08)
[2018-06-29] MEDS ORDERED: NACL 0.9% 500 ML 1,000 ML IV ONE (10:34)
[2018-06-29] MEDS ORDERED: NACL 0.9% 1000 ML 1,000 ML IV ONE (11:00)
[2018-06-29] MEDS: AUGMENTIN 875 MG PO SCH ×2 (11:33→21:08)
--- NOTE | 2018-06-29 12:52 | Physician Progress Note ---
SUBJECTIVE: The patient continues to have problems with restlessness, delirium, confusion and agitation. See if you could talk to her, but then she would just shout suddenly, the words have no meaning. Still we have not gotten any information about her. OBJECTIVE: The patient is very psychotic. However, you can talk to her and then she would talk to you, but in a meaningless way. She does not follow commands. She moves both upper and lower extremities. ASSESSMENT: Severe encephalopathy, but I believe she has a basic psychiatric disorder. PLAN: I think we should calm her down with antipsychotics. We will leave it to the psychiatrist. Once this is done, we can have an MRI of the brain and also an EEG. JOB# [id number] APRIL/NEYDA
--- NOTE | 2018-06-29 13:54 | Progress Note ---
Subjective - Reason for Consult Consult date: 06/29/18 Reason for consult: Psychiatric Follow-up Evaluation - Chief Complaint Chief complaint: "I feel awful" Patient is a 58-year-old female who presented to the ER for aggressive and threatening behavior towards family members. The patient was brought to the ER by her daughter. Today the patient is disorganized during the assessment. She continues to answer questions inappropriately. Seen talking and laughing to self. Two staff members are at bedside. Per staff patient has been yelling/ screaming throughout the day. Also, patient is easily irritated/agitated. Patient has received PRN today for agitation. No gestures of SI/HI's. No indications of side effects of her medications. Mental Status Exam - Vital signs Last Vital Signs Temp 97.9 F 06/29/18 11:19 Pulse 106 H 06/29/18 11:19 Resp 16 06/29/18 11:19 BP 94/70 06/29/18 11:19 Pulse Ox 96 06/29/18 11:19 - Exam Narrative exam: Mental Status Exam General Appearance: Causally Dressed-hospital gown, ADL's are being completed with assistance from staff Eye Contact: Poor Orientation: Alert. Unable to assess orientation. Attitude/Behavior: Uncooperative Sensorium: Distracted Psychomotor & Musculoskeletal Activity: Laying in bed Mood: " I feel awful." Labile, anxious, agitated Affect: Incongruent Speech/Language: Loud Thought Processes: Disorganized Thought Content: Impoverished Perception: + Auditory hallucinations, responding to internal stimuli (laughing/ talking inapp.) Concentration/Attention: Impaired Suicidal Ideations/Plan: Patient denies. Homicidal Ideations/Plan: Patient denies. Judgment: Poor Insight: Poor Assessment and Plan Impression: Hx of Schizophrenia per the record. Today the patient is anxious and disorganized during the assessment. NA 142 and Cr 1.0 06/27/2018. The patient is in a waist restraint. QTc WNL 06/27/2018. The patient could be experiencing perceptional disturbances. Medical: Sinus Tachycardia due to UTI per the hospitalist DDx: R/O Bipolar DO with psychosis Recommendation/Plan: 1. Continue 1013 with placement to inpatient psy services once medically clear. 2. Continue Haldol 5 mg IM Q6hrs for acute agitation and Buspar 7.5 mg PO BID for anxiety. 3. Increase Zyprexa 15 mg PO HS for schizophrenia. Attempted to discuss possible metabolic side effects of Zyprexa with patient. Recommend DVT prophylaxis. D/C waist restraint when not indicated. 4. Will continue to monitor mood, psychosis, sleep, appetite, compliance, and side effects.
[2018-06-29] MEDS: DESYREL PO SCH (21:08)
[2018-06-29] MEDS: HALDOL IM PRN (23:45)
[2018-06-30] MEDS: HEPARIN SUB-Q SCH ×3 (00:33→21:27)
--- NOTE | 2018-06-30 00:46 | Physician Progress Note ---
NEUROLOGY PROGRESS REPORT SUBJECTIVE: The patient is slightly better. She is not as restless and she continued to have periodic episode of delirium and sometimes she would be shouting. Therefore, we still do not know how progression is going to be. She is currently being given medication by the nurse practitioner of the psychiatrist. OBJECTIVE: VITAL SIGNS: Stable. NEUROLOGIC: She is still very psychotic, but right now she seems to be quiet. She could be talked to, but she started doing much. According to the sitter, she still becomes restless. ASSESSMENT: The patient has a significant psychiatric disorder with delirium, confusion and encephalopathic picture also. PLAN: At this time, she is being controlled with antipsychotics. I believe this should be increased, but I will leave this to the psychiatrist. Once this is done, then we can have an MRI and also an EEG. Therefore, we have the waiting game at this time. JOB# [id number] APRIL/NEYDA
[2018-06-30] MEDS: HALDOL IM PRN ×3 (05:34→18:30)
[2018-06-30 06:09] LABS: Hemoglobin 11.8 gm/dl (10.1-14.3); Mean Corpuscular HGB Conc 34 % (30-34); Mean Corpuscular Hemoglobin 31 pg (28-32); Mean Corpuscular Volume 93 fl (79-97); Platelet Count 188 K/mm3 (140-440); Red Blood Count 3.79 M/mm3 (3.65-5.03); Red Cell Distribution Width 15.8 % (13.2-15.2)
[2018-06-30 06:42] LABS: BUN/Creatinine Ratio 14; Blood Urea Nitrogen 13 mg/dL (7-17); Calcium 9.2 mg/dL (8.4-10.2); Hemolysis Index 0
[2018-06-30] MEDS: BUSPAR PO SCH ×2 (09:51→21:25)
[2018-06-30] MEDS: AUGMENTIN 875 MG PO SCH ×2 (09:51→21:26)
[2018-06-30] MEDS: NORCO 5/325 PO PRN ×2 (09:52→20:33)
[2018-06-30] MEDS: SODIUM CHLORIDE FLUSH SYRINGE 10 ML IV SCH ×2 (09:57→22:16)
--- NOTE | 2018-06-30 12:37 | Progress Note ---
Subjective - Reason for Consult Consult date: 06/30/18 Reason for consult: Psychiatry Follow-up - Chief Complaint Chief complaint: "I feel awful" Patient is a 58-year-old female who presented to the ER for aggressive and threatening behavior towards family members. The patient was brought to the ER by her daughter. Today the patient is still disorganized during the assessment. She isn't lucid and continues to answer questions inappropriately.No gestures of SI/HI's. No indications of side effects of her medications. Mental Status Exam - Vital signs Last Vital Signs Temp 97.8 F 06/30/18 12:19 Pulse 98 H 06/30/18 12:19 Resp 20 06/30/18 12:19 BP 121/79 06/30/18 12:19 Pulse Ox 99 06/30/18 12:19 - Exam Narrative exam: MSE: Appearance: wearing a hospital gown Behavior: regular eye contact Speech: regular rate and tone Mood: agitated Affect: congruent to mood Thought Process: disorganized Thought Content: no gestures of SI/HI's Motor Activity: frigidity Cognition: alert Insight: poor Judgment: poor Assessment and Plan Impression: Hx of Schizophrenia per the record. Today the patient is disorganized during the assessment. The patient is in a waist restraint. QTc WNL 06/27/2018. Neuro has been consulted. Medical: Sinus Tachycardia due to UTI per the hospitalist DDx: R/O Bipolar DO with psychosis Recommendation/Plan: Continue 1013 with placement to inpatient psy services once medically clear. Continue Haldol 5 mg IM Q6hrs for acute agitatiion and Zyprexa 10 mg PO HS for schizophrenia. Continue Buspar 7.5 mg PO BID for anxiety. Attempted to discuss possible metabolic side effects of Zyprexa with patient. Recommend DVT prophylaxis. D/C waist restraint when not indicated. Called the patient's daughter was called, but had to leave a voicemail.
--- NOTE | 2018-06-30 14:16 | Progress Note ---
Assessment and Plan Assessment and Plan Assessment and plan: Patient is a 58 yo woman with a history of Schizophrenia who pw agitation and violent outburst, and was admitted for ARF. She initially came to [facility] ED on for violence toward family members, she stayed in the ED until they took labwork on 06/12/2018 and found that her sodium level was 151 and cr 1.3, BUN was 22, BG was 161. So, ED physician asked Hospitalist to admitted patient. She has been tachycardiac since admission. Her TSH is elevated, normal free T4. She continue to demonstate Echolalia and aggression. Her medical condition such as tachycardia, hypernatremia is main due to her psychosis with agitation and not drinking water. She really needing inpatient psych, her heart rate is mainly due to her agitation and violence. She uses the word "motherfucker" all the time. She hits, spits, kicks and fights staff. She has taken out her IV line. She is in restraints. Since, Psych team has not documented a visit since 06/24/18 , I will increase her Zyprexa to 10mg qhs. -Acute renal failure vasomotor nephropathy, resolved -Hypernatremia, mild, at 148, encourage water consumption+ IV D5W -Acute encephalopathy with arf, resolved -Acute psychosis: Acute psychosis secondary to schizophrenia once patient is medically clear for discharge to inpatient psychiatric facility. -Schizophrenia in 1013; Patient would need inpatient psych. Awaiting case management options. -Sinus Tachycardia due to agitation -UTI -resolved Subjective Date of service: 06/30/18 Principal diagnosis: bipolar d/o with Schizophrenia Interval history: Doing well Disorganized Objective - Constitutional Vitals: Vital Signs - 12hr 06/30/18 06/30/18 04:01 12:19 Temperature 98.8 F 97.8 F Pulse Rate 94 H 98 H Respiratory 18 20 Rate Blood Pressure 107/65 121/79 O2 Sat by Pulse 95 99 Oximetry General appearance: Present: no acute distress, well-nourished - EENT Eyes: PERRL, EOM intact ENT: hearing intact, clear oral mucosa Ears: bilateral: normal - Neck Neck: supple, normal ROM - Respiratory Respiratory effort: normal Respiratory: bilateral: CTA - Breasts Breasts: normal - Cardiovascular Rhythm: regular Heart Sounds: Present: S1 & S2. Absent: gallop, rub Extremities: pulses intact, No edema, normal color, Full ROM - Gastrointestinal General gastrointestinal: Present: soft, non-tender, non-distended, normal bowel sounds - Genitourinary Female genitourinary: normal - Integumentary Integumentary: clear, warm, dry - Musculoskeletal Musculoskeletal: 1, strength equal bilaterally - Neurologic Neurologic: moves all extremities - Psychiatric Psychiatric: memory intact, appropriate mood/affect, intact judgment & insight - Labs CBC & Chem 7: 07/01/18 05:58 07/01/18 05:58 Labs: Abnormal lab results 06/30/18 06/30/18 Range/Units 05:13 05:13 RDW 15.8 H (13.2-15.2) % Sodium 148 H (137-145) mmol/L Potassium 3.5 L (3.6-5.0) mmol/L Chloride 109.1 H (98-107) mmol/L
[2018-06-30] MEDS: D5W 1,000 ML IV SCH (18:00)
[2018-06-30] MEDS: DESYREL PO SCH (21:26)
[2018-07-01] MEDS ORDERED: ATIVAN IV ONE (01:50)
[2018-07-01] MEDS: D5W 1,000 ML IV SCH (06:37)
[2018-07-01 06:42] LABS: Basophils % (Auto) 0.6 % (0.0-1.8); Eosinophils # (Auto) 0.2 K/mm3 (0.0-0.4); Eosinophils % (Auto) 3.9 % (0.0-4.3); Hematocrit 33.5 % (30.3-42.9); Hemoglobin 11.5 gm/dl (10.1-14.3); Lymphocytes # (Auto) 1.1 K/mm3 (1.2-5.4); Lymphocytes % (Auto) 18.9 % (13.4-35.0); Mean Corpuscular HGB Conc 34 % (30-34); Mean Corpuscular Hemoglobin 32 pg (28-32); Mean Corpuscular Volume 92 fl (79-97); Monocytes # (Auto) 0.3 K/mm3 (0.0-0.8); Platelet Count 183 K/mm3 (140-440); Red Blood Count 3.65 M/mm3 (3.65-5.03); Red Cell Distribution Width 15.9 % (13.2-15.2)
[2018-07-01 07:05] LABS: Alanine Aminotransferase 45 units/L (7-56); Albumin 3.4 g/dL (3.9-5); BUN/Creatinine Ratio 14; Blood Urea Nitrogen 11 mg/dL (7-17); Calcium 8.7 mg/dL (8.4-10.2); Hemolysis Index 3
--- NOTE | 2018-07-01 08:04 | Physician Progress Note ---
NEUROLOGICAL PROGRESS NOTE SUBJECTIVE: The patient's main problem is behavioral aggressiveness, restlessness, and delirium. She is being seen by psychiatrist because of possible schizophrenia. This patient has not gotten any better. She has been given Haldol 5 mg IM every 6 hours, Zyprexa 10 mg at bedtime, and BuSpar 7.5 mg b.i.d. for anxiety. This had not controlled the patient's behavior. She continued to shout. The neurologic role here is to eliminate the possibility of organic disease to cause this patient's problem. However, test cannot be done on the basis of the patient's psychiatric condition and symptoms. She is uncooperative and therefore cannot do MRI or even a recent EEG. OBJECTIVE: She is better now, I was able to approach her and do an examination, although limited. She is not talking. She keeps in shouting. She would say nonsense. I spoke with her in Pashto, but her responses were inappropriate. She moves both upper and lower extremities. Physically, she did not look acutely ill. ASSESSMENT: I believe this patient has a primary psychiatric disease. So far, no definite evidence of organic cause. The patient is encephalopathic. PLAN: At this time, the medicine of the psychiatrist is not controlling the patient's problem. I suggested changing the medication, for example giving Haldol on a maintenance every 8 to every 6 hours around the clock dose or maybe try the patient on increasing dose of Seroquel or quetiapine. Maybe discontinue the Zyprexa. Try one medication first. Hopefully, this will help the patient and we can do the MRI and also a sleep EEG. So far, the other metabolic laboratory test is not remarkable. Again, psychiatrist close followup is suggested. JOB# [id number] APRIL/NEYDA
[2018-07-01] MEDS: AUGMENTIN 875 MG PO SCH ×2 (09:58→21:50)
[2018-07-01] MEDS: HEPARIN SUB-Q SCH ×2 (09:58→21:38)
[2018-07-01] MEDS: BUSPAR PO SCH (09:58)
[2018-07-01] MEDS: HALDOL IM PRN (09:59)
[2018-07-01] MEDS: SODIUM CHLORIDE FLUSH SYRINGE 10 ML IV SCH ×2 (10:08→21:38)
--- NOTE | 2018-07-01 14:40 | Progress Note ---
Assessment and Plan Assessment and Plan 1)Acute renal failure vasomotor nephropathy, resolved 2)Hypernatremia--Resolved 3)Acute encephalopathy with arf, resolved 4)Acute psychosis: Acute psychosis secondary to schizophrenia patient is medically cleared for discharge to inpatient psychiatric facility. 5)Schizophrenia in 3; Patient would need inpatient psych. Awaiting case management options. 6)Sinus Tachycardia due to agitation 7)UTI -resolved Ready for discharge to Inpatient /Home if cleared by Psych Subjective Date of service: 07/01/18 Principal diagnosis: bipolar d/o with Schizophrenia Interval history: Doing well Disorganized Objective - Constitutional Vitals: Vital Signs - 12hr 07/01/18 07/01/18 05:57 12:47 Temperature 98.4 F 97.7 F Pulse Rate 92 H 100 H Respiratory 19 20 Rate Blood Pressure 100/69 128/80 O2 Sat by Pulse 99 97 Oximetry General appearance: Present: no acute distress, well-nourished - EENT Eyes: PERRL, EOM intact ENT: hearing intact, clear oral mucosa Ears: bilateral: normal - Neck Neck: supple, normal ROM - Respiratory Respiratory effort: normal Respiratory: bilateral: CTA - Breasts Breasts: normal - Cardiovascular Rhythm: regular Heart Sounds: Present: S1 & S2. Absent: gallop, rub Extremities: pulses intact, No edema, normal color, Full ROM - Gastrointestinal General gastrointestinal: Present: soft, non-tender, non-distended, normal bowel sounds - Genitourinary Female genitourinary: normal - Integumentary Integumentary: clear, warm, dry - Musculoskeletal Musculoskeletal: 1, strength equal bilaterally - Neurologic Neurologic: moves all extremities - Psychiatric Psychiatric: memory intact, appropriate mood/affect, intact judgment & insight - Labs CBC & Chem 7: 07/01/18 05:58 07/01/18 05:58 Labs: Abnormal lab results 07/01/18 07/01/18 Range/Units 05:58 05:58 RDW 15.9 H (13.2-15.2) % Lymph # 1.1 L (1.2-5.4) K/mm3 Seg Neutrophils % 70.6 H (40.0-70.0) % Potassium 3.3 L (3.6-5.0) mmol/L Chloride 107.8 H (98-107) mmol/L Glucose 119 H (65-100) mg/dL Total Protein 5.3 L (6.3-8.2) g/dL Albumin 3.4 L (3.9-5) g/dL
[2018-07-01] MEDS ORDERED: K-DUR PO ONE (15:18)
--- NOTE | 2018-07-01 15:50 | Progress Note ---
Subjective - Reason for Consult Consult date: 07/01/18 Reason for consult: Psychiatry Follow-up - Chief Complaint Chief complaint: "Milena" Patient is a 58-year-old female who presented to the ER for aggressive and threatening behavior towards family members. The patient was brought to the ER by her daughter. Today the patient is still disorganized during the assessment. Per the staff, the patient isn't sleeping at night. Also, she continue to be agitated throughout the day. No gestures of SI/HI's. No indications of side effects of her medications. Mental Status Exam - Vital signs Last Vital Signs Temp 97.7 F 07/01/18 12:47 Pulse 100 H 07/01/18 12:47 Resp 20 07/01/18 12:47 BP 128/80 07/01/18 12:47 Pulse Ox 97 07/01/18 12:47 - Exam Narrative exam: MSE: Appearance: wearing a hospital gown Behavior: regular eye contact Speech: regular rate and tone Mood: "okay" Affect: congruent to mood Thought Process: disorganized Thought Content: no gestures of SI/HI's Motor Activity: the patient is in a waist restraint Cognition: alert Insight: poor Judgment: poor Assessment and Plan Impression: Hx of Schizophrenia per the record. Today the patient is still disorganized during the assessment. The patient is in a waist restraint. DDx: R/O Bipolar DO with psychosis Recommendation/Plan: Continue 1013 with placement to inpatient psy services. Continue Haldol 5 mg IM Q6hrs for acute agitatiion and Zyprexa 15 mg PO HS for schizophrenia. Start Klonopin 0.5 mg PO BID for sleep/anxiety. Attempted to discuss possible metabolic side effects of Zyprexa with patient. Recommend DVT prophylaxis. D/C waist restraint when not indicated.
--- NOTE | 2018-07-01 21:48 | Physician Progress Note ---
SUBJECTIVE: The patient is being followed because of psychiatric symptoms that may suggest an organicity. However, from the history, she probably had this for some time. She has behavioral aggressiveness, possibly schizophrenia. This is difficult to control; however, the patient is starting to get better and she is more quiet. She seems to be cooperative. OBJECTIVE EXAMINATION: VITAL SIGNS: Stable. She is awake, alert. She is talking better. I spoke with her in [place]. Responses were appropriate at this time better than before. She moves both sides. ASSESSMENT: I still believe this patient has a primary psychiatric disorder; however, organic causes to be ruled out. There is suggestion of encephalopathy. Since the patient is better, I believe we can proceed in doing MRI of the brain without contrast and MRA and also a sleep EEG. I will be not following the patient since my locum's tenens is finished. The next neurologist will continue to follow. Hospitalist please note. JOB# [id number] APRIL/NEYDA
[2018-07-02] MEDS: ATIVAN IV PRN ×2 (01:14→14:51)
[2018-07-02] MEDS: D5W 1,000 ML IV SCH ×2 (01:15→14:51)
[2018-07-02 06:23] LABS: Basophils % (Auto) 0.9 % (0.0-1.8); Eosinophils # (Auto) 0.3 K/mm3 (0.0-0.4); Eosinophils % (Auto) 6.8 % (0.0-4.3); Hematocrit 35.5 % (30.3-42.9); Hemoglobin 12.3 gm/dl (10.1-14.3); Lymphocytes # (Auto) 1.1 K/mm3 (1.2-5.4); Lymphocytes % (Auto) 26.2 % (13.4-35.0); Mean Corpuscular HGB Conc 35 % (30-34); Mean Corpuscular Hemoglobin 32 pg (28-32); Mean Corpuscular Volume 92 fl (79-97); Monocytes # (Auto) 0.3 K/mm3 (0.0-0.8); Monocytes % (Auto) 7.5 % (0.0-7.3); Platelet Count 187 K/mm3 (140-440); Red Blood Count 3.87 M/mm3 (3.65-5.03); Red Cell Distribution Width 15.9 % (13.2-15.2)
[2018-07-02 06:43] LABS: Alanine Aminotransferase 44 units/L (7-56); Albumin 3.6 g/dL (3.9-5); BUN/Creatinine Ratio 10; Blood Urea Nitrogen 8 mg/dL (7-17); Calcium 9.1 mg/dL (8.4-10.2); Hemolysis Index 8
[2018-07-02] MEDS: SODIUM CHLORIDE FLUSH SYRINGE 10 ML IV SCH ×2 (09:31→22:13)
[2018-07-02] MEDS: HEPARIN SUB-Q SCH ×2 (09:31→21:32)
[2018-07-02] MEDS: AUGMENTIN 875 MG PO SCH ×2 (09:37→21:31)
[2018-07-02] MEDS: HALDOL IM PRN (12:18)
--- NOTE | 2018-07-02 14:49 | Progress Note ---
Assessment and Plan Assessment and plan: 1)Acute renal failure vasomotor nephropathy, resolved 2)Hypernatremia--Resolved 3)Acute encephalopathy with arf, resolved 4)Acute psychosis: Acute psychosis secondary to schizophrenia patient is medically cleared for discharge to inpatient psychiatric facility. 5)Schizophrenia in 1012; Patient would need inpatient psych. Awaiting case management options. 6)Sinus Tachycardia due to agitation 7)UTI -resolved Ready for discharge to Inpatient /Home if cleared by Psych History Interval history: no new issues Hospitalist Physical - Constitutional Vitals: Temp Pulse Resp BP Pulse Ox 98.3 F 106 H 20 137/80 97 07/02/18 11:44 07/02/18 11:44 07/02/18 11:44 07/02/18 11:44 07/02/18 11:44 General appearance: Present: no acute distress, well-nourished - EENT Eyes: Present: PERRL, EOM intact ENT: hearing intact, clear oral mucosa, dentition normal - Neck Neck: Present: supple, normal ROM - Respiratory Respiratory effort: normal Respiratory: bilateral: CTA - Cardiovascular Rhythm: regular Heart Sounds: Present: S1 & S2. Absent: gallop, rub - Extremities Extremities: no ischemia, No edema, Full ROM - Abdominal General gastrointestinal: soft, non-tender, non-distended, normal bowel sounds - Integumentary Integumentary: Present: clear, warm, dry - Neurologic Neurologic: CNII-XII intact, moves all extremities Results - Labs CBC & Chem 7: 07/02/18 05:49 07/02/18 05:49 Labs: Laboratory Last Values WBC 4.1 K/mm3 (4.5-11.0) L 07/02/18 05:49 RBC 3.87 M/mm3 (3.65-5.03) 07/02/18 05:49 Hgb 12.3 gm/dl (10.1-14.3) 07/02/18 05:49 Hct 35.5 % (30.3-42.9) 07/02/18 05:49 MCV 92 fl (79-97) 07/02/18 05:49 MCH 32 pg (28-32) 07/02/18 05:49 MCHC 35 % (30-34) H 07/02/18 05:49 RDW 15.9 % (13.2-15.2) H 07/02/18 05:49 Plt Count 187 K/mm3 (140-440) 07/02/18 05:49 Lymph % (Auto) 26.2 % (13.4-35.0) 07/02/18 05:49 [place] % (Auto) 7.5 % (0.0-7.3) H 07/02/18 05:49 Eos % (Auto) 6.8 % (0.0-4.3) H 07/02/18 05:49 Baso % (Auto) 0.9 % (0.0-1.8) 07/02/18 05:49 Lymph # 1.1 K/mm3 (1.2-5.4) L 07/02/18 05:49 [place] # 0.3 K/mm3 (0.0-0.8) 07/02/18 05:49 Eos # 0.3 K/mm3 (0.0-0.4) 07/02/18 05:49 Baso # 0.0 K/mm3 (0.0-0.1) 07/02/18 05:49 Seg Neutrophils % 58.6 % (40.0-70.0) 07/02/18 05:49 Seg Neutrophils # 2.4 K/mm3 (1.8-7.7) 07/02/18 05:49 PT 10.6 Sec. (12.2-14.9) L 06/02/18 19:09 INR 0.73 (0.87-1.13) L 06/02/18 19:09 APTT 23.5 Sec. (24.2-36.6) L 06/02/18 19:09 Sodium 143 mmol/L (137-145) 07/02/18 05:49 Potassium 3.8 mmol/L (3.6-5.0) 07/02/18 05:49 Chloride 105.1 mmol/L (98-107) 07/02/18 05:49 Carbon Dioxide 27 mmol/L (22-30) 07/02/18 05:49 Anion Gap 15 mmol/L 07/02/18 05:49 BUN 8 mg/dL (7-17) 07/02/18 05:49 Creatinine 0.8 mg/dL (0.7-1.2) 07/02/18 05:49 Estimated GFR > 60 ml/min 07/02/18 05:49 BUN/Creatinine Ratio 10 % 07/02/18 05:49 Glucose 101 mg/dL (65-100) H 07/02/18 05:49 POC Glucose 175 (70-105) H 06/12/18 13:14 Lactic Acid 2.00 mmol/L (0.7-2.0) 06/02/18 19:09 Calcium 9.1 mg/dL (8.4-10.2) 07/02/18 05:49 Phosphorus 2.90 mg/dL (2.5-4.5) 06/17/18 06:00 Magnesium 2.00 mg/dL (1.7-2.3) 06/15/18 06:11 Total Bilirubin 0.40 mg/dL (0.1-1.2) 07/02/18 05:49 Direct Bilirubin 0.2 mg/dL (0-0.2) 06/14/18 05:29 Indirect Bilirubin 0.5 mg/dL 06/14/18 05:29 AST 24 units/L (5-40) 07/02/18 05:49 ALT 44 units/L (7-56) 07/02/18 05:49 Alkaline Phosphatase 90 units/L (35-129) 07/02/18 05:49 Ammonia 23.0 umol/L (25-60) L 06/27/18 20:55 Total Creatine Kinase 112 units/L (30-135) 06/21/18 13:12 Troponin T < 0.010 ng/mL (0.00-0.029) 06/22/18 21:31 NT-Pro-B Natriuret Pep 60.88 pg/mL (0-900) 06/02/18 19:09 Total Protein 5.4 g/dL (6.3-8.2) L 07/02/18 05:49 Albumin 3.6 g/dL (3.9-5) L 07/02/18 05:49 Albumin/Globulin Ratio 2.0 % 07/02/18 05:49 TSH 1.950 mlU/mL (0.270-4.200) 06/06/18 10:57 Free T4 1.40 ng/dL (0.76-1.46) 06/06/18 10:57 Urine Color Straw (Yellow) 06/22/18 18:00 Urine Turbidity Clear (Clear) 06/22/18 18:00 Urine pH 7.0 (5.0-7.0) 06/22/18 18:00 Ur Specific [place] 1.005 (1.003-1.030) 06/22/18 18:00 Urine Protein <15 mg/dl mg/dL (Negative) 06/22/18 18:00 Urine Glucose (UA) Negative mg/dL (Negative) 06/22/18 18:00 Urine Ketones Negative mg/dL (Negative) 06/22/18 18:00 Urine Blood Negative (Negative) 06/22/18 18:00 Urine Nitrite Positive (Negative) 06/22/18 18:00 Ur Reducing Substances Not Reportable 06/22/18 18:00 Urine Bilirubin Negative (Negative) 06/22/18 18:00 Urine Ictotest Not Reportable 06/22/18 18:00 Urine Urobilinogen < 2.0 mg/dL (<2.0) 06/22/18 18:00 Ur Leukocyte Esterase Moderate (Negative) 06/22/18 18:00 Urine WBC (Auto) 23.0 /HPF (0.0-6.0) H 06/22/18 18:00 Urine RBC (Auto) < 1.0 /HPF (0.0-6.0) 06/22/18 18:00 U Epithel Cells (Auto) 1.0 /HPF (0-13.0) 06/22/18 18:00 Urine Opiates Screen Presumptive negative 06/02/18 10:43 Urine Methadone Screen Presumptive negative 06/02/18 10:43 Ur Barbiturates Screen Presumptive negative 06/02/18 10:43 Ur Phencyclidine Scrn Presumptive negative 06/02/18 10:43 Ur Amphetamines Screen Presumptive negative 06/02/18 10:43 U Benzodiazepines Scrn Presumptive negative 06/02/18 10:43 [place] 0.1 mmol/L (0.0-1.2) 06/02/18 19:09 Urine Cocaine Screen Presumptive negative 06/02/18 10:43 U Marijuana (THC) Screen Presumptive negative 06/02/18 10:43 Drugs of Abuse Note Disclamer 06/02/18 10:43 Plasma/Serum Alcohol < 0.01 % (0-0.07) 06/02/18 09:57
--- NOTE | 2018-07-02 16:17 | Progress Note ---
Subjective - Reason for Consult Consult date: 07/02/18 Reason for consult: Psychiatric Follow-up Evaluation - Chief Complaint Chief complaint: "Give me my fucking " Patient is a 58-year-old female who presented to the ER for aggressive and threatening behavior towards family members. The patient was brought to the ER by her daughter. Today the patient is still disorganized during the assessment. Upon arrival, patient can be heard yelling and screaming down the hallway. Patient is verbally aggressive. For example, she states " You all keep asking me the same motherfucking questions. Go fuck your mother. I struck a deal with [employer]." Per the staff, the patient continues to not sleep at night and to be agitated throughout the day. No gestures of SI/HI's. No indications of side effects of her medications. Mental Status Exam - Vital signs Last Vital Signs Temp 98.3 F 07/02/18 11:44 Pulse 106 H 07/02/18 11:44 Resp 20 07/02/18 11:44 BP 137/80 07/02/18 11:44 Pulse Ox 97 07/02/18 11:44 - Exam Narrative exam: Mental Status Exam General Appearance: Causally Dressed-hospital gown, dishelved, in restraints Eye Contact: Poor Orientation: Alert and oriented to person. Unable to assess orientation. Attitude/Behavior: Uncooperative, agitated Sensorium: Distracted Psychomotor & Musculoskeletal Activity: Laying in bed Mood: "Awful." Labile, anxious, agitated Affect: Incongruent Speech/Language: Loud Thought Processes: Disorganized Thought Content: Impoverished Perception: + Auditory hallucinations, responding to internal stimuli (laughing/ talking inapp.) Concentration/Attention: Impaired Suicidal Ideations/Plan: Patient denies. Homicidal Ideations/Plan: Patient denies. Judgment: Poor Insight: Poor Assessment and Plan Impression: Hx of Schizophrenia per the record. Today the patient is still disorganized and agitated during the assessment. The patient has bilateral wrist restraints. DDx: R/O Bipolar DO with psychosis Recommendation/Plan: 1. Continue 1013 with placement to inpatient psychiatric services. 2. Continue Haldol 5 mg IM Q6hrs for acute agitatiion and Zyprexa 15 mg PO HS for schizophrenia. Continue Klonopin 0.5 mg PO BID for sleep/anxiety. Attempted to discuss possible metabolic side effects of Zyprexa with patient. Recommend DVT prophylaxis. D/C waist restraint when not indicated. 3. Will continue to monitor mood, psychosis, agitation, sleep, appetite, compliance, and side effects.
[2018-07-02] MEDS: NORCO 5/325 PO PRN (21:32)
[2018-07-03] MEDS: D5W 1,000 ML IV SCH (00:46)
[2018-07-03] MEDS: AUGMENTIN 875 MG PO SCH ×2 (12:51→21:29)
[2018-07-03] MEDS: HEPARIN SUB-Q SCH ×2 (12:52→21:30)
[2018-07-03] MEDS: SODIUM CHLORIDE FLUSH SYRINGE 10 ML IV SCH ×2 (12:53→21:32)
--- NOTE | 2018-07-03 13:17 | Progress Note ---
Assessment and Plan Assessment and plan: 1)Acute renal failure vasomotor nephropathy, resolved 2)Hypernatremia--Resolved 3)Acute encephalopathy with arf, resolved 4)Acute psychosis: Acute psychosis secondary to schizophrenia patient is medically cleared for discharge to inpatient psychiatric facility. 5)Schizophrenia in 1012; Patient would need inpatient psych. Awaiting case management options. 6)Sinus Tachycardia due to agitation 7)UTI -resolved Ready for discharge to Inpatient /Home if cleared by Psych History Interval history: no new issues Hospitalist Physical - Constitutional Vitals: Temp Pulse Resp BP Pulse Ox 99.0 F 109 H 20 111/69 95 07/03/18 05:17 07/03/18 00:03 07/03/18 05:17 07/03/18 05:17 07/03/18 00:03 General appearance: Present: no acute distress, well-nourished - EENT Eyes: Present: PERRL, EOM intact ENT: hearing intact, clear oral mucosa, dentition normal - Neck Neck: Present: supple, normal ROM - Respiratory Respiratory effort: normal Respiratory: bilateral: CTA - Cardiovascular Rhythm: regular Heart Sounds: Present: S1 & S2. Absent: gallop, rub - Extremities Extremities: no ischemia, No edema, Full ROM - Abdominal General gastrointestinal: soft, non-tender, non-distended, normal bowel sounds - Integumentary Integumentary: Present: clear, warm, dry - Neurologic Neurologic: CNII-XII intact, moves all extremities Results - Labs CBC & Chem 7: 07/02/18 05:49 07/02/18 05:49 Labs: Laboratory Last Values WBC 4.1 K/mm3 (4.5-11.0) L 07/02/18 05:49 RBC 3.87 M/mm3 (3.65-5.03) 07/02/18 05:49 Hgb 12.3 gm/dl (10.1-14.3) 07/02/18 05:49 Hct 35.5 % (30.3-42.9) 07/02/18 05:49 MCV 92 fl (79-97) 07/02/18 05:49 MCH 32 pg (28-32) 07/02/18 05:49 MCHC 35 % (30-34) H 07/02/18 05:49 RDW 15.9 % (13.2-15.2) H 07/02/18 05:49 Plt Count 187 K/mm3 (140-440) 07/02/18 05:49 Lymph % (Auto) 26.2 % (13.4-35.0) 07/02/18 05:49 [place] % (Auto) 7.5 % (0.0-7.3) H 07/02/18 05:49 Eos % (Auto) 6.8 % (0.0-4.3) H 07/02/18 05:49 Baso % (Auto) 0.9 % (0.0-1.8) 07/02/18 05:49 Lymph # 1.1 K/mm3 (1.2-5.4) L 07/02/18 05:49 [place] # 0.3 K/mm3 (0.0-0.8) 07/02/18 05:49 Eos # 0.3 K/mm3 (0.0-0.4) 07/02/18 05:49 Baso # 0.0 K/mm3 (0.0-0.1) 07/02/18 05:49 Seg Neutrophils % 58.6 % (40.0-70.0) 07/02/18 05:49 Seg Neutrophils # 2.4 K/mm3 (1.8-7.7) 07/02/18 05:49 PT 10.6 Sec. (12.2-14.9) L 06/02/18 19:09 INR 0.73 (0.87-1.13) L 06/02/18 19:09 APTT 23.5 Sec. (24.2-36.6) L 06/02/18 19:09 Sodium 143 mmol/L (137-145) 07/02/18 05:49 Potassium 3.8 mmol/L (3.6-5.0) 07/02/18 05:49 Chloride 105.1 mmol/L (98-107) 07/02/18 05:49 Carbon Dioxide 27 mmol/L (22-30) 07/02/18 05:49 Anion Gap 15 mmol/L 07/02/18 05:49 BUN 8 mg/dL (7-17) 07/02/18 05:49 Creatinine 0.8 mg/dL (0.7-1.2) 07/02/18 05:49 Estimated GFR > 60 ml/min 07/02/18 05:49 BUN/Creatinine Ratio 10 % 07/02/18 05:49 Glucose 101 mg/dL (65-100) H 07/02/18 05:49 POC Glucose 175 (70-105) H 06/12/18 13:14 Lactic Acid 2.00 mmol/L (0.7-2.0) 06/02/18 19:09 Calcium 9.1 mg/dL (8.4-10.2) 07/02/18 05:49 Phosphorus 2.90 mg/dL (2.5-4.5) 06/17/18 06:00 Magnesium 2.00 mg/dL (1.7-2.3) 06/15/18 06:11 Total Bilirubin 0.40 mg/dL (0.1-1.2) 07/02/18 05:49 Direct Bilirubin 0.2 mg/dL (0-0.2) 06/14/18 05:29 Indirect Bilirubin 0.5 mg/dL 06/14/18 05:29 AST 24 units/L (5-40) 07/02/18 05:49 ALT 44 units/L (7-56) 07/02/18 05:49 Alkaline Phosphatase 90 units/L (35-129) 07/02/18 05:49 Ammonia 23.0 umol/L (25-60) L 06/27/18 20:55 Total Creatine Kinase 112 units/L (30-135) 06/21/18 13:12 Troponin T < 0.010 ng/mL (0.00-0.029) 06/22/18 21:31 NT-Pro-B Natriuret Pep 60.88 pg/mL (0-900) 06/02/18 19:09 Total Protein 5.4 g/dL (6.3-8.2) L 07/02/18 05:49 Albumin 3.6 g/dL (3.9-5) L 07/02/18 05:49 Albumin/Globulin Ratio 2.0 % 07/02/18 05:49 TSH 1.950 mlU/mL (0.270-4.200) 06/06/18 10:57 Free T4 1.40 ng/dL (0.76-1.46) 06/06/18 10:57 Urine Color Straw (Yellow) 06/22/18 18:00 Urine Turbidity Clear (Clear) 06/22/18 18:00 Urine pH 7.0 (5.0-7.0) 06/22/18 18:00 Ur Specific [place] 1.005 (1.003-1.030) 06/22/18 18:00 Urine Protein <15 mg/dl mg/dL (Negative) 06/22/18 18:00 Urine Glucose (UA) Negative mg/dL (Negative) 06/22/18 18:00 Urine Ketones Negative mg/dL (Negative) 06/22/18 18:00 Urine Blood Negative (Negative) 06/22/18 18:00 Urine Nitrite Positive (Negative) 06/22/18 18:00 Ur Reducing Substances Not Reportable 06/22/18 18:00 Urine Bilirubin Negative (Negative) 06/22/18 18:00 Urine Ictotest Not Reportable 06/22/18 18:00 Urine Urobilinogen < 2.0 mg/dL (<2.0) 06/22/18 18:00 Ur Leukocyte Esterase Moderate (Negative) 06/22/18 18:00 Urine WBC (Auto) 23.0 /HPF (0.0-6.0) H 06/22/18 18:00 Urine RBC (Auto) < 1.0 /HPF (0.0-6.0) 06/22/18 18:00 U Epithel Cells (Auto) 1.0 /HPF (0-13.0) 06/22/18 18:00 Urine Opiates Screen Presumptive negative 06/02/18 10:43 Urine Methadone Screen Presumptive negative 06/02/18 10:43 Ur Barbiturates Screen Presumptive negative 06/02/18 10:43 Ur Phencyclidine Scrn Presumptive negative 06/02/18 10:43 Ur Amphetamines Screen Presumptive negative 06/02/18 10:43 U Benzodiazepines Scrn Presumptive negative 06/02/18 10:43 [place] 0.1 mmol/L (0.0-1.2) 06/02/18 19:09 Urine Cocaine Screen Presumptive negative 06/02/18 10:43 U Marijuana (THC) Screen Presumptive negative 06/02/18 10:43 Drugs of Abuse Note Disclamer 06/02/18 10:43 Plasma/Serum Alcohol < 0.01 % (0-0.07) 06/02/18 09:57
--- NOTE | 2018-07-03 19:14 | Progress Note ---
Subjective - Reason for Consult Consult date: 07/03/18 Reason for consult: follow up - Chief Complaint Chief complaint: "I remember." Patient is a 58-year-old female who presented to the ER for aggressive and threatening behavior towards family members. The patient was brought to the ER by her daughter. Today the patient is still disorganized during the assessment. She was sitting in a chair in the doorway. She was laughing and making eye contact. Affect appeared labile. No verbal or physical aggression observed. Tachycardia is persistent. Mental Status Exam - Vital signs Last Vital Signs Temp 97.3 F L 07/03/18 18:45 Pulse 118 H 07/03/18 18:45 Resp 20 07/03/18 18:45 BP 99/72 07/03/18 18:45 Pulse Ox 95 07/03/18 00:03 - Exam Narrative exam: MSE: Appearance: wearing a hospital gown Behavior: intense eye contact Speech: mumbles at times Mood: "okay" Affect: congruent to mood Thought Process: disorganized Thought Content: no gestures of SI/HI Motor Activity: no abnormal movement Cognition: alert Insight: poor Judgment: poor Assessment and Plan Impression: Hx of Schizophrenia per the record. tachycardia is persistent DDx: R/O Bipolar DO with psychosis Recommendation/Plan: Continue 1013 with placement to inpatient psy services. Continue Haldol 5 mg IM Q6hrs for acute agitatiion and Zyprexa 15 mg PO HS for schizophrenia. Continue Klonopin 0.5 mg PO BID for sleep/anxiety. medical team to address non psychiatric health, including tachycardia.
[2018-07-03] MEDS: NORCO 5/325 PO PRN (21:30)
[2018-07-03] MEDS: ATIVAN IV PRN (23:05)
[2018-07-04] MEDS: ATIVAN IV PRN (04:24)
--- NOTE | 2018-07-04 10:55 | Progress Note ---
Subjective - Reason for Consult Consult date: 07/04/18 Reason for consult: Psychiatry Follow-up - Chief Complaint Chief complaint: "What" Patient is a 58-year-old female who presented to the ER for aggressive and threatening behavior towards family members. The patient was brought to the ER by her daughter. Today the patient is still disorganized along with being tangent during the assessment. She is still in a waist restraint. Per the staff , the patient's agitation has lessen. No gesture of SI/HI's. Mental Status Exam - Vital signs Last Vital Signs Temp 98.5 F 07/04/18 04:52 Pulse 97 H 07/04/18 04:52 Resp 20 07/04/18 04:52 BP 109/73 07/04/18 04:52 Pulse Ox 96 07/04/18 04:52 - Exam Narrative exam: MSE: Appearance: wearing a hospital gown Behavior: regular eye contact Speech: regular rate and tone Mood: "okay" Affect: labile Thought Process: disorganized, tangential Thought Content: no gestures of SI/HI's Motor Activity: the patient is in a waist restraint Cognition: alert Insight: poor Judgment: poor Assessment and Plan Impression: Hx of Schizophrenia per the record. Today the patient is still disorganized along with being tangent during the assessment. The patient is still in a waist restraint. DDx: R/O Bipolar DO with psychosis Recommendation/Plan: Continue 1013 with placement to inpatient psy services. Continue Haldol 5 mg IM Q6hrs for acute agitatiion, Zyprexa 15 mg PO HS for schizophrenia. and Klonopin 0.5 mg PO BID for sleep/anxiety. Attempted to discuss possible metabolic side effects of Zyprexa with patient. Recommend DVT prophylaxis. D/C waist restraint when not indicated.
[2018-07-04] MEDS: AUGMENTIN 875 MG PO SCH ×2 (14:35→22:16)
[2018-07-04] MEDS: HEPARIN SUB-Q SCH ×2 (14:36→22:25)
[2018-07-04] MEDS: SODIUM CHLORIDE FLUSH SYRINGE 10 ML IV SCH ×2 (14:36→22:00)
[2018-07-05] MEDS: HEPARIN SUB-Q SCH ×2 (09:54→22:05)
[2018-07-05] MEDS: SODIUM CHLORIDE FLUSH SYRINGE 10 ML IV SCH ×2 (10:00→22:04)
[2018-07-05] MEDS: ATIVAN IV PRN (14:27)
--- NOTE | 2018-07-05 14:28 | Progress Note ---
Subjective - Reason for Consult Consult date: 07/05/18 Reason for consult: Psychiatry Follow-up - Chief Complaint Chief complaint: "What do you want" Patient is a 58-year-old female who presented to the ER for aggressive and threatening behavior towards family members. The patient was brought to the ER by her daughter. Today the patient is still disorganized and tangent during the assessment. The patient isn't in restraints. Per the staff, there has been minimal agitation by the patient. No indications of side effects of her medications. No gesture of SI/HI's. Mental Status Exam - Vital signs Last Vital Signs Temp 98.2 F 07/05/18 11:58 Pulse 104 H 07/05/18 11:58 Resp 18 07/05/18 11:58 BP 124/82 07/05/18 11:58 Pulse Ox 98 07/05/18 11:58 - Exam Narrative exam: MSE: Appearance: calm, cooperative Behavior: regular eye contact Speech: regular rate and tone Mood: "okay" Affect: labile Thought Process: disorganized, tangential Thought Content: no gestures of SI/HI's Motor Activity: lying in bed Cognition: alert Insight: poor Judgment: poor Assessment and Plan Impression: Hx of Schizophrenia per the record. Today the patient is still disorganized and tangent during the assessment. DDx: R/O Bipolar DO with psychosis Recommendation/Plan: Continue 1013 with placement to inpatient psy services. Continue Haldol 5 mg IM Q6hrs for acute agitatiion, Zyprexa 15 mg PO HS for schizophrenia. and Klonopin 0.5 mg PO BID for sleep/anxiety. Attempted to discuss possible metabolic side effects of Zyprexa with patient.
--- NOTE | 2018-07-05 15:08 | Progress Note ---
Assessment and Plan Assessment and plan: 1)Acute renal failure vasomotor nephropathy, resolved 2)Hypernatremia--Resolved 3)Acute encephalopathy. MRI ordered but pt unable to complete secondary to agitation/movement despite ativan 4)Acute psychosis: Acute psychosis secondary to schizophrenia patient is medically cleared for discharge to inpatient psychiatric facility. 5)Schizophrenia in 1012; Patient would need inpatient psych. Awaiting case management options. 6)Sinus Tachycardia due to agitation 7)UTI -resolved Ready for discharge to Inpatient /Home if cleared by Psych History Interval history: no new issues Hospitalist Physical - Constitutional Vitals: Temp Pulse Resp BP Pulse Ox 98.2 F 104 H 18 124/82 98 07/05/18 11:58 07/05/18 11:58 07/05/18 11:58 07/05/18 11:58 07/05/18 11:58 General appearance: Present: no acute distress, well-nourished - EENT Eyes: Present: PERRL, EOM intact ENT: hearing intact, clear oral mucosa, dentition normal - Neck Neck: Present: supple, normal ROM - Respiratory Respiratory effort: normal Respiratory: bilateral: CTA - Cardiovascular Rhythm: regular Heart Sounds: Present: S1 & S2. Absent: gallop, rub - Extremities Extremities: no ischemia, No edema, Full ROM - Abdominal General gastrointestinal: soft, non-tender, non-distended, normal bowel sounds - Integumentary Integumentary: Present: clear, warm, dry - Neurologic Neurologic: CNII-XII intact, moves all extremities Results - Labs CBC & Chem 7: 07/02/18 05:49 07/02/18 05:49 Labs: Laboratory Last Values WBC 4.1 K/mm3 (4.5-11.0) L 07/02/18 05:49 RBC 3.87 M/mm3 (3.65-5.03) 07/02/18 05:49 Hgb 12.3 gm/dl (10.1-14.3) 07/02/18 05:49 Hct 35.5 % (30.3-42.9) 07/02/18 05:49 MCV 92 fl (79-97) 07/02/18 05:49 MCH 32 pg (28-32) 07/02/18 05:49 MCHC 35 % (30-34) H 07/02/18 05:49 RDW 15.9 % (13.2-15.2) H 07/02/18 05:49 Plt Count 187 K/mm3 (140-440) 07/02/18 05:49 Lymph % (Auto) 26.2 % (13.4-35.0) 07/02/18 05:49 [place] % (Auto) 7.5 % (0.0-7.3) H 07/02/18 05:49 Eos % (Auto) 6.8 % (0.0-4.3) H 07/02/18 05:49 Baso % (Auto) 0.9 % (0.0-1.8) 07/02/18 05:49 Lymph # 1.1 K/mm3 (1.2-5.4) L 07/02/18 05:49 [place] # 0.3 K/mm3 (0.0-0.8) 07/02/18 05:49 Eos # 0.3 K/mm3 (0.0-0.4) 07/02/18 05:49 Baso # 0.0 K/mm3 (0.0-0.1) 07/02/18 05:49 Seg Neutrophils % 58.6 % (40.0-70.0) 07/02/18 05:49 Seg Neutrophils # 2.4 K/mm3 (1.8-7.7) 07/02/18 05:49 PT 10.6 Sec. (12.2-14.9) L 06/02/18 19:09 INR 0.73 (0.87-1.13) L 06/02/18 19:09 APTT 23.5 Sec. (24.2-36.6) L 06/02/18 19:09 Sodium 143 mmol/L (137-145) 07/02/18 05:49 Potassium 3.8 mmol/L (3.6-5.0) 07/02/18 05:49 Chloride 105.1 mmol/L (98-107) 07/02/18 05:49 Carbon Dioxide 27 mmol/L (22-30) 07/02/18 05:49 Anion Gap 15 mmol/L 07/02/18 05:49 BUN 8 mg/dL (7-17) 07/02/18 05:49 Creatinine 0.8 mg/dL (0.7-1.2) 07/02/18 05:49 Estimated GFR > 60 ml/min 07/02/18 05:49 BUN/Creatinine Ratio 10 % 07/02/18 05:49 Glucose 101 mg/dL (65-100) H 07/02/18 05:49 POC Glucose 175 (70-105) H 06/12/18 13:14 Lactic Acid 2.00 mmol/L (0.7-2.0) 06/02/18 19:09 Calcium 9.1 mg/dL (8.4-10.2) 07/02/18 05:49 Phosphorus 2.90 mg/dL (2.5-4.5) 06/17/18 06:00 Magnesium 2.00 mg/dL (1.7-2.3) 06/15/18 06:11 Total Bilirubin 0.40 mg/dL (0.1-1.2) 07/02/18 05:49 Direct Bilirubin 0.2 mg/dL (0-0.2) 06/14/18 05:29 Indirect Bilirubin 0.5 mg/dL 06/14/18 05:29 AST 24 units/L (5-40) 07/02/18 05:49 ALT 44 units/L (7-56) 07/02/18 05:49 Alkaline Phosphatase 90 units/L (35-129) 07/02/18 05:49 Ammonia 23.0 umol/L (25-60) L 06/27/18 20:55 Total Creatine Kinase 112 units/L (30-135) 06/21/18 13:12 Troponin T < 0.010 ng/mL (0.00-0.029) 06/22/18 21:31 NT-Pro-B Natriuret Pep 60.88 pg/mL (0-900) 06/02/18 19:09 Total Protein 5.4 g/dL (6.3-8.2) L 07/02/18 05:49 Albumin 3.6 g/dL (3.9-5) L 07/02/18 05:49 Albumin/Globulin Ratio 2.0 % 07/02/18 05:49 TSH 1.950 mlU/mL (0.270-4.200) 06/06/18 10:57 Free T4 1.40 ng/dL (0.76-1.46) 06/06/18 10:57 Urine Color Straw (Yellow) 06/22/18 18:00 Urine Turbidity Clear (Clear) 06/22/18 18:00 Urine pH 7.0 (5.0-7.0) 06/22/18 18:00 Ur Specific [place] 1.005 (1.003-1.030) 06/22/18 18:00 Urine Protein <15 mg/dl mg/dL (Negative) 06/22/18 18:00 Urine Glucose (UA) Negative mg/dL (Negative) 06/22/18 18:00 Urine Ketones Negative mg/dL (Negative) 06/22/18 18:00 Urine Blood Negative (Negative) 06/22/18 18:00 Urine Nitrite Positive (Negative) 06/22/18 18:00 Ur Reducing Substances Not Reportable 06/22/18 18:00 Urine Bilirubin Negative (Negative) 06/22/18 18:00 Urine Ictotest Not Reportable 06/22/18 18:00 Urine Urobilinogen < 2.0 mg/dL (<2.0) 06/22/18 18:00 Ur Leukocyte Esterase Moderate (Negative) 06/22/18 18:00 Urine WBC (Auto) 23.0 /HPF (0.0-6.0) H 06/22/18 18:00 Urine RBC (Auto) < 1.0 /HPF (0.0-6.0) 06/22/18 18:00 U Epithel Cells (Auto) 1.0 /HPF (0-13.0) 06/22/18 18:00 Urine Opiates Screen Presumptive negative 06/02/18 10:43 Urine Methadone Screen Presumptive negative 06/02/18 10:43 Ur Barbiturates Screen Presumptive negative 06/02/18 10:43 Ur Phencyclidine Scrn Presumptive negative 06/02/18 10:43 Ur Amphetamines Screen Presumptive negative 06/02/18 10:43 U Benzodiazepines Scrn Presumptive negative 06/02/18 10:43 [place] 0.1 mmol/L (0.0-1.2) 06/02/18 19:09 Urine Cocaine Screen Presumptive negative 06/02/18 10:43 U Marijuana (THC) Screen Presumptive negative 06/02/18 10:43 Drugs of Abuse Note Disclamer 06/02/18 10:43 Plasma/Serum Alcohol < 0.01 % (0-0.07) 06/02/18 09:57
[2018-07-05] MEDS: D5W 1,000 ML IV SCH (15:30)
[2018-07-06] MEDS: HEPARIN SUB-Q SCH ×2 (11:15→23:05)
[2018-07-06] MEDS: SODIUM CHLORIDE FLUSH SYRINGE 10 ML IV SCH ×2 (11:15→23:05)
--- NOTE | 2018-07-06 11:24 | Progress Note ---
Assessment and Plan Assessment and plan: 1)Acute renal failure, resolved 2)Hypernatremia secondary to dehydration, resolved 3)Acute encephalopathy, improved. MRI brain unable to be completed due to agitation/movement despite ativan 4)Acute psychosis: Acute psychosis secondary to schizophrenia. patient is medically cleared for discharge to inpatient psychiatric facility. 5)Schizophrenia in 1012: Patient will need inpatient psych. Awaiting case management options. 6)Sinus Tachycardia -due to agitation, stable 7)UTI -resolved Disposition: Patient is awaiting discharge to inpatient psych History Interval history: Patient seen today. She is unable to communicate appropriately. Hospitalist Physical - Physical exam Narrative exam: Patient declined to be examined today. - Constitutional Vitals: Temp Pulse Resp BP Pulse Ox 98.4 F 98 H 18 97/53 97 07/05/18 23:49 07/05/18 23:49 07/05/18 23:49 07/05/18 23:49 07/05/18 23:49 General appearance: Present: no acute distress, well-nourished Results - Labs CBC & Chem 7: 07/02/18 05:49 07/02/18 05:49 Labs: Laboratory Last Values WBC 4.1 K/mm3 (4.5-11.0) L 07/02/18 05:49 RBC 3.87 M/mm3 (3.65-5.03) 07/02/18 05:49 Hgb 12.3 gm/dl (10.1-14.3) 07/02/18 05:49 Hct 35.5 % (30.3-42.9) 07/02/18 05:49 MCV 92 fl (79-97) 07/02/18 05:49 MCH 32 pg (28-32) 07/02/18 05:49 MCHC 35 % (30-34) H 07/02/18 05:49 RDW 15.9 % (13.2-15.2) H 07/02/18 05:49 Plt Count 187 K/mm3 (140-440) 07/02/18 05:49 Lymph % (Auto) 26.2 % (13.4-35.0) 07/02/18 05:49 [place] % (Auto) 7.5 % (0.0-7.3) H 07/02/18 05:49 Eos % (Auto) 6.8 % (0.0-4.3) H 07/02/18 05:49 Baso % (Auto) 0.9 % (0.0-1.8) 07/02/18 05:49 Lymph # 1.1 K/mm3 (1.2-5.4) L 07/02/18 05:49 [place] # 0.3 K/mm3 (0.0-0.8) 07/02/18 05:49 Eos # 0.3 K/mm3 (0.0-0.4) 07/02/18 05:49 Baso # 0.0 K/mm3 (0.0-0.1) 07/02/18 05:49 Seg Neutrophils % 58.6 % (40.0-70.0) 07/02/18 05:49 Seg Neutrophils # 2.4 K/mm3 (1.8-7.7) 07/02/18 05:49 PT 10.6 Sec. (12.2-14.9) L 06/02/18 19:09 INR 0.73 (0.87-1.13) L 06/02/18 19:09 APTT 23.5 Sec. (24.2-36.6) L 06/02/18 19:09 Sodium 143 mmol/L (137-145) 07/02/18 05:49 Potassium 3.8 mmol/L (3.6-5.0) 07/02/18 05:49 Chloride 105.1 mmol/L (98-107) 07/02/18 05:49 Carbon Dioxide 27 mmol/L (22-30) 07/02/18 05:49 Anion Gap 15 mmol/L 07/02/18 05:49 BUN 8 mg/dL (7-17) 07/02/18 05:49 Creatinine 0.8 mg/dL (0.7-1.2) 07/02/18 05:49 Estimated GFR > 60 ml/min 07/02/18 05:49 BUN/Creatinine Ratio 10 % 07/02/18 05:49 Glucose 101 mg/dL (65-100) H 07/02/18 05:49 POC Glucose 175 (70-105) H 06/12/18 13:14 Lactic Acid 2.00 mmol/L (0.7-2.0) 06/02/18 19:09 Calcium 9.1 mg/dL (8.4-10.2) 07/02/18 05:49 Phosphorus 2.90 mg/dL (2.5-4.5) 06/17/18 06:00 Magnesium 2.00 mg/dL (1.7-2.3) 06/15/18 06:11 Total Bilirubin 0.40 mg/dL (0.1-1.2) 07/02/18 05:49 Direct Bilirubin 0.2 mg/dL (0-0.2) 06/14/18 05:29 Indirect Bilirubin 0.5 mg/dL 06/14/18 05:29 AST 24 units/L (5-40) 07/02/18 05:49 ALT 44 units/L (7-56) 07/02/18 05:49 Alkaline Phosphatase 90 units/L (35-129) 07/02/18 05:49 Ammonia 23.0 umol/L (25-60) L 06/27/18 20:55 Total Creatine Kinase 112 units/L (30-135) 06/21/18 13:12 Troponin T < 0.010 ng/mL (0.00-0.029) 06/22/18 21:31 NT-Pro-B Natriuret Pep 60.88 pg/mL (0-900) 06/02/18 19:09 Total Protein 5.4 g/dL (6.3-8.2) L 07/02/18 05:49 Albumin 3.6 g/dL (3.9-5) L 07/02/18 05:49 Albumin/Globulin Ratio 2.0 % 07/02/18 05:49 TSH 1.950 mlU/mL (0.270-4.200) 06/06/18 10:57 Free T4 1.40 ng/dL (0.76-1.46) 06/06/18 10:57 Urine Color Straw (Yellow) 06/22/18 18:00 Urine Turbidity Clear (Clear) 06/22/18 18:00 Urine pH 7.0 (5.0-7.0) 06/22/18 18:00 Ur Specific [place] 1.005 (1.003-1.030) 06/22/18 18:00 Urine Protein <15 mg/dl mg/dL (Negative) 06/22/18 18:00 Urine Glucose (UA) Negative mg/dL (Negative) 06/22/18 18:00 Urine Ketones Negative mg/dL (Negative) 06/22/18 18:00 Urine Blood Negative (Negative) 06/22/18 18:00 Urine Nitrite Positive (Negative) 06/22/18 18:00 Ur Reducing Substances Not Reportable 06/22/18 18:00 Urine Bilirubin Negative (Negative) 06/22/18 18:00 Urine Ictotest Not Reportable 06/22/18 18:00 Urine Urobilinogen < 2.0 mg/dL (<2.0) 06/22/18 18:00 Ur Leukocyte Esterase Moderate (Negative) 06/22/18 18:00 Urine WBC (Auto) 23.0 /HPF (0.0-6.0) H 06/22/18 18:00 Urine RBC (Auto) < 1.0 /HPF (0.0-6.0) 06/22/18 18:00 U Epithel Cells (Auto) 1.0 /HPF (0-13.0) 06/22/18 18:00 Urine Opiates Screen Presumptive negative 06/02/18 10:43 Urine Methadone Screen Presumptive negative 06/02/18 10:43 Ur Barbiturates Screen Presumptive negative 06/02/18 10:43 Ur Phencyclidine Scrn Presumptive negative 06/02/18 10:43 Ur Amphetamines Screen Presumptive negative 06/02/18 10:43 U Benzodiazepines Scrn Presumptive negative 06/02/18 10:43 [place] 0.1 mmol/L (0.0-1.2) 06/02/18 19:09 Urine Cocaine Screen Presumptive negative 06/02/18 10:43 U Marijuana (THC) Screen Presumptive negative 06/02/18 10:43 Drugs of Abuse Note Disclamer 06/02/18 10:43 Plasma/Serum Alcohol < 0.01 % (0-0.07) 06/02/18 09:57
--- NOTE | 2018-07-06 13:59 | Progress Note ---
Subjective - Reason for Consult Consult date: 07/06/18 Reason for consult: Psychiatric Follow-up Evaluation - Chief Complaint Chief complaint: "I want to go home" Patient is a 58-year-old female who presented to the ER for aggressive and threatening behavior towards family members. The patient was brought to the ER by her daughter. Today, patient continues to be disorganized and tangent during the assessment. Per staff patient has been more calm within the last few days. Mild agitation noted. She states, " I want to go home." Sitter is at bedside. Patient seen responding to internal stimuli. The patient isn't in restraints. No indications of side effects of her medications. No gesture of SI /HI's. Mental Status Exam - Vital signs Last Vital Signs Temp 98.4 F 07/05/18 23:49 Pulse 98 H 07/05/18 23:49 Resp 18 07/05/18 23:49 BP 97/53 07/05/18 23:49 Pulse Ox 97 07/05/18 23:49 - Exam Narrative exam: Mental Status Exam General Appearance: Causally Dressed-hospital gown, dishelved, in restraints Eye Contact: Intermittent Orientation: Alert and oriented x 1 (person) Attitude/Behavior: Uncooperative, agitated-less Sensorium: Distracted Psychomotor & Musculoskeletal Activity: Laying in bed Mood: "I want to go home" Affect: Incongruent Speech/Language: Loud Thought Processes: Disorganized, tangential Thought Content: Impoverished Perception: + Auditory hallucinations, responding to internal stimuli (laughing/ talking inapp.) Concentration/Attention: Impaired Suicidal Ideations/Plan: Patient denies. Homicidal Ideations/Plan: Patient denies. Judgment: Poor Insight: Poor Assessment and Plan Impression: Hx of Schizophrenia per the record. Today the patient is still disorganized and tangential during the assessment. Staff reports less agitation. No SI/HI gestures noted/reported. Sitter at bedside. Patient not in restraints. DDx: R/O Bipolar DO with psychosis Recommendation/Plan: 1. Continue 1013 with placement to inpatient psychiatric services. 2. Continue Haldol 5 mg IM Q6hrs for acute agitation 3. Increase Zyprexa 20mg PO HS for psychosis. Continue Klonopin 0.5 mg PO BID for sleep/anxiety. Attempted to discuss possible metabolic side effects of Zyprexa with patient. Recommend DVT prophylaxis. D/C waist restraint when not indicated. 4. Will continue to monitor mood, psychosis, agitation, sleep, appetite, compliance, and side effects.
[2018-07-07] MEDS: ATIVAN IV PRN ×2 (01:49→23:44)
[2018-07-07] MEDS: SODIUM CHLORIDE FLUSH SYRINGE 10 ML IV SCH ×2 (10:34→23:44)
[2018-07-07] MEDS: HEPARIN SUB-Q SCH ×2 (10:35→23:44)
--- NOTE | 2018-07-07 10:47 | Progress Note ---
Subjective - Reason for Consult Consult date: 07/07/18 Reason for consult: Psychiatry Follow-up - Chief Complaint Chief complaint: "" Patient is a 58-year-old female who presented to the ER for aggressive and threatening behavior towards family members. The patient was brought to the ER by her daughter. Today the patient is still disorganized during the assessment. She speak estonian intermittently throughout the interview when asked questions. She laughs out loud inappropriately. No indications of side effects of her medications. No gesture of SI/HI's. Mental Status Exam - Vital signs Last Vital Signs Temp 98.2 F 07/07/18 05:30 Pulse 99 H 07/07/18 05:30 Resp 18 07/07/18 05:30 BP 118/84 07/07/18 05:30 Pulse Ox 96 07/07/18 05:30 - Exam Narrative exam: MSE: Appearance: calm Behavior: regular eye contact Speech: regular rate and tone Mood: "okay" Affect: congruent to mood Thought Process: disorganized Thought Content: no gestures of SI/HI's Motor Activity: lying in bed Cognition: alert Insight: poor Judgment: poor Assessment and Plan Impression: Hx of Schizophrenia per the record. Today the patient is still disorganized during the assessment. The patient isn't in restraints. DDx: R/O Bipolar DO with psychosis Recommendation/Plan: Continue 1013 with pending placement to [facility]. Continue Haldol 5 mg IM Q6hrs for acute agitatiion, Zyprexa 20 mg PO HS for schizophrenia, and Klonopin 0.5 mg PO BID for sleep/anxiety. Attempted to discuss possible metabolic side effects of Zyprexa with patient.
--- NOTE | 2018-07-07 11:15 | Progress Note ---
Assessment and Plan Assessment and plan: 1)Acute renal failure, resolved 2)Hypernatremia secondary to dehydration, resolved 3)Acute encephalopathy, improved. MRI brain unable to be completed due to agitation/movement despite given ativan 4)Acute psychosis: Acute psychosis secondary to schizophrenia. patient is medically cleared for discharge to inpatient psychiatric facility. 5)Schizophrenia in 3: Patient will need inpatient psych. Awaiting case management options. 6)Sinus Tachycardia -due to agitation, stable 7)UTI -resolved Disposition: Patient is awaiting discharge to inpatient psych facility. History Interval history: Patient seen today. She is unable to communicate appropriately. No overnight issues reported. Hospitalist Physical - Constitutional Vitals: Temp Pulse Resp BP Pulse Ox 98.2 F 99 H 18 118/84 96 07/07/18 05:30 07/07/18 05:30 07/07/18 05:30 07/07/18 05:30 07/07/18 05:30 General appearance: Present: no acute distress - EENT Eyes: Present: PERRL, EOM intact ENT: clear oral mucosa - Neck Neck: Present: supple, normal ROM - Respiratory Respiratory effort: normal Respiratory: bilateral: CTA - Cardiovascular Rhythm: regular Heart Sounds: Present: S1 & S2 - Extremities Extremities: No edema - Abdominal General gastrointestinal: soft, non-tender, normal bowel sounds - Neurologic Neurologic: CNII-XII intact Results - Labs CBC & Chem 7: 07/02/18 05:49 07/02/18 05:49 Labs: Laboratory Last Values WBC 4.1 K/mm3 (4.5-11.0) L 07/02/18 05:49 RBC 3.87 M/mm3 (3.65-5.03) 07/02/18 05:49 Hgb 12.3 gm/dl (10.1-14.3) 07/02/18 05:49 Hct 35.5 % (30.3-42.9) 07/02/18 05:49 MCV 92 fl (79-97) 07/02/18 05:49 MCH 32 pg (28-32) 07/02/18 05:49 MCHC 35 % (30-34) H 07/02/18 05:49 RDW 15.9 % (13.2-15.2) H 07/02/18 05:49 Plt Count 187 K/mm3 (140-440) 07/02/18 05:49 Lymph % (Auto) 26.2 % (13.4-35.0) 07/02/18 05:49 [place] % (Auto) 7.5 % (0.0-7.3) H 07/02/18 05:49 Eos % (Auto) 6.8 % (0.0-4.3) H 07/02/18 05:49 Baso % (Auto) 0.9 % (0.0-1.8) 07/02/18 05:49 Lymph # 1.1 K/mm3 (1.2-5.4) L 07/02/18 05:49 [place] # 0.3 K/mm3 (0.0-0.8) 07/02/18 05:49 Eos # 0.3 K/mm3 (0.0-0.4) 07/02/18 05:49 Baso # 0.0 K/mm3 (0.0-0.1) 07/02/18 05:49 Seg Neutrophils % 58.6 % (40.0-70.0) 07/02/18 05:49 Seg Neutrophils # 2.4 K/mm3 (1.8-7.7) 07/02/18 05:49 PT 10.6 Sec. (12.2-14.9) L 06/02/18 19:09 INR 0.73 (0.87-1.13) L 06/02/18 19:09 APTT 23.5 Sec. (24.2-36.6) L 06/02/18 19:09 Sodium 143 mmol/L (137-145) 07/02/18 05:49 Potassium 3.8 mmol/L (3.6-5.0) 07/02/18 05:49 Chloride 105.1 mmol/L (98-107) 07/02/18 05:49 Carbon Dioxide 27 mmol/L (22-30) 07/02/18 05:49 Anion Gap 15 mmol/L 07/02/18 05:49 BUN 8 mg/dL (7-17) 07/02/18 05:49 Creatinine 0.8 mg/dL (0.7-1.2) 07/02/18 05:49 Estimated GFR > 60 ml/min 07/02/18 05:49 BUN/Creatinine Ratio 10 % 07/02/18 05:49 Glucose 101 mg/dL (65-100) H 07/02/18 05:49 POC Glucose 175 (70-105) H 06/12/18 13:14 Lactic Acid 2.00 mmol/L (0.7-2.0) 06/02/18 19:09 Calcium 9.1 mg/dL (8.4-10.2) 07/02/18 05:49 Phosphorus 2.90 mg/dL (2.5-4.5) 06/17/18 06:00 Magnesium 2.00 mg/dL (1.7-2.3) 06/15/18 06:11 Total Bilirubin 0.40 mg/dL (0.1-1.2) 07/02/18 05:49 Direct Bilirubin 0.2 mg/dL (0-0.2) 06/14/18 05:29 Indirect Bilirubin 0.5 mg/dL 06/14/18 05:29 AST 24 units/L (5-40) 07/02/18 05:49 ALT 44 units/L (7-56) 07/02/18 05:49 Alkaline Phosphatase 90 units/L (35-129) 07/02/18 05:49 Ammonia 23.0 umol/L (25-60) L 06/27/18 20:55 Total Creatine Kinase 112 units/L (30-135) 06/21/18 13:12 Troponin T < 0.010 ng/mL (0.00-0.029) 06/22/18 21:31 NT-Pro-B Natriuret Pep 60.88 pg/mL (0-900) 06/02/18 19:09 Total Protein 5.4 g/dL (6.3-8.2) L 07/02/18 05:49 Albumin 3.6 g/dL (3.9-5) L 07/02/18 05:49 Albumin/Globulin Ratio 2.0 % 07/02/18 05:49 TSH 1.950 mlU/mL (0.270-4.200) 06/06/18 10:57 Free T4 1.40 ng/dL (0.76-1.46) 06/06/18 10:57 Urine Color Straw (Yellow) 06/22/18 18:00 Urine Turbidity Clear (Clear) 06/22/18 18:00 Urine pH 7.0 (5.0-7.0) 06/22/18 18:00 Ur Specific [place] 1.005 (1.003-1.030) 06/22/18 18:00 Urine Protein <15 mg/dl mg/dL (Negative) 06/22/18 18:00 Urine Glucose (UA) Negative mg/dL (Negative) 06/22/18 18:00 Urine Ketones Negative mg/dL (Negative) 06/22/18 18:00 Urine Blood Negative (Negative) 06/22/18 18:00 Urine Nitrite Positive (Negative) 06/22/18 18:00 Ur Reducing Substances Not Reportable 06/22/18 18:00 Urine Bilirubin Negative (Negative) 06/22/18 18:00 Urine Ictotest Not Reportable 06/22/18 18:00 Urine Urobilinogen < 2.0 mg/dL (<2.0) 06/22/18 18:00 Ur Leukocyte Esterase Moderate (Negative) 06/22/18 18:00 Urine WBC (Auto) 23.0 /HPF (0.0-6.0) H 06/22/18 18:00 Urine RBC (Auto) < 1.0 /HPF (0.0-6.0) 06/22/18 18:00 U Epithel Cells (Auto) 1.0 /HPF (0-13.0) 06/22/18 18:00 Urine Opiates Screen Presumptive negative 06/02/18 10:43 Urine Methadone Screen Presumptive negative 06/02/18 10:43 Ur Barbiturates Screen Presumptive negative 06/02/18 10:43 Ur Phencyclidine Scrn Presumptive negative 06/02/18 10:43 Ur Amphetamines Screen Presumptive negative 06/02/18 10:43 U Benzodiazepines Scrn Presumptive negative 06/02/18 10:43 [place] 0.1 mmol/L (0.0-1.2) 06/02/18 19:09 Urine Cocaine Screen Presumptive negative 06/02/18 10:43 U Marijuana (THC) Screen Presumptive negative 06/02/18 10:43 Drugs of Abuse Note Disclamer 06/02/18 10:43 Plasma/Serum Alcohol < 0.01 % (0-0.07) 06/02/18 09:57
[2018-07-08] MEDS: ATIVAN IV PRN ×4 (03:20→21:44)
[2018-07-08 06:33] LABS: BUN/Creatinine Ratio 15; Blood Urea Nitrogen 12 mg/dL (7-17); Calcium 9.3 mg/dL (8.4-10.2); Hemolysis Index 5
[2018-07-08] MEDS: HEPARIN SUB-Q SCH ×2 (09:26→21:45)
[2018-07-08] MEDS: SODIUM CHLORIDE FLUSH SYRINGE 10 ML IV SCH ×2 (09:30→22:15)
--- NOTE | 2018-07-08 11:58 | Progress Note ---
Subjective - Reason for Consult Consult date: 07/08/18 Reason for consult: Psychiatry Follow-up - Chief Complaint Chief complaint: "Milena" Patient is a 58-year-old female who presented to the ER for aggressive and threatening behavior towards family members. The patient was brought to the ER by her daughter. Today the patient is still disorganized during the assessment. Per the staff, the patient was inappropriate yesterday afternoon. They stated that the patient had to be told to keep her gown on several times. Throughout the interview, the patient was rambling about a person name "Bill." She would not confirm this person when asked. No gesture of SI/HI's. Mental Status Exam - Vital signs Last Vital Signs Temp 97.8 F 07/07/18 23:29 Pulse 100 H 07/07/18 23:29 Resp 16 07/08/18 06:00 BP 126/76 07/07/18 23:29 Pulse Ox 97 07/07/18 23:29 - Exam Narrative exam: MSE: Appearance: calm Behavior: regular eye contact Speech: regular rate and tone Mood: "okay" Affect: congruent to mood Thought Process: disorganized Thought Content: no gestures of SI/HI's Motor Activity: lying in bed Cognition: alert Insight: poor Judgment: poor Assessment and Plan Impression: Hx of Schizophrenia per the record. Today the patient is still disorganized during the assessment. The patient isn't in restraints. DDx: R/O Bipolar DO with psychosis Recommendation/Plan: Continue 1013 with pending placement to [facility]. Continue Haldol 5 mg IM Q6hrs for acute agitatiion, Zyprexa 20 mg PO HS for schizophrenia, and Klonopin 0.5 mg PO BID for sleep/anxiety. Attempted to discuss possible metabolic side effects of Zyprexa with patient. Monitor the patient V/S's, the patient is scheduled Klonopin and also have Ativan PRN in the MAR.
--- NOTE | 2018-07-08 13:15 | Progress Note ---
Assessment and Plan Assessment and plan: 1)Acute renal failure, resolved 2)Hypernatremia secondary to dehydration, resolved 3)Acute encephalopathy, improved. MRI brain unable to be completed due to agitation/movement despite given ativan 4)Acute psychosis: Acute psychosis secondary to schizophrenia. patient is medically cleared for discharge to inpatient psychiatric facility. 5)Schizophrenia in 1012: Patient will need inpatient psych. Awaiting case management options. 6)Sinus Tachycardia -due to agitation, stable 7)UTI -resolved Disposition: Patient is awaiting discharge to inpatient psych facility. History Interval history: Patient seen today. She is unable to communicate appropriately. No overnight issues reported. Hospitalist Physical - Physical exam Narrative exam: Pt refused to be examined today - Constitutional Vitals: Temp Pulse Resp BP Pulse Ox 98 F 110 H 20 116/60 97 07/08/18 12:44 07/08/18 12:44 07/08/18 12:35 07/08/18 12:35 07/07/18 23:29 Results - Labs CBC & Chem 7: 07/02/18 05:49 07/08/18 04:57 Labs: Laboratory Last Values WBC 4.1 K/mm3 (4.5-11.0) L 07/02/18 05:49 RBC 3.87 M/mm3 (3.65-5.03) 07/02/18 05:49 Hgb 12.3 gm/dl (10.1-14.3) 07/02/18 05:49 Hct 35.5 % (30.3-42.9) 07/02/18 05:49 MCV 92 fl (79-97) 07/02/18 05:49 MCH 32 pg (28-32) 07/02/18 05:49 MCHC 35 % (30-34) H 07/02/18 05:49 RDW 15.9 % (13.2-15.2) H 07/02/18 05:49 Plt Count 187 K/mm3 (140-440) 07/02/18 05:49 Lymph % (Auto) 26.2 % (13.4-35.0) 07/02/18 05:49 [place] % (Auto) 7.5 % (0.0-7.3) H 07/02/18 05:49 Eos % (Auto) 6.8 % (0.0-4.3) H 07/02/18 05:49 Baso % (Auto) 0.9 % (0.0-1.8) 07/02/18 05:49 Lymph # 1.1 K/mm3 (1.2-5.4) L 07/02/18 05:49 [place] # 0.3 K/mm3 (0.0-0.8) 07/02/18 05:49 Eos # 0.3 K/mm3 (0.0-0.4) 07/02/18 05:49 Baso # 0.0 K/mm3 (0.0-0.1) 07/02/18 05:49 Seg Neutrophils % 58.6 % (40.0-70.0) 07/02/18 05:49 Seg Neutrophils # 2.4 K/mm3 (1.8-7.7) 07/02/18 05:49 PT 10.6 Sec. (12.2-14.9) L 06/02/18 19:09 INR 0.73 (0.87-1.13) L 06/02/18 19:09 APTT 23.5 Sec. (24.2-36.6) L 06/02/18 19:09 Sodium 142 mmol/L (137-145) 07/08/18 04:57 Potassium 3.9 mmol/L (3.6-5.0) 07/08/18 04:57 Chloride 104.1 mmol/L (98-107) 07/08/18 04:57 Carbon Dioxide 24 mmol/L (22-30) 07/08/18 04:57 Anion Gap 18 mmol/L 07/08/18 04:57 BUN 12 mg/dL (7-17) 07/08/18 04:57 Creatinine 0.8 mg/dL (0.7-1.2) 07/08/18 04:57 Estimated GFR > 60 ml/min 07/08/18 04:57 BUN/Creatinine Ratio 15 % 07/08/18 04:57 Glucose 85 mg/dL (65-100) 07/08/18 04:57 POC Glucose 175 (70-105) H 06/12/18 13:14 Lactic Acid 2.00 mmol/L (0.7-2.0) 06/02/18 19:09 Calcium 9.3 mg/dL (8.4-10.2) 07/08/18 04:57 Phosphorus 2.90 mg/dL (2.5-4.5) 06/17/18 06:00 Magnesium 1.80 mg/dL (1.7-2.3) 07/08/18 04:57 Total Bilirubin 0.40 mg/dL (0.1-1.2) 07/02/18 05:49 Direct Bilirubin 0.2 mg/dL (0-0.2) 06/14/18 05:29 Indirect Bilirubin 0.5 mg/dL 06/14/18 05:29 AST 24 units/L (5-40) 07/02/18 05:49 ALT 44 units/L (7-56) 07/02/18 05:49 Alkaline Phosphatase 90 units/L (35-129) 07/02/18 05:49 Ammonia 23.0 umol/L (25-60) L 06/27/18 20:55 Total Creatine Kinase 112 units/L (30-135) 06/21/18 13:12 Troponin T < 0.010 ng/mL (0.00-0.029) 06/22/18 21:31 NT-Pro-B Natriuret Pep 60.88 pg/mL (0-900) 06/02/18 19:09 Total Protein 5.4 g/dL (6.3-8.2) L 07/02/18 05:49 Albumin 3.6 g/dL (3.9-5) L 07/02/18 05:49 Albumin/Globulin Ratio 2.0 % 07/02/18 05:49 TSH 1.950 mlU/mL (0.270-4.200) 06/06/18 10:57 Free T4 1.40 ng/dL (0.76-1.46) 06/06/18 10:57 Urine Color Straw (Yellow) 06/22/18 18:00 Urine Turbidity Clear (Clear) 06/22/18 18:00 Urine pH 7.0 (5.0-7.0) 06/22/18 18:00 Ur Specific [place] 1.005 (1.003-1.030) 06/22/18 18:00 Urine Protein <15 mg/dl mg/dL (Negative) 06/22/18 18:00 Urine Glucose (UA) Negative mg/dL (Negative) 06/22/18 18:00 Urine Ketones Negative mg/dL (Negative) 06/22/18 18:00 Urine Blood Negative (Negative) 06/22/18 18:00 Urine Nitrite Positive (Negative) 06/22/18 18:00 Ur Reducing Substances Not Reportable 06/22/18 18:00 Urine Bilirubin Negative (Negative) 06/22/18 18:00 Urine Ictotest Not Reportable 06/22/18 18:00 Urine Urobilinogen < 2.0 mg/dL (<2.0) 06/22/18 18:00 Ur Leukocyte Esterase Moderate (Negative) 06/22/18 18:00 Urine WBC (Auto) 23.0 /HPF (0.0-6.0) H 06/22/18 18:00 Urine RBC (Auto) < 1.0 /HPF (0.0-6.0) 06/22/18 18:00 U Epithel Cells (Auto) 1.0 /HPF (0-13.0) 06/22/18 18:00 Urine Opiates Screen Presumptive negative 06/02/18 10:43 Urine Methadone Screen Presumptive negative 06/02/18 10:43 Ur Barbiturates Screen Presumptive negative 06/02/18 10:43 Ur Phencyclidine Scrn Presumptive negative 06/02/18 10:43 Ur Amphetamines Screen Presumptive negative 06/02/18 10:43 U Benzodiazepines Scrn Presumptive negative 06/02/18 10:43 [place] 0.1 mmol/L (0.0-1.2) 06/02/18 19:09 Urine Cocaine Screen Presumptive negative 06/02/18 10:43 U Marijuana (THC) Screen Presumptive negative 06/02/18 10:43 Drugs of Abuse Note Disclamer 06/02/18 10:43 Plasma/Serum Alcohol < 0.01 % (0-0.07) 06/02/18 09:57
[2018-07-09] MEDS: HEPARIN SUB-Q SCH ×2 (12:07→22:47)
[2018-07-09] MEDS: SODIUM CHLORIDE FLUSH SYRINGE 10 ML IV SCH (12:11)
--- NOTE | 2018-07-09 12:55 | Progress Note ---
Assessment and Plan Assessment and plan: 1)Acute renal failure, resolved 2)Hypernatremia secondary to dehydration, resolved 3)Acute encephalopathy, improved. MRI brain unable to be completed due to agitation/movement despite given ativan 4)Acute psychosis: Acute psychosis secondary to schizophrenia. patient is medically cleared for discharge to inpatient psychiatric facility. 5)Schizophrenia in 3: Patient will need inpatient psych. Awaiting case management options. 6)Sinus Tachycardia -due to agitation, stable 7)UTI -resolved Disposition: Patient is awaiting discharge to inpatient psych facility. History Interval history: Pt complained of neck pain Hospitalist Physical - Constitutional Vitals: Temp Pulse Resp BP Pulse Ox 98.1 F 101 H 18 115/75 99 07/09/18 12:15 07/09/18 12:15 07/09/18 12:15 07/09/18 12:15 07/09/18 12:15 General appearance: Present: no acute distress - EENT Eyes: Present: PERRL, EOM intact ENT: hearing intact, clear oral mucosa - Neck Neck: Present: supple, normal ROM - Respiratory Respiratory effort: normal Respiratory: bilateral: CTA - Cardiovascular Rhythm: regular Heart Sounds: Present: S1 & S2 - Abdominal General gastrointestinal: soft, non-tender, normal bowel sounds - Neurologic Neurologic: CNII-XII intact Results - Labs CBC & Chem 7: 07/02/18 05:49 07/08/18 04:57 Labs: Laboratory Last Values WBC 4.1 K/mm3 (4.5-11.0) L 07/02/18 05:49 RBC 3.87 M/mm3 (3.65-5.03) 07/02/18 05:49 Hgb 12.3 gm/dl (10.1-14.3) 07/02/18 05:49 Hct 35.5 % (30.3-42.9) 07/02/18 05:49 MCV 92 fl (79-97) 07/02/18 05:49 MCH 32 pg (28-32) 07/02/18 05:49 MCHC 35 % (30-34) H 07/02/18 05:49 RDW 15.9 % (13.2-15.2) H 07/02/18 05:49 Plt Count 187 K/mm3 (140-440) 07/02/18 05:49 Lymph % (Auto) 26.2 % (13.4-35.0) 07/02/18 05:49 [place] % (Auto) 7.5 % (0.0-7.3) H 07/02/18 05:49 Eos % (Auto) 6.8 % (0.0-4.3) H 07/02/18 05:49 Baso % (Auto) 0.9 % (0.0-1.8) 07/02/18 05:49 Lymph # 1.1 K/mm3 (1.2-5.4) L 07/02/18 05:49 [place] # 0.3 K/mm3 (0.0-0.8) 07/02/18 05:49 Eos # 0.3 K/mm3 (0.0-0.4) 07/02/18 05:49 Baso # 0.0 K/mm3 (0.0-0.1) 07/02/18 05:49 Seg Neutrophils % 58.6 % (40.0-70.0) 07/02/18 05:49 Seg Neutrophils # 2.4 K/mm3 (1.8-7.7) 07/02/18 05:49 PT 10.6 Sec. (12.2-14.9) L 06/02/18 19:09 INR 0.73 (0.87-1.13) L 06/02/18 19:09 APTT 23.5 Sec. (24.2-36.6) L 06/02/18 19:09 Sodium 142 mmol/L (137-145) 07/08/18 04:57 Potassium 3.9 mmol/L (3.6-5.0) 07/08/18 04:57 Chloride 104.1 mmol/L (98-107) 07/08/18 04:57 Carbon Dioxide 24 mmol/L (22-30) 07/08/18 04:57 Anion Gap 18 mmol/L 07/08/18 04:57 BUN 12 mg/dL (7-17) 07/08/18 04:57 Creatinine 0.8 mg/dL (0.7-1.2) 07/08/18 04:57 Estimated GFR > 60 ml/min 07/08/18 04:57 BUN/Creatinine Ratio 15 % 07/08/18 04:57 Glucose 85 mg/dL (65-100) 07/08/18 04:57 POC Glucose 175 (70-105) H 06/12/18 13:14 Lactic Acid 2.00 mmol/L (0.7-2.0) 06/02/18 19:09 Calcium 9.3 mg/dL (8.4-10.2) 07/08/18 04:57 Phosphorus 2.90 mg/dL (2.5-4.5) 06/17/18 06:00 Magnesium 1.80 mg/dL (1.7-2.3) 07/08/18 04:57 Total Bilirubin 0.40 mg/dL (0.1-1.2) 07/02/18 05:49 Direct Bilirubin 0.2 mg/dL (0-0.2) 06/14/18 05:29 Indirect Bilirubin 0.5 mg/dL 06/14/18 05:29 AST 24 units/L (5-40) 07/02/18 05:49 ALT 44 units/L (7-56) 07/02/18 05:49 Alkaline Phosphatase 90 units/L (35-129) 07/02/18 05:49 Ammonia 23.0 umol/L (25-60) L 06/27/18 20:55 Total Creatine Kinase 112 units/L (30-135) 06/21/18 13:12 Troponin T < 0.010 ng/mL (0.00-0.029) 06/22/18 21:31 NT-Pro-B Natriuret Pep 60.88 pg/mL (0-900) 06/02/18 19:09 Total Protein 5.4 g/dL (6.3-8.2) L 07/02/18 05:49 Albumin 3.6 g/dL (3.9-5) L 07/02/18 05:49 Albumin/Globulin Ratio 2.0 % 07/02/18 05:49 TSH 1.950 mlU/mL (0.270-4.200) 06/06/18 10:57 Free T4 1.40 ng/dL (0.76-1.46) 06/06/18 10:57 Urine Color Straw (Yellow) 06/22/18 18:00 Urine Turbidity Clear (Clear) 06/22/18 18:00 Urine pH 7.0 (5.0-7.0) 06/22/18 18:00 Ur Specific [place] 1.005 (1.003-1.030) 06/22/18 18:00 Urine Protein <15 mg/dl mg/dL (Negative) 06/22/18 18:00 Urine Glucose (UA) Negative mg/dL (Negative) 06/22/18 18:00 Urine Ketones Negative mg/dL (Negative) 06/22/18 18:00 Urine Blood Negative (Negative) 06/22/18 18:00 Urine Nitrite Positive (Negative) 06/22/18 18:00 Ur Reducing Substances Not Reportable 06/22/18 18:00 Urine Bilirubin Negative (Negative) 06/22/18 18:00 Urine Ictotest Not Reportable 06/22/18 18:00 Urine Urobilinogen < 2.0 mg/dL (<2.0) 06/22/18 18:00 Ur Leukocyte Esterase Moderate (Negative) 06/22/18 18:00 Urine WBC (Auto) 23.0 /HPF (0.0-6.0) H 06/22/18 18:00 Urine RBC (Auto) < 1.0 /HPF (0.0-6.0) 06/22/18 18:00 U Epithel Cells (Auto) 1.0 /HPF (0-13.0) 06/22/18 18:00 Urine Opiates Screen Presumptive negative 06/02/18 10:43 Urine Methadone Screen Presumptive negative 06/02/18 10:43 Ur Barbiturates Screen Presumptive negative 06/02/18 10:43 Ur Phencyclidine Scrn Presumptive negative 06/02/18 10:43 Ur Amphetamines Screen Presumptive negative 06/02/18 10:43 U Benzodiazepines Scrn Presumptive negative 06/02/18 10:43 [place] 0.1 mmol/L (0.0-1.2) 06/02/18 19:09 Urine Cocaine Screen Presumptive negative 06/02/18 10:43 U Marijuana (THC) Screen Presumptive negative 06/02/18 10:43 Drugs of Abuse Note Disclamer 06/02/18 10:43 Plasma/Serum Alcohol < 0.01 % (0-0.07) 06/02/18 09:57
[2018-07-09] MEDS: ATIVAN IV PRN (22:47)
[2018-07-10] MEDS: SODIUM CHLORIDE FLUSH SYRINGE 10 ML IV SCH (02:33)
[2018-07-10] MEDS: ATIVAN IV PRN ×2 (02:39→17:44)
[2018-07-10] MEDS: NORCO 5/325 PO PRN ×2 (07:46→14:23)
[2018-07-10] MEDS: HEPARIN SUB-Q SCH ×2 (11:11→22:07)
--- NOTE | 2018-07-10 11:31 | Progress Note ---
Assessment and Plan Assessment and plan: 1)Acute renal failure, resolved 2)Hypernatremia secondary to dehydration, resolved 3)Acute encephalopathy, improved. MRI brain unable to be completed due to agitation/movement despite given ativan 4)Acute psychosis: Acute psychosis secondary to schizophrenia. patient is medically cleared for discharge to inpatient psychiatric facility. 5)Schizophrenia in 3: Patient will need inpatient psych. Awaiting case management options. 6)Sinus Tachycardia -due to agitation, stable 7)UTI -resolved Disposition: Patient is awaiting discharge to inpatient psych facility. History Interval history: Pt has no new complaints Hospitalist Physical - Constitutional Vitals: Temp Pulse Resp BP Pulse Ox 98.2 F 111 H 16 105/71 97 07/09/18 18:43 07/09/18 18:43 07/09/18 20:00 07/09/18 18:43 07/09/18 18:43 General appearance: Present: no acute distress - EENT Eyes: Present: PERRL, EOM intact ENT: hearing intact, clear oral mucosa - Neck Neck: Present: supple - Respiratory Respiratory: bilateral: CTA - Cardiovascular Rhythm: regular Heart Sounds: Present: S1 & S2 - Extremities Extremities: No edema - Abdominal General gastrointestinal: soft, non-tender, normal bowel sounds - Neurologic Neurologic: CNII-XII intact Results - Labs CBC & Chem 7: 07/02/18 05:49 07/08/18 04:57 Labs: Laboratory Last Values WBC 4.1 K/mm3 (4.5-11.0) L 07/02/18 05:49 RBC 3.87 M/mm3 (3.65-5.03) 07/02/18 05:49 Hgb 12.3 gm/dl (10.1-14.3) 07/02/18 05:49 Hct 35.5 % (30.3-42.9) 07/02/18 05:49 MCV 92 fl (79-97) 07/02/18 05:49 MCH 32 pg (28-32) 07/02/18 05:49 MCHC 35 % (30-34) H 07/02/18 05:49 RDW 15.9 % (13.2-15.2) H 07/02/18 05:49 Plt Count 187 K/mm3 (140-440) 07/02/18 05:49 Lymph % (Auto) 26.2 % (13.4-35.0) 07/02/18 05:49 [place] % (Auto) 7.5 % (0.0-7.3) H 07/02/18 05:49 Eos % (Auto) 6.8 % (0.0-4.3) H 07/02/18 05:49 Baso % (Auto) 0.9 % (0.0-1.8) 07/02/18 05:49 Lymph # 1.1 K/mm3 (1.2-5.4) L 07/02/18 05:49 [place] # 0.3 K/mm3 (0.0-0.8) 07/02/18 05:49 Eos # 0.3 K/mm3 (0.0-0.4) 07/02/18 05:49 Baso # 0.0 K/mm3 (0.0-0.1) 07/02/18 05:49 Seg Neutrophils % 58.6 % (40.0-70.0) 07/02/18 05:49 Seg Neutrophils # 2.4 K/mm3 (1.8-7.7) 07/02/18 05:49 PT 10.6 Sec. (12.2-14.9) L 06/02/18 19:09 INR 0.73 (0.87-1.13) L 06/02/18 19:09 APTT 23.5 Sec. (24.2-36.6) L 06/02/18 19:09 Sodium 142 mmol/L (137-145) 07/08/18 04:57 Potassium 3.9 mmol/L (3.6-5.0) 07/08/18 04:57 Chloride 104.1 mmol/L (98-107) 07/08/18 04:57 Carbon Dioxide 24 mmol/L (22-30) 07/08/18 04:57 Anion Gap 18 mmol/L 07/08/18 04:57 BUN 12 mg/dL (7-17) 07/08/18 04:57 Creatinine 0.8 mg/dL (0.7-1.2) 07/08/18 04:57 Estimated GFR > 60 ml/min 07/08/18 04:57 BUN/Creatinine Ratio 15 % 07/08/18 04:57 Glucose 85 mg/dL (65-100) 07/08/18 04:57 POC Glucose 175 (70-105) H 06/12/18 13:14 Lactic Acid 2.00 mmol/L (0.7-2.0) 06/02/18 19:09 Calcium 9.3 mg/dL (8.4-10.2) 07/08/18 04:57 Phosphorus 2.90 mg/dL (2.5-4.5) 06/17/18 06:00 Magnesium 1.80 mg/dL (1.7-2.3) 07/08/18 04:57 Total Bilirubin 0.40 mg/dL (0.1-1.2) 07/02/18 05:49 Direct Bilirubin 0.2 mg/dL (0-0.2) 06/14/18 05:29 Indirect Bilirubin 0.5 mg/dL 06/14/18 05:29 AST 24 units/L (5-40) 07/02/18 05:49 ALT 44 units/L (7-56) 07/02/18 05:49 Alkaline Phosphatase 90 units/L (35-129) 07/02/18 05:49 Ammonia 23.0 umol/L (25-60) L 06/27/18 20:55 Total Creatine Kinase 112 units/L (30-135) 06/21/18 13:12 Troponin T < 0.010 ng/mL (0.00-0.029) 06/22/18 21:31 NT-Pro-B Natriuret Pep 60.88 pg/mL (0-900) 06/02/18 19:09 Total Protein 5.4 g/dL (6.3-8.2) L 07/02/18 05:49 Albumin 3.6 g/dL (3.9-5) L 07/02/18 05:49 Albumin/Globulin Ratio 2.0 % 07/02/18 05:49 TSH 1.950 mlU/mL (0.270-4.200) 06/06/18 10:57 Free T4 1.40 ng/dL (0.76-1.46) 06/06/18 10:57 Urine Color Straw (Yellow) 06/22/18 18:00 Urine Turbidity Clear (Clear) 06/22/18 18:00 Urine pH 7.0 (5.0-7.0) 06/22/18 18:00 Ur Specific [place] 1.005 (1.003-1.030) 06/22/18 18:00 Urine Protein <15 mg/dl mg/dL (Negative) 06/22/18 18:00 Urine Glucose (UA) Negative mg/dL (Negative) 06/22/18 18:00 Urine Ketones Negative mg/dL (Negative) 06/22/18 18:00 Urine Blood Negative (Negative) 06/22/18 18:00 Urine Nitrite Positive (Negative) 06/22/18 18:00 Ur Reducing Substances Not Reportable 06/22/18 18:00 Urine Bilirubin Negative (Negative) 06/22/18 18:00 Urine Ictotest Not Reportable 06/22/18 18:00 Urine Urobilinogen < 2.0 mg/dL (<2.0) 06/22/18 18:00 Ur Leukocyte Esterase Moderate (Negative) 06/22/18 18:00 Urine WBC (Auto) 23.0 /HPF (0.0-6.0) H 06/22/18 18:00 Urine RBC (Auto) < 1.0 /HPF (0.0-6.0) 06/22/18 18:00 U Epithel Cells (Auto) 1.0 /HPF (0-13.0) 06/22/18 18:00 Urine Opiates Screen Presumptive negative 06/02/18 10:43 Urine Methadone Screen Presumptive negative 06/02/18 10:43 Ur Barbiturates Screen Presumptive negative 06/02/18 10:43 Ur Phencyclidine Scrn Presumptive negative 06/02/18 10:43 Ur Amphetamines Screen Presumptive negative 06/02/18 10:43 U Benzodiazepines Scrn Presumptive negative 06/02/18 10:43 [facility] 0.1 mmol/L (0.0-1.2) 06/02/18 19:09 Urine Cocaine Screen Presumptive negative 06/02/18 10:43 U Marijuana (THC) Screen Presumptive negative 06/02/18 10:43 Drugs of Abuse Note Disclamer 06/02/18 10:43 Plasma/Serum Alcohol < 0.01 % (0-0.07) 06/02/18 09:57
[2018-07-10] MEDS: HALDOL IM PRN ×2 (15:42→22:09)
[2018-07-11] MEDS: ATIVAN IV PRN ×3 (08:28→22:48)
--- NOTE | 2018-07-11 11:02 | Progress Note ---
Subjective - Reason for Consult Consult date: 07/11/18 Reason for consult: Psychiatry Follow-up - Chief Complaint Chief complaint: "How are you" Patient is a 58-year-old female who presented to the ER for aggressive and threatening behavior towards family members. The patient was brought to the ER by her daughter. Today the patient is calm and cooperative during the assessment. The patient stated that she feel "pretty good." She was able to answer most questions logically. Per the staff, the patient ate 100% of breakfast. The patient denies SI/HI's and AVH's. She denies any side effects of her medications. Mental Status Exam - Vital signs Last Vital Signs Temp 97.9 F 07/11/18 05:46 Pulse 91 H 07/11/18 05:46 Resp 20 07/11/18 05:46 BP 113/72 07/11/18 05:46 Pulse Ox 98 07/11/18 05:46 - Exam Narrative exam: MSE: Appearance: calm, cooperative Behavior: regular eye contact Speech: regular rate and tone Mood: "okay" Affect: congruent to mood Thought Process: circumstantial Thought Content: denies SI/HI's and AVH's Motor Activity: lying in bed Cognition: A/O x 3 Insight: variable Judgment: variable Assessment and Plan Impression: Hx of Schizophrenia per the record. Today the patient is calm and cooperative during the assessment. The patient isn't in restraints. DDx: R/O Bipolar DO with psychosis Recommendation/Plan: Reevaluate 1013 in 24 hours to detremine proper dispo. Continue Haldol 5 mg IM Q6hrs for acute agitatiion, Zyprexa 20 mg PO HS for schizophrenia, and Klonopin 0.5 mg PO BID for sleep/anxiety. Attempted to discuss possible metabolic side effects of Zyprexa with patient. Monitor the patient V/S's, the patient is scheduled Klonopin and also have Ativan PRN in the JAN.
[2018-07-11] MEDS: HEPARIN SUB-Q SCH ×2 (12:25→22:48)
[2018-07-11] MEDS: HALDOL IM PRN (12:25)
[2018-07-11] MEDS: SODIUM CHLORIDE FLUSH SYRINGE 10 ML IV SCH ×4 (12:26→23:01)
--- NOTE | 2018-07-11 13:28 | Progress Note ---
Assessment and Plan Assessment and plan: 1)Acute renal failure, resolved 2)Hypernatremia secondary to dehydration, resolved 3)Acute encephalopathy, improved. MRI brain unable to be completed due to agitation/movement despite given ativan 4)Acute psychosis: Acute psychosis secondary to schizophrenia. patient is medically cleared for discharge to inpatient psychiatric facility. 5)Schizophrenia in 3: Patient will need inpatient psych. Awaiting case management options. 6)Sinus Tachycardia -due to agitation, stable 7)UTI -resolved Disposition: Patient is awaiting discharge to inpatient psych facility. History Interval history: Pt has no new complaints. Hospitalist Physical - Constitutional Vitals: Temp Pulse Resp BP Pulse Ox 97.8 F 91 H 19 117/70 98 07/11/18 12:06 07/11/18 05:46 07/11/18 12:06 07/11/18 12:06 07/11/18 05:46 General appearance: Present: no acute distress - EENT Eyes: Present: EOM intact ENT: clear oral mucosa - Neck Neck: Present: supple - Respiratory Respiratory: bilateral: CTA - Cardiovascular Rhythm: regular Heart Sounds: Present: S1 & S2 - Neurologic Neurologic: CNII-XII intact Results - Labs CBC & Chem 7: 07/02/18 05:49 07/08/18 04:57 Labs: Laboratory Last Values WBC 4.1 K/mm3 (4.5-11.0) L 07/02/18 05:49 RBC 3.87 M/mm3 (3.65-5.03) 07/02/18 05:49 Hgb 12.3 gm/dl (10.1-14.3) 07/02/18 05:49 Hct 35.5 % (30.3-42.9) 07/02/18 05:49 MCV 92 fl (79-97) 07/02/18 05:49 MCH 32 pg (28-32) 07/02/18 05:49 MCHC 35 % (30-34) H 07/02/18 05:49 RDW 15.9 % (13.2-15.2) H 07/02/18 05:49 Plt Count 187 K/mm3 (140-440) 07/02/18 05:49 Lymph % (Auto) 26.2 % (13.4-35.0) 07/02/18 05:49 [place] % (Auto) 7.5 % (0.0-7.3) H 07/02/18 05:49 Eos % (Auto) 6.8 % (0.0-4.3) H 07/02/18 05:49 Baso % (Auto) 0.9 % (0.0-1.8) 07/02/18 05:49 Lymph # 1.1 K/mm3 (1.2-5.4) L 07/02/18 05:49 [place] # 0.3 K/mm3 (0.0-0.8) 07/02/18 05:49 Eos # 0.3 K/mm3 (0.0-0.4) 07/02/18 05:49 Baso # 0.0 K/mm3 (0.0-0.1) 07/02/18 05:49 Seg Neutrophils % 58.6 % (40.0-70.0) 07/02/18 05:49 Seg Neutrophils # 2.4 K/mm3 (1.8-7.7) 07/02/18 05:49 PT 10.6 Sec. (12.2-14.9) L 06/02/18 19:09 INR 0.73 (0.87-1.13) L 06/02/18 19:09 APTT 23.5 Sec. (24.2-36.6) L 06/02/18 19:09 Sodium 142 mmol/L (137-145) 07/08/18 04:57 Potassium 3.9 mmol/L (3.6-5.0) 07/08/18 04:57 Chloride 104.1 mmol/L (98-107) 07/08/18 04:57 Carbon Dioxide 24 mmol/L (22-30) 07/08/18 04:57 Anion Gap 18 mmol/L 07/08/18 04:57 BUN 12 mg/dL (7-17) 07/08/18 04:57 Creatinine 0.8 mg/dL (0.7-1.2) 07/08/18 04:57 Estimated GFR > 60 ml/min 07/08/18 04:57 BUN/Creatinine Ratio 15 % 07/08/18 04:57 Glucose 85 mg/dL (65-100) 07/08/18 04:57 POC Glucose 175 (70-105) H 06/12/18 13:14 Lactic Acid 2.00 mmol/L (0.7-2.0) 06/02/18 19:09 Calcium 9.3 mg/dL (8.4-10.2) 07/08/18 04:57 Phosphorus 2.90 mg/dL (2.5-4.5) 06/17/18 06:00 Magnesium 1.80 mg/dL (1.7-2.3) 07/08/18 04:57 Total Bilirubin 0.40 mg/dL (0.1-1.2) 07/02/18 05:49 Direct Bilirubin 0.2 mg/dL (0-0.2) 06/14/18 05:29 Indirect Bilirubin 0.5 mg/dL 06/14/18 05:29 AST 24 units/L (5-40) 07/02/18 05:49 ALT 44 units/L (7-56) 07/02/18 05:49 Alkaline Phosphatase 90 units/L (35-129) 07/02/18 05:49 Ammonia 23.0 umol/L (25-60) L 06/27/18 20:55 Total Creatine Kinase 112 units/L (30-135) 06/21/18 13:12 Troponin T < 0.010 ng/mL (0.00-0.029) 06/22/18 21:31 NT-Pro-B Natriuret Pep 60.88 pg/mL (0-900) 06/02/18 19:09 Total Protein 5.4 g/dL (6.3-8.2) L 07/02/18 05:49 Albumin 3.6 g/dL (3.9-5) L 07/02/18 05:49 Albumin/Globulin Ratio 2.0 % 07/02/18 05:49 TSH 1.950 mlU/mL (0.270-4.200) 06/06/18 10:57 Free T4 1.40 ng/dL (0.76-1.46) 06/06/18 10:57 Urine Color Straw (Yellow) 06/22/18 18:00 Urine Turbidity Clear (Clear) 06/22/18 18:00 Urine pH 7.0 (5.0-7.0) 06/22/18 18:00 Ur Specific [place] 1.005 (1.003-1.030) 06/22/18 18:00 Urine Protein <15 mg/dl mg/dL (Negative) 06/22/18 18:00 Urine Glucose (UA) Negative mg/dL (Negative) 06/22/18 18:00 Urine Ketones Negative mg/dL (Negative) 06/22/18 18:00 Urine Blood Negative (Negative) 06/22/18 18:00 Urine Nitrite Positive (Negative) 06/22/18 18:00 Ur Reducing Substances Not Reportable 06/22/18 18:00 Urine Bilirubin Negative (Negative) 06/22/18 18:00 Urine Ictotest Not Reportable 06/22/18 18:00 Urine Urobilinogen < 2.0 mg/dL (<2.0) 06/22/18 18:00 Ur Leukocyte Esterase Moderate (Negative) 06/22/18 18:00 Urine WBC (Auto) 23.0 /HPF (0.0-6.0) H 06/22/18 18:00 Urine RBC (Auto) < 1.0 /HPF (0.0-6.0) 06/22/18 18:00 U Epithel Cells (Auto) 1.0 /HPF (0-13.0) 06/22/18 18:00 Urine Opiates Screen Presumptive negative 06/02/18 10:43 Urine Methadone Screen Presumptive negative 06/02/18 10:43 Ur Barbiturates Screen Presumptive negative 06/02/18 10:43 Ur Phencyclidine Scrn Presumptive negative 06/02/18 10:43 Ur Amphetamines Screen Presumptive negative 06/02/18 10:43 U Benzodiazepines Scrn Presumptive negative 06/02/18 10:43 [place] 0.1 mmol/L (0.0-1.2) 06/02/18 19:09 Urine Cocaine Screen Presumptive negative 06/02/18 10:43 U Marijuana (THC) Screen Presumptive negative 06/02/18 10:43 Drugs of Abuse Note Disclamer 06/02/18 10:43 Plasma/Serum Alcohol < 0.01 % (0-0.07) 06/02/18 09:57
[2018-07-11] MEDS: NORCO 5/325 PO PRN (22:48)
[2018-07-12] MEDS: HEPARIN SUB-Q SCH ×2 (11:08→22:57)
[2018-07-12] MEDS: SODIUM CHLORIDE FLUSH SYRINGE 10 ML IV SCH (11:09)
--- NOTE | 2018-07-12 15:52 | Progress Note ---
Subjective - Reason for Consult Consult date: 07/12/18 Reason for consult: Psychiatry Follow-up - Chief Complaint Chief complaint: "Hello there" Patient is a 58-year-old female who presented to the ER for aggressive and threatening behavior towards family members. The patient was brought to the ER by her daughter. Today the patient is calm and cooperative during the assessment. She stated that she took a shower and wanted to go home. She was able to tell me her daughter's name when asked. The patient reside with her daughter Michelle Courtney. Per the staff, no behavioral disturbance before I arrived to the patient's room. She denies SI/HI's and AVH's. She denies any side effects of her medications. Mental Status Exam - Vital signs Last Vital Signs Temp 97.9 F 07/12/18 11:51 Pulse 106 H 07/12/18 11:51 Resp 19 07/12/18 11:51 BP 117/80 07/12/18 11:51 Pulse Ox 98 07/12/18 11:51 - Exam Narrative exam: MSE: Appearance: calm, cooperative Behavior: regular eye contact Speech: regular rate and tone Mood: "okay" Affect: congruent to mood Thought Process: circumstantial Thought Content: denies SI/HI's and AVH's Motor Activity: lying in bed Cognition: A/O x 3 Insight: fair Judgment: fair Assessment and Plan Impression: Hx of Schizophrenia per the record. Today the patient is calm and cooperative during the assessment. Psychosis has resolved. The patient is at her baseline. DDx: R/O Bipolar DO with psychosis Recommendation/Plan: The patient's 1013 has and will not be extended. Continue Zyprexa 20 mg PO HS for schizophrenia and Klonopin 0.5 mg PO BID for anxiety. Discussed possible metabolic side effects of Zyprexa with patient. Spoke with the patient's daughter Michelle Courtney at [phone] to discuss outpatient psy services, she agreed with the plan. The patient can follow up with [facility] for outpatient psy services,
--- NOTE | 2018-07-12 19:31 | Discharge Summary ---
Providers - Providers Date of Admission: 06/13/18 10:10 Attending physician: VERONICA VILLEGAS MD 06/13/18 07:32 Consult to Physician [CONS] Urgent Comment: Consulting Provider: MARCELINA SULLIVAN Physician Instructions: Reason For Exam: nancy with hypernatremia 06/27/18 07:44 Consult to Physician [CONS] Routine Comment: Consulting Provider: DELTA KEYES Physician Instructions: Reason For Exam: Why low grade temps? Consult to Physician [CONS] Routine Comment: Consulting Provider: VLADISLAV CRUZ Physician Instructions: Reason For Exam: AMS and fevers Primary care physician: PROGRAM ATTENDANT Hospitalization Condition: Good Hospital course: 1)Acute renal failure, resolved 2)Hypernatremia secondary to dehydration, resolved 3)Acute encephalopathy, improved. MRI brain unable to be completed due to agitation/movement despite given ativan 4)Acute psychosis: Acute psychosis secondary to schizophrenia. patient is medically cleared for discharge to inpatient psychiatric facility. 5)Schizophrenia in 1013: Patient will need inpatient psych. Awaiting case management options. 6)Sinus Tachycardia -due to agitation, stable 7)UTI -resolved Disposition: Patient is awaiting discharge to inpatient psych facility. Disposition: DC-01 TO HOME OR SELFCARE Time spent for discharge: 33 minutes Core Measure Documentation - Palliative Care Palliative Care/ Comfort Measures: Not Applicable - Core Measures Any of the following diagnoses?: none Exam - Constitutional Vitals: Temp Pulse Resp BP Pulse Ox 98.1 F 111 H 18 111/64 98 07/12/18 18:00 07/12/18 18:00 07/12/18 18:00 07/12/18 18:31 07/12/18 18:00 General appearance: Present: no acute distress, well-nourished - EENT Eyes: Present: PERRL ENT: hearing intact, clear oral mucosa - Neck Neck: Present: supple, normal ROM - Respiratory Respiratory effort: normal Respiratory: bilateral: CTA - Cardiovascular Heart Sounds: Present: S1 & S2. Absent: rub, click - Extremities Extremities: pulses symmetrical, No edema Peripheral Pulses: within normal limits - Abdominal General gastrointestinal: Present: soft, non-tender, non-distended, normal bowel sounds Female genitourinary: Present: normal - Integumentary Integumentary: Present: clear, warm, dry - Musculoskeletal Musculoskeletal: gait normal, strength equal bilaterally - Psychiatric Psychiatric: appropriate mood/affect, intact judgment & insight - Neurologic Neurologic: CNII-XII intact, moves all extremities Plan Follow up with: [facility] [Outside] - 7 Days PRIMARY CARE, [Primary Care Provider] - 3-5 Days Prescriptions: clonazePAM [KlonoPIN] 0.5 mg PO BID #60 tablet HYDROcodone/APAP 5-325 [[place] 5-325 mg TAB] 1 each PO Q6H PRN #20 tablet PRN Reason: Pain, Moderate (4-6) OLANzapine [Zyprexa] 20 mg PO HS #60 tablet
[2018-07-12] MEDS: ATIVAN IV PRN (22:57)
[2018-07-12] MEDS: NORCO 5/325 PO PRN (22:58)
[2018-07-13] MEDS: SODIUM CHLORIDE FLUSH SYRINGE 10 ML IV SCH ×2 (03:38→09:40)
--- NOTE | 2018-07-13 08:31 | Progress Note ---
Assessment and Plan Assessment and plan: 1)Acute renal failure, resolved 2)Hypernatremia secondary to dehydration, resolved 3)Acute encephalopathy, improved. MRI brain unable to be completed due to agitation/movement despite given ativan 4)Acute psychosis: Acute psychosis secondary to schizophrenia. patient is medically cleared for discharge to inpatient psychiatric facility. 5)Schizophrenia in 1012: Patient will need inpatient psych. Awaiting case management options. 6)Sinus Tachycardia -due to agitation, stable 7)UTI -resolved Disposition: Patient is awaiting discharge to inpatient psych facility. Hospitalist Physical - Constitutional Vitals: Temp Pulse Resp BP Pulse Ox 98.3 F 89 20 103/62 98 07/12/18 23:45 07/12/18 23:45 07/12/18 23:45 07/12/18 23:45 07/12/18 23:45 General appearance: Present: no acute distress, well-nourished Results - Labs CBC & Chem 7: 07/02/18 05:49 07/08/18 04:57 Labs: Laboratory Last Values WBC 4.1 K/mm3 (4.5-11.0) L 07/02/18 05:49 RBC 3.87 M/mm3 (3.65-5.03) 07/02/18 05:49 Hgb 12.3 gm/dl (10.1-14.3) 07/02/18 05:49 Hct 35.5 % (30.3-42.9) 07/02/18 05:49 MCV 92 fl (79-97) 07/02/18 05:49 MCH 32 pg (28-32) 07/02/18 05:49 MCHC 35 % (30-34) H 07/02/18 05:49 RDW 15.9 % (13.2-15.2) H 07/02/18 05:49 Plt Count 187 K/mm3 (140-440) 07/02/18 05:49 Lymph % (Auto) 26.2 % (13.4-35.0) 07/02/18 05:49 [place] % (Auto) 7.5 % (0.0-7.3) H 07/02/18 05:49 Eos % (Auto) 6.8 % (0.0-4.3) H 07/02/18 05:49 Baso % (Auto) 0.9 % (0.0-1.8) 07/02/18 05:49 Lymph # 1.1 K/mm3 (1.2-5.4) L 07/02/18 05:49 [place] # 0.3 K/mm3 (0.0-0.8) 07/02/18 05:49 Eos # 0.3 K/mm3 (0.0-0.4) 07/02/18 05:49 Baso # 0.0 K/mm3 (0.0-0.1) 07/02/18 05:49 Seg Neutrophils % 58.6 % (40.0-70.0) 07/02/18 05:49 Seg Neutrophils # 2.4 K/mm3 (1.8-7.7) 07/02/18 05:49 PT 10.6 Sec. (12.2-14.9) L 06/02/18 19:09 INR 0.73 (0.87-1.13) L 06/02/18 19:09 APTT 23.5 Sec. (24.2-36.6) L 06/02/18 19:09 Sodium 142 mmol/L (137-145) 07/08/18 04:57 Potassium 3.9 mmol/L (3.6-5.0) 07/08/18 04:57 Chloride 104.1 mmol/L (98-107) 07/08/18 04:57 Carbon Dioxide 24 mmol/L (22-30) 07/08/18 04:57 Anion Gap 18 mmol/L 07/08/18 04:57 BUN 12 mg/dL (7-17) 07/08/18 04:57 Creatinine 0.8 mg/dL (0.7-1.2) 07/08/18 04:57 Estimated GFR > 60 ml/min 07/08/18 04:57 BUN/Creatinine Ratio 15 % 07/08/18 04:57 Glucose 85 mg/dL (65-100) 07/08/18 04:57 POC Glucose 175 (70-105) H 06/12/18 13:14 Lactic Acid 2.00 mmol/L (0.7-2.0) 06/02/18 19:09 Calcium 9.3 mg/dL (8.4-10.2) 07/08/18 04:57 Phosphorus 2.90 mg/dL (2.5-4.5) 06/17/18 06:00 Magnesium 1.80 mg/dL (1.7-2.3) 07/08/18 04:57 Total Bilirubin 0.40 mg/dL (0.1-1.2) 07/02/18 05:49 Direct Bilirubin 0.2 mg/dL (0-0.2) 06/14/18 05:29 Indirect Bilirubin 0.5 mg/dL 06/14/18 05:29 AST 24 units/L (5-40) 07/02/18 05:49 ALT 44 units/L (7-56) 07/02/18 05:49 Alkaline Phosphatase 90 units/L (35-129) 07/02/18 05:49 Ammonia 23.0 umol/L (25-60) L 06/27/18 20:55 Total Creatine Kinase 112 units/L (30-135) 06/21/18 13:12 Troponin T < 0.010 ng/mL (0.00-0.029) 06/22/18 21:31 NT-Pro-B Natriuret Pep 60.88 pg/mL (0-900) 06/02/18 19:09 Total Protein 5.4 g/dL (6.3-8.2) L 07/02/18 05:49 Albumin 3.6 g/dL (3.9-5) L 07/02/18 05:49 Albumin/Globulin Ratio 2.0 % 07/02/18 05:49 TSH 1.950 mlU/mL (0.270-4.200) 06/06/18 10:57 Free T4 1.40 ng/dL (0.76-1.46) 06/06/18 10:57 Urine Color Straw (Yellow) 06/22/18 18:00 Urine Turbidity Clear (Clear) 06/22/18 18:00 Urine pH 7.0 (5.0-7.0) 06/22/18 18:00 Ur Specific [place] 1.005 (1.003-1.030) 06/22/18 18:00 Urine Protein <15 mg/dl mg/dL (Negative) 06/22/18 18:00 Urine Glucose (UA) Negative mg/dL (Negative) 06/22/18 18:00 Urine Ketones Negative mg/dL (Negative) 06/22/18 18:00 Urine Blood Negative (Negative) 06/22/18 18:00 Urine Nitrite Positive (Negative) 06/22/18 18:00 Ur Reducing Substances Not Reportable 06/22/18 18:00 Urine Bilirubin Negative (Negative) 06/22/18 18:00 Urine Ictotest Not Reportable 06/22/18 18:00 Urine Urobilinogen < 2.0 mg/dL (<2.0) 06/22/18 18:00 Ur Leukocyte Esterase Moderate (Negative) 06/22/18 18:00 Urine WBC (Auto) 23.0 /HPF (0.0-6.0) H 06/22/18 18:00 Urine RBC (Auto) < 1.0 /HPF (0.0-6.0) 06/22/18 18:00 U Epithel Cells (Auto) 1.0 /HPF (0-13.0) 06/22/18 18:00 Urine Opiates Screen Presumptive negative 06/02/18 10:43 Urine Methadone Screen Presumptive negative 06/02/18 10:43 Ur Barbiturates Screen Presumptive negative 06/02/18 10:43 Ur Phencyclidine Scrn Presumptive negative 06/02/18 10:43 Ur Amphetamines Screen Presumptive negative 06/02/18 10:43 U Benzodiazepines Scrn Presumptive negative 06/02/18 10:43 [employer] 0.1 mmol/L (0.0-1.2) 06/02/18 19:09 Urine Cocaine Screen Presumptive negative 06/02/18 10:43 U Marijuana (THC) Screen Presumptive negative 06/02/18 10:43 Drugs of Abuse Note Disclamer 06/02/18 10:43 Plasma/Serum Alcohol < 0.01 % (0-0.07) 06/02/18 09:57
[2018-07-13] MEDS: HEPARIN SUB-Q SCH (09:38)
[2018-07-13 18:55] VITALS: BP 116/81
--- NOTE | 2018-07-13 22:36 | Progress Note ---
Assessment and Plan Assessment and plan: 1)Acute renal failure, resolved 2)Hypernatremia secondary to dehydration, resolved 3)Acute encephalopathy, improved. MRI brain unable to be completed due to agitation/movement despite given ativan 4)Acute psychosis: Acute psychosis secondary to schizophrenia. patient is medically cleared for discharge to inpatient psychiatric facility. 5)Schizophrenia in 1012: Patient will need inpatient psych. Awaiting case management options. 6)Sinus Tachycardia -due to agitation, stable 7)UTI -resolved Disposition: Patient is awaiting discharge to inpatient psych facility. Hospitalist Physical - Constitutional Vitals: Temp Pulse Resp BP Pulse Ox 98.7 F 99 H 18 116/81 99 07/13/18 18:53 07/13/18 18:53 07/13/18 18:53 07/13/18 18:53 07/13/18 18:53 General appearance: Present: no acute distress, well-nourished Results - Labs CBC & Chem 7: 07/02/18 05:49 07/08/18 04:57 Labs: Laboratory Last Values WBC 4.1 K/mm3 (4.5-11.0) L 07/02/18 05:49 RBC 3.87 M/mm3 (3.65-5.03) 07/02/18 05:49 Hgb 12.3 gm/dl (10.1-14.3) 07/02/18 05:49 Hct 35.5 % (30.3-42.9) 07/02/18 05:49 MCV 92 fl (79-97) 07/02/18 05:49 MCH 32 pg (28-32) 07/02/18 05:49 MCHC 35 % (30-34) H 07/02/18 05:49 RDW 15.9 % (13.2-15.2) H 07/02/18 05:49 Plt Count 187 K/mm3 (140-440) 07/02/18 05:49 Lymph % (Auto) 26.2 % (13.4-35.0) 07/02/18 05:49 [place] % (Auto) 7.5 % (0.0-7.3) H 07/02/18 05:49 Eos % (Auto) 6.8 % (0.0-4.3) H 07/02/18 05:49 Baso % (Auto) 0.9 % (0.0-1.8) 07/02/18 05:49 Lymph # 1.1 K/mm3 (1.2-5.4) L 07/02/18 05:49 [place] # 0.3 K/mm3 (0.0-0.8) 07/02/18 05:49 Eos # 0.3 K/mm3 (0.0-0.4) 07/02/18 05:49 Baso # 0.0 K/mm3 (0.0-0.1) 07/02/18 05:49 Seg Neutrophils % 58.6 % (40.0-70.0) 07/02/18 05:49 Seg Neutrophils # 2.4 K/mm3 (1.8-7.7) 07/02/18 05:49 PT 10.6 Sec. (12.2-14.9) L 06/02/18 19:09 INR 0.73 (0.87-1.13) L 06/02/18 19:09 APTT 23.5 Sec. (24.2-36.6) L 06/02/18 19:09 Sodium 142 mmol/L (137-145) 07/08/18 04:57 Potassium 3.9 mmol/L (3.6-5.0) 07/08/18 04:57 Chloride 104.1 mmol/L (98-107) 07/08/18 04:57 Carbon Dioxide 24 mmol/L (22-30) 07/08/18 04:57 Anion Gap 18 mmol/L 07/08/18 04:57 BUN 12 mg/dL (7-17) 07/08/18 04:57 Creatinine 0.8 mg/dL (0.7-1.2) 07/08/18 04:57 Estimated GFR > 60 ml/min 07/08/18 04:57 BUN/Creatinine Ratio 15 % 07/08/18 04:57 Glucose 85 mg/dL (65-100) 07/08/18 04:57 POC Glucose 175 (70-105) H 06/12/18 13:14 Lactic Acid 2.00 mmol/L (0.7-2.0) 06/02/18 19:09 Calcium 9.3 mg/dL (8.4-10.2) 07/08/18 04:57 Phosphorus 2.90 mg/dL (2.5-4.5) 06/17/18 06:00 Magnesium 1.80 mg/dL (1.7-2.3) 07/08/18 04:57 Total Bilirubin 0.40 mg/dL (0.1-1.2) 07/02/18 05:49 Direct Bilirubin 0.2 mg/dL (0-0.2) 06/14/18 05:29 Indirect Bilirubin 0.5 mg/dL 06/14/18 05:29 AST 24 units/L (5-40) 07/02/18 05:49 ALT 44 units/L (7-56) 07/02/18 05:49 Alkaline Phosphatase 90 units/L (35-129) 07/02/18 05:49 Ammonia 23.0 umol/L (25-60) L 06/27/18 20:55 Total Creatine Kinase 112 units/L (30-135) 06/21/18 13:12 Troponin T < 0.010 ng/mL (0.00-0.029) 06/22/18 21:31 NT-Pro-B Natriuret Pep 60.88 pg/mL (0-900) 06/02/18 19:09 Total Protein 5.4 g/dL (6.3-8.2) L 07/02/18 05:49 Albumin 3.6 g/dL (3.9-5) L 07/02/18 05:49 Albumin/Globulin Ratio 2.0 % 07/02/18 05:49 TSH 1.950 mlU/mL (0.270-4.200) 06/06/18 10:57 Free T4 1.40 ng/dL (0.76-1.46) 06/06/18 10:57 Urine Color Straw (Yellow) 06/22/18 18:00 Urine Turbidity Clear (Clear) 06/22/18 18:00 Urine pH 7.0 (5.0-7.0) 06/22/18 18:00 Ur Specific [place] 1.005 (1.003-1.030) 06/22/18 18:00 Urine Protein <15 mg/dl mg/dL (Negative) 06/22/18 18:00 Urine Glucose (UA) Negative mg/dL (Negative) 06/22/18 18:00 Urine Ketones Negative mg/dL (Negative) 06/22/18 18:00 Urine Blood Negative (Negative) 06/22/18 18:00 Urine Nitrite Positive (Negative) 06/22/18 18:00 Ur Reducing Substances Not Reportable 06/22/18 18:00 Urine Bilirubin Negative (Negative) 06/22/18 18:00 Urine Ictotest Not Reportable 06/22/18 18:00 Urine Urobilinogen < 2.0 mg/dL (<2.0) 06/22/18 18:00 Ur Leukocyte Esterase Moderate (Negative) 06/22/18 18:00 Urine WBC (Auto) 23.0 /HPF (0.0-6.0) H 06/22/18 18:00 Urine RBC (Auto) < 1.0 /HPF (0.0-6.0) 06/22/18 18:00 U Epithel Cells (Auto) 1.0 /HPF (0-13.0) 06/22/18 18:00 Urine Opiates Screen Presumptive negative 06/02/18 10:43 Urine Methadone Screen Presumptive negative 06/02/18 10:43 Ur Barbiturates Screen Presumptive negative 06/02/18 10:43 Ur Phencyclidine Scrn Presumptive negative 06/02/18 10:43 Ur Amphetamines Screen Presumptive negative 06/02/18 10:43 U Benzodiazepines Scrn Presumptive negative 06/02/18 10:43 [place] 0.1 mmol/L (0.0-1.2) 06/02/18 19:09 Urine Cocaine Screen Presumptive negative 06/02/18 10:43 U Marijuana (THC) Screen Presumptive negative 06/02/18 10:43 Drugs of Abuse Note Disclamer 06/02/18 10:43 Plasma/Serum Alcohol < 0.01 % (0-0.07) 06/02/18 09:57
== END 2018-07-13 21:00 | disposition home or self-care (01) | DRG 682 ==
LOC: ED 09:19 → EEVIPCON 09:19 → ED 06-08 16:39 → 3A 06-13 10:10
PROVIDERS: ADMIT Internal Medicine; ATTEND Internal Medicine
DX: N17.0 Acute kidney failure with tubular necrosis (principal); A41.9 Sepsis, unspecified organism; G93.40 Encephalopathy, unspecified; E87.0 Hyperosmolality and hypernatremia; N39.0 Urinary tract infection, site not specified; E86.0 Dehydration; F31.9 Bipolar disorder, unspecified; E87.6 Hypokalemia; F20.9 Schizophrenia, unspecified; W19.XXXA Unspecified fall, initial encounter; Y93.89 Activity, other specified; Y92.89 Other specified places as the place of occurrence of the external cause; Y99.8 Other external cause status
CPT/HCPCS: 36415; 70450; 71045; 80048; 80053; 80074; 80178; 80307; 80320; 81001; 82140; 82550; 82962; 83735; 83880; 84100; 84295; 84439; 84443; 84484; 85025; 85027; 85610; 85730; 87040; 87086; 93005; 93010; 96372; G0480; J0515; J1200; J1630; J1644; J2060; J3480; J3486; J7030; J7070; Q0177

== ENCOUNTER 2018-07-29 18:38 | Inpatient (IN) | payer OTHER ==
[2018-07-29] MEDS ORDERED: ATIVAN IM ONE (21:10)
[2018-07-29] MEDS ORDERED: HALDOL IM ONE (21:10)
--- NOTE | 2018-07-29 21:26 | Emergency Department Report ---
HPI - General Chief Complaint: Fall Time Seen by Provider: 07/29/18 20:54 - HPI HPI: The patient is a 58-year-old female with a significant history of schizophrenia , admitted at [facility] for treatment of mental health disease, and whom presents for evaluation of head injury. Per [facility] staff, the patient accidentally fell backwards and struck the back of her head approximately 8 hours prior to my evaluation, b/t noon-2pm earlier today. The patient denies any pain whatsoever. [facility] staff present at the patient's bedside states that the patient's current behavior and interaction is at her normal baseline. ED Past Medical Hx - Past Medical History Previous Medical History?: Yes Hx Hypertension: Yes Hx Renal Disease: Yes Hx Psychiatric Treatment: Yes (schziophrenic) - Social History Smoking Status: Smoker, Current Status Unknown - Medications Home Medications: Home Medications Medication Instructions Recorded Confirmed Last Taken Type OLANzapine [Zyprexa] 20 mg PO HS #60 tablet 07/12/18 Unknown Rx clonazePAM [KlonoPIN] 0.5 mg PO BID #60 tablet 07/12/18 Unknown Rx ED Review of Systems ROS: Stated complaint: PSYCH EVAL Other details as noted in HPI Constitutional: denies: fever ENT: denies: throat or neck pain Respiratory: denies: cough, shortness of breath Cardiovascular: denies: chest pain Endocrine: denies unexplained weight loss or gain Gastrointestinal: denies: abdominal pain, nausea Genitourinary: denies: dysuria Musculoskeletal: denies: leg swelling Skin: denies: rash Neurological: reports: headache Hematological/Lymphatic: denies: easy bleeding or easy bruising Psych: denies sadness or hopelessness Physical Exam - Physical Exam Vital Signs: Vital Signs 07/29/18 20:14 Temperature 98.7 F Pulse Rate 84 Respiratory 17 Rate Blood Pressure 101/64 Physical Exam: General: well-nourished, well-developed, no acute distress Head: Normocephalic, atraumatic Eyes: normal sclera ENT: Mucous membranes are pink and moist Neck: trachea midline, neck supple, No neck stiffness, no cervical adenopathy Respiratory: Breath sounds equal bilaterally, no wheezing, rales, or rhonchi Cardio: S1 and S2 present, no murmurs, rubs, gallops, capillary refill is brisk Abdomen: Normoactive bowel sounds, soft abdomen, no tenderness Musc: No pitting edema Skin: No rash Neuro: no facial drooping, alert, spontaneously moving extremities Psych: flat affect ED Course Vital Signs 07/29/18 20:14 Temperature 98.7 F Pulse Rate 84 Respiratory 17 Rate Blood Pressure 101/64 ED Medical Decision Making - Medical Decision Making The patient was seen and examined by myself. The patient is placed on a monitor and storage bin tender and continuous pulse ox. On initial evaluation, the patient was found to be in no distress. Evaluation orders were placed. CT scan of the head is negative for acute recurrent disease process. CT scan of the cervical spine is negative. EKG was unremarkable. The patient denies fever, headache, neck pain, paresthesias, focal motor weakness, blurry vision, ear pain, tinnitus, chest pain, hemoptysis, dyspnea, abdominal pain, confusion or altered mental status, or recent URI or diarrhea. Critical care attestation.: If time is entered above; I have spent that time in minutes in the direct care of this critically ill patient, excluding procedure time. ED Disposition Clinical Impression: Schizophrenia Qualifiers: Schizophrenia type: unspecified Qualified Code(s): F20.9 - Schizophrenia, unspecified Acute head injury without complication Qualifiers: Encounter type: initial encounter Qualified Code(s): S09.90XA - Unspecified injury of head, initial encounter Disposition: - TO HOME OR SELFCARE Is pt being admited?: No Does the pt Need Aspirin: No Condition: Stable Instructions: Minor Head Injury (ED) Referrals: PRIMARY CARE, [Primary Care Provider] - 3-5 Days [facility] [Outside] - 3-5 Days Time of Disposition: 01:28
--- NOTE | 2018-07-29 23:18 | Cat Scan Report ---
FINAL REPORT EXAM: CT HEAD/BRAIN WO CON HISTORY: headache TECHNIQUE: 2.5 millimeter axial images from the skullbase to the vertex. Comparison: Head CT dated June 02, 2018 FINDINGS: There is no evidence of an acute intracranial process, intracranial hemorrhage or mass effect. The ventricles are normal size. The visualized portions of the orbits, paranasal and mastoid sinuses are notable for small polyps or retention cysts in the maxillary sinuses bilaterally. IMPRESSION: 1. No evidence of an acute intracranial process, intracranial hemorrhage or mass effect.
--- NOTE | 2018-07-29 23:36 | Cat Scan Report ---
FINAL REPORT EXAM: CT CERVICAL SPINE WO CON HISTORY: neck pain TECHNIQUE: Axial helical imaging through the cervical spine with sagittal and coronal reformatted images obtained. Comparison: None FINDINGS: This study is degraded by lack of bone detail on the reformatted images due to the technique utilized for creating the images. Bony alignment is normal. The vertebral heights are maintained. Evaluation of the disc spaces is limited by the technique. There is no evidence of fracture or subluxation. There is mild bony canal stenosis at the C5-C6 level secondary to spondylitic change. Visualization detail the contents of the cervical canal is limited by artifact. The paraspinous soft tissues are unremarkable. There is the appearance of an approximately 2.2 centimeter nodule in the right lobe of the thyroid. IMPRESSION: 1. No evidence of fracture or subluxation. 2. Mild bony canal stenosis C5-C6 level secondary to spondylitic change. 3. Appearance of an approximately 2.2 centimeter nodule in the right lobe of the thyroid.
[2018-07-30] MEDS ORDERED: NACL 0.9% 1000 ML 2,000 ML IV ONE (01:35)
[2018-07-30] MEDS ORDERED: ATIVAN IV ONE (01:37)
[2018-07-30 02:29] LABS: Basophils % (Auto) 0.5 % (0.0-1.8); Eosinophils # (Auto) 0.3 K/mm3 (0.0-0.4); Eosinophils % (Auto) 2.8 % (0.0-4.3); Hematocrit 32.9 % (30.3-42.9); Lymphocytes % (Auto) 11.2 % (13.4-35.0); Mean Corpuscular HGB Conc 34 % (30-34); Mean Corpuscular Hemoglobin 31 pg (28-32); Mean Corpuscular Volume 94 fl (79-97); Monocytes # (Auto) 0.7 K/mm3 (0.0-0.8); Monocytes % (Auto) 8.3 % (0.0-7.3); Platelet Count 224 K/mm3 (140-440); Red Blood Count 3.52 M/mm3 (3.65-5.03); Red Cell Distribution Width 14.7 % (13.2-15.2)
[2018-07-30 02:48] LABS: Calcium 8.8 mg/dL (8.4-10.2)
[2018-07-30 03:08] LABS: Bilirubin,Urine NEG (Negative); Blood,Urine NEG (Negative); Color,Urine Yellow (Yellow); Mucus,Urine FEW /HPF; Protein,Urine <15 mg/dL mg/dL (Negative)
[2018-07-30] MEDS ORDERED: D5/0.45NS 1,000 ML IV SCH (05:00)
[2018-07-30] MEDS ORDERED: ZOFRAN IV PRN (08:14)
[2018-07-30] MEDS ORDERED: SODIUM CHLORIDE FLUSH SYRINGE 10 ML IV PRN (08:14)
[2018-07-30] MEDS: SODIUM CHLORIDE FLUSH SYRINGE 10 ML IV SCH (09:54)
[2018-07-30] MEDS: D5W 1,000 ML IV SCH (09:55)
--- NOTE | 2018-07-30 10:10 | History and Physical Report ---
History of Present Illness Date of examination: 07/30/18 Date of admission: 07/30/18 04:00 Medications and Allergies Allergies Allergy/AdvReac Type Severity Reaction Status Date / Time No Known Allergies Allergy Unverified 06/02/18 09:31 Home Medications Medication Instructions Recorded Confirmed Last Taken Type OLANzapine [Zyprexa] 20 mg PO HS #60 tablet 07/12/18 07/29/18 Unknown Rx clonazePAM [KlonoPIN] 0.5 mg PO BID #60 tablet 07/12/18 07/29/18 Unknown Rx Active Meds: Active Medications Acetaminophen (Tylenol) 650 mg PO Q4H PRN PRN Reason: Pain MILD(1-3)/Fever >100.5/RODRIGUEZ Clonazepam (Klonopin) 0.5 mg PO BID [facility] Last Admin: 07/30/18 09:54 Dose: 0.5 mg Dextrose (D5w) 1,000 mls @ 75 mls/hr IV DIRECT [facility] Last Admin: 07/30/18 09:55 Dose: 75 mls/hr Olanzapine (Zyprexa) 20 mg PO HS [facility] Ondansetron HCl (Zofran) 4 mg IV Q8H PRN PRN Reason: Nausea And Vomiting Sodium Chloride (Sodium Chloride Flush Syringe 10 Ml) 10 ml IV BID [facility] Last Admin: 07/30/18 09:54 Dose: 10 ml Sodium Chloride (Sodium Chloride Flush Syringe 10 Ml) 10 ml IV PRN PRN PRN Reason: LINE FLUSH Exam - Constitutional Vitals: Temp Pulse Resp BP Pulse Ox 99.6 F 115 H 20 104/67 97 07/30/18 08:19 07/30/18 08:19 07/30/18 08:19 07/30/18 08:19 07/30/18 08:19 Results - Labs CBC & Chem 7: 07/30/18 02:05 07/30/18 02:05 Labs: Laboratory Last Values WBC 8.9 K/mm3 (4.5-11.0) 07/30/18 02:05 RBC 3.52 M/mm3 (3.65-5.03) L 07/30/18 02:05 Hgb 11.0 gm/dl (10.1-14.3) 07/30/18 02:05 Hct 32.9 % (30.3-42.9) 07/30/18 02:05 MCV 94 fl (79-97) 07/30/18 02:05 MCH 31 pg (28-32) 07/30/18 02:05 MCHC 34 % (30-34) 07/30/18 02:05 RDW 14.7 % (13.2-15.2) 07/30/18 02:05 Plt Count 224 K/mm3 (140-440) 07/30/18 02:05 Lymph % (Auto) 11.2 % (13.4-35.0) L 07/30/18 02:05 [place] % (Auto) 8.3 % (0.0-7.3) H 07/30/18 02:05 Eos % (Auto) 2.8 % (0.0-4.3) 07/30/18 02:05 Baso % (Auto) 0.5 % (0.0-1.8) 07/30/18 02:05 Lymph # 1.0 K/mm3 (1.2-5.4) L 07/30/18 02:05 [place] # 0.7 K/mm3 (0.0-0.8) 07/30/18 02:05 Eos # 0.3 K/mm3 (0.0-0.4) 07/30/18 02:05 Baso # 0.0 K/mm3 (0.0-0.1) 07/30/18 02:05 Seg Neutrophils % 77.2 % (40.0-70.0) H 07/30/18 02:05 Seg Neutrophils # 6.8 K/mm3 (1.8-7.7) 07/30/18 02:05 Sodium 155 mmol/L (137-145) H 07/30/18 02:05 Potassium 4.0 mmol/L (3.6-5.0) 07/30/18 02:05 Chloride 118.4 mmol/L (98-107) H 07/30/18 02:05 Carbon Dioxide 25 mmol/L (22-30) 07/30/18 02:05 Anion Gap 16 mmol/L 07/30/18 02:05 BUN 15 mg/dL (7-17) 07/30/18 02:05 Creatinine 1.0 mg/dL (0.7-1.2) 07/30/18 02:05 Estimated GFR 57 ml/min 07/30/18 02:05 BUN/Creatinine Ratio 15 % 07/30/18 02:05 Glucose 132 mg/dL (65-100) H 07/30/18 02:05 Calcium 8.8 mg/dL (8.4-10.2) 07/30/18 02:05 Total Bilirubin 0.30 mg/dL (0.1-1.2) 07/30/18 02:05 AST 26 units/L (5-40) 07/30/18 02:05 ALT 35 units/L (7-56) 07/30/18 02:05 Alkaline Phosphatase 96 units/L (35-129) 07/30/18 02:05 Troponin T 0.017 ng/mL (0.00-0.029) 07/30/18 02:05 NT-Pro-B Natriuret Pep 78.01 pg/mL (0-900) 07/30/18 02:05 Total Protein 5.2 g/dL (6.3-8.2) L 07/30/18 02:05 Albumin 3.0 g/dL (3.9-5) L 07/30/18 02:05 Albumin/Globulin Ratio 1.4 % 07/30/18 02:05 Urine Color Yellow (Yellow) 07/30/18 02:51 Urine Turbidity Clear (Clear) 07/30/18 02:51 Urine pH 7.0 (5.0-7.0) 07/30/18 02:51 Ur Specific [place] 1.013 (1.003-1.030) 07/30/18 02:51 Urine Protein <15 mg/dl mg/dL (Negative) 07/30/18 02:51 Urine Glucose (UA) Neg mg/dL (Negative) 07/30/18 02:51 Urine Ketones Neg mg/dL (Negative) 07/30/18 02:51 Urine Blood Neg (Negative) 07/30/18 02:51 Urine Nitrite Neg (Negative) 07/30/18 02:51 Urine Bilirubin Neg (Negative) 07/30/18 02:51 Urine Urobilinogen 2.0 mg/dL (<2.0) 07/30/18 02:51 Ur Leukocyte Esterase Neg (Negative) 07/30/18 02:51 Urine WBC (Auto) 1.0 /HPF (0.0-6.0) 07/30/18 02:51 Urine RBC (Auto) 1.0 /HPF (0.0-6.0) 07/30/18 02:51 Urine Mucus Few /HPF 07/30/18 02:51
--- NOTE | 2018-07-30 13:19 | History and Physical Report ---
<KATIE REYES - Last Filed: 07/30/18 14:18> History of Present Illness Date of examination: 07/30/18 Date of admission: 07/30/18 04:00 Chief complaint: s/p fall History of present illness: Pt is a 58 year old female with PMHx of Schizophrenia, bipolar disorder, h/o falls, encephalograph and spychosis disorder who presents to the ER for evaluation following a fall. Pt is currently in a psychiatric unit, she is alert but unable to provide medical history. The history was obtained from the ER note and pt's nurse. Pt was evaluated in the ER after falling from the facility, a CT scan of the brain was negative, her laboratory shows and elevated sodium level, she was admitted to the hospital for monitoring. Pt is not following commends nor answer to questions, physical exam was WNL except her neuro exam shows decrease attention, somnolence and pinpoint pupil, she is not verbalizing pain or discomfort. Past History Past Medical History: other (schizophrenia, bipolar, spychosis and fall) Social history: other (lives in a mental health facility) Family history: other (unknown) Medications and Allergies Allergies Allergy/AdvReac Type Severity Reaction Status Date / Time No Known Allergies Allergy Unverified 06/02/18 09:31 Home Medications Medication Instructions Recorded Confirmed Last Taken Type OLANzapine [Zyprexa] 20 mg PO HS #60 tablet 07/12/18 07/29/18 Unknown Rx clonazePAM [KlonoPIN] 0.5 mg PO BID #60 tablet 07/12/18 07/29/18 Unknown Rx Active Meds: Active Medications Acetaminophen (Tylenol) 650 mg PO Q4H PRN PRN Reason: Pain MILD(1-3)/Fever >100.5/RODRIGUEZ Clonazepam (Klonopin) 0.5 mg PO BID [facility] Last Admin: 07/30/18 09:54 Dose: 0.5 mg Dextrose (D5w) 1,000 mls @ 75 mls/hr IV DIRECT [facility] Last Admin: 07/30/18 09:55 Dose: 75 mls/hr Olanzapine (Zyprexa) 20 mg PO HS [facility] Ondansetron HCl (Zofran) 4 mg IV Q8H PRN PRN Reason: Nausea And Vomiting Sodium Chloride (Sodium Chloride Flush Syringe 10 Ml) 10 ml IV BID [facility] Last Admin: 07/30/18 09:54 Dose: 10 ml Sodium Chloride (Sodium Chloride Flush Syringe 10 Ml) 10 ml IV PRN PRN PRN Reason: LINE FLUSH Review of Systems Constitutional: other (unable to provide history) Musculoskeletal: frequent falls Psychiatric: other (lethargic) Exam - Constitutional Vitals: Temp Pulse Resp BP Pulse Ox 99.6 F 115 H 20 104/67 97 07/30/18 08:19 07/30/18 08:19 07/30/18 08:19 07/30/18 08:19 07/30/18 08:19 General appearance: Present: well-nourished - Neck Neck: Present: normal ROM - Respiratory Respiratory effort: normal Respiratory: bilateral: CTA - Cardiovascular Rhythm: regular Heart Sounds: Present: S1 & S2 - Extremities Extremities: No edema, Full ROM Peripheral Pulses: within normal limits - Abdominal General gastrointestinal: Present: soft, tender - Integumentary Integumentary: Present: warm, dry - Musculoskeletal Musculoskeletal: other (unsteady gait) - Psychiatric Psychiatric: depressed, other (unable to fully evaluate) - Neurologic Neurologic: moves all extremities, other (unsteady gait) Results - Labs CBC & Chem 7: 07/30/18 02:05 07/30/18 11:48 Labs: Laboratory Last Values WBC 8.9 K/mm3 (4.5-11.0) 07/30/18 02:05 RBC 3.52 M/mm3 (3.65-5.03) L 07/30/18 02:05 Hgb 11.0 gm/dl (10.1-14.3) 07/30/18 02:05 Hct 32.9 % (30.3-42.9) 07/30/18 02:05 MCV 94 fl (79-97) 07/30/18 02:05 MCH 31 pg (28-32) 07/30/18 02:05 MCHC 34 % (30-34) 07/30/18 02:05 RDW 14.7 % (13.2-15.2) 07/30/18 02:05 Plt Count 224 K/mm3 (140-440) 07/30/18 02:05 Lymph % (Auto) 11.2 % (13.4-35.0) L 07/30/18 02:05 [place] % (Auto) 8.3 % (0.0-7.3) H 07/30/18 02:05 Eos % (Auto) 2.8 % (0.0-4.3) 07/30/18 02:05 Baso % (Auto) 0.5 % (0.0-1.8) 07/30/18 02:05 Lymph # 1.0 K/mm3 (1.2-5.4) L 07/30/18 02:05 [place] # 0.7 K/mm3 (0.0-0.8) 07/30/18 02:05 Eos # 0.3 K/mm3 (0.0-0.4) 07/30/18 02:05 Baso # 0.0 K/mm3 (0.0-0.1) 07/30/18 02:05 Seg Neutrophils % 77.2 % (40.0-70.0) H 07/30/18 02:05 Seg Neutrophils # 6.8 K/mm3 (1.8-7.7) 07/30/18 02:05 Sodium 151 mmol/L (137-145) H 07/30/18 11:48 Potassium 4.0 mmol/L (3.6-5.0) 07/30/18 02:05 Chloride 118.4 mmol/L (98-107) H 07/30/18 02:05 Carbon Dioxide 25 mmol/L (22-30) 07/30/18 02:05 Anion Gap 16 mmol/L 07/30/18 02:05 BUN 15 mg/dL (7-17) 07/30/18 02:05 Creatinine 1.0 mg/dL (0.7-1.2) 07/30/18 02:05 Estimated GFR 57 ml/min 07/30/18 02:05 BUN/Creatinine Ratio 15 % 07/30/18 02:05 Glucose 132 mg/dL (65-100) H 07/30/18 02:05 Calcium 8.8 mg/dL (8.4-10.2) 07/30/18 02:05 Total Bilirubin 0.30 mg/dL (0.1-1.2) 07/30/18 02:05 AST 26 units/L (5-40) 07/30/18 02:05 ALT 35 units/L (7-56) 07/30/18 02:05 Alkaline Phosphatase 96 units/L (35-129) 07/30/18 02:05 Troponin T 0.017 ng/mL (0.00-0.029) 07/30/18 02:05 NT-Pro-B Natriuret Pep 78.01 pg/mL (0-900) 07/30/18 02:05 Total Protein 5.2 g/dL (6.3-8.2) L 07/30/18 02:05 Albumin 3.0 g/dL (3.9-5) L 07/30/18 02:05 Albumin/Globulin Ratio 1.4 % 07/30/18 02:05 Urine Color Yellow (Yellow) 07/30/18 02:51 Urine Turbidity Clear (Clear) 07/30/18 02:51 Urine pH 7.0 (5.0-7.0) 07/30/18 02:51 Ur Specific [place] 1.013 (1.003-1.030) 07/30/18 02:51 Urine Protein <15 mg/dl mg/dL (Negative) 07/30/18 02:51 Urine Glucose (UA) Neg mg/dL (Negative) 07/30/18 02:51 Urine Ketones Neg mg/dL (Negative) 07/30/18 02:51 Urine Blood Neg (Negative) 07/30/18 02:51 Urine Nitrite Neg (Negative) 07/30/18 02:51 Urine Bilirubin Neg (Negative) 07/30/18 02:51 Urine Urobilinogen 2.0 mg/dL (<2.0) 07/30/18 02:51 Ur Leukocyte Esterase Neg (Negative) 07/30/18 02:51 Urine WBC (Auto) 1.0 /HPF (0.0-6.0) 07/30/18 02:51 Urine RBC (Auto) 1.0 /HPF (0.0-6.0) 07/30/18 02:51 Urine Mucus Few /HPF 07/30/18 02:51 Assessment and Plan Assessment and plan: 1. S/p fall (no acute injury) CT scan on the head reviewed, no acute findings Continue neuro check q4hr one in-one observation 2. Hypernatremia Recheck sodium level d/c to psych facility if sodium level improve 3. Schizophrenia continue home meds monitor for behavior changes 4. Bipolar disorder Continue home meds 5. Chronic encephalograph monitor neuro status Continue home meds DVT prophylasis Supportive care <MELBA RIVERA - Last Filed: 07/30/18 22:23> History of Present Illness Date of admission: 07/30/18 04:00 Medications and Allergies Active Meds: Active Medications Acetaminophen (Tylenol) 650 mg PO Q4H PRN PRN Reason: Pain MILD(1-3)/Fever >100.5/RODRIGUEZ Clonazepam (Klonopin) 0.5 mg PO BID [facility] Last Admin: 07/30/18 09:54 Dose: 0.5 mg Dextrose (D5w) 1,000 mls @ 75 mls/hr IV DIRECT [facility] Last Admin: 07/30/18 09:55 Dose: 75 mls/hr Olanzapine (Zyprexa) 20 mg PO HS [facility] Ondansetron HCl (Zofran) 4 mg IV Q8H PRN PRN Reason: Nausea And Vomiting Sodium Chloride (Sodium Chloride Flush Syringe 10 Ml) 10 ml IV BID [facility] Last Admin: 07/30/18 09:54 Dose: 10 ml Sodium Chloride (Sodium Chloride Flush Syringe 10 Ml) 10 ml IV PRN PRN PRN Reason: LINE FLUSH Exam - Constitutional Vitals: Temp Pulse Resp BP Pulse Ox 98.5 F 109 H 22 101/59 96 07/30/18 17:04 07/30/18 17:04 07/30/18 17:04 07/30/18 17:04 07/30/18 17:04 Results - Labs CBC & Chem 7: 07/30/18 02:05 07/30/18 11:48 Labs: Laboratory Last Values WBC 8.9 K/mm3 (4.5-11.0) 07/30/18 02:05 RBC 3.52 M/mm3 (3.65-5.03) L 07/30/18 02:05 Hgb 11.0 gm/dl (10.1-14.3) 07/30/18 02:05 Hct 32.9 % (30.3-42.9) 07/30/18 02:05 MCV 94 fl (79-97) 07/30/18 02:05 MCH 31 pg (28-32) 07/30/18 02:05 MCHC 34 % (30-34) 07/30/18 02:05 RDW 14.7 % (13.2-15.2) 07/30/18 02:05 Plt Count 224 K/mm3 (140-440) 07/30/18 02:05 Lymph % (Auto) 11.2 % (13.4-35.0) L 07/30/18 02:05 [place] % (Auto) 8.3 % (0.0-7.3) H 07/30/18 02:05 Eos % (Auto) 2.8 % (0.0-4.3) 07/30/18 02:05 Baso % (Auto) 0.5 % (0.0-1.8) 07/30/18 02:05 Lymph # 1.0 K/mm3 (1.2-5.4) L 07/30/18 02:05 [place] # 0.7 K/mm3 (0.0-0.8) 07/30/18 02:05 Eos # 0.3 K/mm3 (0.0-0.4) 07/30/18 02:05 Baso # 0.0 K/mm3 (0.0-0.1) 07/30/18 02:05 Seg Neutrophils % 77.2 % (40.0-70.0) H 07/30/18 02:05 Seg Neutrophils # 6.8 K/mm3 (1.8-7.7) 07/30/18 02:05 Sodium 151 mmol/L (137-145) H 07/30/18 11:48 Potassium 4.0 mmol/L (3.6-5.0) 07/30/18 02:05 Chloride 118.4 mmol/L (98-107) H 07/30/18 02:05 Carbon Dioxide 25 mmol/L (22-30) 07/30/18 02:05 Anion Gap 16 mmol/L 07/30/18 02:05 BUN 15 mg/dL (7-17) 07/30/18 02:05 Creatinine 1.0 mg/dL (0.7-1.2) 07/30/18 02:05 Estimated GFR 57 ml/min 07/30/18 02:05 BUN/Creatinine Ratio 15 % 07/30/18 02:05 Glucose 132 mg/dL (65-100) H 07/30/18 02:05 Calcium 8.8 mg/dL (8.4-10.2) 07/30/18 02:05 Total Bilirubin 0.30 mg/dL (0.1-1.2) 07/30/18 02:05 AST 26 units/L (5-40) 07/30/18 02:05 ALT 35 units/L (7-56) 07/30/18 02:05 Alkaline Phosphatase 96 units/L (35-129) 07/30/18 02:05 Troponin T 0.017 ng/mL (0.00-0.029) 07/30/18 02:05 NT-Pro-B Natriuret Pep 78.01 pg/mL (0-900) 07/30/18 02:05 Total Protein 5.2 g/dL (6.3-8.2) L 07/30/18 02:05 Albumin 3.0 g/dL (3.9-5) L 07/30/18 02:05 Albumin/Globulin Ratio 1.4 % 07/30/18 02:05 Urine Color Yellow (Yellow) 07/30/18 02:51 Urine Turbidity Clear (Clear) 07/30/18 02:51 Urine pH 7.0 (5.0-7.0) 07/30/18 02:51 Ur Specific [place] 1.013 (1.003-1.030) 07/30/18 02:51 Urine Protein <15 mg/dl mg/dL (Negative) 07/30/18 02:51 Urine Glucose (UA) Neg mg/dL (Negative) 07/30/18 02:51 Urine Ketones Neg mg/dL (Negative) 07/30/18 02:51 Urine Blood Neg (Negative) 07/30/18 02:51 Urine Nitrite Neg (Negative) 07/30/18 02:51 Urine Bilirubin Neg (Negative) 07/30/18 02:51 Urine Urobilinogen 2.0 mg/dL (<2.0) 07/30/18 02:51 Ur Leukocyte Esterase Neg (Negative) 07/30/18 02:51 Urine WBC (Auto) 1.0 /HPF (0.0-6.0) 07/30/18 02:51 Urine RBC (Auto) 1.0 /HPF (0.0-6.0) 07/30/18 02:51 Urine Mucus Few /HPF 07/30/18 02:51 Assessment and Plan Assessment and plan: I saw and evaluated the patient. I agree with the findings and the plan of care as documented in the Nurse Practitioner's~note, with the following corrections and additions. Advance Directives: Yes Plan of care discussed with patient/family: Yes
[2018-07-31] MEDS: SODIUM CHLORIDE FLUSH SYRINGE 10 ML IV SCH ×3 (04:18→23:25)
[2018-07-31 07:28] LABS: Basophils % (Auto) 0.4 % (0.0-1.8); Eosinophils # (Auto) 0.3 K/mm3 (0.0-0.4); Eosinophils % (Auto) 3.1 % (0.0-4.3); Hematocrit 32.9 % (30.3-42.9); Hemoglobin 10.7 gm/dl (10.1-14.3); Lymphocytes # (Auto) 0.9 K/mm3 (1.2-5.4); Lymphocytes % (Auto) 8.7 % (13.4-35.0); Mean Corpuscular HGB Conc 33 % (30-34); Mean Corpuscular Hemoglobin 31 pg (28-32); Mean Corpuscular Volume 94 fl (79-97); Monocytes # (Auto) 0.6 K/mm3 (0.0-0.8); Monocytes % (Auto) 6.3 % (0.0-7.3); Platelet Count 205 K/mm3 (140-440)
[2018-07-31 07:41] LABS: BUN/Creatinine Ratio 14; Blood Urea Nitrogen 11 mg/dL (7-17); Calcium 8.7 mg/dL (8.4-10.2); Hemolysis Index 2
--- NOTE | 2018-07-31 11:11 | Discharge Summary ---
Providers - Providers Date of Admission: 07/30/18 04:00 Attending physician: MELBA RIVERA MD 07/30/18 Consult to Case Management [CONS] Routine Services Needed at Discharge: Vocational Rehabilitation Consultant Notified:: yes 07/30/18 08:00 Consult to Mental Health [CONS] Routine Reason For Exam: psychosis Place consult to:: mental health Notified:: Phone number called:: [phone] Was contact made?: Yes If yes, spoke with:: anthony Time called:: 10:49 07/30/18 10:11 Occupational Therapy Evaluate and Treat [CONS] Routine Comment: Reason For Exam: ataxia. recurrent falls Physical Therapy Evaluation and Treat [CONS] Routine Comment: Reason For Exam: ATAXIA. Recurrent falls Primary care physician: SAUSAGE STRINGER Hospitalization Condition: Stable Hospital course: The patient is a 58-year-old female with a significant history of schizophrenia , admitted at [facility] for treatment of mental health disease, and whom presents for evaluation of head injury. Per [facility] staff, the patient accidentally fell backwards and struck the back of her head approximately 8 hours prior to my evaluation, b/t noon-2pm earlier today. The patient denies any pain whatsoever. [facility] staff present at the patient's bedside states that the patient's current behavior and interaction is at her normal baseline. on my repeat heart rate is 92 Disposition: DC/TX-65 PSY HOSP/PSY UNIT Time spent for discharge: 35 mins Exam - Constitutional Vitals: Temp Pulse Resp BP Pulse Ox 98.3 F 109 H 18 103/62 93 07/31/18 05:58 07/31/18 05:58 07/31/18 05:58 07/31/18 05:58 07/31/18 05:58 Plan Activity: advance as tolerated, fall precautions Diet: regular Special Instructions: record daily BP diary Additional Instructions: check Sodium level weekly Follow up with: [facility] [Outside] - 3-5 Days ALEKSANDER PLUNKETT MD [Primary Care Provider] - 3-5 Days RANCHO WILSON MD [Staff Physician] - 7 Days
--- NOTE | 2018-07-31 14:25 | Progress Note ---
Assessment and Plan Assessment and plan: Pt is a 58 year old female with PMHx of Schizophrenia, bipolar disorder, h/o falls, encephalograph and spychosis disorder who presents to the ER for evaluation following a fall. Pt is currently in a psychiatric unit, she is alert but unable to provide medical history. The history was obtained from the ER note and pt's nurse. Pt was evaluated in the ER after falling from the facility, a CT scan of the brain was negative, her laboratory shows and elevated sodium level, she was admitted to the hospital for monitoring. On admission Pt is not following commends nor answer to questions, physical exam was WNL except her neuro exam shows decrease attention, somnolence and pinpoint pupil, she is not verbalizing pain or discomfort. 1. S/p fall (no acute injury) CT scan on the head reviewed, no acute findings Continue neuro check qshit one in-one observation 2. Hypernatremia Resolved 3. Schizophrenia continue home meds monitor for behavior changes 4. Bipolar disorder Continue home meds 5. Chronic encephalograph monitor neuro status Continue home meds DVT prophylasis Supportive care 6. DVT/GI prophy 7. Patient is clinically stable for discharge to Psych History Interval history: Patient seen and examined this morning clinically improved no further acute distress noted. Restraints discontinued. Resting comfortably. Still appears with ongoing psychosis which is small for psychiatric management at this time. Hospitalist Physical - Physical exam Narrative exam: VITAL SIGNS: Reviewed. GENERAL: The patient appeared well nourished and normally developed. Vital signs as documented. HEAD: No signs of head trauma. EYES: Pupils are equal. Extraocular motions intact. EARS: Hearing grossly intact. MOUTH: Oropharynx is normal. NECK: No adenopathy, no JVD. CHEST: Chest with clear breath sounds bilaterally. No wheezes, rales, or rhonchi. CARDIAC: Regular rate and rhythm. S1 and S2, without murmurs, gallops, or rubs. VASCULAR: No Edema. Peripheral pulses normal and equal in all extremities. ABDOMEN: Soft, without detectable tenderness. No sign of distention. No rebound or guarding, and no masses palpated. Bowel Sounds normal. MUSCULOSKELETAL: Good range of motion of all major joints. Extremities without clubbing, cyanosis or edema. NEUROLOGIC EXAM: Alert and oriented x 2. No focal sensory or strength deficits. Speech normal. Follows commands. PSYCHIATRIC: Mood flat. SKIN: No rash or lesions. - Constitutional Vitals: Temp Pulse Resp BP Pulse Ox 99.0 F 102 H 22 102/62 97 07/31/18 11:30 07/31/18 11:30 07/31/18 11:30 07/31/18 11:30 07/31/18 11:30 General appearance: Present: well-nourished Results - Labs CBC & Chem 7: 07/31/18 06:39 07/31/18 06:39 Labs: Laboratory Last Values WBC 9.8 K/mm3 (4.5-11.0) 07/31/18 06:39 RBC 3.50 M/mm3 (3.65-5.03) L 07/31/18 06:39 Hgb 10.7 gm/dl (10.1-14.3) 07/31/18 06:39 Hct 32.9 % (30.3-42.9) 07/31/18 06:39 MCV 94 fl (79-97) 07/31/18 06:39 MCH 31 pg (28-32) 07/31/18 06:39 MCHC 33 % (30-34) 07/31/18 06:39 RDW 15.0 % (13.2-15.2) 07/31/18 06:39 Plt Count 205 K/mm3 (140-440) 07/31/18 06:39 Lymph % (Auto) 8.7 % (13.4-35.0) L 07/31/18 06:39 [place] % (Auto) 6.3 % (0.0-7.3) 07/31/18 06:39 Eos % (Auto) 3.1 % (0.0-4.3) 07/31/18 06:39 Baso % (Auto) 0.4 % (0.0-1.8) 07/31/18 06:39 Lymph # 0.9 K/mm3 (1.2-5.4) L 07/31/18 06:39 [place] # 0.6 K/mm3 (0.0-0.8) 07/31/18 06:39 Eos # 0.3 K/mm3 (0.0-0.4) 07/31/18 06:39 Baso # 0.0 K/mm3 (0.0-0.1) 07/31/18 06:39 Seg Neutrophils % 81.5 % (40.0-70.0) H 07/31/18 06:39 Seg Neutrophils # 8.0 K/mm3 (1.8-7.7) H 07/31/18 06:39 Sodium 147 mmol/L (137-145) H 07/31/18 06:39 Potassium 3.9 mmol/L (3.6-5.0) 07/31/18 06:39 Chloride 113.9 mmol/L (98-107) H 07/31/18 06:39 Carbon Dioxide 23 mmol/L (22-30) 07/31/18 06:39 Anion Gap 14 mmol/L 07/31/18 06:39 BUN 11 mg/dL (7-17) 07/31/18 06:39 Creatinine 0.8 mg/dL (0.7-1.2) 07/31/18 06:39 Estimated GFR > 60 ml/min 07/31/18 06:39 BUN/Creatinine Ratio 14 % 07/31/18 06:39 Glucose 116 mg/dL (65-100) H 07/31/18 06:39 Calcium 8.7 mg/dL (8.4-10.2) 07/31/18 06:39 Total Bilirubin 0.30 mg/dL (0.1-1.2) 07/30/18 02:05 AST 26 units/L (5-40) 07/30/18 02:05 ALT 35 units/L (7-56) 07/30/18 02:05 Alkaline Phosphatase 96 units/L (35-129) 07/30/18 02:05 Troponin T 0.017 ng/mL (0.00-0.029) 07/30/18 02:05 NT-Pro-B Natriuret Pep 78.01 pg/mL (0-900) 07/30/18 02:05 Total Protein 5.2 g/dL (6.3-8.2) L 07/30/18 02:05 Albumin 3.0 g/dL (3.9-5) L 07/30/18 02:05 Albumin/Globulin Ratio 1.4 % 07/30/18 02:05 Urine Color Yellow (Yellow) 07/30/18 02:51 Urine Turbidity Clear (Clear) 07/30/18 02:51 Urine pH 7.0 (5.0-7.0) 07/30/18 02:51 Ur Specific [place] 1.013 (1.003-1.030) 07/30/18 02:51 Urine Protein <15 mg/dl mg/dL (Negative) 07/30/18 02:51 Urine Glucose (UA) Neg mg/dL (Negative) 07/30/18 02:51 Urine Ketones Neg mg/dL (Negative) 07/30/18 02:51 Urine Blood Neg (Negative) 07/30/18 02:51 Urine Nitrite Neg (Negative) 07/30/18 02:51 Urine Bilirubin Neg (Negative) 07/30/18 02:51 Urine Urobilinogen 2.0 mg/dL (<2.0) 07/30/18 02:51 Ur Leukocyte Esterase Neg (Negative) 07/30/18 02:51 Urine WBC (Auto) 1.0 /HPF (0.0-6.0) 07/30/18 02:51 Urine RBC (Auto) 1.0 /HPF (0.0-6.0) 07/30/18 02:51 Urine Mucus Few /HPF 07/30/18 02:51
--- NOTE | 2018-07-31 19:47 | Consultation ---
History of Present Illness - Reason for Consult Consult date: 07/31/18 Reason for consult: psychiatric evaluation - Chief Complaint Chief complaint: 58-year-old female presents back to [facility] after she fell while at [place] for psychiatric hospitalization. She was at [facility] for weeks, awaiting placement, before going to [place]. She has been admitted for hypernatremia. Narrative exam: Unable to complete the MSE. She is non verbal but makes eye contact. She kept trying to move her legs to kick. Assessment and Plan Assessment and plan: Impression: Hx of Schizophrenia per the record. The patient is non cooperative during the interview. Recommendation/Plan: Continue 1013 and refer to [facility] once medically clear. Her psych meds were continued by the medical staff, zyprexa 20mg hs and klonopin bid Medications and Allergies Allergies Allergy/AdvReac Type Severity Reaction Status Date / Time No Known Allergies Allergy Unverified 06/02/18 09:31 Home Medications Medication Instructions Recorded Confirmed Last Taken Type OLANzapine [Zyprexa] 20 mg PO HS #60 tablet 07/12/18 07/29/18 Unknown Rx clonazePAM [KlonoPIN] 0.5 mg PO BID #60 tablet 07/12/18 07/29/18 Unknown Rx Active Meds: Active Medications Acetaminophen (Tylenol) 650 mg PO Q4H PRN PRN Reason: Pain MILD(1-3)/Fever >100.5/RODRIGUEZ Clonazepam (Klonopin) 0.5 mg PO BID [facility] Last Admin: 07/31/18 09:08 Dose: 0.5 mg Dextrose (D5w) 1,000 mls @ 75 mls/hr IV DIRECT [facility] Last Admin: 07/30/18 09:55 Dose: 75 mls/hr Olanzapine (Zyprexa) 20 mg PO HS [facility] Last Admin: 07/31/18 04:18 Dose: Not Given Ondansetron HCl (Zofran) 4 mg IV Q8H PRN PRN Reason: Nausea And Vomiting Sodium Chloride (Sodium Chloride Flush Syringe 10 Ml) 10 ml IV BID [facility] Last Admin: 07/31/18 10:00 Dose: Not Given Sodium Chloride (Sodium Chloride Flush Syringe 10 Ml) 10 ml IV PRN PRN PRN Reason: LINE FLUSH Mental Status Exam - Vital signs Last Vital Signs Temp 99.9 F H 07/31/18 16:56 Pulse 110 H 07/31/18 16:56 Resp 20 07/31/18 16:56 BP 105/62 07/31/18 16:56 Pulse Ox 96 07/31/18 16:56 Results Result Diagrams: 07/31/18 06:39 07/31/18 06:39 Abnormal lab results 07/31/18 07/31/18 Range/Units 06:39 06:39 RBC 3.50 L (3.65-5.03) M/mm3 Lymph % (Auto) 8.7 L (13.4-35.0) % Lymph # 0.9 L (1.2-5.4) K/mm3 Seg Neutrophils % 81.5 H (40.0-70.0) % Seg Neutrophils # 8.0 H (1.8-7.7) K/mm3 Sodium 147 H (137-145) mmol/L Chloride 113.9 H (98-107) mmol/L Glucose 116 H (65-100) mg/dL All other labs normal.
[2018-08-01] MEDS: SODIUM CHLORIDE FLUSH SYRINGE 10 ML IV SCH ×2 (10:39→22:02)
--- NOTE | 2018-08-01 12:25 | Progress Note ---
Subjective - Reason for Consult Consult date: 08/01/18 Reason for consult: Psychiatry Follow-up[ - Chief Complaint Chief complaint: "The patient mumbles" 58-year-old female presents back to [facility] after falling at [facility]. This patient is known to me. She has been admitted for hypernatremia. Today the patient is calm, but disorganized during the assessment. She mumbles to questions asked of her. No gestures of SI/HI's. Mental Status Exam - Vital signs Last Vital Signs Temp 99.1 F 08/01/18 06:15 Pulse 108 H 07/31/18 23:59 Resp 16 08/01/18 10:00 BP 99/60 08/01/18 06:15 Pulse Ox 95 07/31/18 23:59 - Exam Narrative exam: Unable to complete the MSE because of the patient's condition. Assessment and Plan Impression: Hx of Schizophrenia per the record. NA 147. Today the patient is calm, but disorganized during the assessment. The patient is in restraints. Medical: Chronic Encephalopathy Recommendation/Plan: Continue 1013. Continue home medication Zyprexa 20 mg PO HS and Klonopin 0.5 mg PO BID. Start Haldol 2 mg IM Q6hrs PRN for acute agitation. Recommend Delirium precautions below: 1. Frequently reorient patient and involve him/her in their care (simple explanations of procedures, tests, medications). 2. Lights on and shades open during daytime hours. 3. Write date and goals of care in a visible place. 4. Try to avoid unnecessary interruptions to sleep during nighttime hours. 5. Obtain glasses, hearing aids from home if patient uses these at baseline. 6. Avoid medications that may exacerbate delirium (especially narcotics, benzodiazepines, barbiturates, ambien, lunesta, and medications with excessive anticholinergic properties). The patient takes Klonopin as a home medication.
--- NOTE | 2018-08-01 13:04 | Progress Note ---
Assessment and Plan Assessment and plan: Pt is a 58 year old female with PMHx of Schizophrenia, bipolar disorder, h/o falls, encephalograph and spychosis disorder who presents to the ER for evaluation following a fall. Pt is currently in a psychiatric unit, she is alert but unable to provide medical history. The history was obtained from the ER note and pt's nurse. Pt was evaluated in the ER after falling from the facility, a CT scan of the brain was negative, her laboratory shows and elevated sodium level, she was admitted to the hospital for monitoring. On admission Pt is not following commends nor answer to questions, physical exam was WNL except her neuro exam shows decrease attention, somnolence and pinpoint pupil, she is not verbalizing pain or discomfort. 1. S/p fall (no acute injury) CT scan on the head reviewed, no acute findings Continue neuro check qshit one in-one observation 2. Hypernatremia Resolved 3. Schizophrenia continue home meds monitor for behavior changes 4. Bipolar disorder Continue home meds 5. Chronic encephalograph monitor neuro status Continue home meds DVT prophylasis Supportive care 6. C5-C6 SPONDLYITIS 7. RIGHT THYROID LOBE NODULE -OUTPT FOLLOW UP -check tsh 8. DVT/GI prophy 9. Patient is clinically stable for discharge to Psych 10. Pending placement to psych 11. Continue 1013. Discussed with psych team History Interval history: Patient seen and examined this morning clinically improved no further acute distress noted. Restraints discontinued. Resting comfortably. No new complaints by nursing staff Hospitalist Physical - Physical exam Narrative exam: VITAL SIGNS: Reviewed. GENERAL: The patient appeared well nourished and normally developed. Vital signs as documented. HEAD: No signs of head trauma. EYES: Pupils are equal. Extraocular motions intact. EARS: Hearing grossly intact. MOUTH: Oropharynx is normal. NECK: No adenopathy, no JVD. CHEST: Chest with clear breath sounds bilaterally. No wheezes, rales, or rhonchi. CARDIAC: Regular rate and rhythm. S1 and S2, without murmurs, gallops, or rubs. VASCULAR: No Edema. Peripheral pulses normal and equal in all extremities. ABDOMEN: Soft, without detectable tenderness. No sign of distention. No rebound or guarding, and no masses palpated. Bowel Sounds normal. MUSCULOSKELETAL: Good range of motion of all major joints. Extremities without clubbing, cyanosis or edema. NEUROLOGIC EXAM: Alert and oriented x 2. No focal sensory or strength deficits. Speech normal. Follows commands. PSYCHIATRIC: Mood flat. SKIN: No rash or lesions. - Constitutional Vitals: Temp Pulse Resp BP Pulse Ox 99.1 F 108 H 16 99/60 95 08/01/18 06:15 07/31/18 23:59 08/01/18 10:00 08/01/18 06:15 07/31/18 23:59 General appearance: Present: well-nourished Results - Labs CBC & Chem 7: 07/31/18 06:39 07/31/18 06:39 Labs: Laboratory Last Values WBC 9.8 K/mm3 (4.5-11.0) 07/31/18 06:39 RBC 3.50 M/mm3 (3.65-5.03) L 07/31/18 06:39 Hgb 10.7 gm/dl (10.1-14.3) 07/31/18 06:39 Hct 32.9 % (30.3-42.9) 07/31/18 06:39 MCV 94 fl (79-97) 07/31/18 06:39 MCH 31 pg (28-32) 07/31/18 06:39 MCHC 33 % (30-34) 07/31/18 06:39 RDW 15.0 % (13.2-15.2) 07/31/18 06:39 Plt Count 205 K/mm3 (140-440) 07/31/18 06:39 Lymph % (Auto) 8.7 % (13.4-35.0) L 07/31/18 06:39 [place] % (Auto) 6.3 % (0.0-7.3) 07/31/18 06:39 Eos % (Auto) 3.1 % (0.0-4.3) 07/31/18 06:39 Baso % (Auto) 0.4 % (0.0-1.8) 07/31/18 06:39 Lymph # 0.9 K/mm3 (1.2-5.4) L 07/31/18 06:39 [place] # 0.6 K/mm3 (0.0-0.8) 07/31/18 06:39 Eos # 0.3 K/mm3 (0.0-0.4) 07/31/18 06:39 Baso # 0.0 K/mm3 (0.0-0.1) 07/31/18 06:39 Seg Neutrophils % 81.5 % (40.0-70.0) H 07/31/18 06:39 Seg Neutrophils # 8.0 K/mm3 (1.8-7.7) H 07/31/18 06:39 Sodium 147 mmol/L (137-145) H 07/31/18 06:39 Potassium 3.9 mmol/L (3.6-5.0) 07/31/18 06:39 Chloride 113.9 mmol/L (98-107) H 07/31/18 06:39 Carbon Dioxide 23 mmol/L (22-30) 07/31/18 06:39 Anion Gap 14 mmol/L 07/31/18 06:39 BUN 11 mg/dL (7-17) 07/31/18 06:39 Creatinine 0.8 mg/dL (0.7-1.2) 07/31/18 06:39 Estimated GFR > 60 ml/min 07/31/18 06:39 BUN/Creatinine Ratio 14 % 07/31/18 06:39 Glucose 116 mg/dL (65-100) H 07/31/18 06:39 Calcium 8.7 mg/dL (8.4-10.2) 07/31/18 06:39 Total Bilirubin 0.30 mg/dL (0.1-1.2) 07/30/18 02:05 AST 26 units/L (5-40) 07/30/18 02:05 ALT 35 units/L (7-56) 07/30/18 02:05 Alkaline Phosphatase 96 units/L (35-129) 07/30/18 02:05 Troponin T 0.017 ng/mL (0.00-0.029) 07/30/18 02:05 NT-Pro-B Natriuret Pep 78.01 pg/mL (0-900) 07/30/18 02:05 Total Protein 5.2 g/dL (6.3-8.2) L 07/30/18 02:05 Albumin 3.0 g/dL (3.9-5) L 07/30/18 02:05 Albumin/Globulin Ratio 1.4 % 07/30/18 02:05 Urine Color Yellow (Yellow) 07/30/18 02:51 Urine Turbidity Clear (Clear) 07/30/18 02:51 Urine pH 7.0 (5.0-7.0) 07/30/18 02:51 Ur Specific [place] 1.013 (1.003-1.030) 07/30/18 02:51 Urine Protein <15 mg/dl mg/dL (Negative) 07/30/18 02:51 Urine Glucose (UA) Neg mg/dL (Negative) 07/30/18 02:51 Urine Ketones Neg mg/dL (Negative) 07/30/18 02:51 Urine Blood Neg (Negative) 07/30/18 02:51 Urine Nitrite Neg (Negative) 07/30/18 02:51 Urine Bilirubin Neg (Negative) 07/30/18 02:51 Urine Urobilinogen 2.0 mg/dL (<2.0) 07/30/18 02:51 Ur Leukocyte Esterase Neg (Negative) 07/30/18 02:51 Urine WBC (Auto) 1.0 /HPF (0.0-6.0) 07/30/18 02:51 Urine RBC (Auto) 1.0 /HPF (0.0-6.0) 07/30/18 02:51 Urine Mucus Few /HPF 07/30/18 02:51
[2018-08-01] MEDS: D5W 1,000 ML IV SCH ×2 (16:18→16:20)
[2018-08-02] MEDS: D5W 1,000 ML IV SCH (03:48)
[2018-08-02 06:34] LABS: BUN/Creatinine Ratio 11; Blood Urea Nitrogen 9 mg/dL (7-17); Calcium 8.8 mg/dL (8.4-10.2); Hemolysis Index 1
--- NOTE | 2018-08-02 07:58 | Progress Note ---
Assessment and Plan Assessment and plan: Pt is a 58 year old female with PMHx of Schizophrenia, bipolar disorder, h/o falls, and spychosis disorder who presents to the ER for evaluation following a fall. Pt presented from a psychiatric unit, she is alert but unable to provide medical history. The history was obtained from the ER note and pt's nurse. Pt was evaluated in the ER after falling from the facility, a CT scan of the brain was negative, her laboratory shows and elevated sodium level, she was admitted to the hospital for monitoring. On admission Pt is not following commends nor answer to questions, physical exam was WNL except her neuro exam shows decrease attention, somnolence and pinpoint pupil, she is not verbalizing pain or discomfort. S/p fall (no acute injury) - CT scan on the head reviewed, no acute findings - Continue neuro check qshit - Patient is on 1013 Hypernatremia - Resolved Schizophrenia - continue home meds - monitor for behavior changes Bipolar disorder - Continue home meds Chronic encephalopathy - monitor neuro status - Continue home meds - DVT prophylasis - Supportive care C5-C6 SPONDLYITIS RIGHT THYROID LOBE NODULE -OUTPT FOLLOW UP -check tsh (ordered today) DVT/GI prophy Pending placement to psych Continue 1013. Discussed with psych team by my colleague. Patient has episode of fever and tachycardia, U/A and CTA chest ordered will follow the result. History Interval history: Patient didn't talked to me, didn't answer my questions. Hospitalist Physical - Physical exam Narrative exam: Not in cardiopulmonary distress. The patient appeared well nourished and normally developed. Vital signs as documented. Head exam is unremarkable. No scleral icterus . Neck is without jugular venous distension, thyromegaly, or carotid bruits. Lungs are clear to auscultation. Cardiac exam reveals regular rate and Rhythm. Abdominal exam reveals normal bowel sounds, no masses, no organomegaly and no aortic enlargement. Extremities are nonedematous and both femoral and pedal pulses are normal. ADULT NEUROLOGIST: Alert . - Constitutional Vitals: Temp Pulse Resp BP Pulse Ox 99.7 F H 91 H 16 108/61 95 08/02/18 05:46 08/02/18 05:46 08/02/18 05:46 08/02/18 05:46 08/02/18 05:46 General appearance: Present: well-nourished Results - Labs CBC & Chem 7: 07/31/18 06:39 08/02/18 05:31 Labs: Laboratory Last Values WBC 9.8 K/mm3 (4.5-11.0) 07/31/18 06:39 RBC 3.50 M/mm3 (3.65-5.03) L 07/31/18 06:39 Hgb 10.7 gm/dl (10.1-14.3) 07/31/18 06:39 Hct 32.9 % (30.3-42.9) 07/31/18 06:39 MCV 94 fl (79-97) 07/31/18 06:39 MCH 31 pg (28-32) 07/31/18 06:39 MCHC 33 % (30-34) 07/31/18 06:39 RDW 15.0 % (13.2-15.2) 07/31/18 06:39 Plt Count 205 K/mm3 (140-440) 07/31/18 06:39 Lymph % (Auto) 8.7 % (13.4-35.0) L 07/31/18 06:39 [place] % (Auto) 6.3 % (0.0-7.3) 07/31/18 06:39 Eos % (Auto) 3.1 % (0.0-4.3) 07/31/18 06:39 Baso % (Auto) 0.4 % (0.0-1.8) 07/31/18 06:39 Lymph # 0.9 K/mm3 (1.2-5.4) L 07/31/18 06:39 [place] # 0.6 K/mm3 (0.0-0.8) 07/31/18 06:39 Eos # 0.3 K/mm3 (0.0-0.4) 07/31/18 06:39 Baso # 0.0 K/mm3 (0.0-0.1) 07/31/18 06:39 Seg Neutrophils % 81.5 % (40.0-70.0) H 07/31/18 06:39 Seg Neutrophils # 8.0 K/mm3 (1.8-7.7) H 07/31/18 06:39 Sodium 137 mmol/L (137-145) D 08/02/18 05:31 Potassium 3.8 mmol/L (3.6-5.0) 08/02/18 05:31 Chloride 103.4 mmol/L (98-107) 08/02/18 05:31 Carbon Dioxide 22 mmol/L (22-30) 08/02/18 05:31 Anion Gap 15 mmol/L 08/02/18 05:31 BUN 9 mg/dL (7-17) 08/02/18 05:31 Creatinine 0.8 mg/dL (0.7-1.2) 08/02/18 05:31 Estimated GFR > 60 ml/min 08/02/18 05:31 BUN/Creatinine Ratio 11 % 08/02/18 05:31 Glucose 129 mg/dL (65-100) H 08/02/18 05:31 Calcium 8.8 mg/dL (8.4-10.2) 08/02/18 05:31 Total Bilirubin 0.30 mg/dL (0.1-1.2) 07/30/18 02:05 AST 26 units/L (5-40) 07/30/18 02:05 ALT 35 units/L (7-56) 07/30/18 02:05 Alkaline Phosphatase 96 units/L (35-129) 07/30/18 02:05 Troponin T 0.017 ng/mL (0.00-0.029) 07/30/18 02:05 NT-Pro-B Natriuret Pep 78.01 pg/mL (0-900) 07/30/18 02:05 Total Protein 5.2 g/dL (6.3-8.2) L 07/30/18 02:05 Albumin 3.0 g/dL (3.9-5) L 07/30/18 02:05 Albumin/Globulin Ratio 1.4 % 07/30/18 02:05 Urine Color Yellow (Yellow) 07/30/18 02:51 Urine Turbidity Clear (Clear) 07/30/18 02:51 Urine pH 7.0 (5.0-7.0) 07/30/18 02:51 Ur Specific [place] 1.013 (1.003-1.030) 07/30/18 02:51 Urine Protein <15 mg/dl mg/dL (Negative) 07/30/18 02:51 Urine Glucose (UA) Neg mg/dL (Negative) 07/30/18 02:51 Urine Ketones Neg mg/dL (Negative) 07/30/18 02:51 Urine Blood Neg (Negative) 07/30/18 02:51 Urine Nitrite Neg (Negative) 07/30/18 02:51 Urine Bilirubin Neg (Negative) 07/30/18 02:51 Urine Urobilinogen 2.0 mg/dL (<2.0) 07/30/18 02:51 Ur Leukocyte Esterase Neg (Negative) 07/30/18 02:51 Urine WBC (Auto) 1.0 /HPF (0.0-6.0) 07/30/18 02:51 Urine RBC (Auto) 1.0 /HPF (0.0-6.0) 07/30/18 02:51 Urine Mucus Few /HPF 07/30/18 02:51
[2018-08-02] MEDS: SODIUM CHLORIDE FLUSH SYRINGE 10 ML IV SCH ×2 (11:12→21:51)
--- NOTE | 2018-08-02 14:15 | Progress Note ---
Subjective - Reason for Consult Consult date: 08/02/18 Reason for consult: Psychiatry Follow-up - Chief Complaint Chief complaint: "The patient mumbles" 58-year-old female [facility]. This patient is known to me. She has been admitted for hypernatremia. Today the patient is calm, but still disorganized during the assessment. She does not answers questions logically. She looked around the room during the interview, possibly responding to some type stimuli. No gestures of SI/HI's. Mental Status Exam - Vital signs Last Vital Signs Temp 99.7 F H 08/02/18 05:46 Pulse 91 H 08/02/18 05:46 Resp 16 08/02/18 05:46 BP 108/61 08/02/18 05:46 Pulse Ox 95 08/02/18 05:46 - Exam Narrative exam: Unable to complete the MSE because of the patient's condition. Assessment and Plan Impression: Hx of Schizophrenia per the record. NA 137. temp 99.7. Today the patient is calm, but still disorganized during the assessment. The patient at her baseline. Medical: Chronic Encephalopathy Recommendation/Plan: Continue 1013. Continue home medication Zyprexa 20 mg PO HS and Klonopin 0.5 mg PO BID. Start Haldol 2 mg IM Q6hrs PRN for acute agitation. Recommend Delirium precautions below: 1. Frequently reorient patient and involve him/her in their care (simple explanations of procedures, tests, medications). 2. Lights on and shades open during daytime hours. 3. Write date and goals of care in a visible place. 4. Try to avoid unnecessary interruptions to sleep during nighttime hours. 5. Obtain glasses, hearing aids from home if patient uses these at baseline. 6. Avoid medications that may exacerbate delirium (especially narcotics, benzodiazepines, barbiturates, ambien, lunesta, and medications with excessive anticholinergic properties). The patient takes Klonopin as a home medication.
--- NOTE | 2018-08-03 07:53 | Progress Note ---
Assessment and Plan Assessment and plan: Pt is a 58 year old female with PMHx of Schizophrenia, bipolar disorder, h/o falls, and spychosis disorder who presents to the ER for evaluation following a fall. Pt presented from a psychiatric unit, she is alert but unable to provide medical history. The history was obtained from the ER note and pt's nurse. Pt was evaluated in the ER after falling from the facility, a CT scan of the brain was negative, her laboratory shows and elevated sodium level, she was admitted to the hospital for monitoring. On admission Pt is not following commends nor answer to questions, physical exam was WNL except her neuro exam shows decrease attention, somnolence and pinpoint pupil, she is not verbalizing pain or discomfort. S/p fall (no acute injury) - CT scan on the head reviewed, no acute findings - Continue neuro check qshit - Patient is on 1013 Hypernatremia - Resolved Schizophrenia - continue home meds - monitor for behavior changes Bipolar disorder - Continue home meds Chronic encephalopathy - monitor neuro status - Continue home meds - DVT prophylasis - Supportive care C5-C6 SPONDLYITIS RIGHT THYROID LOBE NODULE -OUTPT FOLLOW UP - TSh is normal DVT/GI prophy Pending placement to psych Continue 1013. Discussed with psych team by my colleague. Patient has episode of fever and tachycardia, U/A and CTA chest ordered will follow the result. Pending reading of the CTA. History Interval history: Patient didn't talked to me, didn't answer my questions. Hospitalist Physical - Physical exam Narrative exam: Not in cardiopulmonary distress. The patient appeared well nourished and normally developed. Vital signs as documented. Head exam is unremarkable. No scleral icterus . Neck is without jugular venous distension, thyromegaly, or carotid bruits. Lungs are clear to auscultation. Cardiac exam reveals regular rate and Rhythm. Abdominal exam reveals normal bowel sounds, no masses, no organomegaly and no aortic enlargement. Extremities are nonedematous and both femoral and pedal pulses are normal. HOUSEKEEPER NANNY: Alert . - Constitutional Vitals: Temp Pulse Resp BP Pulse Ox 99.4 F 98 H 20 103/64 98 08/03/18 05:50 08/03/18 05:50 08/03/18 05:50 08/03/18 05:50 08/03/18 05:50 General appearance: Present: well-nourished Results - Labs CBC & Chem 7: 07/31/18 06:39 08/02/18 05:31 Labs: Laboratory Last Values WBC 9.8 K/mm3 (4.5-11.0) 07/31/18 06:39 RBC 3.50 M/mm3 (3.65-5.03) L 07/31/18 06:39 Hgb 10.7 gm/dl (10.1-14.3) 07/31/18 06:39 Hct 32.9 % (30.3-42.9) 07/31/18 06:39 MCV 94 fl (79-97) 07/31/18 06:39 MCH 31 pg (28-32) 07/31/18 06:39 MCHC 33 % (30-34) 07/31/18 06:39 RDW 15.0 % (13.2-15.2) 07/31/18 06:39 Plt Count 205 K/mm3 (140-440) 07/31/18 06:39 Lymph % (Auto) 8.7 % (13.4-35.0) L 07/31/18 06:39 [place] % (Auto) 6.3 % (0.0-7.3) 07/31/18 06:39 Eos % (Auto) 3.1 % (0.0-4.3) 07/31/18 06:39 Baso % (Auto) 0.4 % (0.0-1.8) 07/31/18 06:39 Lymph # 0.9 K/mm3 (1.2-5.4) L 07/31/18 06:39 [place] # 0.6 K/mm3 (0.0-0.8) 07/31/18 06:39 Eos # 0.3 K/mm3 (0.0-0.4) 07/31/18 06:39 Baso # 0.0 K/mm3 (0.0-0.1) 07/31/18 06:39 Seg Neutrophils % 81.5 % (40.0-70.0) H 07/31/18 06:39 Seg Neutrophils # 8.0 K/mm3 (1.8-7.7) H 07/31/18 06:39 Sodium 137 mmol/L (137-145) D 08/02/18 05:31 Potassium 3.8 mmol/L (3.6-5.0) 08/02/18 05:31 Chloride 103.4 mmol/L (98-107) 08/02/18 05:31 Carbon Dioxide 22 mmol/L (22-30) 08/02/18 05:31 Anion Gap 15 mmol/L 08/02/18 05:31 BUN 9 mg/dL (7-17) 08/02/18 05:31 Creatinine 0.8 mg/dL (0.7-1.2) 08/02/18 05:31 Estimated GFR > 60 ml/min 08/02/18 05:31 BUN/Creatinine Ratio 11 % 08/02/18 05:31 Glucose 129 mg/dL (65-100) H 08/02/18 05:31 Calcium 8.8 mg/dL (8.4-10.2) 08/02/18 05:31 Total Bilirubin 0.30 mg/dL (0.1-1.2) 07/30/18 02:05 AST 26 units/L (5-40) 07/30/18 02:05 ALT 35 units/L (7-56) 07/30/18 02:05 Alkaline Phosphatase 96 units/L (35-129) 07/30/18 02:05 Troponin T 0.017 ng/mL (0.00-0.029) 07/30/18 02:05 NT-Pro-B Natriuret Pep 78.01 pg/mL (0-900) 07/30/18 02:05 Total Protein 5.2 g/dL (6.3-8.2) L 07/30/18 02:05 Albumin 3.0 g/dL (3.9-5) L 07/30/18 02:05 Albumin/Globulin Ratio 1.4 % 07/30/18 02:05 TSH 2.320 mlU/mL (0.270-4.200) 08/02/18 13:55 Urine Color Yellow (Yellow) 07/30/18 02:51 Urine Turbidity Clear (Clear) 07/30/18 02:51 Urine pH 7.0 (5.0-7.0) 07/30/18 02:51 Ur Specific [place] 1.013 (1.003-1.030) 07/30/18 02:51 Urine Protein <15 mg/dl mg/dL (Negative) 07/30/18 02:51 Urine Glucose (UA) Neg mg/dL (Negative) 07/30/18 02:51 Urine Ketones Neg mg/dL (Negative) 07/30/18 02:51 Urine Blood Neg (Negative) 07/30/18 02:51 Urine Nitrite Neg (Negative) 07/30/18 02:51 Urine Bilirubin Neg (Negative) 07/30/18 02:51 Urine Urobilinogen 2.0 mg/dL (<2.0) 07/30/18 02:51 Ur Leukocyte Esterase Neg (Negative) 07/30/18 02:51 Urine WBC (Auto) 1.0 /HPF (0.0-6.0) 07/30/18 02:51 Urine RBC (Auto) 1.0 /HPF (0.0-6.0) 07/30/18 02:51 Urine Mucus Few /HPF 07/30/18 02:51
[2018-08-03] MEDS: HALDOL IM PRN ×2 (10:17→18:44)
[2018-08-03] MEDS: SODIUM CHLORIDE FLUSH SYRINGE 10 ML IV SCH ×2 (10:17→22:44)
--- NOTE | 2018-08-03 13:02 | Progress Note ---
Subjective - Reason for Consult Consult date: 08/03/18 Reason for consult: Psychiatric Follow-up Evaluation - Chief Complaint Chief complaint: "I'm okay" Patient is a 58-year-old female presents back to [facility] after falling at [facility]. This patient is known to me. She has been admitted for hypernatremia. Today the patient is calm, but still disorganized during the assessment. She does not answers questions logically. Patient is seen sitting in chair eating dinner. She states, " I feel molested." She endorses auditory hallucinations " they are repeating what you are saying." Per staff patient has poor sleep with fair appetite. Also, earlier in the day patient expressed HI's toward sitter. Patient mood continues to be labile. No gestures of SI/HI's. Psychosis is evident. Mental Status Exam - Vital signs Last Vital Signs Temp 99.4 F 08/03/18 05:50 Pulse 98 H 08/03/18 05:50 Resp 20 08/03/18 05:50 BP 103/64 08/03/18 05:50 Pulse Ox 98 08/03/18 05:50 - Exam Narrative exam: Mental Status Exam General Appearance: Causally Dressed-hospital gown, poorly groomed Eye Contact: Intermittent Orientation: Alert and oriented x 2 (person and place) Attitude/Behavior: Cooperative but easily agitated-less Sensorium: Distracted Psychomotor & Musculoskeletal Activity: Sitting in chair Mood: "I'm okay" Affect: Incongruent Speech/Language: Loud Thought Processes: Disorganized, tangential Thought Content: Impoverished Perception: + Auditory hallucinations " they're repeating what you are saying Concentration/Attention: Impaired Suicidal Ideations/Plan: Patient denies. Homicidal Ideations/Plan: Patient denies. Per sitter patient expressed HI's toward her. Judgment: Poor Insight: Poor Assessment and Plan Impression: Hx of Schizophrenia per the record. Today the patient is calm, but still disorganized during the assessment. Mood continues to be labile. Patient endorses AH's. No SI/HI's gestures. The patient is at her baseline. Medical: Chronic Encephalopathy Recommendation/Plan: Continue 1013. Continue home medication Zyprexa 20 mg PO HS and Klonopin 0.5 mg PO BID. Start Haldol 2 mg IM Q6hrs PRN for acute agitation. Recommend Delirium precautions below: 1. Frequently reorient patient and involve him/her in their care (simple explanations of procedures, tests, medications). 2. Lights on and shades open during daytime hours. 3. Write date and goals of care in a visible place. 4. Try to avoid unnecessary interruptions to sleep during nighttime hours. 5. Obtain glasses, hearing aids from home if patient uses these at baseline. 6. Avoid medications that may exacerbate delirium (especially narcotics, benzodiazepines, barbiturates, ambien, lunesta, and medications with excessive anticholinergic properties). The patient takes Klonopin as a home medication.
[2018-08-04] MEDS ORDERED: HALDOL IM ONE (01:02)
--- NOTE | 2018-08-04 07:57 | Progress Note ---
Assessment and Plan Assessment and plan: Pt is a 58 year old female with PMHx of Schizophrenia, bipolar disorder, h/o falls, and spychosis disorder who presents to the ER for evaluation following a fall. Pt presented from a psychiatric unit, she is alert but unable to provide medical history. The history was obtained from the ER note and pt's nurse. Pt was evaluated in the ER after falling from the facility, a CT scan of the brain was negative, her laboratory shows and elevated sodium level, she was admitted to the hospital for monitoring. On admission Pt is not following commends nor answer to questions, physical exam was WNL except her neuro exam shows decrease attention, somnolence and pinpoint pupil, she is not verbalizing pain or discomfort. S/p fall (no acute injury) - CT scan on the head reviewed, no acute findings - Continue neuro check qshit - Patient is on 1013 Hypernatremia - Resolved Schizophrenia - continue home meds - monitor for behavior changes Bipolar disorder - Continue home meds Chronic encephalopathy - monitor neuro status - Continue home meds - DVT prophylasis - Supportive care C5-C6 SPONDLYITIS RIGHT THYROID LOBE NODULE -OUTPT FOLLOW UP - TSh is normal DVT/GI prophy Pending inpatient psych placement. Continue 1013. History Interval history: Patient was laughing inappropriately. Denied suicidal ideation. Hospitalist Physical - Physical exam Narrative exam: Not in cardiopulmonary distress. The patient appeared well nourished and normally developed. Vital signs as documented. Head exam is unremarkable. No scleral icterus . Neck is without jugular venous distension, thyromegaly, or carotid bruits. Lungs are clear to auscultation. Cardiac exam reveals regular rate and Rhythm. Abdominal exam reveals normal bowel sounds, no masses, no organomegaly and no aortic enlargement. Extremities are nonedematous and both femoral and pedal pulses are normal. WORKFORCE SPECIALIST: Alert. - Constitutional Vitals: Temp Pulse Resp BP Pulse Ox 98.9 F 72 16 101/72 100 08/03/18 18:30 08/03/18 18:30 08/03/18 22:00 08/03/18 18:30 08/03/18 18:30 General appearance: Present: well-nourished Results - Labs CBC & Chem 7: 07/31/18 06:39 08/02/18 05:31 Labs: Laboratory Last Values WBC 9.8 K/mm3 (4.5-11.0) 07/31/18 06:39 RBC 3.50 M/mm3 (3.65-5.03) L 07/31/18 06:39 Hgb 10.7 gm/dl (10.1-14.3) 07/31/18 06:39 Hct 32.9 % (30.3-42.9) 07/31/18 06:39 MCV 94 fl (79-97) 07/31/18 06:39 MCH 31 pg (28-32) 07/31/18 06:39 MCHC 33 % (30-34) 07/31/18 06:39 RDW 15.0 % (13.2-15.2) 07/31/18 06:39 Plt Count 205 K/mm3 (140-440) 07/31/18 06:39 Lymph % (Auto) 8.7 % (13.4-35.0) L 07/31/18 06:39 [place] % (Auto) 6.3 % (0.0-7.3) 07/31/18 06:39 Eos % (Auto) 3.1 % (0.0-4.3) 07/31/18 06:39 Baso % (Auto) 0.4 % (0.0-1.8) 07/31/18 06:39 Lymph # 0.9 K/mm3 (1.2-5.4) L 07/31/18 06:39 [place] # 0.6 K/mm3 (0.0-0.8) 07/31/18 06:39 Eos # 0.3 K/mm3 (0.0-0.4) 07/31/18 06:39 Baso # 0.0 K/mm3 (0.0-0.1) 07/31/18 06:39 Seg Neutrophils % 81.5 % (40.0-70.0) H 07/31/18 06:39 Seg Neutrophils # 8.0 K/mm3 (1.8-7.7) H 07/31/18 06:39 Sodium 137 mmol/L (137-145) D 08/02/18 05:31 Potassium 3.8 mmol/L (3.6-5.0) 08/02/18 05:31 Chloride 103.4 mmol/L (98-107) 08/02/18 05:31 Carbon Dioxide 22 mmol/L (22-30) 08/02/18 05:31 Anion Gap 15 mmol/L 08/02/18 05:31 BUN 9 mg/dL (7-17) 08/02/18 05:31 Creatinine 0.8 mg/dL (0.7-1.2) 08/02/18 05:31 Estimated GFR > 60 ml/min 08/02/18 05:31 BUN/Creatinine Ratio 11 % 08/02/18 05:31 Glucose 129 mg/dL (65-100) H 08/02/18 05:31 Calcium 8.8 mg/dL (8.4-10.2) 08/02/18 05:31 Total Bilirubin 0.30 mg/dL (0.1-1.2) 07/30/18 02:05 AST 26 units/L (5-40) 07/30/18 02:05 ALT 35 units/L (7-56) 07/30/18 02:05 Alkaline Phosphatase 96 units/L (35-129) 07/30/18 02:05 Troponin T 0.017 ng/mL (0.00-0.029) 07/30/18 02:05 NT-Pro-B Natriuret Pep 78.01 pg/mL (0-900) 07/30/18 02:05 Total Protein 5.2 g/dL (6.3-8.2) L 07/30/18 02:05 Albumin 3.0 g/dL (3.9-5) L 07/30/18 02:05 Albumin/Globulin Ratio 1.4 % 07/30/18 02:05 TSH 2.320 mlU/mL (0.270-4.200) 08/02/18 13:55 Urine Color Yellow (Yellow) 07/30/18 02:51 Urine Turbidity Clear (Clear) 07/30/18 02:51 Urine pH 7.0 (5.0-7.0) 07/30/18 02:51 Ur Specific [place] 1.013 (1.003-1.030) 07/30/18 02:51 Urine Protein <15 mg/dl mg/dL (Negative) 07/30/18 02:51 Urine Glucose (UA) Neg mg/dL (Negative) 07/30/18 02:51 Urine Ketones Neg mg/dL (Negative) 07/30/18 02:51 Urine Blood Neg (Negative) 07/30/18 02:51 Urine Nitrite Neg (Negative) 07/30/18 02:51 Urine Bilirubin Neg (Negative) 07/30/18 02:51 Urine Urobilinogen 2.0 mg/dL (<2.0) 07/30/18 02:51 Ur Leukocyte Esterase Neg (Negative) 07/30/18 02:51 Urine WBC (Auto) 1.0 /HPF (0.0-6.0) 07/30/18 02:51 Urine RBC (Auto) 1.0 /HPF (0.0-6.0) 07/30/18 02:51 Urine Mucus Few /HPF 07/30/18 02:51
[2018-08-04] MEDS: SODIUM CHLORIDE FLUSH SYRINGE 10 ML IV SCH ×2 (09:58→22:49)
--- NOTE | 2018-08-04 11:11 | Progress Note ---
Subjective - Reason for Consult Consult date: 08/04/18 Reason for consult: Psychiatry Follow-up - Chief Complaint Chief complaint: "What" Patient is a 58-year-old female presents back to [facility] after falling at [facility]. This patient is known to me. She has been admitted for hypernatremia. Today the patient is calm, but disorganized during the assessment. She do not answer questions logically. She will not confirm or deny AH's. Per the sitter, the patient at her breakfast. Per the notes, no behavioral disturbances overnight. No gestures of SI/HI's. Mental Status Exam - Vital signs Last Vital Signs Temp 98.9 F 08/03/18 18:30 Pulse 72 08/03/18 18:30 Resp 16 08/03/18 22:00 BP 101/72 08/03/18 18:30 Pulse Ox 100 08/03/18 18:30 - Exam Narrative exam: MSE: Appearance: calm Behavior: regular eye contact Speech: regular rate and tone Mood: unable to assess Affect: flat Thought Process: disorganized Thought Content: no gestures of SI/HI's and VH's, would not confirm or deny AH' s Motor Activity: ambulatory Cognition: A/O x 3 Insight: poor Judgment: poor Assessment and Plan Impression: Hx of Schizophrenia per the record. NA 137. Today the patient is calm, but disorganized during the assessment. Recommendation/Plan: Continue 1013 with placement to inpatient psy services. Continue home medication Zyprexa 20 mg PO HS and Klonopin 0.5 mg PO BID. Also, continue Haldol 2 mg IM Q6hrs PRN for acute agitation.
[2018-08-04] MEDS: TYLENOL PO PRN (18:13)
--- NOTE | 2018-08-05 08:03 | Progress Note ---
Assessment and Plan Assessment and plan: Pt is a 58 year old female with PMHx of Schizophrenia, bipolar disorder, h/o falls, and spychosis disorder who presents to the ER for evaluation following a fall. Pt presented from a psychiatric unit, she is alert but unable to provide medical history. The history was obtained from the ER note and pt's nurse. Pt was evaluated in the ER after falling from the facility, a CT scan of the brain was negative, her laboratory shows and elevated sodium level, she was admitted to the hospital for monitoring. On admission Pt is not following commends nor answer to questions, physical exam was WNL except her neuro exam shows decrease attention, somnolence and pinpoint pupil, she is not verbalizing pain or discomfort. S/p fall (no acute injury) - CT scan on the head reviewed, no acute findings - Continue neuro check qshit - Patient is on 1013 Hypernatremia - Resolved Schizophrenia - continue home meds - monitor for behavior changes Bipolar disorder - Continue home meds Chronic encephalopathy - monitor neuro status - Continue home meds - DVT prophylasis - Supportive care C5-C6 SPONDLYITIS RIGHT THYROID LOBE NODULE - TSh is normal DVT/GI prophy Pending inpatient psych placement, patient is medically cleared for discharge. Continue 1013. History Interval history: Patient was calm, but disorganized. Hospitalist Physical - Physical exam Narrative exam: Not in cardiopulmonary distress. The patient appeared well nourished and normally developed. Vital signs as documented. Head exam is unremarkable. No scleral icterus . Neck is without jugular venous distension, thyromegaly, or carotid bruits. Lungs are clear to auscultation. Cardiac exam reveals regular rate and Rhythm. Abdominal exam reveals normal bowel sounds, no masses, no organomegaly and no aortic enlargement. Extremities are nonedematous and both femoral and pedal pulses are normal. AUTOMATION DRIVER: Alert. - Constitutional Vitals: Temp Pulse Resp BP Pulse Ox 97.7 F 87 16 107/79 98 08/05/18 06:39 08/05/18 06:39 08/05/18 06:39 08/05/18 06:39 08/05/18 06:39 General appearance: Present: well-nourished Results - Labs CBC & Chem 7: 07/31/18 06:39 08/02/18 05:31 Labs: Laboratory Last Values WBC 9.8 K/mm3 (4.5-11.0) 07/31/18 06:39 RBC 3.50 M/mm3 (3.65-5.03) L 07/31/18 06:39 Hgb 10.7 gm/dl (10.1-14.3) 07/31/18 06:39 Hct 32.9 % (30.3-42.9) 07/31/18 06:39 MCV 94 fl (79-97) 07/31/18 06:39 MCH 31 pg (28-32) 07/31/18 06:39 MCHC 33 % (30-34) 07/31/18 06:39 RDW 15.0 % (13.2-15.2) 07/31/18 06:39 Plt Count 205 K/mm3 (140-440) 07/31/18 06:39 Lymph % (Auto) 8.7 % (13.4-35.0) L 07/31/18 06:39 [place] % (Auto) 6.3 % (0.0-7.3) 07/31/18 06:39 Eos % (Auto) 3.1 % (0.0-4.3) 07/31/18 06:39 Baso % (Auto) 0.4 % (0.0-1.8) 07/31/18 06:39 Lymph # 0.9 K/mm3 (1.2-5.4) L 07/31/18 06:39 [place] # 0.6 K/mm3 (0.0-0.8) 07/31/18 06:39 Eos # 0.3 K/mm3 (0.0-0.4) 07/31/18 06:39 Baso # 0.0 K/mm3 (0.0-0.1) 07/31/18 06:39 Seg Neutrophils % 81.5 % (40.0-70.0) H 07/31/18 06:39 Seg Neutrophils # 8.0 K/mm3 (1.8-7.7) H 07/31/18 06:39 Sodium 137 mmol/L (137-145) D 08/02/18 05:31 Potassium 3.8 mmol/L (3.6-5.0) 08/02/18 05:31 Chloride 103.4 mmol/L (98-107) 08/02/18 05:31 Carbon Dioxide 22 mmol/L (22-30) 08/02/18 05:31 Anion Gap 15 mmol/L 08/02/18 05:31 BUN 9 mg/dL (7-17) 08/02/18 05:31 Creatinine 0.8 mg/dL (0.7-1.2) 08/02/18 05:31 Estimated GFR > 60 ml/min 08/02/18 05:31 BUN/Creatinine Ratio 11 % 08/02/18 05:31 Glucose 129 mg/dL (65-100) H 08/02/18 05:31 Calcium 8.8 mg/dL (8.4-10.2) 08/02/18 05:31 Total Bilirubin 0.30 mg/dL (0.1-1.2) 07/30/18 02:05 AST 26 units/L (5-40) 07/30/18 02:05 ALT 35 units/L (7-56) 07/30/18 02:05 Alkaline Phosphatase 96 units/L (35-129) 07/30/18 02:05 Troponin T 0.017 ng/mL (0.00-0.029) 07/30/18 02:05 NT-Pro-B Natriuret Pep 78.01 pg/mL (0-900) 07/30/18 02:05 Total Protein 5.2 g/dL (6.3-8.2) L 07/30/18 02:05 Albumin 3.0 g/dL (3.9-5) L 07/30/18 02:05 Albumin/Globulin Ratio 1.4 % 07/30/18 02:05 TSH 2.320 mlU/mL (0.270-4.200) 08/02/18 13:55 Urine Color Yellow (Yellow) 07/30/18 02:51 Urine Turbidity Clear (Clear) 07/30/18 02:51 Urine pH 7.0 (5.0-7.0) 07/30/18 02:51 Ur Specific [place] 1.013 (1.003-1.030) 07/30/18 02:51 Urine Protein <15 mg/dl mg/dL (Negative) 07/30/18 02:51 Urine Glucose (UA) Neg mg/dL (Negative) 07/30/18 02:51 Urine Ketones Neg mg/dL (Negative) 07/30/18 02:51 Urine Blood Neg (Negative) 07/30/18 02:51 Urine Nitrite Neg (Negative) 07/30/18 02:51 Urine Bilirubin Neg (Negative) 07/30/18 02:51 Urine Urobilinogen 2.0 mg/dL (<2.0) 07/30/18 02:51 Ur Leukocyte Esterase Neg (Negative) 07/30/18 02:51 Urine WBC (Auto) 1.0 /HPF (0.0-6.0) 07/30/18 02:51 Urine RBC (Auto) 1.0 /HPF (0.0-6.0) 07/30/18 02:51 Urine Mucus Few /HPF 07/30/18 02:51
[2018-08-05] MEDS: SODIUM CHLORIDE FLUSH SYRINGE 10 ML IV SCH ×2 (10:44→21:18)
--- NOTE | 2018-08-05 12:43 | Progress Note ---
Subjective - Reason for Consult Consult date: 08/05/18 Reason for consult: Psychiatry Follow-up - Chief Complaint Chief complaint: "Hi" Patient is a 58-year-old female presents back to [facility] after falling at [facility]. This patient is known to me. She was admitted for hypernatremia. Today the patient is calm, but still disorganized during the assessment. She had to be redirected several times to keep her on topic. Per the staff, the patient yelled and screamed last night. She still will not confirm or deny AH' s. No indications of side effects of her medications. No gestures of SI/HI's. Mental Status Exam - Vital signs Last Vital Signs Temp 98.5 F 08/05/18 11:12 Pulse 77 08/05/18 11:12 Resp 20 08/05/18 11:12 BP 109/72 08/05/18 11:12 Pulse Ox 100 08/05/18 11:12 - Exam Narrative exam: MSE: Appearance: calm Behavior: regular eye contact Speech: regular rate and tone Mood: "okay" Affect: congruent to mood Thought Process: disorganized Thought Content: no gestures of SI/HI's and VH's, would not confirm or deny AH' s Motor Activity: ambulatory Cognition: A/O x 3 Insight: poor Judgment: variable Assessment and Plan Impression: Hx of Schizophrenia per the record. NA 137. Today the patient is calm, but still disorganized during the assessment. Recommendation/Plan: Continue 1013 with placement to inpatient psy services. Continue home medication Zyprexa 20 mg PO HS and Klonopin 0.5 mg PO BID. Also, continue Haldol 2 mg IM Q6hrs PRN for acute agitation.
[2018-08-05] MEDS: HALDOL IM PRN (21:17)
--- NOTE | 2018-08-06 08:21 | Progress Note ---
Assessment and Plan Assessment and plan: Pt is a 58 year old female with PMHx of Schizophrenia, bipolar disorder, h/o falls, and spychosis disorder who presents to the ER for evaluation following a fall. Pt presented from a psychiatric unit, she is alert but unable to provide medical history. The history was obtained from the ER note and pt's nurse. Pt was evaluated in the ER after falling from the facility, a CT scan of the brain was negative, her laboratory shows and elevated sodium level, she was admitted to the hospital for monitoring. On admission Pt is not following commends nor answer to questions, physical exam was WNL except her neuro exam shows decrease attention, somnolence and pinpoint pupil, she is not verbalizing pain or discomfort. S/p fall (no acute injury) - CT scan on the head reviewed, no acute findings - Continue neuro check qshit - Patient is on 1013 Hypernatremia - Resolved Schizophrenia - continue home meds - monitor for behavior changes Bipolar disorder - Continue home meds Chronic encephalopathy - monitor neuro status - Continue home meds - DVT prophylasis - Supportive care C5-C6 SPONDLYITIS RIGHT THYROID LOBE NODULE - TSh is normal DVT/GI prophy Pending inpatient psych placement, patient is medically cleared for discharge. Continue 1013. History Interval history: Patient was calm, but disorganized. Hospitalist Physical - Physical exam Narrative exam: Not in cardiopulmonary distress. The patient appeared well nourished and normally developed. Vital signs as documented. Head exam is unremarkable. No scleral icterus . Neck is without jugular venous distension, thyromegaly, or carotid bruits. Lungs are clear to auscultation. Cardiac exam reveals regular rate and Rhythm. Abdominal exam reveals normal bowel sounds, no masses, no organomegaly and no aortic enlargement. Extremities are nonedematous and both femoral and pedal pulses are normal. LODGING MANAGER: Alert. - Constitutional Vitals: Temp Pulse Resp BP Pulse Ox 98.2 F 89 20 138/88 99 08/06/18 06:15 08/06/18 06:15 08/06/18 06:15 08/06/18 06:15 08/06/18 06:15 General appearance: Present: well-nourished Results - Labs CBC & Chem 7: 07/31/18 06:39 08/02/18 05:31 Labs: Laboratory Last Values WBC 9.8 K/mm3 (4.5-11.0) 07/31/18 06:39 RBC 3.50 M/mm3 (3.65-5.03) L 07/31/18 06:39 Hgb 10.7 gm/dl (10.1-14.3) 07/31/18 06:39 Hct 32.9 % (30.3-42.9) 07/31/18 06:39 MCV 94 fl (79-97) 07/31/18 06:39 MCH 31 pg (28-32) 07/31/18 06:39 MCHC 33 % (30-34) 07/31/18 06:39 RDW 15.0 % (13.2-15.2) 07/31/18 06:39 Plt Count 205 K/mm3 (140-440) 07/31/18 06:39 Lymph % (Auto) 8.7 % (13.4-35.0) L 07/31/18 06:39 [place] % (Auto) 6.3 % (0.0-7.3) 07/31/18 06:39 Eos % (Auto) 3.1 % (0.0-4.3) 07/31/18 06:39 Baso % (Auto) 0.4 % (0.0-1.8) 07/31/18 06:39 Lymph # 0.9 K/mm3 (1.2-5.4) L 07/31/18 06:39 [place] # 0.6 K/mm3 (0.0-0.8) 07/31/18 06:39 Eos # 0.3 K/mm3 (0.0-0.4) 07/31/18 06:39 Baso # 0.0 K/mm3 (0.0-0.1) 07/31/18 06:39 Seg Neutrophils % 81.5 % (40.0-70.0) H 07/31/18 06:39 Seg Neutrophils # 8.0 K/mm3 (1.8-7.7) H 07/31/18 06:39 Sodium 137 mmol/L (137-145) D 08/02/18 05:31 Potassium 3.8 mmol/L (3.6-5.0) 08/02/18 05:31 Chloride 103.4 mmol/L (98-107) 08/02/18 05:31 Carbon Dioxide 22 mmol/L (22-30) 08/02/18 05:31 Anion Gap 15 mmol/L 08/02/18 05:31 BUN 9 mg/dL (7-17) 08/02/18 05:31 Creatinine 0.8 mg/dL (0.7-1.2) 08/02/18 05:31 Estimated GFR > 60 ml/min 08/02/18 05:31 BUN/Creatinine Ratio 11 % 08/02/18 05:31 Glucose 129 mg/dL (65-100) H 08/02/18 05:31 Calcium 8.8 mg/dL (8.4-10.2) 08/02/18 05:31 Total Bilirubin 0.30 mg/dL (0.1-1.2) 07/30/18 02:05 AST 26 units/L (5-40) 07/30/18 02:05 ALT 35 units/L (7-56) 07/30/18 02:05 Alkaline Phosphatase 96 units/L (35-129) 07/30/18 02:05 Troponin T 0.017 ng/mL (0.00-0.029) 07/30/18 02:05 NT-Pro-B Natriuret Pep 78.01 pg/mL (0-900) 07/30/18 02:05 Total Protein 5.2 g/dL (6.3-8.2) L 07/30/18 02:05 Albumin 3.0 g/dL (3.9-5) L 07/30/18 02:05 Albumin/Globulin Ratio 1.4 % 07/30/18 02:05 TSH 2.320 mlU/mL (0.270-4.200) 08/02/18 13:55 Urine Color Yellow (Yellow) 07/30/18 02:51 Urine Turbidity Clear (Clear) 07/30/18 02:51 Urine pH 7.0 (5.0-7.0) 07/30/18 02:51 Ur Specific [place] 1.013 (1.003-1.030) 07/30/18 02:51 Urine Protein <15 mg/dl mg/dL (Negative) 07/30/18 02:51 Urine Glucose (UA) Neg mg/dL (Negative) 07/30/18 02:51 Urine Ketones Neg mg/dL (Negative) 07/30/18 02:51 Urine Blood Neg (Negative) 07/30/18 02:51 Urine Nitrite Neg (Negative) 07/30/18 02:51 Urine Bilirubin Neg (Negative) 07/30/18 02:51 Urine Urobilinogen 2.0 mg/dL (<2.0) 07/30/18 02:51 Ur Leukocyte Esterase Neg (Negative) 07/30/18 02:51 Urine WBC (Auto) 1.0 /HPF (0.0-6.0) 07/30/18 02:51 Urine RBC (Auto) 1.0 /HPF (0.0-6.0) 07/30/18 02:51 Urine Mucus Few /HPF 07/30/18 02:51
[2018-08-06] MEDS: SODIUM CHLORIDE FLUSH SYRINGE 10 ML IV SCH ×2 (09:09→22:00)
--- NOTE | 2018-08-06 16:33 | Progress Note ---
Subjective - Reason for Consult Consult date: 08/06/18 Reason for consult: Initial Psychiatric Evaluation - Chief Complaint Chief complaint: "I'm doing fine" Patient is a 58-year-old female that presents back to [facility] after falling at [facility]. This patient is known to me. She has been admitted for hypernatremia. Today the patient is calm and cooperative during the assessment. She appears less disorganized with loose associations. Patient mood continues to be labile. She continues to not answers questions logically. She denies SI/HI's, A/VH's, and delusions. Per staff patient has been seen laughing and talking to self. Sleep is poor with fair appetite. Patient is seen ambulating around room. Patient is medication compliant. No side effects noted/ reported. Mental Status Exam - Vital signs Last Vital Signs Temp 97.8 F 08/06/18 11:42 Pulse 75 08/06/18 11:42 Resp 18 08/06/18 11:42 BP 113/67 08/06/18 11:42 Pulse Ox 98 08/06/18 11:42 - Exam Narrative exam: Mental Status Exam General Appearance: Causally Dressed-hospital gown Eye Contact: Intermittent Orientation: Alert and oriented x 2 (person and place) Attitude/Behavior: Cooperative Sensorium: Distracted Psychomotor & Musculoskeletal Activity: Ambulating Mood: "I'm doing fine" Affect: Labile Speech/Language: Rapid Thought Processes: Disorganized-less Thought Content: Impoverished Perception: + Auditory hallucinations. Patient can be seen RIS ( laughing/ talking to self) Concentration/Attention: Impaired Suicidal Ideations/Plan: Patient denies. Homicidal Ideations/Plan: Patient denies. Judgment: Variable Insight: Poor Assessment and Plan Impression: Hx of Schizophrenia per the record. NA 137. Today the patient is calm, but still disorganized (less) during the assessment. Mood continues to be labile. No agitation noted. Recommendation/Plan: 1. Continue 1013 with placement to inpatient psychiatric services. 2. Continue home medication Zyprexa 20 mg PO HS and Klonopin 0.5 mg PO BID. Also , continue Haldol 2 mg IM Q6hrs PRN for acute agitation. 3. Will continue to monitor psychosis, sleep, appetite, compliance, and side effects.
--- NOTE | 2018-08-07 07:07 | Progress Note ---
Assessment and Plan Assessment and plan: Pt is a 58 year old female with PMHx of Schizophrenia, bipolar disorder, h/o falls, and spychosis disorder who presents to the ER for evaluation following a fall. Pt presented from a psychiatric unit, she is alert but unable to provide medical history. The history was obtained from the ER note and pt's nurse. Pt was evaluated in the ER after falling from the facility, a CT scan of the brain was negative, her laboratory shows and elevated sodium level, she was admitted to the hospital for monitoring. On admission Pt is not following commends nor answer to questions, physical exam was WNL except her neuro exam shows decrease attention, somnolence and pinpoint pupil, she is not verbalizing pain or discomfort. S/p fall (no acute injury) - CT scan on the head reviewed, no acute findings - Continue neuro check qshit - Patient is on 1013 Hypernatremia - Resolved Schizophrenia - continue home meds - monitor for behavior changes Bipolar disorder - Continue home meds Chronic encephalopathy - monitor neuro status - Continue home meds - DVT prophylasis - Supportive care C5-C6 SPONDLYITIS RIGHT THYROID LOBE NODULE - TSh is normal DVT/GI prophy Pending inpatient psych placement, patient is medically cleared for discharge. Continue 1013. History Interval history: Patient was calm, but disorganized and laughing inappropriately. Hospitalist Physical - Physical exam Narrative exam: Not in cardiopulmonary distress. The patient appeared well nourished and normally developed. Vital signs as documented. Head exam is unremarkable. No scleral icterus . Neck is without jugular venous distension, thyromegaly, or carotid bruits. Lungs are clear to auscultation. Cardiac exam reveals regular rate and Rhythm. Abdominal exam reveals normal bowel sounds, no masses, no organomegaly and no aortic enlargement. Extremities are nonedematous and both femoral and pedal pulses are normal. [employer]N HOME HEALTH: Alert. - Constitutional Vitals: Temp Pulse Resp BP Pulse Ox 97.6 F 97 H 18 108/70 97 08/07/18 06:09 08/07/18 06:09 08/07/18 06:09 08/07/18 06:09 08/07/18 06:09 General appearance: Present: well-nourished Results - Labs CBC & Chem 7: 07/31/18 06:39 08/02/18 05:31 Labs: Laboratory Last Values WBC 9.8 K/mm3 (4.5-11.0) 07/31/18 06:39 RBC 3.50 M/mm3 (3.65-5.03) L 07/31/18 06:39 Hgb 10.7 gm/dl (10.1-14.3) 07/31/18 06:39 Hct 32.9 % (30.3-42.9) 07/31/18 06:39 MCV 94 fl (79-97) 07/31/18 06:39 MCH 31 pg (28-32) 07/31/18 06:39 MCHC 33 % (30-34) 07/31/18 06:39 RDW 15.0 % (13.2-15.2) 07/31/18 06:39 Plt Count 205 K/mm3 (140-440) 07/31/18 06:39 Lymph % (Auto) 8.7 % (13.4-35.0) L 07/31/18 06:39 [place] % (Auto) 6.3 % (0.0-7.3) 07/31/18 06:39 Eos % (Auto) 3.1 % (0.0-4.3) 07/31/18 06:39 Baso % (Auto) 0.4 % (0.0-1.8) 07/31/18 06:39 Lymph # 0.9 K/mm3 (1.2-5.4) L 07/31/18 06:39 [place] # 0.6 K/mm3 (0.0-0.8) 07/31/18 06:39 Eos # 0.3 K/mm3 (0.0-0.4) 07/31/18 06:39 Baso # 0.0 K/mm3 (0.0-0.1) 07/31/18 06:39 Seg Neutrophils % 81.5 % (40.0-70.0) H 07/31/18 06:39 Seg Neutrophils # 8.0 K/mm3 (1.8-7.7) H 07/31/18 06:39 Sodium 137 mmol/L (137-145) D 08/02/18 05:31 Potassium 3.8 mmol/L (3.6-5.0) 08/02/18 05:31 Chloride 103.4 mmol/L (98-107) 08/02/18 05:31 Carbon Dioxide 22 mmol/L (22-30) 08/02/18 05:31 Anion Gap 15 mmol/L 08/02/18 05:31 BUN 9 mg/dL (7-17) 08/02/18 05:31 Creatinine 0.8 mg/dL (0.7-1.2) 08/02/18 05:31 Estimated GFR > 60 ml/min 08/02/18 05:31 BUN/Creatinine Ratio 11 % 08/02/18 05:31 Glucose 129 mg/dL (65-100) H 08/02/18 05:31 Calcium 8.8 mg/dL (8.4-10.2) 08/02/18 05:31 Total Bilirubin 0.30 mg/dL (0.1-1.2) 07/30/18 02:05 AST 26 units/L (5-40) 07/30/18 02:05 ALT 35 units/L (7-56) 07/30/18 02:05 Alkaline Phosphatase 96 units/L (35-129) 07/30/18 02:05 Troponin T 0.017 ng/mL (0.00-0.029) 07/30/18 02:05 NT-Pro-B Natriuret Pep 78.01 pg/mL (0-900) 07/30/18 02:05 Total Protein 5.2 g/dL (6.3-8.2) L 07/30/18 02:05 Albumin 3.0 g/dL (3.9-5) L 07/30/18 02:05 Albumin/Globulin Ratio 1.4 % 07/30/18 02:05 TSH 2.320 mlU/mL (0.270-4.200) 08/02/18 13:55 Urine Color Yellow (Yellow) 07/30/18 02:51 Urine Turbidity Clear (Clear) 07/30/18 02:51 Urine pH 7.0 (5.0-7.0) 07/30/18 02:51 Ur Specific [place] 1.013 (1.003-1.030) 07/30/18 02:51 Urine Protein <15 mg/dl mg/dL (Negative) 07/30/18 02:51 Urine Glucose (UA) Neg mg/dL (Negative) 07/30/18 02:51 Urine Ketones Neg mg/dL (Negative) 07/30/18 02:51 Urine Blood Neg (Negative) 07/30/18 02:51 Urine Nitrite Neg (Negative) 07/30/18 02:51 Urine Bilirubin Neg (Negative) 07/30/18 02:51 Urine Urobilinogen 2.0 mg/dL (<2.0) 07/30/18 02:51 Ur Leukocyte Esterase Neg (Negative) 07/30/18 02:51 Urine WBC (Auto) 1.0 /HPF (0.0-6.0) 07/30/18 02:51 Urine RBC (Auto) 1.0 /HPF (0.0-6.0) 07/30/18 02:51 Urine Mucus Few /HPF 07/30/18 02:51
[2018-08-07] MEDS: SODIUM CHLORIDE FLUSH SYRINGE 10 ML IV SCH ×2 (09:22→22:14)
[2018-08-07] MEDS: TYLENOL PO PRN (14:44)
--- NOTE | 2018-08-07 23:49 | Progress Note ---
Subjective - Reason for Consult Consult date: 08/07/18 Reason for consult: Psychiatric Follow-up Evaluation - Chief Complaint Chief complaint: "Better" Patient is a 58-year-old female that presents back to [facility] after falling at [facility]. This patient is known to me. She has been admitted for hypernatremia. Today the patient is calm and cooperative during the assessment. Although patient is disorganized her symptoms are much improved. She has to be redirected to stay on topic. Patient mood continues to be labile. She continues to not answers questions logically. She denies SI/HI's, A /VH's, and delusions. Per staff patient has been seen laughing and talking to self. Sleep and appetite is appropriate. Patient is medication compliant. No side effects noted/reported. Mental Status Exam - Vital signs Last Vital Signs Temp 97.6 F 08/07/18 18:01 Pulse 99 H 08/07/18 18:01 Resp 20 08/07/18 18:01 BP 110/70 08/07/18 18:01 Pulse Ox 99 08/07/18 18:01 - Exam Narrative exam: Mental Status Exam General Appearance: Causally Dressed-hospital gown Eye Contact: Intermittent Orientation: Alert and oriented x 2 (person and place) Attitude/Behavior: Cooperative Sensorium: Distracted Psychomotor & Musculoskeletal Activity: Ambulating Mood: "I'm doing fine" Affect: Labile Speech/Language: Rapid Thought Processes: Disorganized-less Thought Content: Impoverished Perception: + Auditory hallucinations. Patient can be seen RIS ( laughing/ talking to self) Concentration/Attention: Impaired Suicidal Ideations/Plan: Patient denies. Homicidal Ideations/Plan: Patient denies. Judgment: Variable Insight: Poor Assessment and Plan Impression: Hx of Schizophrenia per the record. NA 137. Today the patient is calm, but still disorganized (less) during the assessment. Mood continues to be labile. No agitation noted. Recommendation/Plan: 1. Continue 1013 with placement to inpatient psychiatric services. 2. Continue home medication Zyprexa 20 mg PO HS and Klonopin 0.5 mg PO BID. Also , continue Haldol 2 mg IM Q6hrs PRN for acute agitation. 3. Will continue to monitor psychosis, sleep, appetite, compliance, and side effects.
--- NOTE | 2018-08-08 08:46 | Cat Scan Report ---
FINAL REPORT EXAM: CT ANGIO CHEST HISTORY: fever, tachycardia TECHNIQUE: CT imaging obtained through the chest in pulmonary angiographic phase following intravenous administration of contrast. Transaxial, Coronal and sagittal reformats with maximal intensity projections are provided. PRIORS: None. FINDINGS: Normal caliber main pulmonary artery. Well opacified pulmonary arterial tree. No pulmonary embolism. No pericardial effusion. There is a 2 centimeter nodule within or immediately adjacent to the right thyroid. Thoracic aorta is normal in course and caliber. No periaortic fluid or stranding. No pneumothorax, effusion or focal airspace disease. The central airways are patent. No bronchiectasis. Imaged portion of the upper abdomen is remarkable for mild splenomegaly. The superficial soft tissues are unremarkable. No acute bony abnormality or worrisome osseous lesions identified. IMPRESSION: No pulmonary embolism or other acute thoracic finding. Splenomegaly is most likely infectious or inflammatory in etiology. Nodule measuring up to 2 centimeters is either wall within or immediately adjacent to the right lobe of the thyroid.
--- NOTE | 2018-08-08 10:45 | Progress Note ---
Subjective - Reason for Consult Consult date: 08/08/18 Reason for consult: Psychiatry Follow-up - Chief Complaint Chief complaint: "Hello there" Patient is a 58-year-old female that presents back to [facility] after falling at [facility]. This patient is known to me. She has been admitted for hypernatremia. Today the patient is calm and cooperative during the assessment. The patient is more organized. She able to answers most questions logically. She stated that she spoke with her daughter Michelle. Per the notes, no behavioral disturbances overnight. She denies SI/HI's and AVH's. She denies anyt side effects of her medications. Mental Status Exam - Vital signs Last Vital Signs Temp 98.1 F 08/08/18 00:00 Pulse 88 08/08/18 00:00 Resp 24 08/08/18 00:00 BP 95/66 08/08/18 00:00 Pulse Ox 98 08/08/18 00:00 - Exam Narrative exam: MSE: Appearance: calm, cooperative Behavior: regular eye contact Speech: regular rate and tone Mood: "okay" Affect: congruent to mood Thought Process: circumstantial Thought Content: denies SI/HI's and AVH's Motor Activity: ambulatory Cognition: A/O x 3 Insight: variable Judgment: variable Assessment and Plan Impression: Hx of Schizophrenia per the record. NA 137. Today the patient is calm and cooperative during the assessment. Recommendation/Plan: Reevaluate the 1013 in 24 hours to determine proper dispo. Continue home medication Zyprexa 20 mg PO HS and Klonopin 0.5 mg PO BID. Also, continue Haldol 2 mg IM Q6hrs PRN for acute agitation.
--- NOTE | 2018-08-08 11:58 | Progress Note ---
Assessment and Plan Assessment and plan: Pt is a 58 year old female with PMHx of Schizophrenia, bipolar disorder, h/o falls, and spychosis disorder who presents to the ER for evaluation following a fall. Pt presented from a psychiatric unit, she is alert but unable to provide medical history. The history was obtained from the ER note and pt's nurse. Pt was evaluated in the ER after falling from the facility, a CT scan of the brain was negative, her laboratory shows and elevated sodium level, she was admitted to the hospital for monitoring. On admission Pt is not following commends nor answer to questions, physical exam was WNL except her neuro exam shows decrease attention, somnolence and pinpoint pupil, she is not verbalizing pain or discomfort. S/p fall (no acute injury) - CT scan on the head reviewed, no acute findings - Continue neuro check qshit - Patient is on 1013 Hypernatremia - Resolved Schizophrenia - continue home meds - monitor for behavior changes Bipolar disorder - Continue home meds Chronic encephalopathy - monitor neuro status - Continue home meds - DVT prophylasis - Supportive care C5-C6 SPONDLYITIS RIGHT THYROID LOBE NODULE - TSh is normal DVT/GI prophy Pending inpatient psych placement, patient is medically cleared for discharge. Continue 1013. History Interval history: Patient was calm, but disorganized and laughing inappropriately. Hospitalist Physical - Physical exam Narrative exam: Not in cardiopulmonary distress. The patient appeared well nourished and normally developed. Vital signs as documented. Head exam is unremarkable. No scleral icterus . Neck is without jugular venous distension, thyromegaly, or carotid bruits. Lungs are clear to auscultation. Cardiac exam reveals regular rate and Rhythm. Abdominal exam reveals normal bowel sounds, no masses, no organomegaly and no aortic enlargement. Extremities are nonedematous and both femoral and pedal pulses are normal. SEPTIC TANK SERVICER: Alert. - Constitutional Vitals: Temp Pulse Resp BP Pulse Ox 98.1 F 88 24 95/66 98 08/08/18 00:00 08/08/18 00:00 08/08/18 00:00 08/08/18 00:00 08/08/18 00:00 General appearance: Present: well-nourished Results - Labs CBC & Chem 7: 07/31/18 06:39 08/02/18 05:31 Labs: Laboratory Last Values WBC 9.8 K/mm3 (4.5-11.0) 07/31/18 06:39 RBC 3.50 M/mm3 (3.65-5.03) L 07/31/18 06:39 Hgb 10.7 gm/dl (10.1-14.3) 07/31/18 06:39 Hct 32.9 % (30.3-42.9) 07/31/18 06:39 MCV 94 fl (79-97) 07/31/18 06:39 MCH 31 pg (28-32) 07/31/18 06:39 MCHC 33 % (30-34) 07/31/18 06:39 RDW 15.0 % (13.2-15.2) 07/31/18 06:39 Plt Count 205 K/mm3 (140-440) 07/31/18 06:39 Lymph % (Auto) 8.7 % (13.4-35.0) L 07/31/18 06:39 [place] % (Auto) 6.3 % (0.0-7.3) 07/31/18 06:39 Eos % (Auto) 3.1 % (0.0-4.3) 07/31/18 06:39 Baso % (Auto) 0.4 % (0.0-1.8) 07/31/18 06:39 Lymph # 0.9 K/mm3 (1.2-5.4) L 07/31/18 06:39 [place] # 0.6 K/mm3 (0.0-0.8) 07/31/18 06:39 Eos # 0.3 K/mm3 (0.0-0.4) 07/31/18 06:39 Baso # 0.0 K/mm3 (0.0-0.1) 07/31/18 06:39 Seg Neutrophils % 81.5 % (40.0-70.0) H 07/31/18 06:39 Seg Neutrophils # 8.0 K/mm3 (1.8-7.7) H 07/31/18 06:39 Sodium 137 mmol/L (137-145) D 08/02/18 05:31 Potassium 3.8 mmol/L (3.6-5.0) 08/02/18 05:31 Chloride 103.4 mmol/L (98-107) 08/02/18 05:31 Carbon Dioxide 22 mmol/L (22-30) 08/02/18 05:31 Anion Gap 15 mmol/L 08/02/18 05:31 BUN 9 mg/dL (7-17) 08/02/18 05:31 Creatinine 0.8 mg/dL (0.7-1.2) 08/02/18 05:31 Estimated GFR > 60 ml/min 08/02/18 05:31 BUN/Creatinine Ratio 11 % 08/02/18 05:31 Glucose 129 mg/dL (65-100) H 08/02/18 05:31 Calcium 8.8 mg/dL (8.4-10.2) 08/02/18 05:31 Total Bilirubin 0.30 mg/dL (0.1-1.2) 07/30/18 02:05 AST 26 units/L (5-40) 07/30/18 02:05 ALT 35 units/L (7-56) 07/30/18 02:05 Alkaline Phosphatase 96 units/L (35-129) 07/30/18 02:05 Troponin T 0.017 ng/mL (0.00-0.029) 07/30/18 02:05 NT-Pro-B Natriuret Pep 78.01 pg/mL (0-900) 07/30/18 02:05 Total Protein 5.2 g/dL (6.3-8.2) L 07/30/18 02:05 Albumin 3.0 g/dL (3.9-5) L 07/30/18 02:05 Albumin/Globulin Ratio 1.4 % 07/30/18 02:05 TSH 2.320 mlU/mL (0.270-4.200) 08/02/18 13:55 Urine Color Yellow (Yellow) 07/30/18 02:51 Urine Turbidity Clear (Clear) 07/30/18 02:51 Urine pH 7.0 (5.0-7.0) 07/30/18 02:51 Ur Specific [place] 1.013 (1.003-1.030) 07/30/18 02:51 Urine Protein <15 mg/dl mg/dL (Negative) 07/30/18 02:51 Urine Glucose (UA) Neg mg/dL (Negative) 07/30/18 02:51 Urine Ketones Neg mg/dL (Negative) 07/30/18 02:51 Urine Blood Neg (Negative) 07/30/18 02:51 Urine Nitrite Neg (Negative) 07/30/18 02:51 Urine Bilirubin Neg (Negative) 07/30/18 02:51 Urine Urobilinogen 2.0 mg/dL (<2.0) 07/30/18 02:51 Ur Leukocyte Esterase Neg (Negative) 07/30/18 02:51 Urine WBC (Auto) 1.0 /HPF (0.0-6.0) 07/30/18 02:51 Urine RBC (Auto) 1.0 /HPF (0.0-6.0) 07/30/18 02:51 Urine Mucus Few /HPF 07/30/18 02:51
[2018-08-08 12:21] LABS: Amphetamine Screen,Urine PRESUMPTIVE NEGATIVE; Benzodiazepines Screen,Urine PRESUMPTIVE NEGATIVE; Cannabinoid Screen,Urine PRESUMPTIVE NEGATIVE; Cocaine Screen,Urine PRESUMPTIVE NEGATIVE; Methadone Screen,Urine PRESUMPTIVE NEGATIVE; Opiate Screen,Urine PRESUMPTIVE NEGATIVE
[2018-08-08] MEDS: SODIUM CHLORIDE FLUSH SYRINGE 10 ML IV SCH ×2 (13:41→22:49)
[2018-08-08] MEDS: TYLENOL PO PRN (22:49)
[2018-08-08] MEDS: HALDOL IM PRN (22:50)
--- NOTE | 2018-08-09 12:54 | Progress Note ---
Subjective - Reason for Consult Consult date: 08/09/18 Reason for consult: Psychiatry Follow-up - Chief Complaint Chief complaint: "Hello there" Patient is a 58-year-old female that presents back to [facility] after falling at [facility]. This patient is known to me. She has been admitted for hypernatremia. Today the patient is calm and cooperative during the assessment. The patient is more organized. She is able to answers most questions logically. She stated that she spoke with her daughter Michelle. Per the notes, no behavioral disturbances overnight. She denies SI/HI's and AVH's. She denies any side effects of her medications. Mental Status Exam - Vital signs Last Vital Signs Temp 98.1 F 08/09/18 11:38 Pulse 81 08/09/18 11:38 Resp 16 08/09/18 11:38 BP 102/68 08/09/18 11:38 Pulse Ox 100 08/09/18 11:38 - Exam Narrative exam: MSE: Appearance: calm, cooperative Behavior: regular eye contact Speech: regular rate and tone Mood: "okay" Affect: congruent to mood Thought Process: more organized Thought Content: denies SI/HI's and AVH's Motor Activity: ambulatory Cognition: A/O x 3 Insight: fair Judgment: fair Assessment and Plan Impression: Hx of Schizophrenia per the record. Today the patient is calm and cooperative during the assessment. The patient's psychosis has resolved. The patient is at her baseline. Recommendation/Plan: The patient's 1013 will not be extended, it expires today. Continue home medication Zyprexa 20 mg PO HS and Klonopin 0.5 mg PO BID. The patient can follow up with [facility] for outpatient psy services.
--- NOTE | 2018-08-09 14:25 | Discharge Summary ---
Providers - Providers Date of Admission: 07/30/18 04:00 Attending physician: MELBA RIVERA MD 07/30/18 Consult to Case Management [CONS] Routine Services Needed at Discharge: Fieldwork Coordinator Notified:: yes 07/30/18 08:00 Consult to Mental Health [CONS] Routine Reason For Exam: psychosis Place consult to:: mental health Notified:: Phone number called:: [phone] Was contact made?: Yes If yes, spoke with:: anthony Time called:: 10:49 07/30/18 10:11 Occupational Therapy Evaluate and Treat [CONS] Routine Comment: Reason For Exam: ataxia. recurrent falls Physical Therapy Evaluation and Treat [CONS] Routine Comment: Reason For Exam: ATAXIA. Recurrent falls Primary care physician: FRYER LINE HELPER Hospitalization Reason for admission: PYSCHOSIS Condition: Stable Hospital course: Pt is a 58 year old female with PMHx of Schizophrenia, bipolar disorder, h/o falls, and spychosis disorder who presents to the ER for evaluation following a fall. Pt presented from a psychiatric unit, she is alert but unable to provide medical history. The history was obtained from the ER note and pt's nurse. Pt was evaluated in the ER after falling from the facility, a CT scan of the brain was negative, her laboratory shows and elevated sodium level, she was admitted to the hospital for monitoring. On admission Pt is not following commends nor answer to questions, physical exam was WNL except her neuro exam shows decrease attention, somnolence and pinpoint pupil, she is not verbalizing pain or discomfort. S/p fall (no acute injury) - CT scan on the head reviewed, no acute findings Hypernatremia - Resolved Schizophrenia - continue home meds - monitor for behavior changes - - Patient is on 1013 but has now and was not renewed. the recommendations per Psych is The patient's 1013 will not be extended, it expires today. Continue home medication Zyprexa 20 mg PO HS and Klonopin 0.5 mg PO BID. The patient can follow up with [facility] for outpatient psy services. Bipolar disorder - Continue home meds Chronic encephalopathy - monitor neuro status - Continue home meds C5-C6 SPONDLYITIS- outpatient monitor by PCP. PATIENT AMBULATRY WITH NO LOSS OF SENSATION RIGHT THYROID LOBE NODULE - TSh is normal - advised patient to follow with PCP may need further work up Disposition: DC-01 TO HOME OR SELFCARE Time spent for discharge: 35 MINS Core Measure Documentation - Palliative Care Palliative Care/ Comfort Measures: Not Applicable - Core Measures Any of the following diagnoses?: none - VTE Discharge Requirements Deep Vein Thrombosis/Pulmonary Embolism Present on Admission: No Exam - Physical Exam Narrative exam: VITAL SIGNS: Reviewed. GENERAL: The patient appeared well nourished and normally developed. Vital signs as documented. HEAD: No signs of head trauma. EYES: Pupils are equal. Extraocular motions intact. EARS: Hearing grossly intact. MOUTH: Oropharynx is normal. NECK: No adenopathy, no JVD. CHEST: Chest with clear breath sounds bilaterally. No wheezes, rales, or rhonchi. CARDIAC: Regular rate and rhythm. S1 and S2, without murmurs, gallops, or rubs. VASCULAR: No Edema. Peripheral pulses normal and equal in all extremities. ABDOMEN: Soft, without detectable tenderness. No sign of distention. No rebound or guarding, and no masses palpated. Bowel Sounds normal. MUSCULOSKELETAL: Good range of motion of all major joints. Extremities without clubbing, cyanosis or edema. NEUROLOGIC EXAM: Alert and oriented x 3 as well as a more review. No focal sensory or strength deficits. Speech normal. Follows commands. PSYCHIATRIC: Normal. SKIN: No rash or lesions. - Constitutional Vitals: Temp Pulse Resp BP Pulse Ox 98.1 F 81 16 102/68 100 08/09/18 11:38 08/09/18 11:38 08/09/18 11:38 08/09/18 11:38 08/09/18 11:38 Plan Activity: advance as tolerated, fall precautions Diet: low carbohydrate Special Instructions: record daily BP diary Additional Instructions: The patient can follow up with [facility] for outpatient psy services. Follow up with: [facility] [Outside] - 3-5 Days RANCHO WILSON MD [Staff Physician] - 7 Days PRIMARY MD DIMITRIOS [Primary Care Provider] - 3-5 Days Prescriptions: clonazePAM [KlonoPIN] 0.5 mg PO BID #60 tablet OLANzapine [Zyprexa] 20 mg PO HS #30 tablet
[2018-08-09 19:50] VITALS: BP 116/65
== END 2018-08-09 20:15 | disposition home or self-care (01) | DRG 641 ==
LOC: ED 18:38 → 3A 07-30 04:00
PROVIDERS: ADMIT Internal Medicine; ATTEND Internal Medicine
DX: E87.0 Hyperosmolality and hypernatremia (principal); G93.40 Encephalopathy, unspecified; S09.90XA Unspecified injury of head, initial encounter; F20.9 Schizophrenia, unspecified; F31.9 Bipolar disorder, unspecified; S09.8XXA Other specified injuries of head, initial encounter; E04.1 Nontoxic single thyroid nodule; M46.82 Other specified inflammatory spondylopathies, cervical region; W18.39XA Other fall on same level, initial encounter; Y92.238 Other place in hospital as the place of occurrence of the external cause; Y99.8 Other external cause status; Y93.89 Activity, other specified
CPT/HCPCS: 36415; 70450; 71275; 72125; 80048; 80053; 80307; 81001; 83880; 84295; 84443; 84484; 85025; 87116; 93005; 93010; 96361; 96372; 96374; J1630; J2060; J7030; J7070; Q9967